=== PATIENT | female | born 1960 | race Caucasian/White ===

== ENCOUNTER 2023-08-25 10:11 | Day surgery (SDC) | payer OTHER ==
[2023-08-24 08:47] VITALS: BMI 21.2
[~2023-08-25 10:11] MED LIST: LACTATED RINGERS 1,000 ML IV SCH
[2023-08-25] MEDS ORDERED: LACTATED RINGERS 1,000 ML IV ONE (10:55)
[2023-08-25] MEDS ORDERED: fentaNYL (PF) 50 MCG/ML 2 ML AMP ONE (11:08)
[2023-08-25] MEDS ORDERED: MIDAZOLAM 2 MG/2 ML VIAL ONE (11:08)
[2023-08-25] MEDS ORDERED: LIDOCAINE 1% INJ 10MG/ML (20 ML MDV) ONE (11:08)
[2023-08-25] MEDS ORDERED: PROPOFOL 10 MG/ML 20 ML VIAL IV ONE (11:08)
[2023-08-25] MEDS ORDERED: SUCCINYLCHOLINE CHLORIDE 200 MG/10 ML VIAL IV ONE (11:08)
--- NOTE | 2023-08-25 12:13 | FL ---
Intraoperative/procedural fluoroscopic services were provided for bronchoscopy with biopsy. Total flu oroscopy time is 4.6 seconds with a total of 1 submitted image to PACS. Total DAP 0.1532 Gycm2. Plea se see the operative note for further details.
[2023-08-25 12:35] VITALS: TEMP 98
[2023-08-25] MEDS ORDERED: ALBUTEROL NEBULIZED 2.5 MG/3 ML INHALATION ONE (12:35)
[2023-08-25] MEDS ORDERED: ACETAMINOPHEN TAB 325 MG TAB PO ONE (12:57)
[2023-08-25] MEDS ORDERED: ACETAMINOPHEN TAB 325 MG TAB ONE (13:03)
[2023-08-25 13:17] VITALS: PULSE 100; RESP 16
[2023-08-25 13:39] VITALS: BP 158/67
--- NOTE | 2023-08-25 14:15 | P.PCN ---
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 The patient was intubated and placed on a mechanical ventilator. After achieving adequate sedation, adequate oxygenation and ventilation was established and an adapter was attached to the orotracheal tube and the procedure was initiated. The flexible bronchoscope was introduced into the lower trachea and the tip of the orotracheal tube was around 3 cm above the kevin. Examination of the distal trachea was within normal limits. Exam of the right side included the right mainstem bronchus, right upper lobe bronchus, bronchus intermedius, right lower lobe and the right middle lobe bronchus and all of these airways were patent. The various 10 segments of the right side were also within normal limits. The bronchoscope was then removed to the left. The left mainstem bronchus was within normal limits. The kevin the left upper and left lower lobe bronchus was involved with endobronchial tumor and the surface was quite friable. There was obvious effacement anatomic distortion of the secondary kevin causing significant narrowing of the left lower lobe bronchus and utilizing a small bronchoscope, I visualized few segments of the left lower lobe bronchus. The lateral segment was obviously significantly narrowed. Left upper lobe bronchus was also narrowed. Patent. The caliber of the left upper lobe bronchus was reduced by 20-30%. The lingular segment of the left upper lobe apical posterior and anterior segments were patent Utilizing the flexible bronchoscope, and the bronchial biopsies of the left hilar mass at the level of the thickened the kevin was obtained. Multiple biopsies were taken. The tumor had some mucosal bleeding and called saline was applied and hemostasis was achieved. Following that, endobronchial brushings and bronchial lavage of the left hilar mass was done. Subsequently, the endobronchial ultrasound was introduced. Under direct ultrasonic visualization, transbronchial needle aspirate of the left hilar mass was done using a 22-gauge needle. Multiple biopsies were obtained. Following that, a 1.57 subcarinal station 7 lymph node was identified. Transbronchial needle aspirate of the subcarinal lymph node was also done and a total of 5 passes were obtained. The flexible bronchoscope was reintroduced and there will was cleared from any respiratory secretions. The procedure was terminated. The bronchoscope was removed and the patient was transferred to recovery in stable condition. No complications.
== END 2023-08-25 13:31 | disposition home or self-care (01) ==
LOC: ORWHC2ENDO 10:11
PROVIDERS: ATTEND Internal Medicine Critical Care Medicine
DX: C34.92 Malignant neoplasm of unspecified part of left bronchus or lung (principal); K21.9 Gastro-esophageal reflux disease without esophagitis; J44.9 Chronic obstructive pulmonary disease, unspecified; E78.5 Hyperlipidemia, unspecified; I10 Essential (primary) hypertension; Z87.891 Personal history of nicotine dependence; Z79.51 Long term (current) use of inhaled steroids; Z79.899 Other long term (current) drug therapy
CPT/HCPCS: 88104; 88108; 88305; 88342; 88341; 31628; 31623; 31624; 31652; J2250; J0330; J2001; J3010; J2704

== ENCOUNTER → 2023-09-11 | Outpatient (CLI) | payer OTHER ==
--- NOTE | 2023-09-11 21:10 | MR ---
EXAMINATION TYPE: MR brain wo/w con DATE OF EXAM: 09/11/2023 8:58 PM CLINICAL INDICATION:Female, 62 years old with history of C34.90; PHH, Lung cancer COMPARISON: Pet/CT 08/11/2023 TECHNIQUE: Multi planar, multi sequence imaging was performed through the brain including: T1, T2, In version recovery, susceptibility weighted imaging and gradient echo imaging and Diffusion weighted im aging. The patient was then given intravenous contrast and multi planar, T1 fat-saturation images wer e obtained. IV Contrast: 5.5 cc Gadavist FINDINGS: The montez-white junctions, ventricular system, basal cisterns appear unremarkable. Diffusion-weighted imaging shows no evidence of restricted diffusion to suggest acute/subacute infarct. Intracranial ar terial flow voids are maintained. Midline structures show no abnormality. Minimal scattered foci of h igh T2 signal intensity are seen within the periventricular white matter. The susceptibility weighted images do not reveal any evidence for micro-hemorrhage. After administration of gadolinium, no abnor mal enhancement is seen. The bone marrow signal is within normal limits. Paranasal sinuses and mastoid air cells: No significant paranasal sinus disease. Visualized orbits: Orbital contents are intact. IMPRESSION: 1. No evidence of intracranial mass, acute/subacute infarct, or abnormal enhancement. 2. Minimal nonspecific white matter changes, likely related to small vessel ischemic disease.
== END | disposition home or self-care (01) ==
LOC: RADMRIMAIN 19:28
PROVIDERS: ATTEND Internal Medicine Hematology & Oncology
DX: C34.90 Malignant neoplasm of unspecified part of unspecified bronchus or lung (principal); G93.89 Other specified disorders of brain
CPT/HCPCS: 70553; A9585

== ENCOUNTER 2024-04-25 14:23 | Inpatient (IN) | payer OTHER ==
[2024-04-25 15:20] LABS: Basophils % (A) 1 %; Eosinophils # (A) 0.2 k/uL (0-0.7); Eosinophils % (A) 2 %; HGB 14.6 gm/dL (11.4-16.0); Lymphocytes % (A) 13 %; MCH 31.1 pg (25.0-35.0); MCHC 31.8 g/dL (31.0-37.0); MCV 97.7 fL (80.0-100.0); Mean Platelet Volume 6.5; Monocytes # (A) 0.3 k/uL (0-1.0); Monocytes % (A) 4 %; Neutrophils # (A) 6.1 k/uL (1.3-7.7); Neutrophils % (A) 80 %; Platelet Count 320 k/uL (150-450); RBC 4.71 m/uL (3.80-5.40); RDW 15.9 % (11.5-15.5); WBC 7.6 k/uL (3.8-10.6)
[2024-04-25 15:32] LABS: ALT 43 U/L (4-34); AST 27 U/L (14-36); African American GFR (CKD) >90 (>60 ml/min/1.73 sqM); Albumin 4.2 g/dL (3.5-5.0); Alkaline Phosphatase 50 U/L (38-126); Amylase 50 U/L (30-110); Anion Gap 7 mmol/L; Blood Urea Nitrogen 5 mg/dL (7-17); Calcium 8.5 mg/dL (8.4-10.2); Carbon Dioxide 25 mmol/L (22-30); Chloride 102 mmol/L (98-107); Glucose 87 mg/dL (74-99); Lipase 39 U/L (23-300); Non-African American GFR(CKD) >90 (>60 ml/min/1.73 sqM); Sodium 134 mmol/L (137-145); Total Bilirubin 0.6 mg/dL (0.2-1.3); Total Protein 6.6 g/dL (6.3-8.2)
[2024-04-25 15:34] LABS: Potassium 4.1 mmol/L (3.5-5.1)
--- NOTE | 2024-04-25 15:49 | ED ---
Abdominal Pain HPI - General Chief Complaint: Abdominal Pain Stated Complaint: SOB, abd pain Time Seen by Provider: 04/25/24 15:23 Source: patient, RN notes reviewed Mode of arrival: ambulatory Limitations: no limitations - History of Present Illness Initial Comments: This is a 63-year-old female who presents to the emergency department for abdominal pain. States that for over a month now she has had severe pain in the upper abdominal region with radiation into the back. Reports associated nausea as well. States that she feels two "hard balls" or "knots" in her upper abdomen, especially when she stands up. She was at [facility] 1.5 weeks ago and had an ultrasound and CAT scan that she states was normal. She followed up with Dr. Liao, GI, yesterday and was told that she was likely constipated. States that she tried multiple medications at this point and does not believe that she is constipated. She is concerned about something else going on that has not yet been diagnosed. MD Complaint: abdominal pain - Related Data Home Medications Medication Instructions Recorded Confirmed ALPRAZolam [Xanax] 0.25 mg PO DAILY PRN 04/25/24 04/25/24 ALPRAZolam [Xanax] 0.25 mg PO HS 04/25/24 04/25/24 Atorvastatin [Lipitor] 20 mg PO HS 04/25/24 04/25/24 Buprenorphine [Butrans 15 MCG/HR] 1 patch TRANSDERM TH 04/25/24 04/25/24 Dicyclomine [Bentyl] 20 mg PO TID PRN 04/25/24 04/25/24 Diltiazem Cd [Cardizem CD] 240 mg PO HS 04/25/24 04/25/24 Fluticasone/Umeclidin/Vilanter 1 puff INHALATION RT-DAILY 04/25/24 04/25/24 [Trelegy Ellipta 100-62.5-25] Gabapentin 300 mg PO QID 04/25/24 04/25/24 Levothyroxine Sodium [Synthroid] 75 mcg PO DAILY 04/25/24 04/25/24 Nitrofurantoin Monohyd/M-Cryst 100 mg PO Q12HR 04/25/24 04/25/24 [Macrobid] Pantoprazole [Protonix] 40 mg PO BID 04/25/24 04/25/24 Potassium Chloride [Klor-Con M10] 10 meq PO DAILY 04/25/24 04/25/24 QUEtiapine FUMARATE [SEROquel] 200 mg PO HS 04/25/24 04/25/24 Simethicone [Gas-X] 125 mg PO TID PRN 04/25/24 04/25/24 Triamterene/Hydrochlorothiazid 1 tab PO DAILY 04/25/24 04/25/24 [Triamterene-Hctz 75-50 mg Tab] oxyCODONE-APAP 5-325MG [Percocet 1 tab PO QID PRN 04/25/24 04/25/24 5-325 mg] Allergies Allergy/AdvReac Type Severity Reaction Status Date / Time No Known Allergies Allergy Verified 04/25/24 17:53 Review of Systems ROS Statement: Those systems with pertinent positive or pertinent negative responses have been documented in the HPI. ROS Other: All systems not noted in ROS Statement are negative. Past Medical History Past Medical History: Cancer, Hyperlipidemia, Hypertension Additional Past Medical History / Comment(s): Wheezing, edema both lower legs lung cancer History of Any Multi-Drug Resistant Organisms: None Reported Past Surgical History: No Surgical Hx Reported Additional Past Surgical History / Comment(s): Colonoscopy Additional Past Anesthesia/Blood Transfusion Reaction / Comment(s): Sedation only for Colonoscopy. Past Psychological History: No Psychological Hx Reported Smoking Status: Current every day smoker - Past Family History Mother Family Medical History: Cancer General Exam Limitations: no limitations General appearance: alert, in no apparent distress Head exam: Present: atraumatic, normocephalic, normal inspection Respiratory exam: Present: normal lung sounds bilaterally. Absent: respiratory distress, wheezes, rales, rhonchi, stridor Cardiovascular Exam: Present: regular rate, normal rhythm, normal heart sounds. Absent: systolic murmur, diastolic murmur, rubs, gallop, clicks GI/Abdominal exam: Present: soft, tenderness (Epigastric), normal bowel sounds. Absent: distended Neurological exam: Present: alert, oriented X3, CN II-XII intact Psychiatric exam: Present: normal affect, normal mood Skin exam: Present: warm, dry, intact, normal color. Absent: rash Course Vital Signs 04/25/24 04/25/24 04/25/24 14:44 16:00 18:20 Temperature 98.4 F Pulse Rate 83 62 58 L Respiratory 20 18 18 Rate Blood Pressure 159/92 181/93 172/87 O2 Sat by Pulse 96 96 95 Oximetry Medical Decision Making - Medical Decision Making This is a 63 year old female who presents to the emergency department for abdominal pain. Was pt. sent in by a medical professional or institution? @ -No Did you speak to anyone other than the patient for history? @ -No Did you review nursing and triage notes? @ -Yes, and I agree, it is accurate with regards to the patient's symptoms. Were old charts reviewed? @ -No Differential Diagnosis? @ -Differential Abdominal Pain Women: Appendicitis, Cholecystitis, diverticulosis, ischemic bowel, pancreatitis, hepatitis, UTI, gastroenteritis, AAA, incarcerated hernia, bowel obstruction, constipation, inflammatory bowel, hepatitis, peptic ulcer disease, splenic infarction, perforated viscus, vulvitis, ovarian torsion, PID, kidney stone, placenta abruption, this is not meant to be an all-inclusive list EKG interpreted by me (3pts min.)? @ -EKG interpreted by me demonstrating the following: X-rays interpreted by me (1pt min.)? @ -Not obtained CT interpreted by me (1pt min.)? @ -CT scan of the abdomen and pelvis obtained. My interpretation identifies fluid-filled small bowel loops. U/S interpreted by me (1pt. min.)? @ -Not obtained What testing was considered but not performed? (CT, X-rays, U/S, labs)? Why? @ -None What meds were considered but not given? Why? @ -None Did you discuss the management of the patient with other professionals? @ -Yes, Dr. Whittington, who accepts the patient for admission. Did you reconcile home meds? @ -Yes Was smoking cessation discussed for >3mins.? @ -No Was critical care preformed (if so, how long)? @ -No Were there social determinants of health that impacted care today? How? (Homelessness, low income, unemployed, alcoholism, drug addiction, transportation, low edu. Level, literacy, decrease access to med. care, skilled nursing, rehab)? @ -No Was there de-escalation of care discussed even if they declined? (Discuss DNR or withdrawal of care, Hospice)? @ -No What co-morbidities impacted this encounter? (DM, HTN, Smoking, COPD, CAD, Cancer, CVA, Hep., AIDS, mental health diagnosis, sleep apnea, morbid obesity)? @ -HLD, HTN Was patient admitted / discharged? @ -Admitted. Lab work unremarkable. CT scan of the abdomen and pelvis demonstrates numerous fluid-filled small bowel loops throughout the abdomen and pelvis. Some dilated up to 3.2 cm. There is also liquid stool throughout the colon. They advised consideration of a generalized ileus versus enteritis. She also has other multiple incidental findings such as the COPD with moderate to advanced emphysema and potential posttreatment changes. She also has a small pericardial effusion and prominent dependent atelectasis. Suspect that the generalized ileus is what is contributing to the patient's symptoms. She continued to have severe pain despite multiple pain medications in the emergency department. She was subsequently admitted to medicine for further management of intractable abdominal pain related to ileus. Consult placed for general surgery. Undiagnosed new problem with uncertain prognosis? @ -None Drug Therapy requiring intensive monitoring for toxicity (Heparin, Nitro, Insulin, Cardizem)? @ -None Were any procedures done? @ -None Diagnosis/symptom? @ -Intractable abdominal pain, ileus Acute, or Chronic, or Acute on Chronic? @ -Acute Uncomplicated (without systemic symptoms) or Complicated (systemic symptoms)? @ -Uncomplicated Side effects of treatment? @ -None Exacerbation, Progression, or Severe Exacerbation] @ -Not applicable Poses a threat to life or bodily function? @ -Yes, the pain is limiting her ability to function. This case was discussed in detail with the attending ED physician, Dr. Ontiveros. Presentation, findings, and treatment plan discussed in detail as well. - Lab Data Result diagrams: 04/25/24 14:49 04/25/24 14:49 Lab Results 04/25/24 04/25/24 04/25/24 Range/Units 14:49 14:49 14:50 WBC 7.6 (3.8-10.6) k/uL RBC 4.71 (3.80-5.40) m/uL Hgb 14.6 (11.4-16.0) gm/dL Hct 46.0 (34.0-46.0) % MCV 97.7 (80.0-100.0) fL MCH 31.1 (25.0-35.0) pg MCHC 31.8 (31.0-37.0) g/dL RDW 15.9 H (11.5-15.5) % Plt Count 320 (150-450) k/uL MPV 6.5 Neutrophils % 80 % Lymphocytes % 13 % Monocytes % 4 % Eosinophils % 2 % Basophils % 1 % Neutrophils # 6.1 (1.3-7.7) k/uL Lymphocytes # 1.0 (1.0-4.8) k/uL Monocytes # 0.3 (0-1.0) k/uL Eosinophils # 0.2 (0-0.7) k/uL Basophils # 0.0 (0-0.2) k/uL Sodium 134 L (137-145) mmol/L Potassium 4.1 (3.5-5.1) mmol/L Chloride 102 (98-107) mmol/L Carbon Dioxide 25 (22-30) mmol/L Anion Gap 7 mmol/L BUN 5 L (7-17) mg/dL Creatinine 0.63 (0.52-1.04) mg/dL Est GFR (CKD-EPI)AfAm >90 (>60 ml/min/1.73 sqM) Est GFR (CKD-EPI)NonAf >90 (>60 ml/min/1.73 sqM) Glucose 87 (74-99) mg/dL Calcium 8.5 (8.4-10.2) mg/dL Total Bilirubin 0.6 (0.2-1.3) mg/dL AST 27 (14-36) U/L ALT 43 H (4-34) U/L Alkaline Phosphatase 50 (38-126) U/L Troponin I <0.012 (0.000-0.034) ng/mL Total Protein 6.6 (6.3-8.2) g/dL Albumin 4.2 (3.5-5.0) g/dL Amylase 50 (30-110) U/L Lipase 39 (23-300) U/L - Radiology Data Radiology results: report reviewed, image reviewed Disposition Clinical Impression: Intractable abdominal pain, Ileus Disposition: ADMITTED IP TO THIS HOSP
--- NOTE | 2024-04-25 17:05 | CT ---
EXAMINATION TYPE: CT ChestAbdPelvis w con DATE OF EXAM: 04/25/2024 COMPARISON: PET/CT 08/11/2023 HISTORY: 63-year-old female abdominal pain, rib pain. History of lung ca. TECHNIQUE: Contiguous axial scanning of the chest, abdomen, and pelvis performed with IV Contrast, pa tient injected with 100 ml mL of Isovue 300. Delayed images through the kidneys were obtained. Prakash l/sagittal reconstructions performed. CT DLP: 650.7 mGycm Automated exposure control for dose reduction was used. FINDINGS: Chest: Heart is borderline enlarged. 1.1 cm thick pericardial effusion along the left side of the heart. Aorta normal caliber and convex arch vessel branching anatomy and mild atelectatic calcifications. 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 Scattered small mediastinal lymph nodes are redemonstrated. Some mild soft tissue thickening at the left hilum and focal opacity extending from the posterior inf rahilar region to the pleural surface posteriorly. Left lower lobe. A more mass like appearance on . There is internal areas of fluid along with trace left pleural effusion. Moderately advanced emphysema. Prominent dependent atelectasis at the right base. ABDOMEN: No focal liver lesion or biliary ductal dilatation. Portal venous. Gallbladder, adrenal glands, spleen, and pancreas are within normal limits. A couple benign renal cortical cysts measuring up to 2.2 cm on the left and 5 mm on the right. Moderate atherosclerotic calcifications and plaque infrarenal abdominal aorta with borderline fusifor m ectasia up to 2.5 cm. Additional moderate atherosclerotic changes throughout the iliac arteries. Se gmental severe stenoses of the external iliac artery. Numerous fluid-filled small bowel loops throughout the abdomen mild dilatation measuring up to 3.2 cm . No discrete transition point. Liquid stool throughout colon. No pericolonic inflammatory change. No rmal appendix. Pelvis: Bladder urine distended. Numerous pelvic phlebolith. Uterus is anteverted. Ovaries not well delineate d. No abnormal fluid collection in the pelvis or pelvic lymphadenopathy. Bones: Mild superior endplate deformity of T11 is unchanged and chronic. No osseous destructive process. IMPRESSION: 1. COPD with moderate to advanced emphysema. Previous masslike opacity left lower lobe extending to t he hilum is smaller and less defined and now contains some fluid density. Suspect posttreatment bolanos e. Some new patchy opacity is present at the posterior left base. Correlate to exclude radiation or i nfectious pneumonitis. Appropriate oncologic follow-up to exclude any residual disease. 2. A small, 1.1 cm thick pericardial effusion along the left side of the heart. Trace left pleural ef fusion. 3. Prominent dependent atelectasis on both sides. 4. Numerous fluid-filled small bowel loops throughout the abdomen and pelvis. Some loops are dilated up to 3.2 cm. There is also liquid stool throughout the colon. Consider a generalized ileus or enteri tis. 5. Prominent atherosclerotic changes resulting in segmental severe stenoses left external iliac arter y.
[2024-04-25] MEDS ORDERED: ACETAMINOPHEN TAB 325 MG TAB PO PRN (17:50)
[2024-04-25] MEDS ORDERED: NALOXONE 0.4 MG/ML 1 ML VIAL IV PRN (17:50)
[2024-04-25] MEDS ORDERED: ALPRAZolam 0.25 MG TAB PO PRN (18:14)
[2024-04-25] MEDS: HYDROmorphone 1 MG/ML 1 ML SYRINGE IVP STA (18:16)
[2024-04-25] MEDS: SODIUM CHLORIDE 0.9% 1,000 ML IV STA (18:17)
[2024-04-25] MEDS: KETOROLAC 15 MG/ML 1 ML VIAL IVP STA (18:17)
[2024-04-25] MEDS: ONDANSETRON 4 MG/2 ML VIAL IVP STA (18:17)
[2024-04-25] MEDS: METOCLOPRAMIDE 5 MG/ML 2 ML VIAL IVP STA (18:22)
[2024-04-25] MEDS: HYDROmorphone 1 MG/ML 1 ML SYRINGE IVP PRN (18:25)
[2024-04-25] MEDS: HYOSCYAMINE SULFATE 0.125 MG TAB PO STA (18:28)
[2024-04-25 18:57] LABS: Magnesium 2.8 mg/dL (1.6-2.3); Phosphorus 3.5 mg/dL (2.5-4.5)
[2024-04-25 20:03] LABS: Appearance,Urine Clear (Clear); Bacteria,Urine Rare /hpf; Bilirubin,Urine Negative (Negative); Blood,Urine Negative (Negative); Color,Urine Colorless; Glucose,Urine (UA) Negative (Negative); Ketones,Urine Negative (Negative); Leukocyte Esterase,Urine Moderate (Negative); Nitrite,Urine Positive (Negative); PH, Urine 8.5 (5.0-8.0); Protein,Urine Negative (Negative); RBC,Urine 6 /hpf (0-5); Squamous Epithelial Cell,Urine 3 /hpf (0-4); Urobilinogen,Urine <2.0 mg/dL (<2.0); WBC,Urine 17 /hpf (0-5)
[2024-04-25 20:08] LABS: Specific Gravity,Urine >1.050 (1.001-1.035)
[2024-04-25] MEDS: IPRATROPIUM 0.5 MG/2.5 ML NEBU INHALATION SCH (20:33)
[2024-04-25] MEDS: BUPRENORPHINE TRANSDERM SCH (21:21)
[2024-04-25] MEDS: ALPRAZolam 0.25 MG TAB PO SCH (21:47)
[2024-04-25] MEDS: DILTIAZEM CD 240 MG CAP.ER.24H PO SCH (21:47)
[2024-04-25] MEDS: NITROFURANTOIN MONOHYD/M-CRYST 100 MG CAP PO SCH (21:47)
[2024-04-25] MEDS: PANTOPRAZOLE 40 MG TABLET PO SCH (21:47)
[2024-04-25] MEDS: ONDANSETRON 4 MG/2 ML VIAL IVP PRN (21:48)
[2024-04-25] MEDS: QUEtiapine 200 MG TAB PO SCH (21:48)
[2024-04-25] MEDS: GABAPENTIN 300 MG CAP PO SCH (21:48)
[2024-04-25] MEDS: DICYCLOMINE 20 MG TAB PO PRN (21:48)
[2024-04-25] MEDS: ATORVASTATIN 20 MG TAB PO SCH (21:49)
[2024-04-26] MEDS: KETOROLAC 15 MG/ML 1 ML VIAL IVP PRN (01:55)
[2024-04-26] MEDS: PANTOPRAZOLE 40 MG/10 ML VIAL IV SCH (08:04)
[2024-04-26] MEDS: TRIAMTERENE-HCTZ 75-50MG 1 EACH TAB PO SCH (08:04)
[2024-04-26] MEDS: LEVOTHYROXINE 75 MCG TAB PO SCH (08:04)
[2024-04-26] MEDS: POTASSIUM CHLORIDE ER 10 MEQ TAB.ER.PRT PO SCH (08:04)
[2024-04-26] MEDS: SYMBICORT 80-4.5 MCG INHALER INHALATION SCH (09:22)
--- NOTE | 2024-04-26 13:33 | P.GSCN ---
History of Present Illness Consult date: 04/26/24 Reason for Consult: Abdominal pain History of present illness: 63-year-old female presents to the ER with abdominal pain. States symptoms have been going on for the last 1 month. She has been to [facility] in [place] and also [facility]. [place] was 1.5 weeks ago and [facility] was about a month ago. She thinks they performed CAT scans there. She says they did not find her problem and that is why she left. She had a colonoscopy she states 1 year ago at [facility]. Describes her pain as being in the upper abdomen. Describes increased swelling there. Worse when standing. Some nausea at times. Pain is nonradiating. Has seen GI in the outpatient setting. Patient has tried a variety of different medications for constipation without relief. Patient has history of lung cancer. Review of Systems The patient denies any acute changes in vision or hearing, no dysphagia or odynophagia, no chest pain or shortness of breath, no dysuria or hematuria, no headache, no runny nose, no rectal bleeding or melena, no unexplained weight loss Past Medical History Past Medical History: Cancer, Hyperlipidemia, Hypertension Additional Past Medical History / Comment(s): Wheezing, edema both lower legs l ingrid cancer History of Any Multi-Drug Resistant Organisms: None Reported Past Surgical History: No Surgical Hx Reported Additional Past Surgical History / Comment(s): Colonoscopy Additional Past Anesthesia/Blood Transfusion Reaction / Comm: Sedation only for Colonoscopy. Past Psychological History: No Psychological Hx Reported Smoking Status: Former smoker Past Alcohol Use History: Rare Additional Past Alcohol Use History / Comment(s): use to smokes 6 cigarettes per day. Past Drug Use History: None Reported - Past Family History Mother Family Medical History: Cancer Medications and Allergies Home Medications Medication Instructions Recorded Confirmed Type ALPRAZolam [Xanax] 0.25 mg PO DAILY PRN 04/25/24 04/25/24 History ALPRAZolam [Xanax] 0.25 mg PO HS 04/25/24 04/25/24 History Atorvastatin [Lipitor] 20 mg PO HS 04/25/24 04/25/24 History Buprenorphine [Butrans 15 MCG/HR] 1 patch TRANSDERM TH 04/25/24 04/25/24 History Dicyclomine [Bentyl] 20 mg PO TID PRN 04/25/24 04/25/24 History Diltiazem Cd [Cardizem CD] 240 mg PO HS 04/25/24 04/25/24 History Fluticasone/Umeclidin/Vilanter 1 puff INHALATION RT-DAILY 04/25/24 04/25/24 History [Trelegy Ellipta 100-62.5-25] Gabapentin 300 mg PO QID 04/25/24 04/25/24 History Levothyroxine Sodium [Synthroid] 75 mcg PO DAILY 04/25/24 04/25/24 History Nitrofurantoin Monohyd/M-Cryst 100 mg PO Q12HR 04/25/24 04/25/24 History [Macrobid] Pantoprazole [Protonix] 40 mg PO BID 04/25/24 04/25/24 History Potassium Chloride [Klor-Con M10] 10 meq PO DAILY 04/25/24 04/25/24 History QUEtiapine FUMARATE [SEROquel] 200 mg PO HS 04/25/24 04/25/24 History Simethicone [Gas-X] 125 mg PO TID PRN 04/25/24 04/25/24 History Triamterene/Hydrochlorothiazid 1 tab PO DAILY 04/25/24 04/25/24 History [Triamterene-Hctz 75-50 mg Tab] oxyCODONE-APAP 5-325MG [Percocet 1 tab PO QID PRN 04/25/24 04/25/24 History 5-325 mg] Allergies Allergy/AdvReac Type Severity Reaction Status Date / Time No Known Allergies Allergy Verified 04/25/24 17:53 Surgical - Exam Vital Signs Temp Pulse Resp BP Pulse Ox 98.4 F 83 20 159/92 96 04/25/24 14:44 04/25/24 14:44 04/25/24 14:44 04/25/24 14:44 04/25/24 14:44 Physical exam: General: Well-developed, well-nourished HEENT: Normocephalic, sclerae nonicteric Abdomen: Mild tenderness, mild distention Extremities: No edema Neuro: Alert and oriented Results - Labs 04/25/24 14:49 04/25/24 14:49 Abnormal Lab Results - Last 24 Hours (Table) 04/25/24 04/25/2404/25/24 Range/Units 14:49 14:49 14:49 RDW 15.9 H (11.5-15.5) % Sodium 134 L (137-145) mmol/L BUN 5 L (7-17) mg/dL Magnesium 2.8 H (1.6-2.3) mg/dL ALT 43 H (4-34) U/L Urine pH (5.0-8.0) Ur Specific [place] (1.001-1.035) Urine Nitrite (Negative) Ur Leukocyte Esterase (Negative) Urine RBC (0-5) /hpf Urine WBC (0-5) /hpf Urine Bacteria (None) /hpf 04/25/24 Range/Units 19:38 RDW (11.5-15.5) % Sodium (137-145) mmol/L BUN (7-17) mg/dL Magnesium (1.6-2.3) mg/dL ALT (4-34) U/L Urine pH 8.5 H (5.0-8.0) Ur Specific [place] >1.050 H (1.001-1.035) Urine Nitrite Positive H (Negative) Ur Leukocyte Esterase Moderate H (Negative) Urine RBC 6 H (0-5) /hpf Urine WBC 17 H (0-5) /hpf Urine Bacteria Rare H (None) /hpf Diabetes panel 04/25/24 Range/Units 14:49 Sodium 134 L (137-145) mmol/L Potassium 4.1 (3.5-5.1) mmol/L Chloride 102 (98-107) mmol/L Carbon Dioxide 25 (22-30) mmol/L BUN 5 L (7-17) mg/dL Creatinine 0.63 (0.52-1.04) mg/dL Glucose 87 (74-99) mg/dL Calcium 8.5 (8.4-10.2) mg/dL AST 27 (14-36) U/L ALT 43 H (4-34) U/L Alkaline Phosphatase 50 (38-126) U/L Total Protein 6.6 (6.3-8.2) g/dL Albumin 4.2 (3.5-5.0) g/dL Calcium panel 04/25/24 04/25/24 Range/Units 14:49 14:49 Calcium 8.5 (8.4-10.2) mg/dL Phosphorus 3.5 (2.5-4.5) mg/dL Albumin 4.2 (3.5-5.0) g/dL Pituitary panel 04/25/24 Range/Units 14:49 Sodium 134 L (137-145) mmol/L Potassium 4.1 (3.5-5.1) mmol/L Chloride 102 (98-107) mmol/L Carbon Dioxide 25 (22-30) mmol/L BUN 5 L (7-17) mg/dL Creatinine 0.63 (0.52-1.04) mg/dL Glucose 87 (74-99) mg/dL Calcium 8.5 (8.4-10.2) mg/dL Adrenal panel 04/25/24 Range/Units 14:49 Sodium 134 L (137-145) mmol/L Potassium 4.1 (3.5-5.1) mmol/L Chloride 102 (98-107) mmol/L Carbon Dioxide 25 (22-30) mmol/L BUN 5 L (7-17) mg/dL Creatinine 0.63 (0.52-1.04) mg/dL Glucose 87 (74-99) mg/dL Calcium 8.5 (8.4-10.2) mg/dL Total Bilirubin 0.6 (0.2-1.3) mg/dL AST 27 (14-36) U/L ALT 43 H (4-34) U/L Alkaline Phosphatase 50 (38-126) U/L Total Protein 6.6 (6.3-8.2) g/dL Albumin 4.2 (3.5-5.0) g/dL Assessment and Plan (1) Intractable abdominal pain Narrative/Plan: 63-year-old female with epigastric abdominal pain. Etiology unclear. Unclear whether she underwent any recent endoscopic evaluation at 2 recent hospitalizations. The medical documentation from 2 recent hospital stays also not available to us at this time. CAT scan chest abdomen pelvis reviewed. Mild small bowel dilation. No definite obstruction seen. White blood cell count is normal. No obvious infectious issues currently. Resume liquid diet. Will order MRI enterography to evaluate for any small bowel pathology at this time. Current Visit: Yes Status: Acute Code(s): R10.9 - UNSPECIFIED ABDOMINAL PAIN SNOMED Code(s): 37581523
[2024-04-26 14:14] VITALS: BMI 20.5
--- NOTE | 2024-04-26 14:42 | XR ---
EXAMINATION TYPE: XR abdomen acute w cxr DATE OF EXAM: 04/26/2024 2:38 PM CLINICAL INDICATION:Female, 63 years old with history of ileus; COMPARISON: None. TECHNIQUE: Two radiographic views of the abdomen (upright and supine) and a frontal chest radiograph were obtained. FINDINGS CHEST: Lungs/Pleura: The lungs are clear. There is no evidence of pleural effusion, focal consolidation or p neumothorax. Mediastinum: Unremarkable. Vasculature: Normal. Heart: The heart is mildly enlarged for size. Musculoskeletal: The osseous structures are intact. Other findings: No significant. FINDINGS ABDOMEN: Bowel gas pattern: Gaseous dilation of bowel throughout the abdomen. Abnormal calcifications: None. Musculoskeletal: Normal. Other: None. IMPRESSION: 1. Gaseous dilation of bowel throughout the abdomen which appears increased from prior CT 04/25/2024 when given differences in technique. 2. No acute cardiopulmonary process
[2024-04-26] MEDS: SIMETHICONE 80 MG CHEWABLE PO PRN (14:51)
--- NOTE | 2024-04-26 23:25 | HP ---
HISTORY AND PHYSICAL CHIEF COMPLAINT: Abdominal pain and some shortness of breath. HISTORY OF PRESENT ILLNESS: This is a 63-year-old woman with a past medical history of multiple medical problems including hypertension, hyperlipidemia, being followed by Dr. Frausto in the outpatient setting complaining of abdominal pain on and off for some time. The pain was mostly in the upper abdomen, radiation to the back. The patient is evaluated by Noé Lindquist and the patient was also seen by Dr. Liao, constipation versus ileus is also considered as a possibility. A CAT scan of the abdomen, pelvis, and chest showed COPD with emphysema as well as multiple fluid-filled loops in the small bowel noted, and the patient is being evaluated by surgery also. UA as there is possibility of possible UTI also. There is no history of any fever, rigors, or chills at this time. PAST MEDICAL HISTORY: History of hypertension, hyperlipidemia, rest of the history and rest of the chart is also reviewed. HOME MEDICATIONS: Reviewed include levothyroxine, dose and rest of medications noted. PHYSICAL EXAMINATION: VITAL SIGNS: Pulse is 61, blood pressure 130/70, respirations 18. HEENT: Conjunctivae normal. NECK: No jugular venous distention. RESPIRATIONS: Diminished at the bases and few scattered rhonchi. ABDOMEN: Soft, mild diffuse distention, especially in the upper part. Nontender, no masses palpable. Bowel sounds diminished. LEGS: No edema, no swelling. NERVOUS SYSTEM: Nonfocal. LABORATORY DATA: Reviewed. ASSESSMENT: 1. Abdominal pain, distention, possibly small-bowel ileus. 2. Possible acute UTI. 3. Chronic obstructive pulmonary disease. 4. Hypertension. 5. Hyperlipidemia. 6. Multiple complex medical issues. RECOMMENDATIONS AND DISCUSSION: This 63-year-old woman presented with multiple complex medical issues, we will monitor the patient closely, treat the patient symptomatically. Empiric antibiotics for possible UTI. Obtain the cultures. I would also recommend resume the home medications. DVT prophylaxis. Prognosis guarded. Further recommendations to follow. See orders for details. MMODL / IJN: [id number] /
[2024-04-27 08:13] LABS: Basophils % (A) 0 %; Eosinophils # (A) 0.2 k/uL (0-0.7); Eosinophils % (A) 3 %; HCT 41.1 % (34.0-46.0); HGB 12.8 gm/dL (11.4-16.0); Hypochromasia Moderate; Lymphocytes # (A) 0.9 k/uL (1.0-4.8); Lymphocytes % (A) 14 %; MCH 31.9 pg (25.0-35.0); MCHC 31.1 g/dL (31.0-37.0); MCV 102.6 fL (80.0-100.0); Macrocytosis Slight; Mean Platelet Volume 7.3; Monocytes # (A) 0.4 k/uL (0-1.0); Monocytes % (A) 6 %; Neutrophils % (A) 76 %; Platelet Count 226 k/uL (150-450); RBC 4.01 m/uL (3.80-5.40); RDW 15.4 % (11.5-15.5); WBC 6.5 k/uL (3.8-10.6)
[2024-04-27 09:39] LABS: ALT 23 U/L (8-44); AST 12 U/L (13-35); Albumin 3.5 g/dL (3.8-4.9); Albumin/Globulin Ratio 1.94 Ratio (1.60-3.17); Alkaline Phosphatase 49 U/L (41-126); Blood Urea Nitrogen 4.4 mg/dL (9.0-27.0); Calcium 8.3 mg/dL (8.7-10.3); Carbon Dioxide 20.8 mmol/L (21.6-31.8); Chloride 102 mmol/L (96-109); Globulin 1.8 g/dL (1.6-3.3); Glucose 94 mg/dL (70-110); Potassium 3.8 mmol/L (3.5-5.5); Sodium 132 mmol/L (135-145); Total Bilirubin 0.5 mg/dL (0.3-1.2); Total Protein 5.3 g/dL (6.2-8.2)
--- NOTE | 2024-04-27 17:18 | XR ---
EXAMINATION TYPE: XR chest 1V portable DATE OF EXAM: 04/27/2024 Comparison: CT chest 04/25/2024 Clinical History: 63-year-old female copd Findings: Heart upper limits of normal in size. Patchy bilateral lower lung opacities. No pleural effusion. Impression: Patchy infiltrates in the bilateral lower lungs.
--- NOTE | 2024-04-27 21:45 | P.PN ---
Subjective Patient seen and evaluated at bedside. Patient admits to persistent epigastric abdominal pain, admits to nausea, denies fevers, chills, shortness of breath or chest pain. Objective - Vital Signs Vital signs: Vital Signs Temp 97.2 F L 04/27/24 19:17 Pulse 65 04/27/24 19:17 Resp 19 04/27/24 19:17 BP 166/74 04/27/24 19:17 Pulse Ox 96 04/27/24 19:17 FiO2 Intake & Output 04/27/24 04/27/24 04/28/24 06:59 18:59 06:59 Other: Voiding Method Toilet # Voids 2 3 - Exam gen: nad cv: rrr pul; non labored breathing abd: soft, min distended, non tender to palpation, no guarding or rebound tenderness - Labs CBC & Chem 7: 04/27/24 06:19 04/27/24 06:19 Labs: Abnormal Lab Results - Last 24 Hours (Table) 04/27/24 04/27/24 Range/Units 06:19 06:19 MCV 102.6 H (80.0-100.0) fL Lymphocytes # 0.9 L (1.0-4.8) k/uL Sodium 132 L (135-145) mmol/L Carbon Dioxide 20.8 L (21.6-31.8) mmol/L BUN 4.4 L (9.0-27.0) mg/dL BUN/Creatinine Ratio 5.50 L (12.00-20.00) Ratio Calcium 8.3 L (8.7-10.3) mg/dL AST 12 L (13-35) U/L Total Protein 5.3 L (6.2-8.2) g/dL Albumin 3.5 L (3.8-4.9) g/dL Microbiology - Last 24 Hours (Table) 04/26/24 07:18 Blood Culture - Preliminary Blood 04/26/24 07:18 Blood Culture - Preliminary Blood Assessment and Plan Assessment: 63 yo female w/ non specific abdominal pain c/o intermittent diarrhea/constipation MR enterography ordered could be 2/2 medication induced Time with Patient: Greater than 30
--- NOTE | 2024-04-28 01:51 | PN ---
PROGRESS NOTE DATE OF SERVICE: 04/27/2024 SUBJECTIVE: This 63-year-old woman was admitted with abdominal pain and distention, has significant dilated bowel loops and acute abdominal series. Surgery is following the patient closely. distention is observed throughout the bowels. Sodium is 132. The patient also has some UTI. PAST MEDICAL HISTORY: Reviewed. REVIEW OF SYSTEMS: A 14-point review is negative except as mentioned earlier. CURRENT MEDICATIONS: Reviewed include Rocephin. PHYSICAL EXAMINATION: VITAL SIGNS: Pulse is 51, blood pressure 101/50, respirations 18. CHEST: Clear to auscultation. CARDIOVASCULAR: S1, S2. ABDOMEN: Soft, distended, and upper abdomen is mostly distended. LABORATORY DATA: Reviewed. ASSESSMENT: 1. Abdominal pain and distention, possibly diffuse bowel ileus. 2. Possible acute UTI. 3. COPD. 4. Hypertension. 5. Hyperlipidemia. 6. Multiple complex medical issues. RECOMMENDATIONS: Recommended to continue current management, continue symptomatic treatment. Continue with empiric antibiotics, bronchodilators, pain management. I would also recommend surgical evaluation, possibly NG tube insertion. I will change Protonix to IV repeat labs. Prognosis guarded because of multiple complex medical issues and further recommendations to follow. I would also recommend a chest x-ray as well. MMODL / IJN: [id number] /
[2024-04-28 09:24] LABS: Basophils # (A) 0.02 X 10*3/uL (0.00-0.10); Basophils % (A) 0.4 %; Eosinophils # (A) 0.15 X 10*3/uL (0.04-0.35); Eosinophils % (A) 2.9 %; HCT 38.2 % (37.2-46.3); HGB 12.4 g/dL (12.0-15.0); Lymphocytes # (A) 0.98 X 10*3/uL (0.90-5.00); Lymphocytes % (A) 18.6 %; MCH 31.4 pg (27.0-32.0); MCHC 32.5 g/dL (32.0-37.0); MCV 96.7 FL (80.0-97.0); Mean Platelet Volume 9.1 FL (9.5-12.2); Monocytes # (A) 0.49 X 10*3/uL (0.20-1.00); Monocytes % (A) 9.3 %; NRBC Per 100 WBC 0 X 10*3/uL (0.00-0.01); Neutrophils # (A) 3.59 X 10*3/uL (1.80-7.70); Neutrophils % (A) 68.2 %; Platelet Count 213 X 10*3/uL (140-440); RBC 3.95 X 10*6/uL (4.10-5.20); RDW 15.6 % (11.5-14.5); WBC 5.26 X 10*3/uL (4.50-10.00)
[2024-04-28 10:31] LABS: ALT 19 U/L (8-44); AST 12 U/L (13-35); Albumin 3.6 g/dL (3.8-4.9); Alkaline Phosphatase 57 U/L (41-126); BUN/Creat Ratio <5.00 Ratio (12.00-20.00); Blood Urea Nitrogen <3.5 mg/dL (9.0-27.0); Calcium 8.8 mg/dL (8.7-10.3); Carbon Dioxide 22.1 mmol/L (21.6-31.8); Chloride 96 mmol/L (96-109); Globulin 1.5 g/dL (1.6-3.3); Glucose 93 mg/dL (70-110); Potassium 4.1 mmol/L (3.5-5.5); Sodium 129 mmol/L (135-145); Total Bilirubin 0.4 mg/dL (0.3-1.2); Total Protein 5.1 g/dL (6.2-8.2)
[2024-04-28] MEDS: HEPARIN SODIUM,PORCINE 5,000 UNIT/ML 1 ML VIAL SQ SCH (13:29)
--- NOTE | 2024-04-28 14:07 | P.PN ---
Subjective Progress Note Date: 04/28/24 Principal diagnosis: Abdominal pain Patient says she feels better than when she first came into the hospital. Mild epigastric pain. Still hurts with movement at times. Old labs and vital signs look fairly normal. MRI for MR enterography apparently scheduled for tomorrow. Tolerating liquids. Objective - Vital Signs Vital signs: Vital Signs Temp 98 F 04/28/24 13:15 Pulse 63 04/28/24 13:15 Resp 16 04/28/24 13:15 BP 146/72 04/28/24 13:15 Pulse Ox 96 04/28/24 13:15 FiO2 Intake & Output 04/27/24 04/28/24 04/28/24 18:59 06:59 18:59 Other: Voiding Method Toilet Toilet # Voids 3 3 - Exam Abdomen: Soft, nondistended, mild epigastric tenderness - Labs CBC & Chem 7: 04/28/24 03:40 04/28/24 03:40 Labs: Abnormal Lab Results - Last 24 Hours (Table) 04/28/24 04/28/24 Range/Units 03:40 03:40 RBC 3.95 L (4.10-5.20) X 10*6/uL RDW 15.6 H (11.5-14.5) % MPV 9.1 L (9.5-12.2) FL Sodium 129 L (135-145) mmol/L BUN <3.5 L (9.0-27.0) mg/dL BUN/Creatinine Ratio <5.00 L (12.00-20.00) Ratio AST 12 L (13-35) U/L Total Protein 5.1 L (6.2-8.2) g/dL Albumin 3.6 L (3.8-4.9) g/dL Globulin 1.5 L (1.6-3.3) g/dL Microbiology - Last 24 Hours (Table) 04/26/24 07:18 Blood Culture - Preliminary Blood 04/26/24 07:18 Blood Culture - Preliminary Blood 04/26/24 09:50 Urine Culture - Preliminary Urine,Clean Catch Gram Neg Bacilli Assessment and Plan (1) Intractable abdominal pain Narrative/Plan: Patient doing better today. Await MRI enterography. Etiology of her pain remains unclear. Current Visit: Yes Status: Acute Code(s): R10.9 - UNSPECIFIED ABDOMINAL PAIN SNOMED Code(s): 97372123
[2024-04-28 14:56] LABS: Partial Thromboplastin Time 28.6 sec (22.0-30.0); Prothrombin Time 11.1 sec (10.0-12.5)
[2024-04-28] MEDS: oxyCODONE-APAP 5-325MG 1 EACH TAB PO PRN (21:06)
[2024-04-28] MEDS: polyethylene glycoL 3350 17 GM POWD.PACK PO STA (21:51)
[2024-04-28] MEDS: HYDROmorphone 0.5 MG/0.5 ML SYRINGE IVP PRN (23:52)
--- NOTE | 2024-04-29 03:19 | PN ---
PROGRESS NOTE DATE OF SERVICE: 04/28/2024 SUBJECTIVE: This 63-year-old woman was admitted with abdominal pain and significant ileus. The patient is still complaining of abdominal pain. No chest pain. No palpitation. PHYSICAL EXAMINATION: VITAL SIGNS: Pulse is 68, blood pressure n respirations 16. CARDIOVASCULAR: S1, S2. ABDOMEN: Soft. CHEST: Few scattered rhonchi. ABDOMEN: Soft, diffuse distention present. LEGS: No swelling. NERVOUS SYSTEM: Nonfocal. LABORATORY DATA: Sodium n. Rest of the labs are noted. ASSESSMENT: 1. Abdominal pain and distention, possibly diffuse bowel ileus. 2. Possible bibasilar pneumonia. 3. Possible acute UTI. 4. Chronic obstructive pulmonary disease. 5. Hypertension. 6. Hyperlipidemia. 7. Multiple complex medical issues. RECOMMENDATIONS: I recommend to continue current management, continue symptomatic treatment, otherwise, at this time I would recommend repeat labs. Continue the empiric antibiotics. I would also recommend infectious disease evaluation to rule out the possibility of pneumonia. Guarded prognosis because of multiple complex medical issues. Further recommendations to follow. MMODL / IJN: [id number] / MTDD
--- NOTE | 2024-04-29 07:59 | XR ---
EXAMINATION TYPE: XR abdomen 1V DATE OF EXAM: 04/29/2024 Comparison: CT 04/25/2024 Clinical History: 63-year-old female ileus, flat plate in AM Findings: Gassy colon and small bowel loops throughout. Air extends distally to the rectum. Small bowel loops b orderline distended up to 2.8 cm versus 3.[address] Supine imaging limited for assessment of free a ir. Vascular calcifications in the pelvis. Impression: Gassy bowel loops with some borderline distended small bowel loops up to 2.8 cm similar to slightly i mproved from CT of 04/25/2024. Ongoing generalized ileus suggested.
[2024-04-29 08:40] LABS: Basophils # (A) 0.03 X 10*3/uL (0.00-0.10); Basophils % (A) 0.6 %; Eosinophils # (A) 0.14 X 10*3/uL (0.04-0.35); Eosinophils % (A) 2.7 %; HCT 38.2 % (37.2-46.3); Lymphocytes # (A) 0.91 X 10*3/uL (0.90-5.00); Lymphocytes % (A) 17.5 %; MCH 31.5 pg (27.0-32.0); MCV 92.5 FL (80.0-97.0); Mean Platelet Volume 8.9 FL (9.5-12.2); Monocytes # (A) 0.45 X 10*3/uL (0.20-1.00); Monocytes % (A) 8.7 %; NRBC Per 100 WBC 0 X 10*3/uL (0.00-0.01); Neutrophils # (A) 3.64 X 10*3/uL (1.80-7.70); Neutrophils % (A) 69.9 %; Platelet Count 211 X 10*3/uL (140-440); RBC 4.13 X 10*6/uL (4.10-5.20)
[2024-04-29 09:03] LABS: BUN/Creat Ratio <5.00 Ratio (12.00-20.00); Blood Urea Nitrogen <3.5 mg/dL (9.0-27.0); Calcium 8.7 mg/dL (8.7-10.3); Carbon Dioxide 22.4 mmol/L (21.6-31.8); Chloride 94 mmol/L (96-109); Glucose 98 mg/dL (70-110); Potassium 3.4 mmol/L (3.5-5.5); Sodium 127 mmol/L (135-145)
[2024-04-29] MEDS: GLUCAGON 1 MG/ML VIAL IM STA (12:15)
--- NOTE | 2024-04-29 12:25 | P.PN ---
Subjective Progress Note Date: 04/29/24 CHIEF COMPLAINT: Abdominal pain HISTORY OF PRESENT ILLNESS: Patient reports she is feeling about the same. She continues to have epigastric abdominal pain. She denies any bowel movement for 3 days. She is not having any flatus. Denies any nausea or vomiting. Abdominal x-ray reports gassy bowel loops with some borderline distended small bowel loops up to 2.8 cm similar to slightly improved from CT scan. Ongoing generalized ileus suggested. PHYSICAL EXAM: VITAL SIGNS: Reviewed. GENERAL: Well-developed in no acute distress. ABDOMEN: Distended. Tympanic. Tenderness epigastric area with palpation NEUROLOGIC: Alert and oriented. Cranial nerves II through XII grossly intact. ASSESSMENT: 1. Epigastric abdominal pain 2. Abdominal ileus PLAN: -Patient scheduled for MRI enterography today -Continue clear liquid diet -Encourage patient to ambulate -Further recommendations forthcoming per surgeon Physician Information Technology Administrator note has been reviewed by physician. Signing provider agrees with the documented findings, assessment, and plan of care. I have personally seen and examined the patient, reviewed the BOW MACHINE OPERATOR /PAs history, exam and MDM and agree with the assessment and plan as written. Based on total visit time, I have performed more than 50% of the visit. As above: MRI results noted. No definite abnormality present. Advance diet as tolerated. Will sign off. Recommend follow-up with GI as outpatient. Objective - Vital Signs Vital signs: Vital Signs Temp 97.9 F 04/29/24 07:46 Pulse 92 04/29/24 07:46 Resp 18 04/29/24 07:46 BP 124/86 04/29/24 07:46 Pulse Ox 96 04/29/24 07:46 FiO2 Intake & Output 04/28/24 04/29/24 04/29/24 18:59 06:59 18:59 Other: Voiding Method Toilet Toilet # Voids 3 3 - Labs CBC & Chem 7: 04/29/24 04:55 04/29/24 04:55 Labs: Abnormal Lab Results - Last 24 Hours (Table) 04/29/24 04/29/24 Range/Units 04:55 04:55 RDW 15.0 H (11.5-14.5) % MPV 8.9 L (9.5-12.2) FL Sodium 127 L (135-145) mmol/L Potassium 3.4 L (3.5-5.5) mmol/L Chloride 94 L (96-109) mmol/L BUN <3.5 L (9.0-27.0) mg/dL BUN/Creatinine Ratio <5.00 L (12.00-20.00) Ratio Microbiology - Last 24 Hours (Table) 04/26/24 09:50 Urine Culture - Final Urine,Clean Catch Proteus penneri 04/26/24 07:18 Blood Culture - Preliminary Blood 04/26/24 07:18 Blood Culture - Preliminary Blood
--- NOTE | 2024-04-29 14:24 | MR ---
EXAMINATION TYPE: MR Enterography DATE OF EXAM: 04/29/2024 12:51 PM COMPARISON: 04/25/2024 CLINICAL INDICATION: Female 63 years old with a history of Abdominal pain, distended small bowel. Ab domen pain TECHNIQUE: Standard multiplanar, multisequence imaging of the abdomen is performed without and with I V contrast, patient is injected with 1350 mL intravenous Gadavist gadolinium contrast. Oral NeuLumEX was given as per enterography protocol. FINDINGS: LOWER CHEST: No significant findings. ABDOMEN Bowel: The small bowel distention is inadequate proximally. No definite evidence to suggest abnormal bowel wall thickening involving a small bowel or large bowel. No evidence of bowel obstruction. No evidence for mucosal hyperenhancement, stricture or fistulous tract formation. Peritoneum: No evidence of pneumoperitoneum, free fluid, or adenopathy. Liver: Unremarkable. Gallbladder and Bile ducts: No choledocholithiasis, ductal dilation or stricture identified. Pancreas: Unremarkable. Spleen: Unremarkable. Adrenal glands: Unremarkable. Kidneys: r left renal 22 mm simple appearing high T2 signal cyst. Bladder: Unremarkable. Reproductive: Unremarkable. Lymph Nodes: Vasculature: Unremarkable. No aortic aneurysm. Musculoskeletal: The osseous structures appear intact. Abdominal wall: Unremarkable. IMPRESSION: 1. Extremely limited limited exam, no definitive evidence for active bowel disease. No acute abdomin al process. 2. Simple appearing left renal cyst.
--- NOTE | 2024-04-29 18:40 | P.CONS ---
History of Present Illness - Reason for Consult Consult date: 04/28/24 Pneumonia questionable Requesting physician: Alvaro Mcneal - Chief Complaint Abdominal pain and distention x weeks - History of Present Illness Patient is a 63-year-old female with a past medical history significant for hypertension hyperlipidemia former smoker, has been dealing with abdominal pain for almost a month and has been evaluated multiple hospitals inc [facility] and apparently no specific diagnosis has been provided to her patient presented to [facility] 3 days ago for evaluation of abdominal pain which has been mostly in the upper abdominal area describing to be sharp moderate intensity without any radiation and did have associated nausea but no vomiting, no diarrhea patient on presentation the hospital was afebrile and no fever have recorded subsequently patient was nontachycardic hypotensive or hypoxic and no need for supplemental oxygen patient did have a normal white count creatinine has been normal liver enzymes normal urine was moderately positive cultures currently pending patient did have a chest abdominal pelvis CT on admission COPD with moderate to advanced emphysema masslike opacity left lower lobe extending into the hilum a smaller and less defined numerous fluid-filled small bowel loops throughout the abdominal pelvis generalized ileus or enteritis vomited at least with changes resulting in 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 Denies significant cough or sputum production Review of Systems Positive point and negatives has been mentioned in the HPI, complete review of systems was performed and all other systems are negative Past Medical History Past Medical History: Cancer, Hyperlipidemia, Hypertension Additional Past Medical History / Comment(s): Wheezing, edema both lower legs lung cancer History of Any Multi-Drug Resistant Organisms: None Reported Past Surgical History: No Surgical Hx Reported Additional Past Surgical History / Comment(s): Colonoscopy Additional Past Anesthesia/Blood Transfusion Reaction / Comm: Sedation only for Colonoscopy. Past Psychological History: No Psychological Hx Reported Smoking Status: Former smoker Past Alcohol Use History: Rare Additional Past Alcohol Use History / Comment(s): use to smokes 6 cigarettes per day. Past Drug Use History: None Reported - Past Family History Mother Family Medical History: Cancer Medications and Allergies Home Medications Medication Instructions Recorded Confirmed Type ALPRAZolam [Xanax] 0.25 mg PO DAILY PRN 04/25/24 04/25/24 History ALPRAZolam [Xanax] 0.25 mg PO HS 04/25/24 04/25/24 History Atorvastatin [Lipitor] 20 mg PO HS 04/25/24 04/25/24 History Buprenorphine [Butrans 15 MCG/HR] 1 patch TRANSDERM TH 04/25/24 04/25/24 History Dicyclomine [Bentyl] 20 mg PO TID PRN 04/25/24 04/25/24 History Diltiazem Cd [Cardizem CD] 240 mg PO HS 04/25/24 04/25/24 History Fluticasone/Umeclidin/Vilanter 1 puff INHALATION RT-DAILY 04/25/24 04/25/24 History [Trelegy Ellipta 100-62.5-25] Gabapentin 300 mg PO QID 04/25/24 04/25/24 History Levothyroxine Sodium [Synthroid] 75 mcg PO DAILY 04/25/24 04/25/24 History Nitrofurantoin Monohyd/M-Cryst 100 mg PO Q12HR 04/25/24 04/25/24 History [Macrobid] Pantoprazole [Protonix] 40 mg PO BID 04/25/24 04/25/24 History Potassium Chloride [Klor-Con M10] 10 meq PO DAILY 04/25/24 04/25/24 History QUEtiapine FUMARATE [SEROquel] 200 mg PO HS 04/25/24 04/25/24 History Simethicone [Gas-X] 125 mg PO TID PRN 04/25/24 04/25/24 History Triamterene/Hydrochlorothiazid 1 tab PO DAILY 04/25/24 04/25/24 History [Triamterene-Hctz 75-50 mg Tab] oxyCODONE-APAP 5-325MG [Percocet 1 tab PO QID PRN 04/25/24 04/25/24 History 5-325 mg] Allergies Allergy/AdvReac Type Severity Reaction Status Date / Time No Known Allergies Allergy Verified 04/25/24 17:53 Physical Exam Vitals: Vital Signs Temp Pulse Resp BP Pulse Ox 04/28/24 07:08 97.2 F L 98 16 114/68 95 04/28/24 02:40 97.5 F L 65 17 137/75 97 04/27/24 19:17 97.2 F L 65 19 166/74 96 04/27/24 14:00 97.7 F 69 17 165/71 94 L Intake and Output 04/27/24 04/28/24 04/28/24 22:59 06:59 14:59 Other: Voiding Method Toilet # Voids 3 3 GENERAL DESCRIPTION: Middle-aged female lying in bed, no distress. No tachypnea or accessory muscle of respiration use. HEENT: Shows Pallor , no scleral icterus. Oral mucous membrane is dry. No pharyngeal erythema or thrush NECK: Trachea central, no thyromegaly. LUNGS: Unlabored breathing. Decreased breath sound the base HEART: S1, S2, regular rate and rhythm. No loud murmur ABDOMEN: Soft, mild distention EXTREMITIES: No edema of feet. SKIN: No rash, no masses palpable. NEUROLOGICAL: The patient is awake, alert, oriented x3, mood and affect normal. Results CBC & Chem 7: 04/29/24 04:55 04/29/24 04:55 Labs: Abnormal Lab Results - Last 24 Hours (Table) 04/28/24 04/28/24 Range/Units 03:40 03:40 RBC 3.95 L (4.10-5.20) X 10*6/uL RDW 15.6 H (11.5-14.5) % MPV 9.1 L (9.5-12.2) FL Sodium 129 L (135-145) mmol/L BUN <3.5 L (9.0-27.0) mg/dL BUN/Creatinine Ratio <5.00 L (12.00-20.00) Ratio AST 12 L (13-35) U/L Total Protein 5.1 L (6.2-8.2) g/dL Albumin 3.6 L (3.8-4.9) g/dL Globulin 1.5 L (1.6-3.3) g/dL Microbiology - Last 24 Hours (Table) 04/26/24 07:18 Blood Culture - Preliminary Blood 04/26/24 07:18 Blood Culture - Preliminary Blood 04/26/24 09:50 Urine Culture - Preliminary Urine,Clean Catch Gram Neg Bacilli Assessment and Plan (1) Abnormal chest x-ray Current Visit: Yes Status: Acute Code(s): R93.89 - ABNORMAL FINDINGS ON DX IMAGING OF OTH BODY STRUCTURES SNOMED Code(s): 679185254 (2) UTI (urinary tract infection) Current Visit: Yes Status: Acute Code(s): N39.0 - URINARY TRACT INFECTION, SITE NOT SPECIFIED SNOMED Code(s): 92230400 Plan: 1patient with abnormal x-ray with evidence of bilateral basilar infiltrate more likely representing atelectasis patient is clinically not behaving as pneumonia with no cough or sputum production, patient advised incentive spirometry 2patient with abdominal pain and distention with evidence of fluid-filled small bowel loops concerning for ileus being managed by general surgery enterography MRI has been ordered currently waiting for completion 3patient did have a positive UA urine showing gram-negative continue with Roce phin while waiting for the culture to finalize We will follow on clinical condition and cultures to further adjust medication if needed Thank you for this consultation we will follow the patient along with you Dictation was produced using [employer] dictation software. please excuse any grammatical, word or spelling errors. Time with Patient: Greater than 30
[2024-04-29] MEDS: SULFAMETHOX-TMP 800-160MG 1 EACH TAB PO SCH (21:33)
[2024-04-30 08:36] LABS: Basophils # (A) 0.03 X 10*3/uL (0.00-0.10); Basophils % (A) 0.9 %; Eosinophils # (A) 0.14 X 10*3/uL (0.04-0.35); HCT 39.9 % (37.2-46.3); HGB 13.3 g/dL (12.0-15.0); Lymphocytes # (A) 0.87 X 10*3/uL (0.90-5.00); Lymphocytes % (A) 24.8 %; MCH 31.2 pg (27.0-32.0); MCHC 33.3 g/dL (32.0-37.0); MCV 93.7 FL (80.0-97.0); Mean Platelet Volume 9.2 FL (9.5-12.2); Monocytes # (A) 0.32 X 10*3/uL (0.20-1.00); Monocytes % (A) 9.1 %; NRBC Per 100 WBC 0 X 10*3/uL (0.00-0.01); Neutrophils # (A) 2.13 X 10*3/uL (1.80-7.70); Neutrophils % (A) 60.6 %; Platelet Count 210 X 10*3/uL (140-440); RBC 4.26 X 10*6/uL (4.10-5.20); RDW 14.8 % (11.5-14.5); WBC 3.51 X 10*3/uL (4.50-10.00)
[2024-04-30] MEDS: POTASSIUM CHLORIDE ER 10 MEQ TAB.ER.PRT PO SCH (08:43)
[2024-04-30] MEDS: PANTOPRAZOLE 40 MG/10 ML VIAL IV SCH (08:44)
[2024-04-30 08:52] LABS: BUN/Creat Ratio <5.00 Ratio (12.00-20.00); Blood Urea Nitrogen <3.5 mg/dL (9.0-27.0); Calcium 8.8 mg/dL (8.7-10.3); Carbon Dioxide 20.4 mmol/L (21.6-31.8); Chloride 93 mmol/L (96-109); Glucose 97 mg/dL (70-110); Magnesium 1.6 mg/dL (1.5-2.4); Potassium 3.3 mmol/L (3.5-5.5); Sodium 126 mmol/L (135-145)
--- NOTE | 2024-04-30 09:44 | P.PN ---
Subjective Progress Note Date: 04/29/24 This is a pleasant 63-year-old female who was recently admitted with abdominal pain and significant ileus with general surgery following. Patient is scheduled to undergo an MRI enterogram today which is currently pending. Patient is n.p.o. Abdominal pain is improved although continues to have diffuse cramping. Patient is maintained on antibiotics with concerns of possible urinary tract infection. Patient is currently afebrile with no reported chest pain or shortness of breath. Patient reports occasional nausea with no vomiting and asking for food. Review of systems: Constitutional: No reports of fatigue, fever, or chills Cardiovascular: No reports of chest pain or palpitations Respiratory: No reports of shortness of breath or cough GI: reports of nausea, no reports of vomiting, no diarrhea : No reports of dysuria or retention Neurovascular: reports of generalized weakness All medications have been reviewed PHYSICAL EXAMINATION: GENERAL: The patient is alert and oriented x4, Well developed, well nourished. Thin built, elderly appearing HEENT: Pupils are round and equally reacting to light. EOMI. no scleral icterus. No conjunctival pallor. Normocephalic, atraumatic. No pharyngeal erythema. No thyromegaly. CARDIOVASCULAR: S1 and S2 muffled PULMONARY: diminished breath sounds bilaterally with no wheezing or rhonchi noted. ABDOMEN: soft. tender on exam. Thin. non-distended, normoactive bowel sounds. No palpable organomegaly. MUSCULOSKELETAL: No joint swelling or deformity. EXTREMITIES: No cyanosis, clubbing, or pedal edema. NEUROLOGICAL: Gross neurological examination did not reveal any focal deficits. SKIN: No rashes. Assessment: Abdominal pain and distention, possibly diffuse bowel ileus Possible bibasilar pneumonia, present on admission, unlikely, most likely secondary to atelectasis as patient is not behaving as pneumonia Possible acute urinary tract infection, present on admission Chronic obstructive pulmonary disease, not in exacerbation Hypertension Hyperlipidemia GI prophylaxis DVT prophylaxis Full code Plan: Recommend to continue with current medications and management with general surgery and infectious disease following Patient is maintained on empiric antibiotics as there is concern of acute urinary tract infection. Pneumonia less likely and most likely atelectasis, continue incentive spirometer use at least 10 times every hour while awake Currently n.p.o. as surgery has scheduled an MRI with anterior gram which is pending for today and will follow-up on report Advance diet per surgery Increase activity as tolerated and encouraged frequent walking Follow-up on repeat labs in the a.m. and replace electrolytes per protocol Will discuss further with other consultations regarding discharge planning, possibly in the next 24 to 48 hours if abdominal symptoms have improved and cleared by surgery The impression and plan of care has been dictated by Maria Moody, nurse practitioner as directed. Dr. Fredis MD I have performed a history and examination and MDM of this patient, discussed the same with the dictator, and agree with the dictator's assessment and plan as written ,documented as a scribe. Based on total visit time, I have performed more than 50% of the visit. Any additional findings or plans will be noted. Objective - Vital Signs Vital signs: Vital Signs Temp 97.9 F 04/29/24 07:46 Pulse 92 04/29/24 07:46 Resp 18 04/29/24 07:46 BP 124/86 04/29/24 07:46 Pulse Ox 96 04/29/24 07:46 FiO2 Intake & Output 04/28/24 04/29/24 04/29/24 18:59 06:59 18:59 Other: Voiding Method Toilet Toilet # Voids 3 3 - Labs CBC & Chem 7: 04/30/24 05:59 04/30/24 05:59 Labs: Abnormal Lab Results - Last 24 Hours (Table) 04/29/24 04/29/24 Range/Units 04:55 04:55 RDW 15.0 H (11.5-14.5) % MPV 8.9 L (9.5-12.2) FL Sodium 127 L (135-145) mmol/L Potassium 3.4 L (3.5-5.5) mmol/L Chloride 94 L (96-109) mmol/L BUN <3.5 L (9.0-27.0) mg/dL BUN/Creatinine Ratio <5.00 L (12.00-20.00) Ratio Microbiology - Last 24 Hours (Table) 04/26/24 09:50 Urine Culture - Final Urine,Clean Catch Proteus penneri 04/26/24 07:18 Blood Culture - Preliminary Blood 04/26/24 07:18 Blood Culture - Preliminary Blood
--- NOTE | 2024-04-30 12:29 | XR ---
EXAMINATION TYPE: XR abdomen 1V DATE OF EXAM: 04/30/2024 Comparison: 04/29/[address] 04/25/2024 Clinical History: 63-year-old female abd pain, ileus Findings: The cecum is not prominently distended up to 10.9 cm. Gaseous small bowel and colon throughout the re mainder of the abdomen. Supine imaging limited for assessment of free air. Small pelvic phleboliths. Otherwise, bowel content largely obscures the renal shadows. Retrocardiac air bronchogram. Impression: 1. Diffuse gaseous bowel throughout the abdomen. Cecum shows increasing distention now up to 10.9 cm. Close surveillance follow-up recommended. 2. Air bronchograms in the retrocardiac left base. Correlate for atelectasis or pneumonia here.
--- NOTE | 2024-04-30 16:20 | P.PN ---
Subjective Progress Note Date: 04/30/24 Principal diagnosis: Reason for follow-up is abnormal x-ray question of pneumonia and UTI Patient is a 63-year-old female with a past medical history significant for hypertension hyperlipidemia former smoker, has been dealing with abdominal pain for almost a month and has been evaluated multiple hospitals presenting with abdominal distention and pain CT did shows more numerous fluid- filled small bowel also have a positive UA and did have some urinary symptoms on admission. On today's evaluation that is 04/30/2024, Patient is afebrile this morning and denies any chills, patient mention breathing comfortably and is currently on room air, patient denies any chest pain occasional cough patient mention improvement in the abdominal distention and discomfort after she started using the incentive spirometry and overall feeling better. Patient white count 3.51 creatinine 0.7 Objective - Vital Signs Vital signs: Vital Signs Temp 98.5 F 04/30/24 12:55 Pulse 84 04/30/24 12:55 Resp 17 04/30/24 12:55 BP 109/68 04/30/24 12:55 Pulse Ox 92 L 04/30/24 12:55 FiO2 Intake & Output 04/29/24 04/30/24 04/30/24 18:59 06:59 18:59 Intake Total 50 Balance 50 Weight 54.431 kg Intake: Intake, IV Titration 50 Amount cefTRIAXone 1 gm In 50 Sodium Chloride 0.9% 50 ml @ 100 mls/hr IVPB Q24HR [facility] Rx#:[id number] Other: Voiding Method Toilet # Voids 1 - Exam GENERAL DESCRIPTION: Middle-aged female lying in bed in no distress RESPIRATORY SYSTEM: Unlabored breathing , decreased breath sounds at bases HEART: S1 S2 regular rate and rhythm , ABDOMEN: Soft , no tenderness EXTREMITIES: No edema feet - Labs CBC & Chem 7: 04/30/24 05:59 04/30/24 05:59 Labs: Abnormal Lab Results - Last 24 Hours (Table) 04/30/24 04/30/24 Range/Units 05:59 05:59 WBC 3.51 L (4.50-10.00) X 10*3/uL RDW 14.8 H (11.5-14.5) % MPV 9.2 L (9.5-12.2) FL Lymphocytes # 0.87 L (0.90-5.00) X 10*3/uL Sodium 126 L (135-145) mmol/L Potassium 3.3 L (3.5-5.5) mmol/L Chloride 93 L (96-109) mmol/L Carbon Dioxide 20.4 L (21.6-31.8) mmol/L Anion Gap 12.60 H (4.00-12.00) mmol/L BUN <3.5 L (9.0-27.0) mg/dL BUN/Creatinine Ratio <5.00 L (12.00-20.00) Ratio Microbiology - Last 24 Hours (Table) 04/26/24 07:18 Blood Culture - Preliminary Blood 04/26/24 07:18 Blood Culture - Preliminary Blood Assessment and Plan (1) Abnormal chest x-ray Current Visit: Yes Status: Acute Code(s): R93.89 - ABNORMAL FINDINGS ON DX IMAGING OF OTH BODY STRUCTURES SNOMED Code(s): 073771461 (2) UTI (urinary tract infection) Current Visit: Yes Status: Acute Code(s): N39.0 - URINARY TRACT INFECTION, SITE NOT SPECIFIED SNOMED Code(s): 70130546 Plan: 1patient with abnormal x-ray with evidence of bilateral basilar infiltrate more likely representing atelectasis patient is clinically not behaving as pneumonia with no cough or sputum production, patient advised to continue using incentive spirometry 2patient with abdominal pain and distention with evidence of fluid-filled small bowel loops concerning for ileus being managed by general surgery enterography MRI has been done but inconclusive 3patient did have a positive UA urine is growing Proteus that is resistant to Rocephin patient did have improvement in her symptoms continue with the Bactrim DS Dictation was produced using [employer] dictation software. please excuse any grammatical, word or spelling errors. Time with Patient: Less than 30
--- NOTE | 2024-04-30 16:20 | P.PN ---
Subjective Progress Note Date: 04/29/24 Principal diagnosis: Reason for follow-up is abnormal x-ray question of pneumonia and UTI Patient is a 63-year-old female with a past medical history significant for hypertension hyperlipidemia former smoker, has been dealing with abdominal pain for almost a month and has been evaluated multiple hospitals presenting with abdominal distention and pain CT did shows more numerous fluid- filled small bowel also have a positive UA and did have some urinary symptoms on admission. On today's evaluation that is 04/29/2024, patient has been afebrile, patient is breathing comfortably and is currently on room air, patient denies having any significant cough no chest pain shortness of breath, patient still complaining of epigastric discomfort and distention nausea but no vomiting. Patient white count is 5.20, creatinine 0.7 urine has been finalized with Proteus that is resistant to ceftriaxone Objective - Vital Signs Vital signs: Vital Signs Temp 98.1 F 04/29/24 14:00 Pulse 80 04/29/24 14:00 Resp 17 04/29/24 14:00 BP 132/81 04/29/24 14:00 Pulse Ox 96 04/29/24 14:00 FiO2 Intake & Output 04/28/24 04/29/24 04/29/24 18:59 06:59 18:59 Intake Total 50 Balance 50 Intake: Intake, IV Titration 50 Amount cefTRIAXone 1 gm In 50 Sodium Chloride 0.9% 50 ml @ 100 mls/hr IVPB Q24HR [facility] Rx#:[id number] Other: Voiding Method Toilet Toilet # Voids 3 3 - Exam GENERAL DESCRIPTION: Middle-aged female lying in bed in no distress RESPIRATORY SYSTEM: Unlabored breathing , decreased breath sounds at bases HEART: S1 S2 regular rate and rhythm , ABDOMEN: Soft , no tenderness EXTREMITIES: No edema feet - Labs CBC & Chem 7: 04/30/24 05:59 04/30/24 05:59 Labs: Abnormal Lab Results - Last 24 Hours (Table) 04/29/24 04/29/24 Range/Units 04:55 04:55 RDW 15.0 H (11.5-14.5) % MPV 8.9 L (9.5-12.2) FL Sodium 127 L (135-145) mmol/L Potassium 3.4 L (3.5-5.5) mmol/L Chloride 94 L (96-109) mmol/L BUN <3.5 L (9.0-27.0) mg/dL BUN/Creatinine Ratio <5.00 L (12.00-20.00) Ratio Microbiology - Last 24 Hours (Table) 04/26/24 07:18 Blood Culture - Preliminary Blood 04/26/24 07:18 Blood Culture - Preliminary Blood 04/26/24 09:50 Urine Culture - Final Urine,Clean Catch Proteus penneri Assessment and Plan (1) Abnormal chest x-ray Current Visit: Yes Status: Acute Code(s): R93.89 - ABNORMAL FINDINGS ON DX IMAGING OF OTH BODY STRUCTURES SNOMED Code(s): 302536168 (2) UTI (urinary tract infection) Current Visit: Yes Status: Acute Code(s): N39.0 - URINARY TRACT INFECTION, SITE NOT SPECIFIED SNOMED Code(s): 58916688 Plan: 1patient with abnormal x-ray with evidence of bilateral basilar infiltrate more likely representing atelectasis patient is clinically not behaving as pneumonia with no cough or sputum production, patient advised incentive spirometry 2patient with abdominal pain and distention with evidence of fluid-filled small bowel loops concerning for ileus being managed by general surgery enterography MRI has been done but inconclusive 3patient did have a positive UA urine is growing Proteus that is resistant to Rocephin we will discontinue Rocephin and start the patient on Bactrim DS patient has been instructed in incentive spirometry Dictation was produced using [employer] dictation software. please excuse any grammatical, word or spelling errors. Time with Patient: Less than 30
[2024-04-30] MEDS ORDERED: Magnesium Replacement Protocol 1 EACH MISC MISCELLANE PRN (17:17)
[2024-04-30] MEDS ORDERED: Potassium Replacement Protocol 1 EACH MISC MISCELLANE PRN (17:17)
--- NOTE | 2024-04-30 17:23 | P.PN ---
Subjective Progress Note Date: 04/30/24 This is a pleasant 63-year-old female who was recently admitted with abdominal pain and significant ileus with general surgery following. Patient is scheduled to undergo an MRI enterogram today which is currently pending. Patient is n.p.o. Abdominal pain is improved although continues to have diffuse cramping. Patient is maintained on antibiotics with concerns of possible urinary tract infection. Patient is currently afebrile with no reported chest pain or shortness of breath. Patient reports occasional nausea with no vomiting and asking for food. 04/30/2024 Patient is seen in follow-up today being followed by general surgery along with infectious disease. Patient tolerating clears and being advanced to full liquids reporting she is hungry. Patient reports her abdominal pain is somewhat improved although continues to be tender especially in the left upper and right quadrants. Patient reports to passing some gas with no bowel movement as of yet. Will obtain another repeat abdominal x-ray and monitor and discuss further with general surgery regarding treatment plan moving forward. MRI Enterogram was inconclusive and suboptimal. Patient asking for regular food and will discuss further with general surgery regarding this. Patient has been encouraged to increase activity as tolerated and walk more frequently. Labs reveal a low potassium and magnesium and will replace per protocol and follow-up on repeat labs. Sodium slightly low at 127 will order gentle hydration and fol low-up on labs in the a.m. Review of systems: Constitutional: No reports of fatigue, fever, or chills Cardiovascular: No reports of chest pain or palpitations Respiratory: No reports of shortness of breath or cough GI: No reports of nausea, no reports of vomiting, no diarrhea, no bowel movement patient is reporting some abdominal discomfort : No reports of dysuria or retention Neurovascular: reports of generalized weakness All medications have been reviewed PHYSICAL EXAMINATION: GENERAL: The patient is alert and oriented x4, Well developed, well nourished. Thin built, elderly appearing HEENT: Pupils are round and equally reacting to light. EOMI. no scleral icterus. No conjunctival pallor. Normocephalic, atraumatic. No pharyngeal erythema. No thyromegaly. CARDIOVASCULAR: S1 and S2 muffled PULMONARY: diminished breath sounds bilaterally with no wheezing or rhonchi noted. ABDOMEN: soft. tender on exam. Thin. non-distended, normoactive bowel sounds. No palpable organomegaly. MUSCULOSKELETAL: No joint swelling or deformity. EXTREMITIES: No cyanosis, clubbing, or pedal edema. NEUROLOGICAL: Gross neurological examination did not reveal any focal deficits. SKIN: No rashes. Assessment: Abdominal pain and distention, possibly diffuse bowel ileus Possible bibasilar pneumonia, present on admission, unlikely, most likely secondary to atelectasis as patient is not behaving as pneumonia Possible acute urinary tract infection, present on admission Chronic obstructive pulmonary disease, not in exacerbation Hypokalemia, hypomagnesemia secondary to poor oral intake Hypertension Hyperlipidemia GI prophylaxis DVT prophylaxis Full code Plan: Recommend to continue with current medications and management with general surgery and infectious disease following Patient is maintained on empiric antibiotics as there is concern of acute urinary tract infection. Pneumonia less likely and most likely atelectasis, continue incentive spirometer use at least 10 times every hour while awake Currently tolerating clear liquids and is being advanced to full liquids per surgery. Patient is asking for regular food. MRI enterogram is suboptimal and inconclusive Advance diet per surgery Increase activity as tolerated and encouraged frequent walking Follow-up on repeat labs in the a.m. and replace electrolytes per protocol. Potassium was 3.3 and magnesium was 1.6 and will replace Will discuss further with other consultations regarding discharge planning, possibly in the next 24 to 48 hours if abdominal symptoms have improved and cleared by surgery The impression and plan of care has been dictated by Maria Moody, nurse practitioner as directed. Dr. Fredis MD I have performed a history and examination and MDM of this patient, discussed the same with the dictator, and agree with the dictator's assessment and plan as written ,documented as a scribe. Based on total visit time, I have performed more than 50% of the visit. Any additional findings or plans will be noted. Objective - Vital Signs Vital signs: Vital Signs Temp 98.5 F 04/30/24 07:48 Pulse 77 04/30/24 07:48 Resp 15 04/30/24 07:48 BP 137/77 04/30/24 07:48 Pulse Ox 93 L 04/30/24 07:48 FiO2 Intake & Output 04/29/24 04/30/24 04/30/24 18:59 06:59 18:59 Intake Total 50 Balance 50 Intake: Intake, IV Titration 50 Amount cefTRIAXone 1 gm In 50 Sodium Chloride 0.9% 50 ml @ 100 mls/hr IVPB Q24HR [facility] Rx#:[id number] Other: Voiding Method Toilet # Voids 1 - Labs CBC & Chem 7: 04/30/24 05:59 04/30/24 05:59 Labs: Abnormal Lab Results - Last 24 Hours (Table) 04/30/24 04/30/24 Range/Units 05:59 05:59 WBC 3.51 L (4.50-10.00) X 10*3/uL RDW 14.8 H (11.5-14.5) % MPV 9.2 L (9.5-12.2) FL Lymphocytes # 0.87 L (0.90-5.00) X 10*3/uL Sodium 126 L (135-145) mmol/L Potassium 3.3 L (3.5-5.5) mmol/L Chloride 93 L (96-109) mmol/L Carbon Dioxide 20.4 L (21.6-31.8) mmol/L Anion Gap 12.60 H (4.00-12.00) mmol/L BUN <3.5 L (9.0-27.0) mg/dL BUN/Creatinine Ratio <5.00 L (12.00-20.00) Ratio Microbiology - Last 24 Hours (Table) 04/26/24 07:18 Blood Culture - Preliminary Blood 04/26/24 07:18 Blood Culture - Preliminary Blood
[2024-04-30] MEDS: MAGNESIUM SULFATE-D5W PMX 1 GM in DEXTROSE/WATER 1 100ML.BAG IVPB SCH (18:09)
[2024-04-30] MEDS: POTASSIUM CHLORIDE ER 20 MEQ TAB.ER PO SCH (18:10)
[2024-04-30] MEDS: SODIUM CHLORIDE 0.9% 1,000 ML IV SCH (18:10)
[2024-05-01 09:05] LABS: BUN/Creat Ratio <4.38 Ratio (12.00-20.00); Blood Urea Nitrogen <3.5 mg/dL (9.0-27.0); Carbon Dioxide 21.8 mmol/L (21.6-31.8); Chloride 92 mmol/L (96-109); Glucose 102 mg/dL (70-110); Sodium 127 mmol/L (135-145)
[2024-05-01 09:07] LABS: Basophils # (A) 0.02 X 10*3/uL (0.00-0.10); Basophils % (A) 0.4 %; Eosinophils # (A) 0.14 X 10*3/uL (0.04-0.35); Eosinophils % (A) 2.8 %; HCT 39.3 % (37.2-46.3); HGB 13.5 g/dL (12.0-15.0); Lymphocytes # (A) 1.19 X 10*3/uL (0.90-5.00); Lymphocytes % (A) 23.8 %; MCHC 34.4 g/dL (32.0-37.0); MCV 93.1 FL (80.0-97.0); Mean Platelet Volume 9.6 FL (9.5-12.2); Monocytes # (A) 0.52 X 10*3/uL (0.20-1.00); Monocytes % (A) 10.4 %; NRBC Per 100 WBC 0 X 10*3/uL (0.00-0.01); Neutrophils # (A) 3.09 X 10*3/uL (1.80-7.70); Neutrophils % (A) 61.8 %; Platelet Count 218 X 10*3/uL (140-440); RBC 4.22 X 10*6/uL (4.10-5.20); RDW 15.2 % (11.5-14.5)
[2024-05-01] MEDS: LACTULOSE 20 GM/30 ML CUP ONE (12:48)
[2024-05-01] MEDS: LACTULOSE 20 GM/30 ML CUP PO SCH (12:50)
--- NOTE | 2024-05-01 16:38 | P.PN ---
Subjective Progress Note Date: 05/01/24 Principal diagnosis: Reason for follow-up is abnormal x-ray question of pneumonia and UTI Patient is a 63-year-old female with a past medical history significant for hypertension hyperlipidemia former smoker, has been dealing with abdominal pain for almost a month and has been evaluated multiple hospitals presenting with abdominal distention and pain CT did shows more numerous fluid- filled small bowel also have a positive UA and did have some urinary symptoms on admission. On today's evaluation that is 05/01/2024,the patient denies any fever or any chills, patient is breathing comfortably on room air, the patient denies chest pain shortness of breath and no significant cough, patient mention some abdominal distention and discomfort after she ate her lunch but no vomiting no diarrhea. Patient white count is 5.0, creatinine 0.8 blood culture negative Objective - Vital Signs Vital signs: Vital Signs Temp 97.5 F L 05/01/24 08:00 Pulse 73 05/01/24 08:00 Resp 18 05/01/24 08:00 BP 126/76 05/01/24 08:00 Pulse Ox 95 05/01/24 08:00 FiO2 Intake & Output 04/30/24 05/01/24 05/01/24 18:59 06:59 18:59 Weight 54.431 kg Other: Voiding Method Toilet # Voids 3 2 # Bowel Movements 1 - Exam GENERAL DESCRIPTION: Middle-aged female lying in bed in no distress RESPIRATORY SYSTEM: Unlabored breathing , decreased breath sounds at bases HEART: S1 S2 regular rate and rhythm , ABDOMEN: Soft , no tenderness EXTREMITIES: No edema feet - Labs CBC & Chem 7: 05/01/24 04:45 05/01/24 04:45 Labs: Abnormal Lab Results - Last 24 Hours (Table) 05/01/24 05/01/24 Range/Units 04:45 04:45 RDW 15.2 H (11.5-14.5) % Sodium 127 L (135-145) mmol/L Chloride 92 L (96-109) mmol/L Anion Gap 13.20 H (4.00-12.00) mmol/L BUN <3.5 L (9.0-27.0) mg/dL BUN/Creatinine Ratio <4.38 L (12.00-20.00) Ratio Assessment and Plan (1) Abnormal chest x-ray Current Visit: Yes Status: Acute Code(s): R93.89 - ABNORMAL FINDINGS ON DX IMAGING OF OTH BODY STRUCTURES SNOMED Code(s): 629313779 (2) UTI (urinary tract infection) Current Visit: Yes Status: Acute Code(s): N39.0 - URINARY TRACT INFECTION, SITE NOT SPECIFIED SNOMED Code(s): 15616100 Plan: 1patient with abnormal x-ray with evidence of bilateral basilar infiltrate more likely representing atelectasis patient is clinically not behaving as pneumonia with no cough or sputum production, patient advised to continue using incentive spirometry 2patient with abdominal pain and distention with evidence of fluid-filled small bowel loops concerning for ileus being managed by general surgery enterography MRI has been done but inconclusive 3patient did have a positive UA urine is growing Proteus that is resistant to Rocephin 4-patient to continue with the Bactrim DS and will monitor clinical course closely Dictation was produced using [employer] dictation software. please excuse any grammatical, word or spelling errors. Time with Patient: Less than 30
[2024-05-01 19:42] VITALS: RESP 16
[2024-05-02 01:59] VITALS: TEMP 98
--- NOTE | 2024-05-02 05:13 | P.PN ---
Subjective Progress Note Date: 05/01/24 This is a pleasant 63-year-old female who was recently admitted with abdominal pain and significant ileus with general surgery following. Patient is scheduled to undergo an MRI enterogram today which is currently pending. Patient is n.p.o. Abdominal pain is improved although continues to have diffuse cramping. Patient is maintained on antibiotics with concerns of possible urinary tract infection. Patient is currently afebrile with no reported chest pain or shortness of breath. Patient reports occasional nausea with no vomiting and asking for food. 04/30/2024 Patient is seen in follow-up today being followed by general surgery along with infectious disease. Patient tolerating clears and being advanced to full liquids reporting she is hungry. Patient reports her abdominal pain is somewhat improved although continues to be tender especially in the left upper and right quadrants. Patient reports to passing some gas with no bowel movement as of yet. Will obtain another repeat abdominal x-ray and monitor and discuss further with general surgery regarding treatment plan moving forward. MRI Enterogram was inconclusive and suboptimal. Patient asking for regular food and will discuss further with general surgery regarding this. Patient has been encouraged to increase activity as tolerated and walk more frequently. Labs reveal a low potassium and magnesium and will replace per protocol and follow-up on repeat labs. Sodium slightly low at 127 will order gentle hydration and fol low-up on labs in the a.m. 05/01/2024 Patient is seen in follow-up today reports to some abdominal cramping although reports is passing gas. Patient evaluated by general surgery has been advanced to full liquids and tolerating thus far. Encouraged the patient to limit IV narcotic use and increase walking. No plans for surgical intervention at this time. Patient also being treated for urinary tract infection with infectious disease following is being transition to Bactrim and will complete a short course on discharge. Electrolytes replaced showing improvements and we will follow-up on repeat labs as sodium remains slightly low. Patient is afebrile with no reports of chest pain or shortness of breath. No reported nausea or vomiting, just reports having some cramping and abdominal pain in the upper quadrants. Review of systems: Constitutional: No reports of fatigue, fever, or chills Cardiovascular: No reports of chest pain or palpitations Respiratory: No reports of shortness of breath or cough GI: No reports of nausea, no reports of vomiting, no diarrhea, no bowel movement but is passing gas, patient is reporting some abdominal discomfort : No reports of dysuria or retention Neurovascular: reports of generalized weakness All medications have been reviewed PHYSICAL EXAMINATION: GENERAL: The patient is alert and oriented x4, Well developed, well nourished. Thin built, elderly appearing HEENT: Pupils are round and equally reacting to light. EOMI. no scleral icterus. No conjunctival pallor. Normocephalic, atraumatic. No pharyngeal erythema. No thyromegaly. CARDIOVASCULAR: S1 and S2 muffled PULMONARY: diminished breath sounds bilaterally with no wheezing or rhonchi noted. ABDOMEN: soft. less tender on exam. Thin. non-distended, normoactive bowel sounds. No palpable organomegaly. MUSCULOSKELETAL: No joint swelling or deformity. EXTREMITIES: No cyanosis, clubbing, or pedal edema. NEUROLOGICAL: Gross neurological examination did not reveal any focal deficits. SKIN: No rashes. Assessment: Abdominal pain and distention, possibly diffuse bowel ileus Possible bibasilar pneumonia, present on admission, unlikely, most likely secondary to atelectasis as patient is not behaving as pneumonia Acute urinary tract infection, present on admission Chronic obstructive pulmonary disease, not in exacerbation Hypokalemia, hypomagnesemia secondary to poor oral intake Hypertension Hyperlipidemia GI prophylaxis DVT prophylaxis Full code Plan: Recommend to continue with current medications and management with general surgery and infectious disease following Patient is maintained on antibiotics as there is concern of acute urinary tract infection. Pneumonia less likely and most likely atelectasis, continue incentive spirometer use at least 10 times every hour while awake. Urine culture showing Proteus penneri Currently tolerating full liquids and will continue with this per surgery. Patient is asking for regular food. MRI enterogram is suboptimal and inconclusive Advance diet per surgery Increase activity as tolerated and encouraged frequent walking. Patient reports the passing gas Follow-up on repeat labs in the a.m. and replace electrolytes per protocol. Will discuss further with other consultations regarding discharge planning, possibly in the next 24 hours if abdominal symptoms have improved The impression and plan of care has been dictated by Maria Moody, nurse practitioner as directed. Dr. Fredis MD I have performed a history and examination and MDM of this patient, discussed the same with the dictator, and agree with the dictator's assessment and plan as written ,documented as a scribe. Based on total visit time, I have performed more than 50% of the visit. Any additional findings or plans will be noted. Objective - Vital Signs Vital signs: Vital Signs Temp 98.0 F 05/02/24 01:12 Pulse 64 05/02/24 01:12 Resp 16 05/02/24 01:12 BP 134/73 05/02/24 01:12 Pulse Ox 94 L 05/02/24 01:12 FiO2 Intake & Output 05/01/24 05/01/24 05/02/24 06:59 18:59 06:59 Other: Voiding Method Toilet Toilet # Voids 2 # Bowel Movements 1 - Labs CBC & Chem 7: 05/01/24 04:45 05/01/24 04:45 Labs: Abnormal Lab Results - Last 24 Hours (Table) 05/01/24 05/01/24 Range/Units 04:45 04:45 RDW 15.2 H (11.5-14.5) % Sodium 127 L (135-145) mmol/L Chloride 92 L (96-109) mmol/L Anion Gap 13.20 H (4.00-12.00) mmol/L BUN <3.5 L (9.0-27.0) mg/dL BUN/Creatinine Ratio <4.38 L (12.00-20.00) Ratio Microbiology - Last 24 Hours (Table) 04/26/24 07:18 Blood Culture - Final Blood 04/26/24 07:18 Blood Culture - Final Blood
[2024-05-02 09:58] VITALS: BP 128/74; PULSE 67
[2024-05-02 10:20] LABS: BUN/Creat Ratio <4.38 Ratio (12.00-20.00); Blood Urea Nitrogen <3.5 mg/dL (9.0-27.0); Calcium 8.5 mg/dL (8.7-10.3); Carbon Dioxide 21.6 mmol/L (21.6-31.8); Chloride 98 mmol/L (96-109); Glucose 83 mg/dL (70-110); Potassium 3.7 mmol/L (3.5-5.5); Sodium 130 mmol/L (135-145)
--- NOTE | 2024-05-02 15:13 | P.PN ---
Subjective Progress Note Date: 05/02/24 Principal diagnosis: Reason for follow-up is abnormal x-ray question of pneumonia and UTI Patient is a 63-year-old female with a past medical history significant for hypertension hyperlipidemia former smoker, has been dealing with abdominal pain for almost a month and has been evaluated multiple hospitals presenting with abdominal distention and pain CT did shows more numerous fluid- filled small bowel also have a positive UA and did have some urinary symptoms on admission. On today's evaluation that is 05/02/2024,the patient remains to be afebrile, patient is on room air not requiring supplemental oxygen and denies any shortness of breath no chest pain or cough.Patient complaining of some abdominal distention but no nausea or vomiting urinary symptoms improved. Patient did not have any white count today creatinine 0.8 potassium 3.7 Objective - Vital Signs Vital signs: Vital Signs Temp 98.0 F 05/02/24 07:21 Pulse 67 05/02/24 07:21 Resp 16 05/02/24 07:21 BP 128/74 05/02/24 07:21 Pulse Ox 96 05/02/24 07:21 FiO2 Intake & Output 05/01/24 05/02/24 05/02/24 18:59 06:59 18:59 Other: Voiding Method Toilet # Voids 1 - Exam GENERAL DESCRIPTION: Middle-aged female lying in bed in no distress RESPIRATORY SYSTEM: Unlabored breathing , decreased breath sounds at bases HEART: S1 S2 regular rate and rhythm , ABDOMEN: Soft , no tenderness EXTREMITIES: No edema feet - Labs CBC & Chem 7: 05/01/24 04:45 05/02/24 05:10 Labs: Abnormal Lab Results - Last 24 Hours (Table) 05/02/24 Range/Units 05:10 Sodium 130 L (135-145) mmol/L BUN <3.5 L (9.0-27.0) mg/dL BUN/Creatinine Ratio <4.38 L (12.00-20.00) Ratio Calcium 8.5 L (8.7-10.3) mg/dL Microbiology - Last 24 Hours (Table) 04/26/24 07:18 Blood Culture - Final Blood 04/26/24 07:18 Blood Culture - Final Blood Assessment and Plan (1) Abnormal chest x-ray Status: Acute Code(s): R93.89 - ABNORMAL FINDINGS ON DX IMAGING OF OTH BODY STRUCTURES SNOMED Code(s): 920669904 (2) UTI (urinary tract infection) Status: Acute Code(s): N39.0 - URINARY TRACT INFECTION, SITE NOT SPECIFIED SNOMED Code(s): 20232751 Plan: 1patient with abnormal x-ray with evidence of bilateral basilar infiltrate more likely representing atelectasis patient is clinically not behaving as pneumonia with no cough or sputum production, patient advised to continue using incentive spirometry 2patient with abdominal pain and distention with evidence of fluid-filled small bowel loops concerning for ileus being managed by general surgery enterography MRI has been done but inconclusive 3patient did have a positive UA urine is growing Proteus that is resistant to Rocephin, patient has shown overall improvement as far as urinary symptoms with the Bactrim DS to continue for short course on discharge Dictation was produced using [employer] dictation software. please excuse any grammatical, word or spelling errors. Time with Patient: Less than 30
--- NOTE | 2024-05-05 10:39 | P.DS ---
Providers Date of admission: 04/25/24 17:45 Expected date of discharge: 05/02/24 Attending physician: Valerie Whittington Consults: 04/28/24 12:42 Consult Physician Routine Consulting Provider: Brian Potter Consult Reason/Comments: pneumonia?? Do you want consulting provider notified?: Yes Primary care physician: Tray Garnett Hospital Course: Final diagnosis Abdominal pain and distention, secondary to diffuse bowel ileus Possible bibasilar pneumonia, present on admission, unlikely, most likely secondary to atelectasis as patient is not behaving as pneumonia Acute urinary tract infection, present on admission Chronic obstructive pulmonary disease, not in exacerbation Hypokalemia, hypomagnesemia secondary to poor oral intake Hypertension Hyperlipidemia GI prophylaxis DVT prophylaxis Full code Discharge disposition Patient is being discharged in a stable condition with guarded prognosis to home. Patient will follow-up with Dr. Garnett in the outpatient setting upon discharge. Patient is to continue with current medications and outpatient follow-up with GI as well as general surgery as scheduled. Total time taken is greater than 35 minutes. Hospital course This is a 63-year-old female who was recently admitted with abdominal pain and distention with difficulty having bowel movements with concerns of ileus. Patient maintained on conservative management with general surgery following with likely ileus continued on bowel regimen. Patient does follow with Dr. Trotter outpatient and has a scheduled appointment on May 05, 2024 and has been instructed to keep this appointment. Patient is having small bowel movements and will continue on scheduled lactulose along with Protonix and outpatient follow-up. Patient to continue full liquid diet until evaluated by GI. Patient does take a significant amount of pain medications and recommend outpatient follow-up with pain management and weaning off some of these medications. Most likely contributing to this constipation and high risk of ileus with bowel obstructions. Please refer to other consultation notes for further HPI. Patient has been by consultations for discharge. Patient requesting pain medi cations on discharge and also reporting oxycodones do not help and is noted in her file that she takes Suboxone. Patient to follow-up with pain management as well as primary care provider regarding this. Patient was noted to have a urinary tract infection and will continue a short course of antibiotics on discharge. Patient was evaluated by infectious disease. Currently no reports of chest pain, shortness of breath, or palpitations. Patient is afebrile. No reports of nausea or vomiting and patient is tolerating diet. Patient will be discharged home today. High risk for readmissions given noncompliance and comorbidities. Physical exam: Gen: This is a 63-year-old female who is awake, alert and oriented x 3, well- developed, elderly appearing, thin built HEENT: Head is atraumatic, normocephalic. Pupils equal, round. Sclerae is anicteric. NECK: Supple. No JVD. No lymphadenopathy. No thyromegaly. LUNGS: Clear to auscultation. No wheezes or rhonchi. No intercostal retractions. HEART: Regular rate and rhythm. No murmur. ABDOMEN: Soft. Bowel sounds are present. No masses. No tenderness. EXTREMITIES: No pedal edema. No calf tenderness. NEUROLOGICAL: Patient is awake, alert and oriented x3. Cranial nerves 2 through 12 are grossly intact. Please refer to medication reconciliation sheet for a list of medications. The impression and plan of care has been dictated by Maria Moody, Nurse Practitioner as directed. Dr. Fredis MD I have performed a history and examination and MDM of this patient, discussed the same with the dictator, and agree with the dictator's assessment and plan as written ,documented as a scribe. Based on total visit time, I have performed more than 50% of the visit. Patient Condition at Discharge: Stable Plan - Discharge Summary Discharge Rx Participant: Yes New Discharge Prescriptions: New Lactulose [Cephulac] 20 gm PO BID #360 ml Sulfamethox-Tmp 800-160Mg [Bactrim DS 800-160 mg] 1 each PO BID 5 Days #10 tab Continue Levothyroxine Sodium [Synthroid] 75 mcg PO DAILY Gabapentin 300 mg PO QID QUEtiapine FUMARATE [SEROquel] 200 mg PO HS Triamterene/Hydrochlorothiazid [Triamterene-Hctz 75-50 mg Tab] 1 tab PO DAILY Dicyclomine [Bentyl] 20 mg PO TID PRN PRN Reason: cramps Buprenorphine [Butrans 15 MCG/HR] 1 patch TRANSDERM TH ALPRAZolam [Xanax] 0.25 mg PO HS Simethicone [Gas-X] 125 mg PO TID PRN PRN Reason: gas Atorvastatin [Lipitor] 20 mg PO HS oxyCODONE-APAP 5-325MG [Percocet 5-325 mg] 1 tab PO QID PRN PRN Reason: Pain Fluticasone/Umeclidin/Vilanter [Trelegy Ellipta 100-62.5-25] 1 puff INHALATION RT-DAILY Diltiazem Cd [Cardizem CD] 240 mg PO HS ALPRAZolam [Xanax] 0.25 mg PO DAILY PRN PRN Reason: Anxiety Pantoprazole [Protonix] 40 mg PO BID #60 tab Changed Potassium Chloride [Klor-Con M10] 20 meq PO DAILY #60 tab Discontinued Nitrofurantoin Monohyd/M-Cryst [Macrobid] 100 mg PO Q12HR Discharge Medication List ALPRAZolam [Xanax] 0.25 mg PO DAILY PRN 04/25/24 [History] ALPRAZolam [Xanax] 0.25 mg PO HS 04/25/24 [History] Atorvastatin [Lipitor] 20 mg PO HS 04/25/24 [History] Buprenorphine [Butrans 15 MCG/HR] 1 patch TRANSDERM TH 04/25/24 [History] Dicyclomine [Bentyl] 20 mg PO TID PRN 04/25/24 [History] Diltiazem Cd [Cardizem CD] 240 mg PO HS 04/25/24 [History] Fluticasone/Umeclidin/Vilanter [Trelegy Ellipta 100-62.5-25] 1 puff INHALATION RT-DAILY 04/25/24 [History] Gabapentin 300 mg PO QID 04/25/24 [History] Levothyroxine Sodium [Synthroid] 75 mcg PO DAILY 04/25/24 [History] QUEtiapine FUMARATE [SEROquel] 200 mg PO HS 04/25/24 [History] Simethicone [Gas-X] 125 mg PO TID PRN 04/25/24 [History] Triamterene/Hydrochlorothiazid [Triamterene-Hctz 75-50 mg Tab] 1 tab PO DAILY 04/25/24 [History] oxyCODONE-APAP 5-325MG [Percocet 5-325 mg] 1 tab PO QID PRN 04/25/24 [History] Lactulose [Cephulac] 20 gm PO BID #360 ml 05/02/24 [Rx] Pantoprazole [Protonix] 40 mg PO BID #60 tab 05/02/24 [Rx] Potassium Chloride [Klor-Con M10] 20 meq PO DAILY #60 tab 05/02/24 [Rx] Sulfamethox-Tmp 800-160Mg [Bactrim DS 800-160 mg] 1 each PO BID 5 Days #10 tab 05/02/24 [Rx] Follow up Appointment(s)/Referral(s): Musa Berg MD [Medical Doctor] - 1 Week Conchita Liao MD [STAFF PHYSICIAN] - 1 Week (Keep your scheduled appointment for next week) Susanna Hoover MD [STAFF PHYSICIAN] - 1 Week Tray Garnett MD [Primary Care Provider] - 1-2 days Ambulatory/Diagnostic Orders: Basic Metabolic Panel [LAB.AMB] Time Frame: 3 Days, Location: None Selected Patient Instructions/Handouts: Ileus (DC) Activity/Diet/Wound Care/Special Instructions: Activity limited until follow-up Follow-up with primary care provider on discharge Follow-up with GI outpatient at your scheduled appointment next week Follow-up general surgery as needed Continue with lactulose twice daily and hold if having loose stools Recommend limiting narcotic use and pain medications Continue full liquid diet and slowly advance over the next few days Discharge Disposition: HOME SELF-CARE
== END 2024-05-02 13:50 | disposition home or self-care (01) | DRG 247 ==
LOC: EC 14:23 → 4SSUR 17:44 → OBSVTOIN 17:45 → 4SSUR 19:46
PROVIDERS: ADMIT Internal Medicine; ATTEND Internal Medicine
DX: K56.7 Ileus, unspecified (principal); N39.0 Urinary tract infection, site not specified; E78.5 Hyperlipidemia, unspecified; I10 Essential (primary) hypertension; J44.9 Chronic obstructive pulmonary disease, unspecified; F17.210 Nicotine dependence, cigarettes, uncomplicated; E87.6 Hypokalemia; E83.42 Hypomagnesemia; J43.9 Emphysema, unspecified; J98.11 Atelectasis; Z85.118 Personal history of other malignant neoplasm of bronchus and lung; Z16.19 Resistance to other specified beta lactam antibiotics; Z79.890 Hormone replacement therapy; Z79.899 Other long term (current) drug therapy; B96.4 Proteus (mirabilis) (morganii) as the cause of diseases classified elsewhere; I31.39 Other pericardial effusion (noninflammatory)
CPT/HCPCS: 36415; 71045; 71260; 72197; 74018; 74022; 74177; 74183; 80048; 80053; 81001; 82150; 83690; 83735; 84100; 84145; 84484; 85025; 85610; 85652; 85730; 86140; 87040; 87077; 87086; 87186; 87636; 93005; 94640; 96374; 96375; 99285

== ENCOUNTER 2024-06-11 12:34 | Observation (INO) | payer OTHER ==
[~2024-06-11 12:34] MED LIST changes: +ASPIRIN 81 MG ONE; +FAMOTIDINE 20 MG/2 ML VIAL ONE; +HYDROmorphone 1 MG/ML 1 ML SYRINGE ONE; -LACTATED RINGERS 1,000 ML IV SCH; +NITROGLYCERIN OINT 1 INCH/GM PACKET TOPICAL ONE; +ONDANSETRON 4 MG/2 ML VIAL ONE; +SODIUM CHLORIDE 0.9% 1,000 ML BAG ONE
[2024-06-11] MEDS ORDERED: HYDROmorphone 1 MG/ML 1 ML SYRINGE ONE ×3 (15:44→22:30)
[2024-06-11] MEDS ORDERED: cefTRIAXone 1 GM VIAL ONE (18:33)
[2024-06-11] MEDS ORDERED: NITROGLYCERIN OINT 1 INCH/GM PACKET TOPICAL ONE (18:33)
[2024-06-11] MEDS ORDERED: ACETAMINOPHEN TAB 325 MG TAB ONE (18:33)
[2024-06-11] MEDS ORDERED: GABAPENTIN 300 MG CAP ONE ×2 (18:34→22:28)
[2024-06-11] MEDS ORDERED: PANTOPRAZOLE 40 MG TABLET PO ONE (19:47)
[2024-06-11] MEDS ORDERED: ONDANSETRON 4 MG/2 ML VIAL ONE (19:48)
[2024-06-11] MEDS ORDERED: SODIUM CHLORIDE 0.9% 50 ML BAG ONE (23:59)
[2024-06-11] MEDS ORDERED: QUEtiapine 200 MG TAB ONE (23:59)
[2024-06-12] MEDS ORDERED: HYDROmorphone 1 MG/ML 1 ML SYRINGE ONE ×5 (03:50→23:31)
[2024-06-12] MEDS ORDERED: ONDANSETRON 4 MG/2 ML VIAL ONE ×3 (03:59→23:39)
[2024-06-12] MEDS ORDERED: cefTRIAXone 1 GM VIAL ONE ×2 (05:35→17:24)
[2024-06-12] MEDS ORDERED: LEVOTHYROXINE 75 MCG TAB ONE (05:35)
[2024-06-12] MEDS ORDERED: NITROGLYCERIN OINT 1 INCH/GM PACKET TOPICAL ONE (05:35)
[2024-06-12] MEDS ORDERED: HYDROmorphone 0.5 MG/0.5 ML SYRINGE ONE ×4 (12:06→16:25)
[2024-06-12] MEDS ORDERED: PANTOPRAZOLE 40 MG/10 ML VIAL ONE ×2 (12:20→20:45)
[2024-06-12] MEDS ORDERED: GABAPENTIN 300 MG CAP ONE (20:45)
[2024-06-12] MEDS ORDERED: ALPRAZolam 0.25 MG TAB ONE (21:00)
[2024-06-12] MEDS ORDERED: SODIUM CHLORIDE 0.9% 50 ML BAG ONE (23:59)
[2024-06-13] MEDS ORDERED: HYDROmorphone 1 MG/ML 1 ML SYRINGE ONE ×7 (02:32→21:27)
[2024-06-13] MEDS ORDERED: ONDANSETRON 4 MG/2 ML VIAL ONE ×3 (05:26→22:10)
[2024-06-13] MEDS ORDERED: cefTRIAXone 1 GM VIAL ONE ×2 (05:34→17:15)
[2024-06-13] MEDS ORDERED: LEVOTHYROXINE 75 MCG TAB ONE (05:34)
[2024-06-13] MEDS ORDERED: PANTOPRAZOLE 40 MG/10 ML VIAL ONE ×2 (08:01→20:50)
[2024-06-13] MEDS ORDERED: IOPAMIDOL CONTRAST (ORAL USE) VIAL PO ONE ×2 (08:01→08:47)
[2024-06-13] MEDS ORDERED: ACETAMINOPHEN TAB 325 MG TAB ONE (09:43)
[2024-06-13] MEDS ORDERED: CITALOPRAM HYDROBROMIDE 20 MG TAB ONE (09:44)
[2024-06-13] MEDS ORDERED: POTASSIUM CHLORIDE ER 10 MEQ TAB.ER.PRT PO ONE (09:44)
[2024-06-13] MEDS ORDERED: GABAPENTIN 300 MG CAP ONE ×4 (09:45→20:51)
[2024-06-13] MEDS ORDERED: ALPRAZolam 0.25 MG TAB ONE ×2 (09:53→22:23)
[2024-06-13] MEDS ORDERED: POTASSIUM CHLORIDE ER 20 MEQ TAB.ER PO ONE (11:50)
[2024-06-13] MEDS ORDERED: DILTIAZEM CD 240 MG CAP.ER.24H PO ONE (23:59)
[2024-06-13] MEDS ORDERED: AZITHROMYCIN 500 MG VIAL IVPB ONE (23:59)
[2024-06-13] MEDS ORDERED: QUEtiapine 200 MG TAB ONE (23:59)
[2024-06-13] MEDS ORDERED: SODIUM CHLORIDE 0.9% 50 ML BAG ONE (23:59)
[2024-06-13] MEDS ORDERED: SODIUM CHLORIDE 0.9% 250 ML BAG ONE (23:59)
[2024-06-14] MEDS ORDERED: HYDROmorphone 1 MG/ML 1 ML SYRINGE ONE ×4 (02:32→12:55)
[2024-06-14] MEDS ORDERED: cefTRIAXone 1 GM VIAL ONE ×2 (05:47→17:05)
[2024-06-14] MEDS ORDERED: LEVOTHYROXINE 75 MCG TAB ONE (05:47)
[2024-06-14] MEDS ORDERED: PANTOPRAZOLE 40 MG/10 ML VIAL ONE ×2 (08:49→21:01)
[2024-06-14] MEDS ORDERED: ASPIRIN 325 MG TAB ONE (08:50)
[2024-06-14] MEDS ORDERED: GABAPENTIN 300 MG CAP ONE ×4 (08:51→21:02)
[2024-06-14] MEDS ORDERED: POTASSIUM CHLORIDE ER 10 MEQ TAB.ER.PRT PO ONE (08:53)
[2024-06-14] MEDS ORDERED: CITALOPRAM HYDROBROMIDE 20 MG TAB ONE (09:20)
[2024-06-14] MEDS ORDERED: CYCLOBENZAPRINE 10 MG TAB ONE (12:56)
[2024-06-14] MEDS ORDERED: SUCRALFATE 1 GM TAB ONE ×2 (17:07→21:04)
[2024-06-14] MEDS ORDERED: HYDROmorphone 0.5 MG/0.5 ML SYRINGE ONE ×2 (18:11→21:02)
[2024-06-14] MEDS ORDERED: ONDANSETRON 4 MG/2 ML VIAL ONE (21:01)
[2024-06-14] MEDS ORDERED: ALPRAZolam 0.25 MG TAB ONE (21:25)
[2024-06-14] MEDS ORDERED: DILTIAZEM CD 240 MG CAP.ER.24H PO ONE (23:59)
[2024-06-14] MEDS ORDERED: QUEtiapine 200 MG TAB ONE (23:59)
[2024-06-14] MEDS ORDERED: SODIUM CHLORIDE 0.9% 250 ML BAG ONE (23:59)
[2024-06-14] MEDS ORDERED: SODIUM CHLORIDE 0.9% 50 ML BAG ONE (23:59)
[2024-06-14] MEDS ORDERED: AZITHROMYCIN 500 MG VIAL IVPB ONE (23:59)
[2024-06-15] MEDS ORDERED: HYDROmorphone 0.5 MG/0.5 ML SYRINGE ONE ×5 (01:51→20:32)
[2024-06-15] MEDS ORDERED: LEVOTHYROXINE 75 MCG TAB ONE (05:47)
[2024-06-15] MEDS ORDERED: ONDANSETRON 4 MG/2 ML VIAL ONE (05:47)
[2024-06-15] MEDS ORDERED: cefTRIAXone 1 GM VIAL ONE ×2 (05:51→17:28)
[2024-06-15] MEDS ORDERED: PANTOPRAZOLE 40 MG/10 ML VIAL ONE ×2 (08:30→20:31)
[2024-06-15] MEDS ORDERED: ASPIRIN 325 MG TAB ONE (08:36)
[2024-06-15] MEDS ORDERED: CITALOPRAM HYDROBROMIDE 20 MG TAB ONE (08:36)
[2024-06-15] MEDS ORDERED: POTASSIUM CHLORIDE ER 10 MEQ TAB.ER.PRT PO ONE (08:36)
[2024-06-15] MEDS ORDERED: GABAPENTIN 300 MG CAP ONE ×4 (08:36→22:46)
[2024-06-15] MEDS ORDERED: SUCRALFATE 1 GM TAB ONE ×4 (08:37→22:43)
[2024-06-15] MEDS ORDERED: ISOSORBIDE MONONITRATE ER 30 MG TAB.ER.24H PO ONE (11:59)
[2024-06-15] MEDS ORDERED: ALPRAZolam 0.25 MG TAB ONE (22:46)
[2024-06-15] MEDS ORDERED: SODIUM CHLORIDE 0.9% 50 ML BAG ONE (23:59)
[2024-06-15] MEDS ORDERED: SODIUM CHLORIDE 0.9% 250 ML BAG ONE (23:59)
[2024-06-15] MEDS ORDERED: AZITHROMYCIN 500 MG VIAL IVPB ONE (23:59)
[2024-06-15] MEDS ORDERED: QUEtiapine 200 MG TAB ONE (23:59)
[2024-06-15] MEDS ORDERED: DILTIAZEM CD 240 MG CAP.ER.24H PO ONE (23:59)
[2024-06-16] MEDS ORDERED: HYDROmorphone 0.5 MG/0.5 ML SYRINGE ONE ×4 (01:50→23:19)
[2024-06-16] MEDS ORDERED: LEVOTHYROXINE 75 MCG TAB ONE (06:30)
[2024-06-16] MEDS ORDERED: cefTRIAXone 1 GM VIAL ONE ×2 (06:30→20:58)
[2024-06-16] MEDS ORDERED: SUCRALFATE 1 GM TAB ONE ×2 (06:31→08:01)
[2024-06-16] MEDS ORDERED: PANTOPRAZOLE 40 MG/10 ML VIAL ONE ×2 (07:57→20:17)
[2024-06-16] MEDS ORDERED: ASPIRIN 81 MG ONE (07:58)
[2024-06-16] MEDS ORDERED: GABAPENTIN 300 MG CAP ONE ×3 (07:59→20:57)
[2024-06-16] MEDS ORDERED: POTASSIUM CHLORIDE ER 20 MEQ TAB.ER PO ONE (07:59)
[2024-06-16] MEDS ORDERED: CITALOPRAM HYDROBROMIDE 20 MG TAB ONE (08:00)
[2024-06-16] MEDS ORDERED: GABAPENTIN 400 MG CAP ONE (20:21)
[2024-06-16] MEDS ORDERED: ONDANSETRON 4 MG/2 ML VIAL ONE (23:24)
[2024-06-16] MEDS ORDERED: SODIUM CHLORIDE 0.9% 50 ML BAG IV ONE (23:59)
[2024-06-16] MEDS ORDERED: SODIUM CHLORIDE 0.9% 250 ML BAG ONE (23:59)
[2024-06-16] MEDS ORDERED: AZITHROMYCIN 500 MG VIAL IVPB ONE (23:59)
[2024-06-16] MEDS ORDERED: QUEtiapine 200 MG TAB ONE (23:59)
[2024-06-16] MEDS ORDERED: DILTIAZEM CD 240 MG CAP.ER.24H PO ONE (23:59)
[2024-06-17] MEDS ORDERED: SODIUM CHLORIDE 0.9% 50 ML BAG ONE (00:01)
[2024-06-17] MEDS ORDERED: SODIUM CHLORIDE 0.9% 1,000 ML BAG ONE (00:01)
[2024-06-17] MEDS ORDERED: LEVOTHYROXINE 75 MCG TAB ONE (05:33)
[2024-06-17] MEDS ORDERED: cefTRIAXone 1 GM VIAL ONE ×2 (05:33→13:01)
[2024-06-17] MEDS ORDERED: ASPIRIN 325 MG TAB ONE (08:22)
[2024-06-17] MEDS ORDERED: PANTOPRAZOLE 40 MG/10 ML VIAL ONE (08:22)
[2024-06-17] MEDS ORDERED: GABAPENTIN 300 MG CAP ONE ×2 (08:22→13:09)
[2024-06-17] MEDS ORDERED: CITALOPRAM HYDROBROMIDE 20 MG TAB ONE (08:23)
[2024-06-17] MEDS ORDERED: SUCRALFATE 1 GM TAB ONE (08:26)
[2024-06-17] MEDS ORDERED: POTASSIUM CHLORIDE ER 10 MEQ TAB.ER.PRT PO ONE (08:28)
[2024-06-17] MEDS ORDERED: ONDANSETRON 4 MG/2 ML VIAL ONE (08:44)
[2024-06-17] MEDS ORDERED: HYDROmorphone 0.5 MG/0.5 ML SYRINGE ONE (13:01)
--- NOTE | 2024-06-25 09:56 | US ---
EXAMINATION TYPE: US abdomen limited DATE OF EXAM: 06/12/2024, dictated on 06/25/2024 due to downtime COMPARISON: NONE CLINICAL INDICATION: Female, 63 years old with history of pain RUQ, RLQ, and LUQ; Constipation TECHNIQUE: Multiple sonographic images of the right upper quadrant are obtained. FINDINGS: EXAM MEASUREMENTS: Liver Length: 16.1 cm Gallbladder Wall: 0.2 cm CBD: 0.6 cm Right Kidney: 10.3 x 4.0 x 4.9 cm Pancreas: Only portions of the pancreatic head and body are seen. The tail is obscured by bowel gas shadowing. Liver: wnl Gallbladder: wnl. A junctional fold is present. No gallstones, wall thickening, or surrounding fluid . Evidence for sonographic Benitez's sign: No CBD: Upper limits of normal in caliber. Right Kidney: wnl IMPRESSION: No gallstones or biliary ductal dilatation. No specific sonographic abnormality of the right upper qu adrant.
--- NOTE | 2024-07-08 08:19 | CT ---
Site ID synapse default Patient Cece Linton ID [id number] Age/Gender: 63Y, F Order # N/A Procedure CT abdomen pelvis wo con Date 06/13/2024 9:28:00 AM EXAMINATION TYPE: CT abdomen pelvis wo con CT DLP: 440 mGycm, Automated exposure control for dose reduction was used. DATE OF EXAM: 06/19/2024 4:22 PM COMPARISON: MR enterography 04/29/2024, CT chest abdomen and pelvis 04/25/2024, PET CT 08/11/2023 CLINICAL INDICATION: Female, 63 year old with history of pain, nausea and vomiting. TECHNIQUE: Standard CT of the abdomen and pelvis following the administration of oral contrast. Man ited evaluation due to lack of intravenous contrast. Coronal and sagittal reformats were performed. FINDINGS: LOWER CHEST: Trace left effusion with bilateral lower lobe consolidative opacities. Similar to prior exam. Trace pericardial effusion. ABDOMEN LIVER: Unremarkable noncontrast appearance. GALLBLADDER AND BILE DUCTS: Layering increased densities within the lumen consistent with gallstones are present. No biliary duct dilatation. PANCREAS: Unremarkable noncontrast appearance. SPLEEN: Unremarkable noncontrast appearance. ADRENAL GLANDS: Unremarkable noncontrast appearance.. KIDNEYS AND URETERS: No evidence of hydronephrosis. Nonobstructive 4 mm right renal calculus. No left renal calculi identified. Left mid kidney partially exophytic 2.1 cm cyst. PELVIS BLADDER: Unremarkable REPRODUCTIVE: Unremarkable. ABDOMEN & PELVIS STOMACH AND BOWEL: Stomach and duodenum are unremarkable. No focal bowel wall thickening or surroundi ng inflammatory changes. Enteric contrast reaches the ascending colon. The appendix is within normal limits. No evidence of bowel obstruction. PERITONEUM: No evidence of pneumoperitoneum. Trace free fluid in the pelvis. Pelvic floor laxity. VASCULATURE: Moderate atherosclerotic calcifications are present throughout the abdominal aorta and i ts branches. No evidence of aortic aneurysm. Fusiform ectasia of the infrarenal abdominal aorta measu ring up to 2.3 cm. Suggested high-grade stenosis involving the bilateral common carotid arteries and left external iliac artery secondary to calcified plaque. Pelvic phleboliths. MUSCULOSKELETAL: No acute osseous abnormalities LYMPH NODES: No gross evidence for lymphadenopathy. SOFT TISSUE/ABDOMINAL WALL: Unremarkable IMPRESSION: 1. No CT evidence for an acute process within limitations of a noncontrast exam. 2. Trace nonspecific free fluid in the pelvis. 3. Nonobstructive right renal calculus. 4. Cholelithiasis. 5. Trace left pleural effusion with bibasilar dependent consolidation may represent atelectasis versu s developing pneumonia in the appropriate clinical setting.
--- NOTE | 2024-07-08 16:07 | CT ---
Patient Cece Linton ID [id number] Order # EXAMINATION TYPE: CT chest w con DATE OF EXAM: 06/15/2024 COMPARISON: No comparison available on downtime PACS. Evaluation for response to treatment cannot be performed. There are no prior reports available at this time HISTORY: Lung cancer CT DLP: 202.80 mGycm, Automated exposure control for dose reduction was used. CONTRAST: Performed injected with 100 mL of Isovue 300. TECHNIQUE: Axial images were obtained at 5 mm thick sections. Reconstructed images are reviewed on [employer] computer in the coronal plane. FINDINGS: Portion of the thyroid visualized is normal. There is a small left pleural effusion. Minimal right pleural effusion is present. There appears to b e some atelectasis along the major fissure in the left upper lung field. Compressive atelectasis is l ikely present within the bilateral lung porter above the pleural effusions. Consolidation is in the l eft lower lobe. Underlying mass is not excluded. Graft small pericardial effusion is present. No suspicious enlarged mediastinal or hilar adenopathy is evident. The ascending aorta diameter at the level of the main pulmonary artery is 2.0 cm. The main pulmonary artery diameter at the bifurcat ion is 2.7 cm. Coronary artery calcifications may be present. Limited CT sections are obtained through the upper abdomen. Abdomen is essentially unremarkable. IMPRESSION: 1. Small left and minimal right pleural effusions. Some minimal pericardial effusion is present. 2. Compressive atelectasis adjacent to pleural effusions. 3. Consolidation left lower lobe. Underlying mass is suspected. 4. No comparison reports or prior imaging is available during downtime for comparison. Evaluation for change cannot be performed at this time.
--- NOTE | 2024-07-08 16:42 | CT ---
Patient Cece Linton ID [id number] Order # EXAMINATION TYPE: CT abdomen pelvis w con DATE OF EXAM: 06/11/2024 COMPARISON: No comparison images on downtime PACS INDICATION: Abdomen pain DLP: 593.2 mGycm, Automated exposure control for dose reduction was used. CONTRAST: 100 mL of Isovue 300. Study performed without Oral Contrast TECHNIQUE: Axial images were obtained from above the diaphragm to the pubic rami in the axial plane a t 5 mm thick sections. Reconstructed images are reviewed on the computer in the coronal plane. FINDINGS: Limited CT sections are obtained the lung bases. Consolidation in left lower lobe. Correlate for ate lectasis and pneumonia. Underlying mass should be considered. Follow-up to clearing is recommended. S mall pericardial effusion is noted. Some compressive atelectasis may be at the right lung base.. CT ABDOMEN: Liver: Normal Spleen: Normal Pancreas: Some minimal prominence of the pancreatic duct at the proximal body is present measuring 0. 3 cm. Normal 0.1 cm. Consider follow-up with ERCP. Adrenal glands: The adrenal glands are normal. Gallbladder: Normal Kidneys: No masses are evident. No hydronephrosis is present. There is a 2.1 cm cyst posterior late ral left mid kidney. Delayed images were obtained through the kidneys, which remain unremarkable. Aorta: Vascular calcification is within the aorta. Mild fusiform prominence of the distal abdominal aorta is present with AP diameter 2.3 cm. This terminates at the bifurcation. Vascular calcifications within the iliac vessels. Inferior vena cava: Normal. CT PELVIS: Free fluid is within the pelvis. Loops of bowel within the abdomen and pelvis are normal. There are loops of bowel which are incom pletely distended or lack oral contrast limiting their evaluation. Appendix: Not identified. No dilated tubular structure or inflammatory changes evident. Urinary bladder: Normal. Genitourinary structures: Uterus is unremarkable. Adnexa appear normal. Osseous structures: No suspicious lytic or sclerotic lesions. IMPRESSION: 1. Free fluid within the pelvis. 2. Mild prominence of the distal abdominal aorta without aneurysmal dilatation. 3. Mild prominence of the pancreatic duct near the distal body and tail. Consider follow-up with ERCP . 4. Small pericardial effusion. 5. Left lower lobe consolidation. Underlying mass is not excluded. This should be followed to clearin g.
--- NOTE | 2024-07-12 11:09 | CA ---
Transthoracic Echo Report Name: Cece Linton Age: 63 Gender: O : 1960 Exam Date: 06/13/2024 08:19 Exam Location: [facility] Ht (in): 64 Wt (lb): 120 Ordering Physician: Attending/Referring Phys: [employer] Operator Marivel Shore RDCS Procedure CPT: Indications: Cardiac Hx: Technical Quality: Good Contrast 1: Total Dose (mL): Contrast 2: Total Dose (mL): MEASUREMENTS (Male / Female) Normal Values 2D ECHO LV Diastolic Diameter PLAX 4.9 cm 4.2 - 5.9 / 3.9 - 5.3 cm LV Systolic Diameter PLAX 3.2 cm IVS Diastolic Thickness 1.1 cm 0.6 - 1.0 / 0.6 - 0.9 cm LVPW Diastolic Thickness 1.2 cm 0.6 - 1.0 / 0.6 - 0.9 cm LV Relative Wall Thickness 0.5 RV Internal Dim ED PLAX 3.1 cm LA Systolic Diameter LX 3.9 cm 3.0 - 4.0 / 2.7 - 3.8 cm LV Diastolic Volume MOD BP 50.5 cm??? 67 - 155 / 56 - 104 cm??? LV Systolic Volume MOD BP 11.9 cm??? 22 - 58 / 19 - 49 cm??? LV Ejection Fraction MOD BP 76.4 % >= 55 % LV Cardiac Index MOD BP 1626.5 cm???/min???m??? LV Diastolic Volume MOD 4C 44.0 cm??? LV Systolic Volume MOD 4C 9.9 cm??? LV Ejection Fraction MOD 4C 77.6 % LV Cardiac Index MOD 4C 1437.9 cm???/min???m??? LV Diastolic Length 4C 7.4 cm LV Systolic Length 4C 6.6 cm LV Diastolic Volume MOD 2C 57.5 cm??? LV Systolic Volume MOD 2C 14.2 cm??? LV Ejection Fraction MOD 2C 75.2 % LV Cardiac Index MOD 2C 1820.8 cm???/min???m??? LV Diastolic Length 2C 7.6 cm LV Systolic Length 2C 6.3 cm LA Volume 47.9 cm??? 18 - 58 / 22 - 52 cm??? LA Volume Index 30.6 cm???/m??? 16 - 28 cm???/m??? M-MODE Aortic Root Diameter MM 3.1 cm AV Cusp Separation MM 1.9 cm DOPPLER AV Peak Velocity 94.1 cm/s AV Peak Gradient 3.5 mmHg AI Peak Velocity 258.9 cm/s AI Peak Gradient 26.8 mmHg AI Pressure Half Time 973.2 ms MV Area PHT 3.5 cm??? Mitral E Point Velocity 83.6 cm/s Mitral A Point Velocity 85.4 cm/s Mitral E to A Ratio 1.0 MV Deceleration Time 217.9 ms TR Peak Velocity 239.9 cm/s TR Peak Gradient 23.0 mmHg Right Ventricular Systolic Press 28.0 mmHg FINDINGS Left Ventricle Left ventricular ejection fraction is estimated at 60-65 %. Left ventricular cavity size normal. Mild left ventricular hypertrophy. Normal left ventricular wall motion. Right Ventricle Normal right ventricular size and function. Right ventricular systolic pressure within normal limits. Right Atrium Normal right atrial size. No right atrial thrombus or mass seen. Left Atrium Mildly increased left atrial volume. No left atrial thrombus or mass present. Mitral Valve Structurally normal mitral valve. Trace mitral regurgitation. Aortic Valve Trileaflet aortic valve. No aortic stenosis. Mild aortic regurgitation. Tricuspid Valve Structurally normal tricuspid valve. Trace tricuspid regurgitation. Pulmonic Valve Structurally normal pulmonic valve. No pulmonic regurgitation. Pericardium No pericardial or pleural effusion. Aorta Normal size aortic root and proximal ascending aorta. CONCLUSIONS Left ventricular ejection fraction is estimated at 60-65 %. Mild left ventricular hypertrophy. No obvious regional wall motion abnormality No significant valvular dysfunction Mild left atrial dilatation dilatation Normal LV size and function with RVSP estimated at 28 mmHg Previewed by: Dr Miller Tobar (Electronically Signed) Final Date: 14 June 2024 10:59
--- NOTE | 2024-07-15 09:55 | XR ---
EXAMINATION TYPE: XR chest 1V portable DATE OF EXAM: 07/15/2024 COMPARISON: 07/01/2024 INDICATION: Pain TECHNIQUE: Single frontal view of the chest is obtained. FINDINGS: The heart size is enlarged. The pulmonary vasculature is normal. Mild peripheral infiltrate is at the left lung base. Some right lower lobe infiltrate is present. IMPRESSION: 1. Bibasilar atelectasis. Follow-up can be performed as clinically indicated. 2. Mild cardiomegaly. [facility], , 07/15/2024 9:53 AM
--- NOTE | 2024-07-17 14:01 | NM ---
Patient Cece Linton ID [id number] Order # EXAMINATION TYPE: NM hepatobiliary w CCK DATE OF EXAM: 06/16/2024 COMPARISON: NONE INDICATION: Upper abdominal pain and nausea x2 months TECHNIQUE: After the intravenous administration of 5.2 mCi Tc 99m Mebrofenin hepatobiliary scintigrap hy is performed. Images were obtained immediately post injection. FINDINGS: There is prompt uptake and excretion of radiotracer by the liver. Extrahepatic ducts are identified at 15 minutes. The gallbladder is visualized within 30 minutes. Small bowel activity is noted within 240 minutes. At one hour CCK was administered, patient was injected with 1.1 mcg of Kinevac, and gallbladder eject ion fraction is calculated at 84 %, which is elevated. (Normal >35% and <80%.). IMPRESSION: 1. Elevated ejection fraction of 84%. Correlate for biliary hyperkinesia 2. Delayed excretion through the common bile duct and small bowel
== END 2024-06-17 16:43 | disposition home or self-care (01) ==
LOC: 6NMEDSUR 12:34 → UNDOADMIN 12:34 → 6NMEDSUR 14:40 → INTOOBSV 16:57 → UNDOADMOB 16:57 → 6NMEDSUR 16:57 → UNDODISIN 06-17 17:05
PROVIDERS: ADMIT Internal Medicine; ATTEND Internal Medicine
DX: R07.9 Chest pain, unspecified (principal); J90 Pleural effusion, not elsewhere classified; K82.8 Other specified diseases of gallbladder; I16.0 Hypertensive urgency; I10 Essential (primary) hypertension; R94.31 Abnormal electrocardiogram [ECG] [EKG]; R68.3 Clubbing of fingers; Z85.118 Personal history of other malignant neoplasm of bronchus and lung; Z87.891 Personal history of nicotine dependence; Z82.49 Family history of ischemic heart disease and other diseases of the circulatory system
CPT/HCPCS: 71045; 71260; 74176; 74177; 76705; 78227; 85652; 87040; 93005; 93306; 96361; 96374; 96375; 99285

== ENCOUNTER 2024-06-28 09:27 | Day surgery (SDC) | payer OTHER ==
[2024-06-26 13:07] VITALS: BMI 19.7
[~2024-06-28 09:27] MED LIST changes: -ASPIRIN 81 MG ONE; -FAMOTIDINE 20 MG/2 ML VIAL ONE; -HYDROmorphone 1 MG/ML 1 ML SYRINGE ONE; +LACTATED RINGERS 1,000 ML IV SCH; +LIDOCAINE 1% (10MG/ML) FOR IV START INTRADERMA PRN; -NITROGLYCERIN OINT 1 INCH/GM PACKET TOPICAL ONE; -ONDANSETRON 4 MG/2 ML VIAL ONE; -SODIUM CHLORIDE 0.9% 1,000 ML BAG ONE
[2024-06-28] MEDS: IV FLUID CONTINUATION 1,000 ML IV ONE (09:44)
[2024-06-28 09:57] VITALS: TEMP 98
[2024-06-28] MEDS ORDERED: PROPOFOL 10 MG/ML 20 ML VIAL IV ONE (11:04)
[2024-06-28] MEDS ORDERED: fentaNYL (PF) 50 MCG/ML 2 ML AMP ONE (11:04)
[2024-06-28] MEDS ORDERED: LIDOCAINE 1% INJ 10MG/ML (20 ML MDV) ONE (11:04)
--- NOTE | 2024-06-28 11:33 | P.PCN ---
Date of Procedure: 06/28/24 Procedure(s) Performed: Brief history: Patient is a pleasant 83-year-old pleasant white female scheduled for an elective upper endoscopy as well as colonoscopy as a part of evaluation of abdominal pain, abdominal bloating and change in bowel habits for the last 6 months Procedure performed: Esophagogastroduodenoscopy with biopsy Colonoscopy Preoperative diagnosis: Abdominal pain, abdominal distention and abdominal bloating with change in bowel habits for the last 6 months duration Anesthesia: MAC Procedure: After informed consent was obtained from the patient was brought into the endoscopy unit and IV sedation was administered by anesthesia under continuous monitoring. Initially upper endoscopy was done. The Olympus GF 160 video endoscope was inserted inserted into the mouth and esophagus intubated without any difficulty and was gradually advanced into the stomach and duodenum and carefully examined. The bulb and second part of the duodenum appeared normal. Biopsies were done from the duodenum to evaluate for celiac disease. The scope was then withdrawn into the stomach adequately insufflated with air and upon careful examination the antrum and body gastritis and biopsies were done for this area. Mucosa of the, cardia and fundus appeared normal. The scope was then withdrawn into the esophagus. The GE junction was located at 40 cm to the incisors. It appeared regular with no erythema erosions or ulcerations. Rest of the esophagus appeared normal. Patient tolerated the procedure well. At this time the patient continued to remain sedation. Initial digital rectal examination was normal. Olympus CF 160 video colonoscope was then inserted into the rectum and gradually advanced to the cecum without any difficulty. Careful examination was performed as the scope was gradually being withdrawn. The prep was seen.. The cecum, ascending colon, transverse colon, descending colon, sigmoid colon and rectum appeared normal. Retroflexion was performed in the rectum and no lesions were noted. Patient tolerated the procedure well. Impression: 1. Upper endoscopy revealed mild antral gastritis and duodenitis. 2. Colonoscopy was within normal limits with evidence of colorectal. Recommendations: Findings of this examination were discussed with the patient as well as her family. She was advised to follow-up with the biopsy results. Follow-up in the office in 3 to 4 weeks repeat screening colonoscopy in 10 years.
[2024-06-28 11:55] VITALS: BP 153/81; PULSE 89; RESP 20
== END 2024-06-28 12:44 | disposition home or self-care (01) ==
LOC: ORWHC2ENDO 09:27
PROVIDERS: ATTEND Internal Medicine Gastroenterology
DX: K29.50 Unspecified chronic gastritis without bleeding (principal); K20.90 Esophagitis, unspecified without bleeding; K29.80 Duodenitis without bleeding; I10 Essential (primary) hypertension; E78.5 Hyperlipidemia, unspecified; K21.9 Gastro-esophageal reflux disease without esophagitis; E07.9 Disorder of thyroid, unspecified; Z79.899 Other long term (current) drug therapy; Z79.890 Hormone replacement therapy
CPT/HCPCS: 43239; 45378; 88305

== ENCOUNTER 2024-07-01 04:27 | Inpatient (IN) | payer OTHER ==
[2024-07-01 04:45] LABS: Glucose,Whole Blood 126 mg/dL (70-110)
--- NOTE | 2024-07-01 04:55 | ED ---
General Adult HPI - General Chief complaint: Abdominal Pain Stated complaint: Abd & Chest Pain + Nausea Time Seen by Provider: 07/01/24 04:38 Source: patient, RN notes reviewed, old records reviewed Mode of arrival: wheelchair Limitations: no limitations - History of Present Illness Initial comments: Patient is a 63-year-old female presents emergency department abdominal pain. Has been ongoing for 3 months. Is more or less always there. Worse over the last 24 hours. Sounds like she has experienced full workup recently including EGD and colonoscopy with no obvious results for patient's symptoms. Endorses chest pain but points to her epigastrium. Denies any coughing. States the pain does make her somewhat short of breath but no fevers or difficulty breathing with ambulation. Endorses nausea but no emesis. Denies constipation or diarrhea. Presents for further evaluation at this time. - Related Data Home Medications Medication Instructions Recorded Confirmed ALPRAZolam [Xanax] 0.25 mg PO DAILY PRN 04/25/24 06/28/24 ALPRAZolam [Xanax] 0.25 mg PO HS 04/25/24 06/28/24 Atorvastatin [Lipitor] 20 mg PO HS 04/25/24 06/28/24 Buprenorphine [Butrans 15 MCG/HR] 1 patch TRANSDERM TH 04/25/24 06/28/24 Dicyclomine [Bentyl] 20 mg PO TID PRN 04/25/24 06/28/24 Diltiazem Cd [Cardizem CD] 240 mg PO HS 04/25/24 06/28/24 Fluticasone/Umeclidin/Vilanter 1 puff INHALATION RT-DAILY 04/25/24 06/28/24 [Trelegy Ellipta 100-62.5-25] Gabapentin 300 mg PO QID 04/25/24 06/28/24 Levothyroxine Sodium [Synthroid] 75 mcg PO DAILY 04/25/24 06/28/24 QUEtiapine FUMARATE [SEROquel] 200 mg PO HS 04/25/24 06/28/24 Simethicone [Gas-X] 125 mg PO TID PRN 04/25/24 06/28/24 Triamterene/Hydrochlorothiazid 1 tab PO DAILY 04/25/24 06/28/24 [Triamterene-Hctz 75-50 mg Tab] oxyCODONE-APAP 5-325MG [Percocet 1 tab PO QID PRN 04/25/24 06/28/24 5-325 mg] Previous Rx's Medication Instructions Recorded Lactulose [Cephulac] 20 gm PO BID #360 ml 05/02/24 Pantoprazole [Protonix] 40 mg PO BID #60 tab 05/02/24 Potassium Chloride [Klor-Con M10] 20 meq PO DAILY #60 tab 05/02/24 Allergies Allergy/AdvReac Type Severity Reaction Status Date / Time No Known Allergies Allergy Verified 06/28/24 10:08 Review of Systems ROS Statement: Those systems with pertinent positive or pertinent negative responses have been documented in the HPI. Review of Systems: CONST: Denies fever EYES: Denies blurry vision ENT: Denies nasal congestion C/V: Denies Chest pain RESP: Denies shortness of breath GI: Endorses abdominal pain : Denies dysuria SKIN: Denies rash. MSK: Denies joint pain. NEURO: Denies headache ROS Other: All systems not noted in ROS Statement are negative. Past Medical History Past Medical History: Cancer, Hyperlipidemia, Hypertension Additional Past Medical History / Comment(s): Wheezing, edema both lower legs lung cancer History of Any Multi-Drug Resistant Organisms: None Reported Past Surgical History: No Surgical Hx Reported Additional Past Surgical History / Comment(s): Colonoscopy Additional Past Anesthesia/Blood Transfusion Reaction / Comment(s): Sedation only for Colonoscopy. Past Psychological History: No Psychological Hx Reported Smoking Status: Former smoker - Past Family History Mother Family Medical History: Cancer Sister(s) Family Medical History: Cancer Brother(s) Family Medical History: Cancer General Exam - General Exam Comments Initial Comments: General: Appears in no acute distress. HEAD: Normal with no signs of head trauma. EYES: PERRLA, EOMI, conjunctiva normal, no discharge. ENT: Hearing grossly intact, normal oropharynx. RESPIRATORY: Clear breath sounds bilaterally. No wheezes, rales, or rhonchi. C/V: Regular rate and rhythm. S1 and S2 auscultated, no edema, peripheral pulses 2+ and intact throughout ABD: Abdomen soft, nondistended. Tender palpation in the epigastrium as well as bilateral upper quadrants. No rebound tenderness. No guarding. No peritoneal signs. EXT: Normal range of motion, no obvious deformity SKIN: No rashes or lesions observed on exposed skin. NEURO: Alert and oriented x 4. Limitations: no limitations Course Vital Signs 07/01/24 07/01/24 04:28 05:29 Temperature 97.8 F Pulse Rate 79 61 Respiratory 16 16 Rate Blood Pressure 196/94 188/96 O2 Sat by Pulse 97 95 Oximetry Medical Decision Making - Medical Decision Making Was pt. sent in by a medical professional or institution (, PA, [facility], urgent care, hospital, or fpc...) When possible be specific @ -No Did you speak to anyone other than the patient for history (EMS, parent, family, police, friend...)? What history was obtained from this source @ -No Did you review nursing and triage notes (agree or disagree)? Why? @ -I reviewed and agree with nursing and triage notes Were old charts reviewed (outside hosp., previous admission, EMS record, old EKG, old radiological studies, urgent care reports/EKG's, fpc records)? Report findings @ -Reviewed recent EGD and colonoscopy which revealed gastritis as well as duodenitis on EGD. No obvious findings on colonoscopy. This was done by Dr. Liao on June 28, 2024. Differential Diagnosis (chest pain, altered mental status, abdominal pain women, abdominal pain men, vaginal bleeding, weakness, fever, dyspnea, syncope, head ache, dizziness, GI bleed, back pain, seizure, CVA, palpatations, mental health, musculoskeletal)? @ -Differential Abdominal Pain Women: Appendicitis, Cholecystitis, diverticulosis, ischemic bowel, pancreatitis, hepatitis, UTI, gastroenteritis, AAA, incarcerated hernia, bowel obstruction, constipation, inflammatory bowel, hepatitis, peptic ulcer disease, splenic infarction, perforated viscus, vulvitis, ovarian torsion, PID, kidney stone, placenta abruption, this is not meant to be an all-inclusive list EKG interpreted by me (3pts min.). @ -As above X-rays interpreted by me (1pt min.). @ -Chest x-ray reveals no obvious free air under the diaphragm. CT interpreted by me (1pt min.). @ -CT imaging reveals no obvious acute intra-abdominal process U/S interpreted by me (1pt. min.). @ -None done What testing was considered but not performed or refused? (CT, X-rays, U/S, labs)? Why? @ -None What meds were considered but not given or refused? Why? @ -None Did you discuss the management of the patient with other professionals (professionals i.e. , PA, [facility], lab, RT, psych nurse, clinical social work aide, milliner helper, teacher, protection officer, residential case manager)? Give summary @ -I spoke with the admitting physician, Dr. Pimentel who admits for Dr. Burks who accepted the admission. Patient requested I consult Dr. Berg who has seen her previously. Was smoking cessation discussed for >3mins.? @ -No Was critical care preformed (if so, how long)? @ -No Were there social determinants of health that impacted care today? How? (Homelessness, low income, unemployed, alcoholism, drug addiction, transportat ion, low edu. Level, literacy, decrease access to med. care, retirement, rehab)? @ -No Was there de-escalation of care discussed even if they declined (Discuss DNR or withdrawal of care, Hospice)? DNR status @ -No What co-morbidities impacted this encounter? (DM, HTN, Smoking, COPD, CAD, Cancer, CVA, ARF, Chemo, Hep., AIDS, mental health diagnosis, sleep apnea, morbid obesity)? @ -Chronic abdominal pain Was patient admitted / discharged? Hospital course, mention meds given and route, prescriptions, significant lab abnormalities, going to OR and other pertinent info. @ -Based on patient's presentation and physical exam, presents with multiple months of abdominal pain worse over the last 24 hours. Will obtain abdominal workup. Vitals within acceptable limits. Patient recently had EGD and co lonoscopy which showed gastritis as well as duodenitis. Patient be symptomatically treated with IV fluids, Zofran, Protonix, GI cocktail, morphine. Patient was in agreement this plan. Screening EKG shows no signs of acute ischemia.Imaging unremarkable. Laboratory studies are unremarkable as well. This includes a undetectable troponin and EKG within normal limits. I did discuss workup with the patient. She is still having abdominal pain and is on her third round of pain medications. I do believe for her gastritis and duodenitis diagnosed on EGD a few days ago could be the source of the pain however I would like to obtain a gallbladder ultrasound and admit the patient for intractable abdominal pain. Patient was in agreement this plan. I spoke with the admitting physician, Dr. Pimentel who admits for Dr. Burks who accepted the admission. Patient requested I consult Dr. Berg who has seen her previously. Undiagnosed new problem with uncertain prognosis? @ -No Drug Therapy requiring intensive monitoring for toxicity (Heparin, Nitro, Insulin, Cardizem)? @ -No Were any procedures done? @ -No Diagnosis/symptom? @ -Abdominal pain of unknown etiology, suspect gastritis or duodenitis seen on recent EGD Acute, or Chronic, or Acute on Chronic? @ -Acute on chronic Uncomplicated (without systemic symptoms) or Complicated (systemic symptoms)? @ -Complicated Side effects of treatment? @ -None Exacerbation, Progression, or Severe Exacerbation] @ -No Poses a threat to life or bodily function? @ -Potentially, yes as no definitive diagnosis. - Lab Data Result diagrams: 07/01/24 05:07 Lab Results 07/01/24 07/01/24 07/01/24 Range/Units 04:43 05:07 05:07 WBC 4.8 (3.8-10.6) k/uL RBC 5.02 (3.80-5.40) m/uL Hgb 16.0 D (11.4-16.0) gm/dL Hct 47.6 H (34.0-46.0) % MCV 94.9 D (80.0-100.0) fL MCH 31.8 (25.0-35.0) pg MCHC 33.6 (31.0-37.0) g/dL RDW 14.5 (11.5-15.5) % Plt Count 315 (150-450) k/uL MPV 7.2 Neutrophils % 70 % Lymphocytes % 18 % Monocytes % 7 % Eosinophils % 2 % Basophils % 1 % Neutrophils # 3.4 (1.3-7.7) k/uL Lymphocytes # 0.9 L (1.0-4.8) k/uL Monocytes # 0.4 (0-1.0) k/uL Eosinophils # 0.1 (0-0.7) k/uL Basophils # 0.0 (0-0.2) k/uL PT 11.4 (10.0-12.5) sec INR 1.0 (<1.2) APTT 27.8 (22.0-30.0) sec POC Glucose (mg/dL) 126 H (70-110) mg/dL POC Glu Pump Room Operator ID [place] Plasma Lactic Acid Wagner (0.7-2.0) mmol/L Troponin I (0.000-0.034) ng/mL 07/01/24 07/01/24 Range/Units 05:07 05:07 WBC (3.8-10.6) k/uL RBC (3.80-5.40) m/uL Hgb (11.4-16.0) gm/dL Hct (34.0-46.0) % MCV (80.0-100.0) fL MCH (25.0-35.0) pg MCHC (31.0-37.0) g/dL RDW (11.5-15.5) % Plt Count (150-450) k/uL MPV Neutrophils % % Lymphocytes % % Monocytes % % Eosinophils % % Basophils % % Neutrophils # (1.3-7.7) k/uL Lymphocytes # (1.0-4.8) k/uL Monocytes # (0-1.0) k/uL Eosinophils # (0-0.7) k/uL Basophils # (0-0.2) k/uL PT (10.0-12.5) sec INR (<1.2) APTT (22.0-30.0) sec POC Glucose (mg/dL) (70-110) mg/dL POC Glu Pump Room Operator ID Plasma Lactic Acid Wagner 1.6 (0.7-2.0) mmol/L Troponin I <0.012 (0.000-0.034) ng/mL - EKG Data -: EKG Interpreted by Me EKG Comments: 12-lead Electrocardiogram Interpretation Note EKG was reviewed and interpreted by myself. 12-lead ECG performed at 0439 is interpreted by me as revealing sinus bradycardia at a rate of 55 beats per minute. Hoyt is normal. CA interval is 186 ms, QRS duration is 85 ms, QTc is 419 ms.. There were no ST or T wave abnormalities to suggest myocardial ischemia or injury. R wave progression across the precordium was satisfactory. By my interpretation this EKG is non-diagnostic for acute ischemia. Compared with EKG from March 2024 with no obvious significant changes. Disposition Clinical Impression: Abdominal pain of unknown etiology, Nausea & vomiting Disposition: ADMITTED IP TO THIS HOSP Condition: Stable Referrals: Britt Burks MD [Primary Care Provider] - 1-2 days Time of Disposition: 06:20
[2024-07-01] MEDS: SODIUM CHLORIDE 0.9% 1,000 ML IV STA (05:15)
[2024-07-01] MEDS: MORPHINE SULFATE 4 MG/ML SYRINGE IVP STA (05:15)
[2024-07-01] MEDS: ONDANSETRON 4 MG/2 ML VIAL IVP STA (05:19)
[2024-07-01] MEDS: PANTOPRAZOLE 40 MG/10 ML VIAL IVP STA (05:22)
[2024-07-01] MEDS: MAG HYDROX/AL HYDROX/SIMETH 30 ML, HYOSCYAMINE ELIXIR 10 ML, LIDOCAINE VISCOUS 2% 10 ML PO STA (05:24)
--- NOTE | 2024-07-01 05:29 | XR ---
EXAMINATION TYPE: XR chest 1V portable DATE OF EXAM: 07/01/2024 COMPARISON: Chest x-ray April 27, 2024 HISTORY: Abdominal pain. TECHNIQUE: Single frontal view of the chest is obtained. FINDINGS: There is no focal air space opacity, pleural effusion, or pneumothorax seen. The cardiac silhouette size remains mildly enlarged. The osseous structures are intact. IMPRESSION: Mild Cardiomegaly without acute pulmonary process.
[2024-07-01 05:37] LABS: Basophils % (A) 1 %; Eosinophils # (A) 0.1 k/uL (0-0.7); Eosinophils % (A) 2 %; HCT 47.6 % (34.0-46.0); Lymphocytes # (A) 0.9 k/uL (1.0-4.8); Lymphocytes % (A) 18 %; MCH 31.8 pg (25.0-35.0); MCHC 33.6 g/dL (31.0-37.0); Mean Platelet Volume 7.2; Monocytes # (A) 0.4 k/uL (0-1.0); Monocytes % (A) 7 %; Neutrophils # (A) 3.4 k/uL (1.3-7.7); Neutrophils % (A) 70 %; Platelet Count 315 k/uL (150-450); RBC 5.02 m/uL (3.80-5.40); RDW 14.5 % (11.5-15.5); WBC 4.8 k/uL (3.8-10.6)
[2024-07-01 05:39] LABS: MCV 94.9 fL (80.0-100.0)
[2024-07-01 05:46] LABS: Partial Thromboplastin Time 27.8 sec (22.0-30.0); Prothrombin Time 11.4 sec (10.0-12.5)
[2024-07-01 05:59] LABS: ALT 16 U/L (4-34); African American GFR (CKD) >90 (>60 ml/min/1.73 sqM); Albumin 4.6 g/dL (3.5-5.0); Amylase 37 U/L (30-110); Anion Gap 6 mmol/L; Blood Urea Nitrogen 3 mg/dL (7-17); Calcium 9.5 mg/dL (8.4-10.2); Carbon Dioxide 22 mmol/L (22-30); Chloride 101 mmol/L (98-107); Glucose 114 mg/dL (74-99); Lipase 39 U/L (23-300); Non-African American GFR(CKD) >90 (>60 ml/min/1.73 sqM); Sodium 129 mmol/L (137-145); Total Bilirubin 0.7 mg/dL (0.2-1.3); Total Protein 7.4 g/dL (6.3-8.2)
--- NOTE | 2024-07-01 06:03 | CT ---
EXAMINATION TYPE: CT abdomen pelvis w con DATE OF EXAM: 07/01/2024 HISTORY: Pt. c/o abdominal pain with intermittent N/V x1 day. Pt. states she also has mild CP and SOB . h/o lung CA CT DLP: 587.1mGycm Automated Exposure Control for Dose Reduction was Utilized. CONTRAST: CT scan of the abdomen and pelvis is performed with IV Contrast, patient injected with 100 mL of Isov ue 300. COMPARISON: Prior CT June 13, 2024 FINDINGS: LUNG BASES: Tiny left-sided pleural fluid collection redemonstrated. Posterior left basilar consolida tion and atelectasis again seen LIVER/GB: Dependent small stones in gallbladder redemonstrated. Gallbladder shows no surrounding infl ammatory change. Common bile duct measures up to 14 mm near the remberto hepatis. No significant change from most recent prior. No significant intrahepatic biliary dilatation. Need to further investigate w ith ERCP and/or MRCP should be based on clinical and lab correlation. PANCREAS: No significant abnormality is seen. SPLEEN: No significant abnormality is seen. ADRENALS: No significant abnormality is seen. KIDNEYS: Symmetric cortical medullary uptake and excretion without hydronephrosis seen bilaterally. T here is a 0.0 cm partially exophytic thin-walled cysts bilaterally left kidney measures 24. There is 4 mm nonobstructing calculus midpole of the right kidney coronal image 52. BOWEL: No significant abnormality is seen. UTERUS/ADNEXA: Uterus is surgically absent. LYMPH NODES: No greater than 1cm abdominal or pelvic lymph nodes are appreciated. OSSEOUS STRUCTURES: Moderate narrowing of both hip joints. OTHER: Moderate atherosclerotic change in ectatic abdominal aorta. No greater than 3.0 cm aneurysm. IMPRESSION: No bowel obstruction. No significant acute finding is seen to account for patient's clini phil symptoms.
[2024-07-01] MEDS: HYDROmorphone 0.5 MG/0.5 ML SYRINGE IVP STA (06:06)
[2024-07-01] MEDS ORDERED: NALOXONE 0.4 MG/ML 1 ML VIAL IV PRN (06:13)
[2024-07-01 06:26] LABS: AST 26 U/L (14-36); Alkaline Phosphatase 58 U/L (38-126); Potassium 4.1 mmol/L (3.5-5.1)
[2024-07-01 06:33] LABS: Appearance,Urine Clear (Clear); Bilirubin,Urine Negative (Negative); Blood,Urine Negative (Negative); Color,Urine Colorless; Glucose,Urine (UA) Negative (Negative); Ketones,Urine Negative (Negative); Leukocyte Esterase,Urine Negative (Negative); Nitrite,Urine Negative (Negative); Protein,Urine Negative (Negative); Specific Gravity,Urine 1.012 (1.001-1.035); Urobilinogen,Urine <2.0 mg/dL (<2.0)
[2024-07-01] MEDS: SODIUM CHLORIDE 0.9% 1,000 ML IV SCH (06:55)
--- NOTE | 2024-07-01 07:35 | US ---
EXAMINATION TYPE: US gallbladder DATE OF EXAM: 07/01/2024 COMPARISON: CT: Today, US: 06/12/24 CLINICAL INDICATION: Female, 63 years old with history of abd pain; RUQ pain x 1 month TECHNIQUE: Multiple sonographic images of the right upper quadrant are obtained. FINDINGS: EXAM MEASUREMENTS: Liver Length: 16.0 cm Gallbladder Wall: 0.2 cm CBD: 0.8 cm Right Kidney: 9.6 x 4.9 x 4.1 cm Pancreas: Obscured by bowel gas Liver: wnl Gallbladder: Echogenic material seen posterior wall Evidence for sonographic Benitez's sign: No CBD: wnl Right Kidney: wnl IMPRESSION: 1. Possible echogenic material adherent to the posterior wall of the gallbladder. No gallbladder wall distention, pericholecystic fluid or wall thickening. The sonographic Benitez sign is negative. 2. Unremarkable liver. 3. Pancreas obscured by bowel gas. 4 unremarkable right kidney.
[2024-07-01] MEDS: ONDANSETRON 4 MG/2 ML VIAL IVP PRN (08:04)
[2024-07-01] MEDS: HYDROmorphone 0.5 MG/0.5 ML SYRINGE IVP PRN (08:05)
--- NOTE | 2024-07-01 08:56 | P.GSCN ---
History of Present Illness Consult date: 07/01/24 Reason for Consult: Abdominal pain History of present illness: This a 63-year-old female who has had several months of abdominal pain. Patient has undergone GI workup at [facility]. She has seen multiple doctors. Patient underwent colonoscopy with Dr. Trotter on Monday. Patient that she had worsening pain after her colonoscopy. Past Medical History Past Medical History: Cancer, Hyperlipidemia, Hypertension Additional Past Medical History / Comment(s): Wheezing, edema both lower legs lung cancer History of Any Multi-Drug Resistant Organisms: None Reported Past Surgical History: No Surgical Hx Reported Additional Past Surgical History / Comment(s): Colonoscopy Additional Past Anesthesia/Blood Transfusion Reaction / Comm: Sedation only for Colonoscopy. Past Psychological History: No Psychological Hx Reported Smoking Status: Former smoker - Past Family History Mother Family Medical History: Cancer Sister(s) Family Medical History: Cancer Brother(s) Family Medical History: Cancer Medications and Allergies Home Medications Medication Instructions Recorded Confirmed Type ALPRAZolam [Xanax] 0.25 mg PO DAILY PRN 04/25/24 07/01/24 History ALPRAZolam [Xanax] 0.25 mg PO HS 04/25/24 07/01/24 History Atorvastatin [Lipitor] 20 mg PO HS 04/25/24 07/01/24 History Buprenorphine [Butrans 15 MCG/HR] 1 patch TRANSDERM TH 04/25/24 07/01/24 History Dicyclomine [Bentyl] 20 mg PO TID PRN 04/25/24 07/01/24 History Diltiazem Cd [Cardizem CD] 240 mg PO HS 04/25/24 07/01/24 History Fluticasone/Umeclidin/Vilanter 1 puff INHALATION RT-DAILY 04/25/24 07/01/24 History [Trelegy Ellipta 100-62.5-25] Gabapentin 300 mg PO QID 04/25/24 07/01/24 History Levothyroxine Sodium [Synthroid] 75 mcg PO DAILY 04/25/24 07/01/24 History QUEtiapine FUMARATE [SEROquel] 200 mg PO HS 04/25/24 07/01/24 History Triamterene/Hydrochlorothiazid 1 tab PO DAILY 04/25/24 07/01/24 History [Triamterene-Hctz 75-50 mg Tab] oxyCODONE-APAP 5-325MG [Percocet 1 tab PO QID PRN 04/25/24 07/01/24 History 5-325 mg] Lactulose [Cephulac] 20 gm PO BID #360 ml 05/02/24 07/01/24 Rx Potassium Chloride [Klor-Con M10] 20 meq PO DAILY #60 tab 05/02/24 07/01/24 Rx Citalopram Hydrobromide [CeleXA] 20 mg PO DAILY 07/01/24 07/01/24 History Ondansetron Odt [Zofran Odt] 8 mg PO Q8HR PRN 07/01/24 07/01/24 History Pantoprazole Sodium [Protonix] 20 mg PO BID 07/01/24 07/01/24 History Sucralfate [Carafate] 1 gm PO ACHS 07/01/24 07/01/24 History Allergies Allergy/AdvReac Type Severity Reaction Status Date / Time No Known Allergies Allergy Verified 07/01/24 08:48 Surgical - Exam Vital Signs Temp Pulse Resp BP Pulse Ox 97.8 F 79 16 196/94 97 07/01/24 04:28 07/01/24 04:28 07/01/24 04:28 07/01/24 04:28 07/01/24 04:28 - General well developed, well nourished, no distress - Eyes PERRL - ENT normal pinna - Neck no masses - Respiratory normal expansion - Cardiovascular Rhythm: regular - Abdomen Mild tenderness Abdomen: soft Results - Labs 07/01/24 05:07 07/01/24 05:07 Abnormal Lab Results - Last 24 Hours (Table) 07/01/24 07/01/24 07/01/24 Range/Units 04:43 05:07 05:07 Hct 47.6 H (34.0-46.0) % Lymphocytes # 0.9 L (1.0-4.8) k/uL Sodium 129 L (137-145) mmol/L BUN 3 L (7-17) mg/dL Glucose 114 H (74-99) mg/dL POC Glucose (mg/dL) 126 H (70-110) mg/dL Diabetes panel 07/01/24 Range/Units 05:07 Sodium 129 L (137-145) mmol/L Potassium 4.1 (3.5-5.1) mmol/L Chloride 101 (98-107) mmol/L Carbon Dioxide 22 (22-30) mmol/L BUN 3 L (7-17) mg/dL Creatinine 0.57 (0.52-1.04) mg/dL Glucose 114 H (74-99) mg/dL Calcium 9.5 (8.4-10.2) mg/dL AST 26 (14-36) U/L ALT 16 (4-34) U/L Alkaline Phosphatase 58 (38-126) U/L Total Protein 7.4 (6.3-8.2) g/dL Albumin 4.6 (3.5-5.0) g/dL Calcium panel 07/01/24 Range/Units 05:07 Calcium 9.5 (8.4-10.2) mg/dL Albumin 4.6 (3.5-5.0) g/dL Pituitary panel 07/01/24 Range/Units 05:07 Sodium 129 L (137-145) mmol/L Potassium 4.1 (3.5-5.1) mmol/L Chloride 101 (98-107) mmol/L Carbon Dioxide 22 (22-30) mmol/L BUN 3 L (7-17) mg/dL Creatinine 0.57 (0.52-1.04) mg/dL Glucose 114 H (74-99) mg/dL Calcium 9.5 (8.4-10.2) mg/dL Adrenal panel 07/01/24 Range/Units 05:07 Sodium 129 L (137-145) mmol/L Potassium 4.1 (3.5-5.1) mmol/L Chloride 101 (98-107) mmol/L Carbon Dioxide 22 (22-30) mmol/L BUN 3 L (7-17) mg/dL Creatinine 0.57 (0.52-1.04) mg/dL Glucose 114 H (74-99) mg/dL Calcium 9.5 (8.4-10.2) mg/dL Total Bilirubin 0.7 (0.2-1.3) mg/dL AST 26 (14-36) U/L ALT 16 (4-34) U/L Alkaline Phosphatase 58 (38-126) U/L Total Protein 7.4 (6.3-8.2) g/dL Albumin 4.6 (3.5-5.0) g/dL - Imaging Additional studies: Ultrasound of the gallbladder shows possible echogenic material on the posterior gallbladder wall. There is no sign of cholecystitis. Gallbladder wall is not thickened. There is no pericholecystic fluid. Negative Benitez sign. Her CT scan shows no obvious abnormality. No sign of bowel obstruction. Assessment and Plan Plan: Chronic abdominal pain. Patient will be observed. There is no surgical invention planned.
[2024-07-01] MEDS: ALPRAZolam 0.25 MG TAB PO PRN (16:06)
[2024-07-01] MEDS: IPRATROPIUM 0.5 MG/2.5 ML NEBU INHALATION SCH (16:07)
[2024-07-01] MEDS: DICYCLOMINE 20 MG TAB PO PRN (17:02)
[2024-07-01] MEDS: TRIAMTERENE-HCTZ 75-50MG 1 EACH TAB PO SCH (17:03)
[2024-07-01] MEDS: SUCRALFATE 1 GM TAB PO SCH (17:03)
[2024-07-01] MEDS: GABAPENTIN 300 MG CAP PO SCH (17:03)
[2024-07-01] MEDS: hydrALAZINE HCL 20 MG/ML 1 ML VIAL IVP PRN (18:35)
[2024-07-01] MEDS: DILTIAZEM CD 240 MG CAP.ER.24H PO SCH (21:50)
[2024-07-01] MEDS: PANTOPRAZOLE 40 MG/10 ML VIAL IVP SCH (21:51)
[2024-07-01] MEDS: ATORVASTATIN 20 MG TAB PO SCH (21:51)
[2024-07-01] MEDS: ALPRAZolam 0.25 MG TAB PO SCH (21:51)
[2024-07-01] MEDS: LACTULOSE 20 GM/30 ML CUP PO SCH (21:51)
[2024-07-01] MEDS: HYDROmorphone 1 MG/ML 1 ML SYRINGE IVP PRN (21:54)
[2024-07-01] MEDS: QUEtiapine 200 MG TAB PO SCH (23:20)
[2024-07-01] MEDS: oxyCODONE-APAP 5-325MG 1 EACH TAB PO PRN (23:44)
[2024-07-02] MEDS: LEVOTHYROXINE 75 MCG TAB PO SCH (08:08)
[2024-07-02] MEDS: CITALOPRAM HYDROBROMIDE 20 MG TAB PO SCH (08:08)
[2024-07-02] MEDS: SYMBICORT 80-4.5 MCG INHALER INHALATION SCH (08:54)
[2024-07-02] MEDS ORDERED: PANTOPRAZOLE 40 MG/10 ML VIAL IV SCH (09:00)
[2024-07-02] MEDS ORDERED: PANTOPRAZOLE 40 MG TABLET PO SCH (09:00)
[2024-07-02 09:05] LABS: Basophils # (A) 0.04 X 10*3/uL (0.00-0.10); Basophils % (A) 0.8 %; Eosinophils # (A) 0.09 X 10*3/uL (0.04-0.35); Eosinophils % (A) 1.9 %; HCT 45.8 % (37.2-46.3); HGB 15.1 g/dL (12.0-15.0); Lymphocytes # (A) 1.08 X 10*3/uL (0.90-5.00); Lymphocytes % (A) 22.2 %; MCH 31.5 pg (27.0-32.0); MCV 95.4 FL (80.0-97.0); Mean Platelet Volume 9.7 FL (9.5-12.2); Monocytes # (A) 0.53 X 10*3/uL (0.20-1.00); Monocytes % (A) 10.9 %; NRBC Per 100 WBC 0 X 10*3/uL (0.00-0.01); Neutrophils # (A) 3.07 X 10*3/uL (1.80-7.70); Neutrophils % (A) 63.2 %; Platelet Count 307 X 10*3/uL (140-440); RDW 14.3 % (11.5-14.5); WBC 4.86 X 10*3/uL (4.50-10.00)
[2024-07-02 10:20] LABS: ALT 15 U/L (8-44); AST 17 U/L (13-35); Albumin 4.1 g/dL (3.8-4.9); Albumin/Globulin Ratio 2.05 Ratio (1.60-3.17); Alkaline Phosphatase 64 U/L (41-126); BUN/Creat Ratio <5.00 Ratio (12.00-20.00); Blood Urea Nitrogen <3.5 mg/dL (9.0-27.0); Calcium 8.9 mg/dL (8.7-10.3); Carbon Dioxide 22.3 mmol/L (21.6-31.8); Chloride 101 mmol/L (96-109); Glucose 88 mg/dL (70-110); Potassium 3.6 mmol/L (3.5-5.5); Sodium 136 mmol/L (135-145); Total Bilirubin 0.3 mg/dL (0.3-1.2); Total Protein 6.1 g/dL (6.2-8.2)
--- NOTE | 2024-07-02 10:38 | P.HPIM ---
History of Present Illness H&P Date: 07/01/24 Chief Complaint: Abdominal pain Patient is a 63-year-old female with a known history of lung cancer status post chemo and radiation, currently on Keytruda, hypertension, hyperlipidemia, prior history of smoking presents to ER with complaints of abdominal pain. Patient states that she has been having abdominal pain on and off for the past 3 months. Patient has been getting worse with past 24 hours which made her to come to ER. Pain is mainly in the epigastric region. No complaints of chest pain presents with some shortness of breath. No fever no chills. Does have nausea but no episodes of vomiting. No constipation or diarrhea. Patient had EGD and colonoscopy on 06/28/2024 showed mild antral gastritis and duodenitis. Colonoscopy was within normal limits. CT of the abdomen pelvis on admission showed no bowel obstruction. No significant acute findings is seen in to account for patient's clinical symptoms. EKG showed sinus bradycardia with low QRS voltage in the precordial leads. Chest x-ray showed mild cardiomegaly without acute pulmonary process. Gallbl adder ultrasound showed possible echogenic material adjacent to the posterior wall of the gallbladder. No gallbladder wall distention, pericholecystic fluid or wall thickening. Sonographic Benitez sign is negative. Unremarkable liver. Pancreas obscured by bowel gas. Unremarkable right kidney. Laboratory data showed WBC 4.8 hemoglobin 16.0 and platelets 315 sodium 129 potassium 4.1 chloride 101 bicarb is 22 BUN 3 and creatinine 0.57 blood sugar is 114 lactic acid 1.6 liver enzymes not elevated. Amylase lipase within normal limits. Urinalysis is negative for infection. Review of Systems Constitutional: Patient denies any fever or chills . No generalized weakness or weight loss. Abdomen: Patient is complaining of abdominal pain associate with nausea and no episodes of vomiting. No diarrhea or constipation.. Cardiovascular: Patient denies any chest pain or short of breath no palpitations. Respiratory: patient denied any cough or sputum production. No shortness of breath Neurologic: Patient denied any numbness or tingling. no headache. Musculoskeletal: Patient denies any complaints of joint swelling or deformity. Skin: Negative Psychiatric: Negative Endocrine: No heat or cold intolerance. No recent weight gain. Genitourinary: No dysuria or hematuria. All other 14 point ROS negative except the above Past Medical History Past Medical History: Cancer, Hyperlipidemia, Hypertension Additional Past Medical History / Comment(s): Wheezing, lung cancer w/ radiation and chemo - currently on Keytruda once a month at [facility] History of Any Multi-Drug Resistant Organisms: None Reported Past Surgical History: No Surgical Hx Reported Additional Past Surgical History / Comment(s): Colonoscopy w/ Dr. Liao 06/28/24 Past Anesthesia/Blood Transfusion Reactions: No Reported Reaction Additional Past Anesthesia/Blood Transfusion Reaction / Comment(s): Sedation only for Colonoscopy. Smoking Status: Former smoker - Past Family History Mother Family Medical History: Cancer Additional Family Medical History / Comment(s): Pancreatic cancer Sister(s) Family Medical History: Cancer Additional Family Medical History / Comment(s): Pancreatic cancer Brother(s) Family Medical History: Cancer Additional Family Medical History / Comment(s): Leukemia Medications and Allergies Home Medications Medication Instructions Recorded Confirmed Type ALPRAZolam [Xanax] 0.25 mg PO DAILY PRN 04/25/24 07/01/24 History ALPRAZolam [Xanax] 0.25 mg PO HS 04/25/24 07/01/24 History Atorvastatin [Lipitor] 20 mg PO HS 04/25/24 07/01/24 History Buprenorphine [Butrans 15 MCG/HR] 1 patch TRANSDERM TH 04/25/24 07/01/24 History Dicyclomine [Bentyl] 20 mg PO TID PRN 04/25/24 07/01/24 History Diltiazem Cd [Cardizem CD] 240 mg PO HS 04/25/24 07/01/24 History Fluticasone/Umeclidin/Vilanter 1 puff INHALATION RT-DAILY 04/25/24 07/01/24 History [Trelegy Ellipta 100-62.5-25] Gabapentin 300 mg PO QID 04/25/24 07/01/24 History Levothyroxine Sodium [Synthroid] 75 mcg PO DAILY 04/25/24 07/01/24 History QUEtiapine FUMARATE [SEROquel] 200 mg PO HS 04/25/24 07/01/24 History Triamterene/Hydrochlorothiazid 1 tab PO DAILY 04/25/24 07/01/24 History [Triamterene-Hctz 75-50 mg Tab] oxyCODONE-APAP 5-325MG [Percocet 1 tab PO QID PRN 04/25/24 07/01/24 History 5-325 mg] Lactulose [Cephulac] 20 gm PO BID #360 ml 05/02/24 07/01/24 Rx Potassium Chloride [Klor-Con M10] 20 meq PO DAILY #60 tab 05/02/24 07/01/24 Rx Citalopram Hydrobromide [CeleXA] 20 mg PO DAILY 07/01/24 07/01/24 History Ondansetron Odt [Zofran Odt] 8 mg PO Q8HR PRN 07/01/24 07/01/24 History Pantoprazole Sodium [Protonix] 20 mg PO BID 07/01/24 07/01/24 History Sucralfate [Carafate] 1 gm PO ACHS 07/01/24 07/01/24 History Allergies Allergy/AdvReac Type Severity Reaction Status Date / Time No Known Allergies Allergy Verified 07/01/24 08:48 Physical Exam Vitals: Vital Signs Temp Pulse Pulse Pulse Resp BP BP 07/02/24 09:07 64 07/02/24 08:54 60 07/02/24 07:10 98 F 71 16 167/89 07/02/24 01:54 98.3 F 86 16 07/01/24 21:49 59 L 07/01/24 19:26 98.2 F 57 L 15 07/01/24 16:15 66 07/01/24 16:07 64 07/01/24 15:00 97.5 F L 50 L 16 07/01/24 13:44 55 L 16 162/85 07/01/24 11:20 68 16 147/84 BP Pulse Ox 07/02/24 09:07 07/02/24 08:54 07/02/24 07:10 95 07/02/24 01:54 154/84 95 07/01/24 21:49 158/71 07/01/24 19:26 152/74 97 07/01/24 16:15 07/01/24 16:07 07/01/24 15:00 170/85 96 07/01/24 13:44 95 07/01/24 11:20 95 Intake and Output 07/01/24 07/02/24 07/02/24 22:59 06:59 14:59 Other: Voiding Method Toilet # Voids 1 2 Weight 58.5 kg PHYSICAL EXAMINATION: Patient is lying in the bed. Mild acute distress due to pain, awake alert and oriented.. HEENT: Normocephalic. Neck is supple. Pupils reactive. Nostrils clear. Oral cavity is moist. Neck reveals no JVD, carotid bruits, or thyromegaly. CHEST EXAMINATION: Trachea is central. Symmetrical expansion. Lung porter clear to auscultation and percussion. CARDIAC: Normal S1, S2 with no gallops. No murmurs ABDOMEN: Soft. Bowel sounds present. Epigastric tenderness.. No guarding or rigidity. No organomegaly. No abdominal bruits. Extremities: reveal no edema. No clubbing or cyanosis Neurologically awake, alert, oriented x3 with well-coordinated movements. No focal deficits noted Skin: No rash or skin lesions. Psychiatric: Coperative. Nonsuicidal. Anxious. Musculoskeletal: No joint swelling or deformity. Normal range of motion. Results CBC & Chem 7: 07/02/24 05:36 07/02/24 05:36 Labs: Abnormal Lab Results - Last 24 Hours (Table) 07/02/24 07/02/24 Range/Units 05:36 05:36 Hgb 15.1 H (12.0-15.0) g/dL Immature Gran # 0.05 H (0.00-0.04) X 10*3/uL Anion Gap 12.70 H (4.00-12.00) mmol/L BUN <3.5 L (9.0-27.0) mg/dL BUN/Creatinine Ratio <5.00 L (12.00-20.00) Ratio Total Protein 6.1 L (6.2-8.2) g/dL Thrombosis Risk Factor Assmnt - DVT/VTE Prophylaxis DVT/VTE Prophylaxis: Pharmacologic Prophylaxis ordered - Choose All That Apply Each Risk Factor Represents 2 Points: Age 61-74 years Thrombosis Risk Factor Assessment Total Risk Factor Score: 2 Thrombosis Risk Factor Assessment Level: Low Risk Assessment and Plan Assessment: Intractable abdominal pain. Mainly in the epigastric region. Recent EGD showed mild antral gastritis and duodenitis. Gallbladder ultrasound showed no evidence of gallbladder thickening no signs of cholecystitis. History of lung cancer status postradiation and chemo. Currently on Keytruda once a month at [facility]. Diagnosed in July 2023 Prior history of smoking Uncontrolled hypertension Hypovolemic hyponatremia Hyperlipidemia Anxiety/depression Hypothyroidism DVT prophylaxis with heparin subcu and GI prophylaxis PPI Plan: Patient will be continued on IV hydration with normal saline. Continue pain management with IV Dilaudid and Toradol IV. Patient had a CT of the abdomen pelvis and ultrasound gallbladder was done. Continue with PPI IV twice daily. Continue with home blood pressure medications and titrate dose as needed. Patient is on triamterene/hydrochlorothiazide and Cardizem. General surgery is on board. Continue to follow closely. Prognosis is guarded. Time with Patient: Greater than 30
[2024-07-02 11:47] VITALS: BMI 22.1
--- NOTE | 2024-07-02 14:00 | P.PN ---
Subjective Progress Note Date: 07/02/24 Principal diagnosis: Abdominal pain 63-year-old female known to our service. Patient was hospitalized in March with similar complaints. Describes a 3-month history of upper abdominal pain and bloating. Patient states she thinks she is full of gas. Wants a medication or a procedure to remove the excess gas in her abdomen. Patient was previously seen at [facility] and [facility]. During her last hospital stay here she was seen by GI and underwent EGD and colonoscopy. This admission she has a CAT scan showing possible sludge in the gallbladder. Ultrasound also shows possible layering material posterior wall of the gallbladder. Unfortunately patient describes pain as being in the right upper and left upper quadrants for the most part. Some nausea. She is afebrile. White blood cell and liver enzymes normal. Objective - Vital Signs Vital signs: Vital Signs Temp 98 F 07/02/24 07:10 Pulse 64 07/02/24 09:07 Resp 16 07/02/24 07:10 BP 167/89 07/02/24 07:10 Pulse Ox 95 07/02/24 07:10 FiO2 Intake & Output 07/01/24 07/02/24 07/02/24 18:59 06:59 18:59 Intake Total 0 Balance 0 Weight 58.5 kg 58.5 kg Intake: Oral 0 Other: Voiding Method Toilet # Voids 2 3 # Bowel Movements 0 - Exam Abdomen: Soft, mild upper abdominal tenderness, mild distention - Labs CBC & Chem 7: 07/02/24 05:36 07/02/24 05:36 Labs: Abnormal Lab Results - Last 24 Hours (Table) 07/02/24 07/02/24 Range/Units 05:36 05:36 Hgb 15.1 H (12.0-15.0) g/dL Immature Gran # 0.05 H (0.00-0.04) X 10*3/uL Anion Gap 12.70 H (4.00-12.00) mmol/L BUN <3.5 L (9.0-27.0) mg/dL BUN/Creatinine Ratio <5.00 L (12.00-20.00) Ratio Total Protein 6.1 L (6.2-8.2) g/dL Assessment and Plan (1) Abdominal pain of unknown etiology Narrative/Plan: 63-year-old female with 3-month history of upper abdominal pain. Etiology unclear. Studies this time however do suggest possible gallbladder sludge. Will order HIDA scan with EF. Current Visit: Yes Status: Acute Code(s): R10.9 - UNSPECIFIED ABDOMINAL PAIN SNOMED Code(s): 938650251
[2024-07-02] MEDS: KETOROLAC 15 MG/ML 1 ML VIAL IVP PRN (18:33)
--- NOTE | 2024-07-03 00:03 | P.PN ---
Subjective Progress Note Date: 07/02/24 Patient is a 63-year-old female with a known history of lung cancer status post chemo and radiation, currently on Keytruda, hypertension, hyperlipidemia, prior history of smoking presents to ER with complaints of abdominal pain. Patient states that she has been having abdominal pain on and off for the past 3 months. Patient has been getting worse with past 24 hours which made her to come to ER. Pain is mainly in the epigastric region. No complaints of chest pain presents with some shortness of breath. No fever no chills. Does have nausea but no episodes of vomiting. No constipation or diarrhea. Patient had EGD and colonoscopy on 06/28/2024 showed mild antral gastritis and duodenitis. Colonoscopy was within normal limits. CT of the abdomen pelvis on admission showed no bowel obstruction. No significant acute findings is seen in to account for patient's clinical symptoms. EKG showed sinus bradycardia with low QRS voltage in the precordial leads. Chest x-ray showed mild cardiomegaly without acute pulmonary process. Gallbladder ultrasound showed possible echogenic material adjacent to the posterior wall of the gallbladder. No gallbladder wall distention, pericholecystic fluid or wall thickening. Sonographic Benitez sign is negative. Unremarkable liver. Pancreas obscured by bowel gas. Unremarkable right kidney. Laboratory data showed WBC 4.8 hemoglobin 16.0 and platelets 315 sodium 129 potassium 4.1 chloride 101 bicarb is 22 BUN 3 and creatinine 0.57 blood sugar is 114 lactic acid 1.6 liver enzymes not elevated. Amylase lipase within normal limits. Urinalysis is negative for infection. Patient was admitted to hospital due to ileus, urinary tract infection possible pneumonia about a month ago. 07/02/2024 Patient states that she continues to have abdominal pain mainly in the epigastric region. Denies any radiation of the pain. Slightly improved compared to yesterday. Requesting IV pain medications [id number]. Patient has been afebrile. Does have nausea. No episodes of vomiting. No cough or sputum production. Patient denies any constipation. Complains of bloating. Laboratory data showed sodium improved to 136 chloride 101 bicarb is 22.3 BUN 3.5 and creatinine 0.7 and blood sugar 88. Liver exams are not elevated. General surgery is on board. Current medications reviewed. Objective - Vital Signs Vital signs: Vital Signs Temp 97.6 F 07/02/24 18:45 Pulse 74 07/02/24 18:45 Resp 16 07/02/24 18:45 BP 157/84 07/02/24 18:45 Pulse Ox 95 07/02/24 18:45 FiO2 Intake & Output 07/02/24 07/02/24 07/03/24 06:59 18:59 06:59 Intake Total 440 Balance 440 Weight 58.5 kg Intake: Oral 440 Other: Voiding Method Toilet # Voids 2 3 # Bowel Movements 0 - Exam PHYSICAL EXAMINATION: Patient is lying in the bed. Mild acute distress due to pain, awake alert and oriented.. HEENT: Normocephalic. Neck is supple. Pupils reactive. Nostrils clear. Oral cavity is moist. Neck reveals no JVD, carotid bruits, or thyromegaly. CHEST EXAMINATION: Trachea is central. Symmetrical expansion. Lung porter clear to auscultation and percussion. CARDIAC: Normal S1, S2 with no gallops. No murmurs ABDOMEN: Soft. Bowel sounds present. Epigastric tenderness.. No guarding or rigidity. No organomegaly. No abdominal bruits. Extremities: reveal no edema. No clubbing or cyanosis Neurologically awake, alert, oriented x3 with well-coordinated movements. No focal deficits noted Skin: No rash or skin lesions. Psychiatric: Coperative. Nonsuicidal. Anxious. Musculoskeletal: No joint swelling or deformity. Normal range of motion. - Labs CBC & Chem 7: 07/02/24 05:36 07/02/24 05:36 Labs: Abnormal Lab Results - Last 24 Hours (Table) 07/02/24 07/02/24 Range/Units 05:36 05:36 Hgb 15.1 H (12.0-15.0) g/dL Immature Gran # 0.05 H (0.00-0.04) X 10*3/uL Anion Gap 12.70 H (4.00-12.00) mmol/L BUN <3.5 L (9.0-27.0) mg/dL BUN/Creatinine Ratio <5.00 L (12.00-20.00) Ratio Total Protein 6.1 L (6.2-8.2) g/dL Assessment and Plan Assessment: Intractable abdominal pain. Mainly in the epigastric region. Recent EGD showed mild antral gastritis and duodenitis. Gallbladder ultrasound showed no evidence of gallbladder thickening no signs of cholecystitis. History of lung cancer status postradiation and chemo. Currently on Keytruda once a month at [facility]. Diagnosed in 2022.Patient had bronchoscopy in July 2023 due to left hilar mass but was nondiagnostic for malignancy. Prior history of smoking Uncontrolled hypertension Hypovolemic hyponatremia improved. Hyperlipidemia Anxiety/depression Hypothyroidism DVT prophylaxis with heparin subcu and GI prophylaxis PPI Plan: Patient will be continued on IV hydration with normal saline. Continue pain management with IV Dilaudid and Toradol IV. Patient had a CT of the abdomen pelvis and ultrasound gallbladder was done. Continue with PPI IV twice daily. Continue with home blood pressure medications and titrate dose as needed. Patient is on triamterene/hydrochlorothiazide and Cardizem. Added losartan. General surgery is on board. HIDA scan was ordered. Continue to follow closely. Prognosis is guarded. Time with Patient: Greater than 30
[2024-07-03] MEDS: HEPARIN SODIUM,PORCINE 5,000 UNIT/ML 1 ML VIAL SQ SCH (00:43)
[2024-07-03] MEDS: LOSARTAN 50 MG TAB PO SCH (08:48)
[2024-07-03 09:06] LABS: BUN/Creat Ratio 5.29 Ratio (12.00-20.00); Blood Urea Nitrogen 3.7 mg/dL (9.0-27.0); Carbon Dioxide 20.4 mmol/L (21.6-31.8); Chloride 98 mmol/L (96-109); Glucose 91 mg/dL (70-110); Potassium 3.2 mmol/L (3.5-5.5); Sodium 131 mmol/L (135-145)
--- NOTE | 2024-07-03 11:27 | P.PN ---
Subjective Progress Note Date: 07/03/24 Principal diagnosis: Abdominal pain Patient feels somewhat better today. Yesterday when I saw the patient we ordered a HIDA scan. Apparently a HIDA scan was performed during the computer downtime. Nursing staff provided the results. Objective - Vital Signs Vital signs: Vital Signs Temp 97.8 F 07/03/24 06:50 Pulse 76 07/03/24 06:50 Resp 17 07/03/24 06:50 BP 163/84 07/03/24 06:50 Pulse Ox 96 07/03/24 06:50 FiO2 Intake & Output 07/02/24 07/03/24 07/03/24 18:59 06:59 18:59 Intake Total 440 Balance 440 Weight 58.5 kg Intake: Oral 440 Other: Voiding Method Toilet Toilet # Voids 3 1 # Bowel Movements 0 - Exam Abdomen: Soft, nondistended, mild epigastric tenderness - Labs CBC & Chem 7: 07/02/24 05:36 07/03/24 02:27 Labs: Abnormal Lab Results - Last 24 Hours (Table) 07/03/24 Range/Units 02:27 Sodium 131 L (135-145) mmol/L Potassium 3.2 L (3.5-5.5) mmol/L Carbon Dioxide 20.4 L (21.6-31.8) mmol/L Anion Gap 12.60 H (4.00-12.00) mmol/L BUN 3.7 L (9.0-27.0) mg/dL BUN/Creatinine Ratio 5.29 L (12.00-20.00) Ratio Assessment and Plan (1) Abdominal pain of unknown etiology Narrative/Plan: Patient doing somewhat better today. HIDA scan results noted. No obvious chronic cholecystitis seen on that study. Patient does however on CAT scan and ultrasound have possible small stones or sludge. We discussed again the option of cholecystectomy. I discussed with the patient that I am not entirely convinced cholecystectomy will resolve the patient's upper abdominal pain and bloating issues. Cholecystectomy however was offered as an option to see if this would help the patient. She says she will consider that this afternoon and notify me if she would like to proceed. Advance diet. Current Visit: Yes Status: Acute Code(s): R10.9 - UNSPECIFIED ABDOMINAL PAIN SNOMED Code(s): 161100851
--- NOTE | 2024-07-03 14:19 | P.OP ---
Date of Procedure: 07/03/24 Preoperative Diagnosis: Small bowel obstruction Postoperative Diagnosis: Small bowel obstruction Extensive adhesions Adhesions causing internal hernia Anastomotic stricture Procedure(s) Performed: Exploratory laparotomy Colectomy with resection of ileal colonic anastomosis partial omentectomy y Anesthesia: AROLDO Surgeon: Nic Apodaca Estimated Blood Loss (ml): 50 Pathology: other (Colon, small bowel s anastomosis) Condition: stable Disposition: PACU Description of Procedure: The patient was placed on the operative table in the supine position. She received general trach tube anesthesia. Her abdomen was prepped and draped in the sterile fashion. The abdomen centered through the midline scar. Upon in the abdomen there was extensive adhesions. The bowel was quite dilated. The small bowel appeared to be approximately 5 to 6 cm diameter. There were extensive adhesions throughout the small bowel. Approximately 35 minutes of our time use Elase adhesions. There was evidence of a possible internal hernia due to adhesions. The small bowel lysis of adhesions was run from the jejunum to the level of the ileocolonic anastomosis. Due to the CT findings of possible anastomotic stricture. It was decided to perform an excision of the anastomosis and a new ileocolonic anastomosis. The small bowel was transected with a JHONY stapler approximately 20 cm proximal to the anastomosis. And then the colon was transected with the JHONY stapler just distal to the anastomosis. Using the LigaSure device the best of the bowel was divided. The specimen of the pathology. There was also portion of omentum splint that appeared to be nonviable. A [id number] functional end-to-end stapled mass was then created using a JHONY and TA still present through GI silk suture. The wound on the mesentery was closed with 3-0 GI silk suture. The abdomen. There is no bleedi ng seen. The left colon and sigmoid colon very redundant. There was no sign of any other mechanical obstruction. The fascia was then closed with looped #1 PDS suture. Skin was closed rajni. Patient was sent to the recovery room in stable condition.
[2024-07-03] MEDS: POTASSIUM CHLORIDE 10 MEQ in WATER FOR INJECTION 1 100ML.BAG IVPB SCH (14:33)
[2024-07-03] MEDS: POTASSIUM CHLORIDE ER 20 MEQ TAB.ER PO SCH (14:34)
--- NOTE | 2024-07-04 00:35 | P.PN ---
Subjective Progress Note Date: 07/03/24 Patient is a 63-year-old female with a known history of lung cancer status post chemo and radiation, currently on Keytruda, hypertension, hyperlipidemia, prior history of smoking presents to ER with complaints of abdominal pain. Patient states that she has been having abdominal pain on and off for the past 3 months. Patient has been getting worse with past 24 hours which made her to come to ER. Pain is mainly in the epigastric region. No complaints of chest pain presents with some shortness of breath. No fever no chills. Does have nausea but no episodes of vomiting. No constipation or diarrhea. Patient had EGD and colonoscopy on 06/28/2024 showed mild antral gastritis and duodenitis. Colonoscopy was within normal limits. CT of the abdomen pelvis on admission showed no bowel obstruction. No significant acute findings is seen in to account for patient's clinical symptoms. EKG showed sinus bradycardia with low QRS voltage in the precordial leads. Chest x-ray showed mild cardiomegaly without acute pulmonary process. Gallbladder ultrasound showed possible echogenic material adjacent to the posterior wall of the gallbladder. No gallbladder wall distention, pericholecystic fluid or wall thickening. Sonographic Benitez sign is negative. Unremarkable liver. Pancreas obscured by bowel gas. Unremarkable right kidney. Laboratory data showed WBC 4.8 hemoglobin 16.0 and platelets 315 sodium 129 potassium 4.1 chloride 101 bicarb is 22 BUN 3 and creatinine 0.57 blood sugar is 114 lactic acid 1.6 liver enzymes not elevated. Amylase lipase within normal limits. Urinalysis is negative for infection. Patient was admitted to hospital due to ileus, urinary tract infection possible pneumonia about a month ago. 07/02/2024 Patient states that she continues to have abdominal pain mainly in the epigastric region. Denies any radiation of the pain. Slightly improved compared to yesterday. Requesting IV pain medications [id number]. Patient has been afebrile. Does have nausea. No episodes of vomiting. No cough or sputum production. Patient denies any constipation. Complains of bloating. Laboratory data showed sodium improved to 136 chloride 101 bicarb is 22.3 BUN 3.5 and creatinine 0.7 and blood sugar 88. Liver exams are not elevated. General surgery is on board. 2023 Patient is lying in the bed. Awake alert and oriented x 3. Abdominal pain is better compared to yesterday. Patient did not require IV Dilaudid until afternoon. Heparin drip patient had HIDA scan done during downtime. General surgery is on board and considering cholecystectomy if patient is agreeable. Laboratory test showed sodium 131 potassium 3.2 chloride 98 bicarb is 20.4 BUN 3.7 creatinine 0.7 blood sugar 91. Current medications reviewed. Objective - Vital Signs Vital signs: Vital Signs Temp 98.7 F 07/03/24 18:45 Pulse 72 07/03/24 20:58 Resp 17 07/03/24 18:45 BP 119/71 07/03/24 20:58 Pulse Ox 93 L 07/03/24 18:45 FiO2 Intake & Output 07/03/24 07/03/24 07/04/24 06:59 18:59 06:59 Intake Total 640 Balance 640 Intake: Oral 640 Other: Voiding Method Toilet # Voids 1 3 2 # Bowel Movements 2 - Exam PHYSICAL EXAMINATION: Patient is lying in the bed. Mild acute distress due to pain, awake alert and o riented.. HEENT: Normocephalic. Neck is supple. Pupils reactive. Nostrils clear. Oral cavity is moist. Neck reveals no JVD, carotid bruits, or thyromegaly. CHEST EXAMINATION: Trachea is central. Symmetrical expansion. Lung porter clear to auscultation and percussion. CARDIAC: Normal S1, S2 with no gallops. No murmurs ABDOMEN: Soft. Bowel sounds present. Epigastric tenderness.. No guarding or rigidity. No organomegaly. No abdominal bruits. Extremities: reveal no edema. No clubbing or cyanosis Neurologically awake, alert, oriented x3 with well-coordinated movements. No focal deficits noted Skin: No rash or skin lesions. Psychiatric: Coperative. Nonsuicidal. Anxious. Musculoskeletal: No joint swelling or deformity. Normal range of motion. - Labs CBC & Chem 7: 07/02/24 05:36 07/03/24 02:27 Labs: Abnormal Lab Results - Last 24 Hours (Table) 07/03/24 Range/Units 02:27 Sodium 131 L (135-145) mmol/L Potassium 3.2 L (3.5-5.5) mmol/L Carbon Dioxide 20.4 L (21.6-31.8) mmol/L Anion Gap 12.60 H (4.00-12.00) mmol/L BUN 3.7 L (9.0-27.0) mg/dL BUN/Creatinine Ratio 5.29 L (12.00-20.00) Ratio Assessment and Plan Assessment: Intractable abdominal pain. Mainly in the epigastric region and right sided. Recent EGD showed mild antral gastritis and duodenitis. Gallbladder ultrasound showed no evidence of gallbladder thickening no signs of cholecystitis. HIDA scan was done during downtime report not available at this time. History of lung cancer status postradiation and chemo. Currently on Keytruda once a month at [facility]. Diagnosed in 2022.Patient had bronchoscopy in July 2023 due to left hilar mass but was nondiagnostic for malignancy. Prior history of smoking Uncontrolled hypertension Hypovolemic hyponatremia improved. Hyperlipidemia Anxiety/depression Hypothyroidism DVT prophylaxis with heparin subcu and GI prophylaxis PPI Plan: Patient will be continued on IV hydration with normal saline. Continue pain management with IV Dilaudid and Toradol IV. Patient had a CT of the abdomen pelvis and ultrasound gallbladder was done. Continue with PPI IV twice daily. Continue with home blood pressure medications and titrate dose as needed. Patient is on triamterene/hydrochlorothiazide and Cardizem. Added losartan. General surgery is on board. Considering cholecystectomy. Continue to follow closely. Prognosis is guarded. Time with Patient: Greater than 30
[2024-07-04 07:53] VITALS: RESP 17
[2024-07-04 09:04] LABS: Basophils # (A) 0.04 X 10*3/uL (0.00-0.10); Basophils % (A) 0.7 %; Eosinophils # (A) 0.12 X 10*3/uL (0.04-0.35); Eosinophils % (A) 2.2 %; HCT 39.5 % (37.2-46.3); HGB 13.5 g/dL (12.0-15.0); Lymphocytes # (A) 1.28 X 10*3/uL (0.90-5.00); Lymphocytes % (A) 23.9 %; MCH 31.8 pg (27.0-32.0); MCHC 34.2 g/dL (32.0-37.0); MCV 92.9 FL (80.0-97.0); Mean Platelet Volume 9.7 FL (9.5-12.2); Monocytes # (A) 0.42 X 10*3/uL (0.20-1.00); Monocytes % (A) 7.9 %; NRBC Per 100 WBC 0 X 10*3/uL (0.00-0.01); Neutrophils # (A) 3.45 X 10*3/uL (1.80-7.70); Neutrophils % (A) 64.6 %; Platelet Count 298 X 10*3/uL (140-440); RBC 4.25 X 10*6/uL (4.10-5.20); RDW 14.4 % (11.5-14.5); WBC 5.35 X 10*3/uL (4.50-10.00)
[2024-07-04 09:05] LABS: BUN/Creat Ratio 5.78 Ratio (12.00-20.00); Blood Urea Nitrogen 5.2 mg/dL (9.0-27.0); Calcium 8.7 mg/dL (8.7-10.3); Carbon Dioxide 19.6 mmol/L (21.6-31.8); Chloride 101 mmol/L (96-109); Glucose 103 mg/dL (70-110); Potassium 3.6 mmol/L (3.5-5.5); Sodium 131 mmol/L (135-145)
--- NOTE | 2024-07-04 12:34 | P.PN ---
Subjective Progress Note Date: 07/04/24 CHIEF COMPLAINT: Abdominal pain HISTORY OF PRESENT ILLNESS: Patient reports that she has had abdominal pain across the upper abdomen and around the back with nausea after eating yesterday. Pain is a little less today. Patient wants to hold off on surgery today. She would like to trial diet again to see if symptoms recur before making a decision on surgery. Afebrile. WBC 5.35 Hgb 13.5 platelets 298 sodium 131 potassium 3.6 creatinine 0.9 PHYSICAL EXAM: VITAL SIGNS: Reviewed. GENERAL: Well-developed in no acute distress. ABDOMEN: Soft. Nondistended. Tenderness palpation across upper abdomen NEUROLOGIC: Alert and oriented. Cranial nerves II through XII grossly intact. ASSESSMENT: 1. Abdominal pain of unknown etiology 2. CT scan and ultrasound have reported possible small gallstones or sludge PLAN: -Start low-fat, low fiber diet -Awaiting patient's decision regarding possible cholecystectomy. Patient would like to trial diet again to see if symptoms recur before making decision on surgery. Physician Foam Charger note has been reviewed by physician. Signing provider agrees with the documented findings, assessment, and plan of care. I have personally seen and examined the patient, reviewed the HEALTH AIDE /PAs history, exam and MDM and agree with the assessment and plan as written. Based on total visit time, I have performed more than 50% of the visit. As above: Patient having some abdominal discomfort and now has decided she would like to proceed with cholecystectomy. We have scheduled for outpatient elective laparoscopic cholecystectomy Monday. May be discharged at this time. She will be contacted by the hospital for an arrival time. Objective - Vital Signs Vital signs: Vital Signs Temp 98.2 F 07/04/24 06:55 Pulse 72 07/04/24 06:55 Resp 17 07/04/24 08:14 BP 113/65 07/04/24 06:55 Pulse Ox 95 07/04/24 06:55 FiO2 Intake & Output 07/03/24 07/04/24 07/04/24 18:59 06:59 18:59 Intake Total 640 Balance 640 Intake: Oral 640 Other: Voiding Method Toilet Toilet # Voids 3 3 # Bowel Movements 2 - Labs CBC & Chem 7: 07/04/24 02:32 07/04/24 02:32 Labs: Abnormal Lab Results - Last 24 Hours (Table) 09/05/24 Range/Units 02:32 Sodium 131 L (135-145) mmol/L Carbon Dioxide 19.6 L (21.6-31.8) mmol/L BUN 5.2 L (9.0-27.0) mg/dL BUN/Creatinine Ratio 5.78 L (12.00-20.00) Ratio
[2024-07-04] MEDS ORDERED: POTASSIUM CHLORIDE ER 20 MEQ TAB.ER PO STA (15:13)
[2024-07-04 15:29] VITALS: BP 101/61; PULSE 90; TEMP 99.2
[2024-07-04] MEDS ORDERED: NON FORMULARY DRUG (Buprenorphine [Butrans 15 Mcg/Hr] 15 MCG/HOUR Patch) TRANSDERM SCH (15:45)
[2024-07-04] MEDS ORDERED: PANTOPRAZOLE 40 MG TABLET PO SCH (21:00)
== END 2024-07-04 16:38 | disposition home or self-care (01) ==
LOC: EC 04:27 → OBSVTOIN 06:14 → 6NMEDSUR 06:14
PROVIDERS: ADMIT Internal Medicine; ATTEND Internal Medicine
DX: K80.20 Calculus of gallbladder without cholecystitis without obstruction (principal); E86.1 Hypovolemia; E78.5 Hyperlipidemia, unspecified; E03.9 Hypothyroidism, unspecified; E87.1 Hypo-osmolality and hyponatremia; F32.A Depression, unspecified; F41.9 Anxiety disorder, unspecified; I10 Essential (primary) hypertension; K29.80 Duodenitis without bleeding; K29.70 Gastritis, unspecified, without bleeding; Z79.890 Hormone replacement therapy; Z79.899 Other long term (current) drug therapy; Z85.118 Personal history of other malignant neoplasm of bronchus and lung; Z87.891 Personal history of nicotine dependence; Z92.21 Personal history of antineoplastic chemotherapy; Z92.3 Personal history of irradiation; Z71.3 Dietary counseling and surveillance; Z87.440 Personal history of urinary (tract) infections; Z87.01 Personal history of pneumonia (recurrent); R00.1 Bradycardia, unspecified
CPT/HCPCS: 36415; 71045; 74177; 76705; 80048; 80053; 81003; 82150; 83605; 83690; 84484; 85025; 85610; 85730; 93005; 94640; 96361; 96374; 96375; 96376; 99285

== ENCOUNTER 2024-07-08 12:53 | Day surgery (SDC) | payer OTHER ==
[~2024-07-08 12:53] MED LIST changes: +ACETAMINOPHEN TAB 500 MG TAB PO PRN; +HEPARIN SODIUM,PORCINE 5,000 UNIT/ML 1 ML VIAL SQ PRN; -LACTATED RINGERS 1,000 ML IV SCH; -LIDOCAINE 1% (10MG/ML) FOR IV START INTRADERMA PRN; +MIDAZOLAM 2 MG/2 ML VIAL IV PRN; +SCOPOLAMINE 1 MG/72 HR PATCH TRANSDERM ONE
[2024-07-08] MEDS: ONDANSETRON 4 MG/2 ML VIAL IVP ONE (14:20)
[2024-07-08] MEDS: DEXAMETHASONE SOD PHOSPHATE 4 MG/ML 1 ML VIAL IV ONE (14:20)
[2024-07-08] MEDS: fentaNYL (PF) 50 MCG/ML 2 ML AMP IVP PRN (14:22)
[2024-07-08] MEDS: LACTATED RINGERS 1,000 ML IV SCH (14:23)
[2024-07-08] MEDS: IV FLUID CONTINUATION 1,000 ML IV ONE (14:23)
--- NOTE | 2024-07-08 14:33 | P.GSHP ---
History of Present Illness H&P Date: 07/08/24 Chief Complaint: Chronic cholecystitis 63-year-old female known from recent hospital stay last week. Patient has had chronic abdominal discomforts. Most of her abdominal pain is in the upper abdomen. This is associate with nausea and bloating. Patient had ultrasound showing sludge or small stones. She was discharged Monday with plans for elective cholecystectomy today. Patient with history of recent endoscopies. Patient also with history of lung cancer on Keytruda currently. Past Medical History Past Medical History: Cancer, Hyperlipidemia, Hypertension, Thyroid Disorder Additional Past Medical History / Comment(s): Wheezing, lung cancer w/ radiation and chemo - currently on Keytruda once a month; abd pain & nausea x 6 months, inpatient @ [facility] 07/01/24-07/04/24 for abd pain. History of Any Multi-Drug Resistant Organisms: None Reported Past Surgical History: No Surgical Hx Reported Additional Past Surgical History / Comment(s): Colonoscopy w/ Dr. Liao 06/28/24 Past Anesthesia/Blood Transfusion Reactions: No Reported Reaction Additional Past Anesthesia/Blood Transfusion Reaction / Comment(s): Sedation only for Colonoscopy. Smoking Status: Former smoker - Past Family History Mother Family Medical History: Cancer Additional Family Medical History / Comment(s): Pancreatic cancer Sister(s) Family Medical History: Cancer Additional Family Medical History / Comment(s): Pancreatic cancer Brother(s) Family Medical History: Cancer Additional Family Medical History / Comment(s): Leukemia Medications and Allergies Home Medications Medication Instructions Recorded Confirmed Type ALPRAZolam [Xanax] 0.25 mg PO DAILY PRN 04/25/24 07/05/24 History ALPRAZolam [Xanax] 0.25 mg PO HS 04/25/24 07/05/24 History Atorvastatin [Lipitor] 20 mg PO HS 04/25/24 07/05/24 History Buprenorphine [Butrans 15 MCG/HR] 1 patch TRANSDERM TH 04/25/24 07/05/24 History Dicyclomine [Bentyl] 20 mg PO TID PRN 04/25/24 07/05/24 History Diltiazem Cd [Cardizem CD] 240 mg PO HS 04/25/24 07/05/24 History Fluticasone/Umeclidin/Vilanter 1 puff INHALATION RT-DAILY 04/25/24 07/05/24 History [Trelegy Ellipta 100-62.5-25] Gabapentin 300 mg PO QID 04/25/24 07/05/24 History Levothyroxine Sodium [Synthroid] 75 mcg PO DAILY 04/25/24 07/05/24 History QUEtiapine FUMARATE [SEROquel] 200 mg PO HS 04/25/24 07/05/24 History Triamterene/Hydrochlorothiazid 1 tab PO DAILY 04/25/24 07/05/24 History [Triamterene-Hctz 75-50 mg Tab] oxyCODONE-APAP 5-325MG [Percocet 1 tab PO QID PRN 04/25/24 07/05/24 History 5-325 mg] Lactulose [Cephulac] 20 gm PO BID #360 ml 05/02/24 07/05/24 Rx Potassium Chloride [Klor-Con M10] 20 meq PO DAILY #60 tab 05/02/24 07/05/24 Rx Citalopram Hydrobromide [CeleXA] 20 mg PO DAILY 07/01/24 07/05/24 History Ondansetron Odt [Zofran ODT] 8 mg PO Q8HR PRN 07/01/24 07/05/24 History Pantoprazole Sodium [Protonix] 20 mg PO BID 07/01/24 07/05/24 History Sucralfate [Carafate] 1 gm PO ACHS 07/01/24 07/05/24 History Allergies Allergy/AdvReac Type Severity Reaction Status Date / Time No Known Allergies Allergy Verified 07/08/24 13:41 Surgical - Exam Vital Signs Temp Pulse Resp BP Pulse Ox 97.6 F 67 16 196/93 98 07/08/24 13:53 07/08/24 13:53 07/08/24 13:53 07/08/24 13:53 07/08/24 13:53 Physical exam: General: Well-developed, well-nourished HEENT: Normocephalic, sclerae nonicteric Abdomen: Nontender, nondistended Extremities: No edema Neuro: Alert and oriented Assessment and Plan (1) Chronic cholecystitis Narrative/Plan: Will proceed with laparoscopic, possible open cholecystectomy at this time. Current Visit: Yes Status: Acute Code(s): K81.1 - CHRONIC CHOLECYSTITIS SNOMED Code(s): 25776231
[2024-07-08] MEDS: IPRATROPIUM-ALBUTEROL 3 ML NEB INHALATION STA (14:36)
[2024-07-08] MEDS ORDERED: NEOSTIGMINE 1 MG/ML 10 ML VIAL ONE (14:48)
[2024-07-08] MEDS ORDERED: LABETALOL 5 MG/ML VIAL MDV ONE (14:48)
[2024-07-08] MEDS ORDERED: GLYCOPYRROLATE 0.2 MG/ML 2 ML VIAL ONE (14:48)
[2024-07-08] MEDS ORDERED: LIDOCAINE 1% INJ 10MG/ML (20 ML MDV) ONE (14:48)
[2024-07-08] MEDS ORDERED: SUCCINYLCHOLINE CHLORIDE 200 MG/10 ML VIAL IV ONE (14:48)
[2024-07-08] MEDS ORDERED: KETAMINE HCL IN 0.9 % NACL 50 MG/5 ML SYRINGE ONE (14:48)
[2024-07-08] MEDS ORDERED: ROCURONIUM 10 MG/ML (5 ML VIAL) IV ONE (14:48)
[2024-07-08] MEDS ORDERED: ACETAMINOPHEN IV (For NPO) 1,000 MG/100 ML VIAL ONE (14:48)
[2024-07-08] MEDS ORDERED: MIDAZOLAM 2 MG/2 ML VIAL ONE (14:48)
[2024-07-08] MEDS ORDERED: HYDROmorphone (PF) 1 MG/ML ONE (14:48)
[2024-07-08] MEDS ORDERED: PROPOFOL 10 MG/ML 20 ML VIAL IV ONE (14:48)
[2024-07-08] MEDS ORDERED: fentaNYL (PF) 50 MCG/ML 2 ML AMP ONE (14:48)
[2024-07-08] MEDS: BUPIVACAIN-EPI 0.25%-1:200,000 30 ML VIAL IJ ONE (15:17)
--- NOTE | 2024-07-08 16:13 | P.OP ---
Date of Procedure: 07/08/24 Procedure(s) Performed: PREOPERATIVE DIAGNOSIS: Chronic cholecystitis POSTOPERATIVE DIAGNOSIS: Same PROCEDURE: Laparoscopic cholecystectomy SURGEON: Morena EBL: Minimal see anesthesia record ANESTHESIA: Gen. COMPLICATIONS: None OPERATIVE PROCEDURE: The patient was brought and placed on the operating room table in the supine position. The patient was placed under general anesthesia at that time. The abdomen was prepped and draped in the usual sterile fashion. A small vertical infraumbilical incision was made. The fascia was grasped with the Melanie forceps. The fascia was retracted anteriorly. The Veress needle was advanced into the peritoneal cavity. The saline drop test was normal. Insufflation took place up to 15 mmHg. A 5 mm optical trocar was advanced and the peritoneal cavity. 2 additional 5 mm trochars were placed in the right upper quadrant under direct visualization. A 12 mm trocar was advanced into the epigastric incision site. The gallbladder had chronic inflammatory changes present. There were somewhat dense adhesions to the pericolonic fat. These were lysed using electrocautery. There were a few small vessels that were clipped on the pericolonic fat in the process of dissecting that area. The gallbladder was retracted superiorly and laterally. The peritoneum overlying the infundibulum was bluntly dissected. The patient's cystic duct was visualized. The junction between the cystic duct common and hepatic duct was identified. The critical view of safety was achieved after blunt dissection. The cystic duct was then divided after placement of 3 12 mm clips on the patient's side and one on the specimen side. The cystic artery was identified and clipped as well. A small vessel was seen along the gallbladder fossa and clipped as well. The gallbladder was then removed from the liver bed using electrocautery. The gallbladder was then removed from the epigastric trocar site with an Endo Catch bag. The gallbladder fossa was irrigated with saline. There was no evidence of any bleeding or biliary drainage seen. The fascia at the 12 millimeter site was closed using a [id number] 0 Vicryl stitch. The trochars were then removed. The skin at all 4 sites was closed using a 4-0 Monocryl stitch. Skin glue was utilized on the incision sites. At the end of this procedure the sponge and needle counts were correct. DISPOSITION: Stable to the recovery room
[2024-07-08 16:21] VITALS: TEMP 97.2
[2024-07-08] MEDS: HYDROmorphone 0.5 MG/0.5 ML SYRINGE IVP PRN (16:37)
[2024-07-08] MEDS: droPERidol 5 MG/2 ML VIAL IVP ONE (17:09)
[2024-07-08] MEDS: TRIAMTERENE-HCTZ 75-50MG 1 EACH TAB PO SCH (17:15)
[2024-07-08] MEDS: hydrALAZINE HCL 20 MG/ML 1 ML VIAL IVP STA (17:31)
[2024-07-08] MEDS: LACTATED RINGERS 1,000 ML IV ONE (17:43)
[2024-07-08] MEDS ORDERED: ACETAMINOPHEN TAB 325 MG TAB PO SCH (18:00)
[2024-07-08 18:04] VITALS: BP 173/80; PULSE 82; RESP 18
[2024-07-08] MEDS ORDERED: IBUPROFEN 600 MG TAB PO SCH (19:00)
== END 2024-07-08 18:13 | disposition home or self-care (01) ==
LOC: OR 12:53
PROVIDERS: ATTEND Surgery
DX: K80.10 Calculus of gallbladder with chronic cholecystitis without obstruction (principal); E78.5 Hyperlipidemia, unspecified; I10 Essential (primary) hypertension; E07.9 Disorder of thyroid, unspecified; F41.9 Anxiety disorder, unspecified; K21.9 Gastro-esophageal reflux disease without esophagitis; F41.0 Panic disorder [episodic paroxysmal anxiety]; Z85.118 Personal history of other malignant neoplasm of bronchus and lung; Z87.891 Personal history of nicotine dependence; Z79.899 Other long term (current) drug therapy; Z79.890 Hormone replacement therapy
CPT/HCPCS: 88304

== ENCOUNTER 2024-09-02 15:23 | Inpatient (IN) | payer OTHER ==
--- NOTE | 2024-09-02 16:26 | ED ---
Abdominal Pain HPI - General Chief Complaint: Abdominal Pain Stated Complaint: ABD PAIN Time Seen by Provider: 09/02/24 16:11 Source: patient Mode of arrival: ambulatory Limitations: no limitations - History of Present Illness Initial Comments: This patient is a 63-year-old woman who presents to have evaluation for abdominal pain that she indicates is present diffusely. She feels fullness and bloating. She states that it this has been going on for months now, even before she had cholecystectomy which was performed 2 months ago here. The patient s tates she was seen at [facility] 2 days ago for same pain and told that she had gastritis and constipation. She states that she had a bowel prep and did have bowel movement but that her pains were not really relieved. MD Complaint: abdominal pain Onset/Timin -: month(s) Location: diffuse Radiation: none Migration to: no migration Severity: severe Quality: cramping, fullness Consistency: constant Improves With: nothing Worsens With: nothing Associated Symptoms: nausea, constipation - Related Data Home Medications Medication Instructions Recorded Confirmed ALPRAZolam [Xanax] 0.25 mg PO DAILY PRN 04/25/24 09/08/24 ALPRAZolam [Xanax] 0.25 mg PO HS 04/25/24 09/08/24 Atorvastatin [Lipitor] 20 mg PO HS 04/25/24 09/08/24 Diltiazem Cd [Cardizem CD] 240 mg PO HS 04/25/24 09/08/24 Fluticasone/Umeclidin/Vilanter 1 puff INHALATION RT-DAILY 04/25/24 09/08/24 [Trelegy Ellipta 100-62.5-25] Gabapentin 300 mg PO QID 04/25/24 09/08/24 Levothyroxine Sodium [Synthroid] 75 mcg PO DAILY 04/25/24 09/08/24 QUEtiapine FUMARATE [SEROquel] 200 mg PO HS 04/25/24 09/08/24 Triamterene/Hydrochlorothiazid 1 tab PO DAILY 04/25/24 09/08/24 [Triamterene-Hctz 75-50 mg Tab] Citalopram Hydrobromide [CeleXA] 20 mg PO DAILY 07/01/24 09/08/24 Sucralfate [Carafate] 1 gm PO ACHS 07/01/24 09/08/24 Buprenorphine [Butrans 20 MCG/HOUR] 1 patch TRANSDERM TH 09/03/24 09/08/24 Cimetidine [Tagamet] 400 mg PO HS 09/03/24 09/08/24 Famotidine [Pepcid] 40 mg PO DAILY PRN 09/03/24 09/08/24 Linaclotide [Linzess] 290 mcg PO DAILY 09/03/24 09/08/24 Metoclopramide [Reglan] 10 mg PO TID-W/MEALS 09/03/24 09/08/24 Ondansetron Odt [Zofran ODT] 4 mg PO Q8HR PRN 09/03/24 09/08/24 Pantoprazole [Protonix] 40 mg PO DAILY 09/03/24 09/08/24 Previous Rx's Medication Instructions Recorded Dicyclomine [Bentyl] 10 mg PO QID PRN #120 cap 09/07/24 Lactulose [Cephulac] 30 gm PO TID #360 ml 09/07/24 Sennosides [Senokot] 8.6 mg PO DAILY PRN #30 tab 09/07/24 Simethicone 40 mg/0.6 ml Drops 40 mg PO QID #10 ml 09/07/24 [Mylicon Drops] bisacodyL [Dulcolax] 10 mg RECTAL DAILY PRN #30 09/07/24 suppositor Allergies Allergy/AdvReac Type Severity Reaction Status Date / Time morphine Allergy Unknown Verified 09/08/24 11:47 Review of Systems ROS Statement: Those systems with pertinent positive or pertinent negative responses have been documented in the HPI. ROS Other: All systems not noted in ROS Statement are negative. Constitutional: Denies: fever, chills Respiratory: Denies: cough, dyspnea Cardiovascular: Denies: chest pain, palpitations, orthopnea, edema, syncope Gastrointestinal: Reports: abdominal pain, nausea, constipation. Denies: vomiting, diarrhea, hematemesis, melena, hematochezia Genitourinary: Denies: dysuria, frequency, hematuria Musculoskeletal: Denies: back pain Skin: Denies: rash Neurological: Denies: headache, weakness, numbness Past Medical History Past Medical History: Cancer, Hyperlipidemia, Hypertension, Thyroid Disorder Additional Past Medical History / Comment(s): Wheezing, lung cancer w/ radiation and chemo - currently on Keytruda once a month; abd pain & nausea x 6 months, inpatient @ [facility] 07/01/24-07/04/24 for abd pain. History of Any Multi-Drug Resistant Organisms: None Reported Past Surgical History: No Surgical Hx Reported Additional Past Surgical History / Comment(s): Colonoscopy w/ Dr. Liao 06/28/24 Past Anesthesia/Blood Transfusion Reactions: No Reported Reaction Additional Past Anesthesia/Blood Transfusion Reaction / Comment(s): Sedation only for Colonoscopy. Past Psychological History: Anxiety, Panic Disorder Smoking Status: Former smoker Past Alcohol Use History: None Reported Past Drug Use History: None Reported - Past Family History Mother Family Medical History: Cancer Additional Family Medical History / Comment(s): Pancreatic cancer Sister(s) Family Medical History: Cancer Additional Family Medical History / Comment(s): Pancreatic cancer Brother(s) Family Medical History: Cancer Additional Family Medical History / Comment(s): Leukemia General Exam Limitations: no limitations General appearance: alert, in no apparent distress Head exam: Present: atraumatic, normocephalic Eye exam: Present: normal appearance. Absent: scleral icterus, conjunctival injection ENT exam: Present: mucous membranes dry Neck exam: Present: normal inspection, full ROM Respiratory exam: Present: normal lung sounds bilaterally. Absent: respiratory distress, wheezes, rales, rhonchi, stridor, accessory muscle use Cardiovascular Exam: Present: regular rate, normal rhythm, normal heart sounds. Absent: systolic murmur, diastolic murmur, rubs, gallop GI/Abdominal exam: Present: distended, tenderness, guarding, hypoactive bowel sounds. Absent: rebound, rigid, mass, pulsatile mass, hernia Extremities exam: Present: normal inspection, normal capillary refill. Absent: pedal edema, calf tenderness Back exam: Present: normal inspection. Absent: CVA tenderness (R), CVA tende rness (L) Neurological exam: Present: alert Skin exam: Present: warm, dry, intact, normal color. Absent: rash Course Vital Signs 09/02/24 09/02/24 09/02/24 15:26 21:43 23:00 Temperature 97.4 F L Pulse Rate 90 77 69 Respiratory 18 16 16 Rate Blood Pressure 170/107 178/100 175/90 O2 Sat by Pulse 95 97 96 Oximetry Medical Decision Making - Medical Decision Making Patient is a 63-year-old woman presenting with intractable abdominal pain. The patient had CT scan of the abdomen that I interpreted as not reveal free air or obstruction. No acute surgical condition. The colon does appear to be Mildly dilated with fluid. CT does reveal left lower infiltrate. Discussed with admitting physician and treatment recommendations are incorporated Was pt. sent in by a medical professional or institution (, PA, HVAC R INSTRUCTOR, urgent care, hospital, or retirement...) When possible be specific @ -[No] Did you speak to anyone other than the patient for history (EMS, parent, family, police, friend...)? What history was obtained from this source @ -[No] Did you review nursing and triage notes (agree or disagree)? Why? @ -[I reviewed and agree with nursing and triage notes] Were old charts reviewed (outside hosp., previous admission, EMS record, old EKG, old radiological studies, urgent care reports/EKG's, retirement records)? Report findings @ -[No old charts were reviewed] Differential Diagnosis (chest pain, altered mental status, abdominal pain women, abdominal pain men, vaginal bleeding, weakness, fever, dyspnea, syncope, headache, dizziness, GI bleed, back pain, seizure, CVA, palpatations, mental health, musculoskeletal)? @ -[Differential Abdominal Pain Women: Appendicitis, Cholecystitis, diverticulosis, ischemic bowel, pancreatitis, hepatitis, UTI, gastroenteritis, AAA, incarcerated hernia, bowel obstruction, constipation, inflammatory bowel, hepatitis, peptic ulcer disease, splenic infarction, perforated viscus, vulvitis, ovarian torsion, PID, kidney stone, placenta abruption, this is not meant to be an all-inclusive list EKG interpreted by me (3pts min.). @ -[As above] X-rays interpreted by me (1pt min.). @ -[None done] CT interpreted by me (1pt min.). @ -[I interpreted as above U/S interpreted by me (1pt. min.). @ -[None done] What testing was considered but not performed or refused? (CT, X-rays, U/S, labs)? Why? @ -[None] What meds were considered but not given or refused? Why? @ -[None] Did you discuss the management of the patient with other professionals (professionals i.e. , PA, HVAC R INSTRUCTOR, lab, RT, psych nurse, social media specialist, credit administration officer, teacher, fire information officer, case manager specialist)? Give summary @ -[Case discussed with admitting physician and treatment recommendations incorporated Was smoking cessation discussed for >3mins.? @ -[No] Was critical care preformed (if so, how long)? @ -[No] Were there social determinants of health that impacted care today? How? (Homelessness, low income, unemployed, alcoholism, drug addiction, transportation, low edu. Level, literacy, decrease access to med. care, care home, rehab)? @ -[No] Was there de-escalation of care discussed even if they declined (Discuss DNR or withdrawal of care, Hospice)? DNR status @ -[No] What co-morbidities impacted this encounter? (DM, HTN, Smoking, COPD, CAD, Cancer, CVA, ARF, Chemo, Hep., AIDS, mental health diagnosis, sleep apnea, morbid obesity)? @ -[None] Was patient admitted / discharged? Hospital course, mention meds given and route, prescriptions, significant lab abnormalities, going to OR and other pertinent info. @ -[Patient is a 63-year-old woman here to have evaluation of abdominal pain. The workup does show a possible pneumonia developing, patient will be admitted to have further evaluation related to abdominal pain and the lung infiltrate Undiagnosed new problem with uncertain prognosis? @ -[No] Drug Therapy requiring intensive monitoring for toxicity (Heparin, Nitro, Insulin, Cardizem)? @ -[No] Were any procedures done? @ -[No] Diagnosis/symptom? @ -[Acute abdominal pain Lower lobe pneumonia Acute, or Chronic, or Acute on Chronic? @ -Acute Uncomplicated (without systemic symptoms) or Complicated (systemic symptoms)? @ -[Uncomplicated Side effects of treatment? @ -[No] Exacerbation, Progression, or Severe Exacerbation? @ -[No] Poses a threat to life or bodily function? How? (Chest pain, [place], [place], pneumonia, PE, COPD, DKA, ARF, appy, cholecystitis, CVA, Diverticulitis, Homicidal, Suicidal, threat to staff... and all critical care pts) @ -[No] - Lab Data Result diagrams: 09/04/24 04:58 09/05/24 04:56 Lab Results 09/02/24 09/02/24 09/02/24 Range/Units 16:43 16:43 16:43 WBC 6.5 (3.8-10.6) k/uL RBC 4.66 (3.80-5.40) m/uL Hgb 14.3 (11.4-16.0) gm/dL Hct 44.5 (34.0-46.0) % MCV 95.4 (80.0-100.0) fL MCH 30.8 (25.0-35.0) pg MCHC 32.2 (31.0-37.0) g/dL RDW 14.5 (11.5-15.5) % Plt Count 366 (150-450) k/uL MPV 6.6 Neutrophils % 76 % Lymphocytes % 15 % Monocytes % 6 % Eosinophils % 2 % Basophils % 0 % Neutrophils # 5.0 (1.3-7.7) k/uL Lymphocytes # 1.0 (1.0-4.8) k/uL Monocytes # 0.4 (0-1.0) k/uL Eosinophils # 0.1 (0-0.7) k/uL Basophils # 0.0 (0-0.2) k/uL Sodium 136 L (137-145) mmol/L Potassium 3.7 (3.5-5.1) mmol/L Chloride 103 (98-107) mmol/L Carbon Dioxide 24 (22-30) mmol/L Anion Gap 9 mmol/L BUN 4 L (7-17) mg/dL Creatinine 0.63 (0.52-1.04) mg/dL Est GFR (CKD-EPI)AfAm >90 (>60 ml/min/1.73 sqM) Est GFR (CKD-EPI)NonAf >90 (>60 ml/min/1.73 sqM) Glucose 97 (74-99) mg/dL Plasma Lactic Acid Wagner 0.9 (0.7-2.0) mmol/L Calcium 9.4 (8.4-10.2) mg/dL Total Bilirubin 0.6 (0.2-1.3) mg/dL AST 27 (14-36) U/L ALT 22 (4-34) U/L Alkaline Phosphatase 55 (38-126) U/L Total Protein 7.0 (6.3-8.2) g/dL Albumin 4.5 (3.5-5.0) g/dL Amylase 41 (30-110) U/L Lipase 21 L (23-300) U/L Urine Color Urine Appearance (Clear) Urine pH (5.0-8.0) Ur Specific Maxwell (1.001-1.035) Urine Protein (Negative) Urine Glucose (UA) (Negative) Urine Ketones (Negative) Urine Blood (Negative) Urine Nitrite (Negative) Urine Bilirubin (Negative) Urine Urobilinogen (<2.0) mg/dL Ur Leukocyte Esterase (Negative) 09/02/24 Range/Units 20:50 WBC (3.8-10.6) k/uL RBC (3.80-5.40) m/uL Hgb (11.4-16.0) gm/dL Hct (34.0-46.0) % MCV (80.0-100.0) fL MCH (25.0-35.0) pg MCHC (31.0-37.0) g/dL RDW (11.5-15.5) % Plt Count (150-450) k/uL MPV Neutrophils % % Lymphocytes % % Monocytes % % Eosinophils % % Basophils % % Neutrophils # (1.3-7.7) k/uL Lymphocytes # (1.0-4.8) k/uL Monocytes # (0-1.0) k/uL Eosinophils # (0-0.7) k/uL Basophils # (0-0.2) k/uL Sodium (137-145) mmol/L Potassium (3.5-5.1) mmol/L Chloride (98-107) mmol/L Carbon Dioxide (22-30) mmol/L Anion Gap mmol/L BUN (7-17) mg/dL Creatinine (0.52-1.04) mg/dL Est GFR (CKD-EPI)AfAm (>60 ml/min/1.73 sqM) Est GFR (CKD-EPI)NonAf (>60 ml/min/1.73 sqM) Glucose (74-99) mg/dL Plasma Lactic Acid Wagner (0.7-2.0) mmol/L Calcium (8.4-10.2) mg/dL Total Bilirubin (0.2-1.3) mg/dL AST (14-36) U/L ALT (4-34) U/L Alkaline Phosphatase (38-126) U/L Total Protein (6.3-8.2) g/dL Albumin (3.5-5.0) g/dL Amylase (30-110) U/L Lipase (23-300) U/L Urine Color Colorless Urine Appearance Clear (Clear) Urine pH 7.5 (5.0-8.0) Ur Specific Maxwell >1.050 H (1.001-1.035) Urine Protein Negative (Negative) Urine Glucose (UA) Negative (Negative) Urine Ketones Negative (Negative) Urine Blood Negative (Negative) Urine Nitrite Negative (Negative) Urine Bilirubin Negative (Negative) Urine Urobilinogen <2.0 (<2.0) mg/dL Ur Leukocyte Esterase Negative (Negative) Disposition Clinical Impression: Intractable abdominal pain, Mass of left lung Disposition: ADMITTED IP TO THIS [facility] Condition: Fair Is patient prescribed a controlled substance at d/c from ED?: No
[2024-09-02] MEDS: DICYCLOMINE 10 MG/ML 2 ML AMP IM STA (16:37)
[2024-09-02] MEDS: SODIUM CHLORIDE 0.9% 500 ML 500 ML IV STA (16:41)
[2024-09-02 16:52] LABS: Basophils % (A) 0 %; Eosinophils # (A) 0.1 k/uL (0-0.7); Eosinophils % (A) 2 %; HCT 44.5 % (34.0-46.0); HGB 14.3 gm/dL (11.4-16.0); Lymphocytes % (A) 15 %; MCH 30.8 pg (25.0-35.0); MCHC 32.2 g/dL (31.0-37.0); MCV 95.4 fL (80.0-100.0); Mean Platelet Volume 6.6; Monocytes # (A) 0.4 k/uL (0-1.0); Monocytes % (A) 6 %; Neutrophils % (A) 76 %; Platelet Count 366 k/uL (150-450); RBC 4.66 m/uL (3.80-5.40); RDW 14.5 % (11.5-15.5); WBC 6.5 k/uL (3.8-10.6)
[2024-09-02 17:10] LABS: ALT 22 U/L (4-34); AST 27 U/L (14-36); African American GFR (CKD) >90 (>60 ml/min/1.73 sqM); Albumin 4.5 g/dL (3.5-5.0); Alkaline Phosphatase 55 U/L (38-126); Amylase 41 U/L (30-110); Anion Gap 9 mmol/L; Blood Urea Nitrogen 4 mg/dL (7-17); Calcium 9.4 mg/dL (8.4-10.2); Carbon Dioxide 24 mmol/L (22-30); Chloride 103 mmol/L (98-107); Glucose 97 mg/dL (74-99); Lipase 21 U/L (23-300); Non-African American GFR(CKD) >90 (>60 ml/min/1.73 sqM); Potassium 3.7 mmol/L (3.5-5.1); Sodium 136 mmol/L (137-145); Total Bilirubin 0.6 mg/dL (0.2-1.3)
[2024-09-02] MEDS: HYDROmorphone 0.5 MG/0.5 ML SYRINGE IVP STA ×2 (17:48→23:03)
[2024-09-02] MEDS: ONDANSETRON 4 MG/2 ML VIAL IVP STA (18:04)
--- NOTE | 2024-09-02 18:48 | CT ---
EXAMINATION TYPE: CT abdomen pelvis w con DATE OF EXAM: 09/02/2024 6:26 PM COMPARISON: 07/01/2024 CLINICAL INDICATION: Female, 63 years old with history of abdominal pain; abdominal pain TECHNIQUE: Axial CT abdomen pelvis w con;Sagittal and coronal reformats were created on a separate w orkstation. Contrast used:100 mL of Isovue 300 with IV Contrast, (none if empty) Oral contrast used: with Oral Contrast (none if empty) CT DLP: 605.8 mGycm, Automated exposure control for dose reduction was used. FINDINGS: LOWER CHEST: Similar consolidation changes in the left lung base compared to 07/01/2024. Mucous secreti ons are seen in the left large airways. Finding reflects 06/15/2024. ABDOMEN LIVER: Unremarkable GALLBLADDER AND BILE DUCTS: Gallbladder is surgically absent with mild intrahepatic and extra hepatic biliary dilatation likely physiologic and a postcholecystectomy change. No evidence of choledocholit hiasis. PANCREAS: Unremarkable. SPLEEN: Unremarkable. ADRENAL GLANDS: Unremarkable. KIDNEYS AND URETERS: No evidence of hydronephrosis or renal calculus. The ureters are unremarkable. PELVIS BLADDER: No evidence for wall thickening or mass given limitations of exam. REPRODUCTIVE: Unremarkable. ABDOMEN & PELVIS STOMACH AND BOWEL: No evidence of bowel obstruction. Dilated E stool throughout the colon. PERITONEUM/RETROPERITONEUM: No evidence of pneumoperitoneum or free fluid. VASCULATURE: No evidence of aortic aneurysm. MUSCULOSKELETAL: No acute osseous abnormalities LYMPH NODES: No gross evidence for lymphadenopathy. SOFT TISSUE/ABDOMINAL WALL: Unremarkable IMPRESSION: 1. Secretions in the left lower lung large airways with consolidation likely post obstructive atelec tasis. Correlate for aspiration superimposed infection not excluded. Bronchoscopy recommended to rule out underlying mass. 2. Moderate stool throughout the colon correlate for diarrhea. [facility], , 09/02/2024 6:45 PM
[2024-09-02] MEDS: HYDROmorphone 0.5 MG/0.5 ML SYRINGE IM STA (19:38)
[2024-09-02] MEDS: HYDROmorphone 1 MG/ML 1 ML SYRINGE IVP STA (20:47)
[2024-09-02 21:03] LABS: Appearance,Urine Clear (Clear); Bilirubin,Urine Negative (Negative); Blood,Urine Negative (Negative); Color,Urine Colorless; Glucose,Urine (UA) Negative (Negative); Ketones,Urine Negative (Negative); Leukocyte Esterase,Urine Negative (Negative); Nitrite,Urine Negative (Negative); PH, Urine 7.5 (5.0-8.0); Protein,Urine Negative (Negative); Urobilinogen,Urine <2.0 mg/dL (<2.0)
[2024-09-02 21:39] LABS: Specific Gravity,Urine >1.050 (1.001-1.035)
[2024-09-02] MEDS ORDERED: NALOXONE 0.4 MG/ML 1 ML VIAL IV PRN (22:35)
[2024-09-02] MEDS ORDERED: ACETAMINOPHEN TAB 325 MG TAB PO PRN (22:35)
[2024-09-02] MEDS: SODIUM CHLORIDE 0.9% 1,000 ML IV SCH (23:49)
[2024-09-02] MEDS: DILTIAZEM CD 240 MG CAP.ER.24H PO STA (23:49)
[2024-09-02] MEDS: HYDROmorphone 1 MG/ML 1 ML SYRINGE IVP PRN (23:56)
[2024-09-03] MEDS: AZITHROMYCIN 500 MG in SODIUM CHLORIDE 0.9% 250 ML IVPB SCH (00:52)
[2024-09-03] MEDS: oxyCODONE-APAP 5-325MG 1 EACH TAB PO PRN (02:08)
[2024-09-03] MEDS: DICYCLOMINE 20 MG TAB PO STA (03:33)
[2024-09-03] MEDS: QUEtiapine 200 MG TAB PO STA (03:33)
[2024-09-03] MEDS: ALPRAZolam 0.25 MG TAB PO STA (03:33)
[2024-09-03] MEDS: HYDROmorphone 0.5 MG/0.5 ML SYRINGE IVP PRN (03:35)
[2024-09-03] MEDS: ONDANSETRON 4 MG/2 ML VIAL IVP PRN (03:38)
[2024-09-03] MEDS: LEVOTHYROXINE 75 MCG TAB PO SCH (06:56)
[2024-09-03] MEDS: SUCRALFATE 1 GM TAB PO SCH (09:05)
[2024-09-03] MEDS: CITALOPRAM HYDROBROMIDE 20 MG TAB PO SCH (09:05)
[2024-09-03] MEDS: TRIAMTERENE-HCTZ 75-50MG 1 EACH TAB PO SCH (09:05)
[2024-09-03] MEDS: GABAPENTIN 300 MG CAP PO SCH (09:05)
[2024-09-03] MEDS: PANTOPRAZOLE 40 MG/10 ML VIAL IV SCH (09:05)
[2024-09-03] MEDS: SYMBICORT 80-4.5 MCG INHALER INHALATION SCH (09:08)
[2024-09-03] MEDS: IPRATROPIUM 0.5 MG/2.5 ML NEBU INHALATION SCH (09:08)
[2024-09-03] MEDS ORDERED: SENNOSIDES 8.6 MG TAB PO PRN (09:55)
--- NOTE | 2024-09-03 13:35 | P.GSCN ---
History of Present Illness Consult date: 09/03/24 History of present illness: CHIEF COMPLAINT: Abdominal pain HISTORY OF PRESENT ILLNESS: This is a 63-year-old female who presented to the hospital with complaints of epigastric abdominal pain. Patient reports that she has been dealing with firmness and pain across the upper abdomen over the last 6 months. She was at [facility] 2 days ago and was treated for gastritis and constipation. They gave her GoLytely bowel prep. She did have bowel movements but still reported abdominal pain. Patient's last EGD and colonoscopy was in May 2024 which revealed gastritis, duodenitis and a normal colonoscopy.. Patient does have history of lung cancer and is currently on chemotherapy. CT scan abdomen pelvis had reported moderate stool throughout the colon correlate for diarrhea. Patient reports that she has been having loose stools she reported nausea no vomiting. PAST MEDICAL HISTORY: Lung Cancer, Hyperlipidemia, Hypertension, Thyroid Disorder, lung cancer w/ radiation and chemo - currently on Keytruda once a month; PAST SURGICAL HISTORY: Cholecystectomy Family history: Mother and sister with pancreatic cancer MEDICATIONS: See below ALLERGIES: See below SOCIAL HISTORY: No illicit drug use. REVIEW OF SYSTEMS: CONSTITUTIONAL: Denies fever or chills. HEENT: Denies blurred vision, vision changes, or eye pain. Denies hemoptysis CARDIOVASCULAR: Denies chest pain or pressure. RESPIRATORY: No shortness of breath. GASTROINTESTINAL: See HPI for pertinent findings HEMATOLOGIC: Denies bleeding disorders. GENITOURINARY: Denies any blood in urine or increased urinary frequency. SKIN: Denies pruitis. Denies rash. PHYSICAL EXAM: VITAL SIGNS: Reviewed GENERAL: Well-developed in no acute distress. HEENT: No sclera icterus. Extraocular movements grossly intact. Moist buccal mucosa. Head is atraumatic, normocephalic. No nasal drainage. ABDOMEN: Upper abdomen is mildly distended and tender with palpation. NEUROLOGIC: Alert and oriented. Cranial nerves II through XII grossly intact. LABORATORY DATA: WBC 6.5 Hgb 14.3 platelets 366 Sodium 136 potassium 3.7 creatinine 0.63 Lactic acid 0.9 LFTs normal Lipase 21 Urinalysis negative for infection Influenza ,RSV and COVID-19 not detected IMAGING: CT scan abdomen pelvis reports moderate stool throughout the colon correlate for diarrhea. Secretions in the left lower lung large airways with consolidation likely postoperative atelectasis. ASSESSMENT: 1. Epigastric abdominal pain 2. Lung cancer 3. History of cholecystectomy in June 2024 PLAN: -Plan for EGD on Monday with Dr. Apodaca -Advance diet to regular -Continue to monitor Physician Environmental Engineering Manager note has been reviewed by physician. Signing provider agrees with the documented findings, assessment, and plan of care. Past Medical History Past Medical History: Cancer, Hyperlipidemia, Hypertension, Thyroid Disorder Additional Past Medical History / Comment(s): Wheezing, lung cancer w/ radiation and chemo - currently on Keytruda once a month; abd pain & nausea x 6 months, inpatient @ [facility] 07/01/24-07/04/24 for abd pain. History of Any Multi-Drug Resistant Organisms: None Reported Past Surgical History: Cholecystectomy Additional Past Surgical History / Comment(s): Colonoscopy w/ Dr. Liao 06/28/24 Past Anesthesia/Blood Transfusion Reactions: No Reported Reaction Additional Past Anesthesia/Blood Transfusion Reaction / Comm: Sedation only for Colonoscopy. Past Psychological History: Anxiety, Panic Disorder Smoking Status: Former smoker Past Alcohol Use History: None Reported Additional Past Alcohol Use History / Comment(s): smoked 1/2 ppd- quit 2022. Past Drug Use History: None Reported - Past Family History Mother Family Medical History: Cancer Additional Family Medical History / Comment(s): Pancreatic cancer Sister(s) Family Medical History: Cancer Additional Family Medical History / Comment(s): Pancreatic cancer Brother(s) Family Medical History: Cancer Additional Family Medical History / Comment(s): Leukemia Medications and Allergies Home Medications Medication Instructions Recorded Confirmed Type ALPRAZolam [Xanax] 0.25 mg PO DAILY PRN 04/25/24 09/03/24 History ALPRAZolam [Xanax] 0.25 mg PO HS 04/25/24 09/03/24 History Atorvastatin [Lipitor] 20 mg PO HS 04/25/24 09/03/24 History Dicyclomine [Bentyl] 20 mg PO TID PRN 04/25/24 09/03/24 History Diltiazem Cd [Cardizem CD] 240 mg PO HS 04/25/24 09/03/24 History Fluticasone/Umeclidin/Vilanter 1 puff INHALATION RT-DAILY 04/25/24 09/03/24 History [Trelegy Ellipta 100-62.5-25] Gabapentin 300 mg PO QID 04/25/24 09/03/24 History Levothyroxine Sodium [Synthroid] 75 mcg PO DAILY 04/25/24 09/03/24 History QUEtiapine FUMARATE [SEROquel] 200 mg PO HS 04/25/24 09/03/24 History Triamterene/Hydrochlorothiazid 1 tab PO DAILY 04/25/24 09/03/24 History [Triamterene-Hctz 75-50 mg Tab] Lactulose [Cephulac] 20 gm PO BID #360 ml 05/02/24 09/03/24 Rx Potassium Chloride [Klor-Con M10] 20 meq PO DAILY #60 tab 05/02/24 09/03/24 Rx Citalopram Hydrobromide [CeleXA] 20 mg PO DAILY 07/01/24 09/03/24 History Sucralfate [Carafate] 1 gm PO ACHS 07/01/24 09/03/24 History Acetaminophen-Codeine 300-30mg 1 tab PO Q8H PRN 09/03/24 09/03/24 History [Tylenol w/codeine #3] Buprenorphine [Butrans 20 MCG/HOUR] 1 patch TRANSDERM TH 09/03/24 09/03/24 History Cimetidine [Tagamet] 400 mg PO HS 09/03/24 09/03/24 History Famotidine [Pepcid] 40 mg PO DAILY PRN 09/03/24 09/03/24 History Levofloxacin [Levaquin] 500 mg PO DAILY 09/03/24 09/03/24 History Linaclotide [Linzess] 290 mcg PO DAILY 09/03/24 09/03/24 History Metoclopramide [Reglan] 10 mg PO TID-W/MEALS 09/03/24 09/03/24 History Ondansetron Odt [Zofran Odt] 4 mg PO Q8HR PRN 09/03/24 09/03/24 History Pantoprazole [Protonix] 40 mg PO DAILY 09/03/24 09/03/24 History oxyCODONE HCL [OxyIR] 5 mg PO Q8H PRN 09/03/24 09/03/24 History Allergies Allergy/AdvReac Type Severity Reaction Status Date / Time morphine Allergy Unknown Verified 09/03/24 09:28 Surgical - Exam Vital Signs Temp Pulse Resp BP Pulse Ox 97.4 F L 90 18 170/107 95 09/02/24 15:26 09/02/24 15:26 09/02/24 15:26 09/02/24 15:26 09/02/24 15:26 Results - Labs 09/02/24 16:43 09/02/24 16:43 Abnormal Lab Results - Last 24 Hours (Table) 09/02/24 09/02/24 Range/Units 16:43 20:50 Sodium 136 L (137-145) mmol/L BUN 4 L (7-17) mg/dL Lipase 21 L (23-300) U/L Ur Specific [place] >1.050 H (1.001-1.035) Diabetes panel 09/02/24 Range/Units 16:43 Sodium 136 L (137-145) mmol/L Potassium 3.7 (3.5-5.1) mmol/L Chloride 103 (98-107) mmol/L Carbon Dioxide 24 (22-30) mmol/L BUN 4 L (7-17) mg/dL Creatinine 0.63 (0.52-1.04) mg/dL Glucose 97 (74-99) mg/dL Calcium 9.4 (8.4-10.2) mg/dL AST 27 (14-36) U/L ALT 22 (4-34) U/L Alkaline Phosphatase 55 (38-126) U/L Total Protein 7.0 (6.3-8.2) g/dL Albumin 4.5 (3.5-5.0) g/dL Calcium panel 09/02/24 Range/Units 16:43 Calcium 9.4 (8.4-10.2) mg/dL Albumin 4.5 (3.5-5.0) g/dL Pituitary panel 09/02/24 Range/Units 16:43 Sodium 136 L (137-145) mmol/L Potassium 3.7 (3.5-5.1) mmol/L Chloride 103 (98-107) mmol/L Carbon Dioxide 24 (22-30) mmol/L BUN 4 L (7-17) mg/dL Creatinine 0.63 (0.52-1.04) mg/dL Glucose 97 (74-99) mg/dL Calcium 9.4 (8.4-10.2) mg/dL Adrenal panel 09/02/24 Range/Units 16:43 Sodium 136 L (137-145) mmol/L Potassium 3.7 (3.5-5.1) mmol/L Chloride 103 (98-107) mmol/L Carbon Dioxide 24 (22-30) mmol/L BUN 4 L (7-17) mg/dL Creatinine 0.63 (0.52-1.04) mg/dL Glucose 97 (74-99) mg/dL Calcium 9.4 (8.4-10.2) mg/dL Total Bilirubin 0.6 (0.2-1.3) mg/dL AST 27 (14-36) U/L ALT 22 (4-34) U/L Alkaline Phosphatase 55 (38-126) U/L Total Protein 7.0 (6.3-8.2) g/dL Albumin 4.5 (3.5-5.0) g/dL
[2024-09-03 14:35] VITALS: BMI 18.8
--- NOTE | 2024-09-03 14:41 | P.CNPUL ---
History of Present Illness Consult date: 09/03/24 Chief complaint: Lung cancer History of present illness: This is a 63-year-old female patient with known history of lung cancer. The patient is a chronic smoker has been smoking since the age of 18 and I initially met her back in 2012 as the patient was having episodes of hemoptysis. She presented to an outside hospital and a CAT scan of the chest was done and it showed a left perihilar mass with obstructive atelectatic changes in the left lung. The mass was measuring 3.8 x 3.9 cm in size and was narrowing the left upper lobe bronchus and the left mainstem bronchus and the left lower lobe bronchus. There was no evidence of any pleural effusion by exam. No mediastinal lymphadenopathy. There was evidence of T9/T11 compression fracture deformity. A PET/CT was done on 08/11/2023 and it showed a left perihilar mass that was metabolically active along with postobstructive and atelectatic changes in the left perihilar and left lower lobe area. The patient was encountering weight loss. Bronchoscopy was done and the biopsy was consistent with non-small cell lung cancer. The patient is also known to have COPD with an FEV1 of 62% of predicted and a diffusion capacity of 34% of predicted, treated with Trelegy Ellipta on an outpatient basis. Her other medical history includes hyperlipidemia, hypertension, chronic back pain, panic disorder and acid reflux. Based on the pathologic findings, the patient was referred to medical oncology for treatment of pulmonary adenocarcinoma. The patient was given chemotherapy and radiation therapy and following that she was maintained on Keytruda. Follow-up CAT scan of the chest abdomen and pelvis that was done on 04/25/2024 showed COPD. The previous masslike opacity in the left lower lobe extending to the hilum was smaller and less defined. There was some posterior treatment ch anges in the left lower lobe with some atelectatic changes and some residual consolidation. The patient was admitted to the hospital on 04/26/2024 for abdominal pain. At that time, the patient was seen by general surgery. The patient was taken to the operating room for small bowel obstruction and the patient underwent lysis of adhesions and the patient had colectomy with resection of a ileocolic anastomosis on 07/03/2024. Subsequently, the patient was discharged to be readmitted to the hospital because of ongoing abdominal pain and nausea and bloating. Ultrasound the gallbladder showed sludge and the patient underwent a elective cholecystectomy on 07/08/2024 and subsequently she was discharged home. She presented to the Emergency Department yesterday for ongoing abdominal pain that was rather diffuse. The patient felt fullness and bloating. Her pain has been going on for months even before she had a cholecystectomy. She stated that she was having bowel movement activity. In the emergency department, the white cell count was at 6.5 with a hemoglobin 14.3, electrolytes are all within normal limits. Normal LFTs. UA was negative. The viral screen was negative. CAT scan of the abdomen was done on 09/02/2024 and it showed some atelectatic changes in the left lung base along with some residual consolidation. There is moderate stool throughout the colon. No evidence of any pneumoperitoneum. No evidence of any aortic dissection. No evidence of any intra-abdominal lymphadenopathy. Currently, the patient is on room air oxygen with a pulse ox of 95%. She is on a combination of Rocephin and Zithromax. Review of Systems Constitutional: Denies chills, Denies fever Eyes: denies as per HPI, denies blurred vision, denies bulging eye, denies decreased vision, denies diplopia, denies discharge, denies dry eye, denies irritation, denies itching, denies pain, denies photophobia, denies loss of peripheral vision, denies loss of vision, denies tunnel vision/blind spots Ears: deny: decreased hearing, ear discharge, earache, tinnitus Ears, nose, mouth and throat: Reports as per HPI Cardiovascular: Reports as per HPI Respiratory: Reports as per HPI Gastrointestinal: Reports abdominal pain Genitourinary: Reports as per HPI Menstruation: Reports as per HPI Musculoskeletal: Reports as per HPI Musculoskeletal: absent: ankle pain, ankle stiffness, ankle swelling, as per HPI, elbow pain, elbow stiffness, elbow swelling, foot pain, foot stiffness, foot swelling, hand pain, hand stiffness, hand swelling, hip pain, hip stiffness, hip swelling, knee pain, knee stiffness, knee swelling, shoulder pain, shoulder stiffness, shoulder swelling, wrist pain, wrist stiffness, wrist swelling Integumentary: Reports as per HPI Neurological: Reports as per HPI Psychiatric: Reports as per HPI Endocrine: Reports as per HPI Hematologic/Lymphatic: Reports as per HPI Allergic/Immunologic: Reports as per HPI Past Medical History Past Medical History: Cancer (Pulmonary due to carcinoma, treated with chemorad iation therapy and the patient had a large left perihilar mass), Hyperlipidemia, Hypertension, Thyroid Disorder Additional Past Medical History / Comment(s): Wheezing, lung cancer w/ radiation and chemo - currently on Keytruda once a month; abd pain & nausea x 6 months, inpatient @ [facility] 07/01/24-07/04/24 for abd pain. History of Any Multi-Drug Resistant Organisms: None Reported Past Surgical History: Cholecystectomy Additional Past Surgical History / Comment(s): Colonoscopy w/ Dr. Liao 06/28/24 Past Anesthesia/Blood Transfusion Reactions: No Reported Reaction Additional Past Anesthesia/Blood Transfusion Reaction / Comment(s): Sedation only for Colonoscopy. Past Psychological History: Anxiety, Panic Disorder Smoking Status: Former smoker Past Alcohol Use History: None Reported Additional Past Alcohol Use History / Comment(s): smoked /2 ppd- quit 2022. Past Drug Use History: None Reported - Past Family History Mother Family Medical History: Cancer Additional Family Medical History / Comment(s): Pancreatic cancer Sister(s) Family Medical History: Cancer Additional Family Medical History / Comment(s): Pancreatic cancer Brother(s) Family Medical History: Cancer Additional Family Medical History / Comment(s): Leukemia Medications and Allergies Home Medications Medication Instructions Recorded Confirmed Type ALPRAZolam [Xanax] 0.25 mg PO DAILY PRN 04/25/24 09/03/24 History ALPRAZolam [Xanax] 0.25 mg PO HS 04/25/24 09/03/24 History Atorvastatin [Lipitor] 20 mg PO HS 04/25/24 09/03/24 History Dicyclomine [Bentyl] 20 mg PO TID PRN 04/25/24 09/03/24 History Diltiazem Cd [Cardizem CD] 240 mg PO HS 04/25/24 09/03/24 History Fluticasone/Umeclidin/Vilanter 1 puff INHALATION RT-DAILY 04/25/24 09/03/24 History [Trelegy Ellipta 100-62.5-25] Gabapentin 300 mg PO QID 04/25/24 09/03/24 History Levothyroxine Sodium [Synthroid] 75 mcg PO DAILY 04/25/24 09/03/24 History QUEtiapine FUMARATE [SEROquel] 200 mg PO HS 04/25/24 09/03/24 History Triamterene/Hydrochlorothiazid 1 tab PO DAILY 04/25/24 09/03/24 History [Triamterene-Hctz 75-50 mg Tab] Lactulose [Cephulac] 20 gm PO BID #360 ml 05/02/24 09/03/24 Rx Potassium Chloride [Klor-Con M10] 20 meq PO DAILY #60 tab 05/02/24 09/03/24 Rx Citalopram Hydrobromide [CeleXA] 20 mg PO DAILY 07/01/24 09/03/24 History Sucralfate [Carafate] 1 gm PO ACHS 07/01/24 09/03/24 History Acetaminophen-Codeine 300-30mg 1 tab PO Q8H PRN 09/03/24 09/03/24 History [Tylenol w/codeine #3] Buprenorphine [Butrans 20 MCG/HOUR] 1 patch TRANSDERM TH 09/03/24 09/03/24 History Cimetidine [Tagamet] 400 mg PO HS 09/03/24 09/03/24 History Famotidine [Pepcid] 40 mg PO DAILY PRN 09/03/24 09/03/24 History Levofloxacin [Levaquin] 500 mg PO DAILY 09/03/24 09/03/24 History Linaclotide [Linzess] 290 mcg PO DAILY 09/03/24 09/03/24 History Metoclopramide [Reglan] 10 mg PO TID-W/MEALS 09/03/24 09/03/24 History Ondansetron Odt [Zofran Odt] 4 mg PO Q8HR PRN 09/03/24 09/03/24 History Pantoprazole [Protonix] 40 mg PO DAILY 09/03/24 09/03/24 History oxyCODONE HCL [OxyIR] 5 mg PO Q8H PRN 09/03/24 09/03/24 History Allergies Allergy/AdvReac Type Severity Reaction Status Date / Time morphine Allergy Unknown Verified 09/03/24 09:28 Physical Exam Vitals: Vital Signs Temp Pulse Pulse Resp BP BP Pulse Ox 09/03/24 07:23 97.7 F 91 18 121/77 95 11/05/24 01:45 98.6 F 64 16 170/91 97 09/03/24 01:37 97.8 F 57 L 18 145/94 97 09/02/24 23:00 69 16 175/90 96 09/02/24 21:43 77 16 178/100 97 09/02/24 15:26 97.4 F L 90 18 170/107 95 Intake and Output 09/02/24 09/03/24 09/03/24 22:59 06:59 14:59 Other: Voiding Method Toilet # Voids 2 Weight 49.895 kg 49.895 kg The patient appeared well nourished and normally developed. Vital signs as documented. Head exam is unremarkable. No scleral icterus or corneal arcus noted. Neck is without jugular venous distension, thyromegaly, or carotid bruits. Carotid upstrokes are brisk bilaterally. Lungs are clear to auscultation and percussion. There is diminished breath sounds in lung base especially left lung base. Overall air entry is diminished and the patient has few scattered expiratory wheeze. Cardiac exam reveals the PMI to be normally sized and situated. Rhythm is regular. First and second heart sounds normal. No murmurs, rubs or gallops. Abdominal exam reveals normal bowel sounds, no masses, no organomegaly and no aortic enlargement. Extremities are nonedematous and both femoral and pedal pulses are normal. Examination of the skin revealed no evidence of significant rashes, suspicious appearing nevi or other concerning lesions. Neurologically, the patient is awake and alert and the patient does not have any focal neurological deficit. Cranial nerves are essentially intact. Results - Laboratory Findings CBC and BMP: 09/02/24 16:43 09/02/24 16:43 ABG WBC 6.5 k/uL (3.8-10.6) 09/02/24 16:43 RBC 4.66 m/uL (3.80-5.40) 09/02/24 16:43 Hgb 14.3 gm/dL (11.4-16.0) 09/02/24 16:43 Hct 44.5 % (34.0-46.0) 09/02/24 16:43 MCV 95.4 fL (80.0-100.0) 09/02/24 16:43 MCH 30.8 pg (25.0-35.0) 09/02/24 16:43 MCHC 32.2 g/dL (31.0-37.0) 09/02/24 16:43 RDW 14.5 % (11.5-15.5) 09/02/24 16:43 Plt Count 366 k/uL (150-450) 09/02/24 16:43 MPV 6.6 09/02/24 16:43 Neutrophils % 76 % 09/02/24 16:43 Lymphocytes % 15 % 09/02/24 16:43 Monocytes % 6 % 09/02/24 16:43 Eosinophils % 2 % 09/02/24 16:43 Basophils % 0 % 09/02/24 16:43 Neutrophils # 5.0 k/uL (1.3-7.7) 09/02/24 16:43 Lymphocytes # 1.0 k/uL (1.0-4.8) 09/02/24 16:43 Monocytes # 0.4 k/uL (0-1.0) 09/02/24 16:43 Eosinophils # 0.1 k/uL (0-0.7) 09/02/24 16:43 Basophils # 0.0 k/uL (0-0.2) 09/02/24 16:43 Sodium 136 mmol/L (137-145) L 09/02/24 16:43 Potassium 3.7 mmol/L (3.5-5.1) 09/02/24 16:43 Chloride 103 mmol/L (98-107) 09/02/24 16:43 Carbon Dioxide 24 mmol/L (22-30) 09/02/24 16:43 Anion Gap 9 mmol/L 09/02/24 16:43 BUN 4 mg/dL (7-17) L 09/02/24 16:43 Creatinine 0.63 mg/dL (0.52-1.04) 09/02/24 16:43 Est GFR (CKD-EPI)AfAm >90 (>60 ml/min/1.73 sqM) 09/02/24 16:43 Est GFR (CKD-EPI)NonAf >90 (>60 ml/min/1.73 sqM) 09/02/24 16:43 Glucose 97 mg/dL (74-99) 09/02/24 16:43 Plasma Lactic Acid [place] 0.9 mmol/L (0.7-2.0) 09/02/24 16:43 Calcium 9.4 mg/dL (8.4-10.2) 09/02/24 16:43 Total Bilirubin 0.6 mg/dL (0.2-1.3) 09/02/24 16:43 AST 27 U/L (14-36) 09/02/24 16:43 ALT 22 U/L (4-34) 09/02/24 16:43 Alkaline Phosphatase 55 U/L (38-126) 09/02/24 16:43 Total Protein 7.0 g/dL (6.3-8.2) 09/02/24 16:43 Albumin 4.5 g/dL (3.5-5.0) 09/02/24 16:43 Amylase 41 U/L (30-110) 09/02/24 16:43 Lipase 21 U/L (23-300) L 09/02/24 16:43 Urine Color Colorless 09/02/24 20:50 Urine Appearance Clear (Clear) 09/02/24 20:50 Urine pH 7.5 (5.0-8.0) 09/02/24 20:50 Ur Specific [place] >1.050 (1.001-1.035) H 09/02/24 20:50 Urine Protein Negative (Negative) 09/02/24 20:50 Urine Glucose (UA) Negative (Negative) 09/02/24 20:50 Urine Ketones Negative (Negative) 09/02/24 20:50 Urine Blood Negative (Negative) 09/02/24 20:50 Urine Nitrite Negative (Negative) 09/02/24 20:50 Urine Bilirubin Negative (Negative) 09/02/24 20:50 Urine Urobilinogen <2.0 mg/dL (<2.0) 09/02/24 20:50 Ur Leukocyte Esterase Negative (Negative) 09/02/24 20:50 Influenza Type A (PCR) Not Detected (Not Detectd) 09/02/24 22:57 Influenza Type B (PCR) Not Detected (Not Detectd) 09/02/24 22:57 RSV (PCR) Not Detected (Not Detectd) 09/02/24 22:57 SARS-CoV-2 (PCR) Not Detected (Not Detectd) 09/02/24 22:57 Abnormal lab findings: Abnormal Labs 09/02/24 09/02/24 16:43 20:50 Sodium 136 L BUN 4 L Lipase 21 L Ur Specific [place] >1.050 H Assessment and Plan Plan: Pulm adenocarcinoma, status post bronchoscopy on 08/25/2023 and the patient had endobronchial tumor involving the secondary kevin causing obstruction of the left upper lobe bronchus and the left lower lobe bronchus and biopsies were consistent with non-small cell lung cancer. The patient was treated for locally advanced disease with a combination of chemoradiation therapy and the patient has been maintained on Keytruda with cleared clinical response. Most recent CAT scan of the chest done on 06/15/2024 shows small left and minimal right-sided pleural effusion along with some compressive atelectatic changes in lung bases and some residual consolidation, essentially related to post treatment changes. As such, the patient has had positive response to therapy. COPD, moderate severe with an FEV1 of 60% predicted maintained on Trelegy Ellip ta on outpatient basis Abdominal pain, currently under investigation. The patient has had previous EGD and colonoscopy revealing mild antral gastritis and duodenitis and a colonoscopy was within normal limits on 06/28/2024. Subsequently, the patient had a small bowel obstruction and the patient underwent lysis of adhesion and resection of the ileocolonic anastomosis on 07/03/2024. This was followed up by a laparoscopic elective cholecystectomy that was done on 07/08/2024. Hyperlipidemia Hypertension Hypothyroidism Chronic anxiety/panic disorder Plan Findings in the left lower lobe are essentially consistent with post treatment changes related to treatment of pulm adenocarcinoma/non-small cell lung cancer the patient was given a combination of chemo and radiation therapy followed by immunotherapy as the patient is currently on Keytruda with adequate clinical response. There is some residual opacity in the left perihilar area and atelectatic changes in the left lung base with small left-sided pleural effusion. Oxygenation is stable. The patient COPD is currently inactive and st able. General surgery consultation The patient is off Ketruda for the past 4 months and she is still having the abdominal pain and this pain is unlikely to be related to immunotherapy Resume home medications Will follow.
[2024-09-03] MEDS: ALPRAZolam 0.25 MG TAB PO SCH (20:45)
[2024-09-03] MEDS: QUEtiapine 200 MG TAB PO SCH (20:45)
[2024-09-03] MEDS: ATORVASTATIN 20 MG TAB PO SCH (20:45)
[2024-09-03] MEDS: DILTIAZEM CD 240 MG CAP.ER.24H PO SCH (20:45)
[2024-09-03] MEDS: DICYCLOMINE 10 MG CAP PO PRN (20:45)
--- NOTE | 2024-09-03 22:25 | P.HPIM ---
History of Present Illness H&P Date: 09/03/24 Chief Complaint: Abdominal pain Patient is a 63-year-old female with a known history of non-small cell lung cancer status post chemo and radiation and was maintained on Keytruda, recent admission in March 2024 due to abdominal pain and bowel obstruction status post colectomy with resection and ileocolic anastomosis on 07/03/2024 and subsequently had cholecystectomy on 07/08/2024, hypothyroidism, hypertension, hyperlipidemia, anxiety/panic disorder and prior history of smoking. Patient presents to ER with complaints of abdominal pain along with fullness and bloating sensation. Patient has been having epigastric fullness which has been present for the past couple of months. Patient was recently admitted to hospital at [facility] with abdominal fullness and constipation. Patient did have a bowel movement after bowel prep. But pain has not been relieved. CT of the abdomen pelvis showed secretions in the left lower lung large airways with consolidation likely postobstructive atelectasis. Correlate for aspiration superimposed infection not excluded. Bronchoscopy recommended to rule out underlying mass. Moderate stool throughout the colon correlate for diarrhea. Laboratory data showed WBC 6.5 hemoglobin 14.3 and platelets 366, sodium 136 pot assium 3.7 chloride 103 bicarb is 24 BUN 14 creatinine 0.60 and blood sugar 97. Liver enzymes not elevated Urinalysis is negative for infection Influenza A B and RSV PCR not detected. Review of Systems Constitutional: Patient denies any fever or chills . No generalized weakness or weight loss. Abdomen: Patient complains of nausea, vomiting and abdominal pain. No diarrhea. Cardiovascular: Patient denies any chest pain or short of breath no palpitations. Respiratory: patient denied any cough or sputum production. No shortness of breath Neurologic: Patient denied any numbness or tingling. no headache. Musculoskeletal: Patient denies any complaints of joint swelling or deformity. Skin: Negative Psychiatric: Negative Endocrine: No heat or cold intolerance. No recent weight gain. Genitourinary: No dysuria or hematuria. All other 14 point ROS negative except the above Past Medical History Past Medical History: Cancer, Hyperlipidemia, Hypertension, Thyroid Disorder Additional Past Medical History / Comment(s): Wheezing, lung cancer w/ radiation and chemo - currently on Keytruda once a month; abd pain & nausea x 6 months, inpatient @ [facility] 07/01/24-07/04/24 for abd pain. History of Any Multi-Drug Resistant Organisms: None Reported Past Surgical History: Cholecystectomy Additional Past Surgical History / Comment(s): Colonoscopy w/ Dr. Liao 06/28/24 Past Anesthesia/Blood Transfusion Reactions: No Reported Reaction Additional Past Anesthesia/Blood Transfusion Reaction / Comment(s): Sedation only for Colonoscopy. Past Psychological History: Anxiety, Panic Disorder Smoking Status: Former smoker Past Alcohol Use History: None Reported Additional Past Alcohol Use History / Comment(s): smoked 1/2 ppd- quit 2022. Past Drug Use History: None Reported - Past Family History Mother Family Medical History: Cancer Additional Family Medical History / Comment(s): Pancreatic cancer Sister(s) Family Medical History: Cancer Additional Family Medical History / Comment(s): Pancreatic cancer Brother(s) Family Medical History: Cancer Additional Family Medical History / Comment(s): Leukemia Medications and Allergies Home Medications Medication Instructions Recorded Confirmed Type ALPRAZolam [Xanax] 0.25 mg PO DAILY PRN 04/25/24 09/03/24 History ALPRAZolam [Xanax] 0.25 mg PO HS 04/25/24 09/03/24 History Atorvastatin [Lipitor] 20 mg PO HS 04/25/24 09/03/24 History Dicyclomine [Bentyl] 20 mg PO TID PRN 04/25/24 09/03/24 History Diltiazem Cd [Cardizem CD] 240 mg PO HS 04/25/24 09/03/24 History Fluticasone/Umeclidin/Vilanter 1 puff INHALATION RT-DAILY 04/25/24 09/03/24 History [Trelegy Ellipta 100-62.5-25] Gabapentin 300 mg PO QID 04/25/24 09/03/24 History Levothyroxine Sodium [Synthroid] 75 mcg PO DAILY 04/25/24 09/03/24 History QUEtiapine FUMARATE [SEROquel] 200 mg PO HS 04/25/24 09/03/24 History Triamterene/Hydrochlorothiazid 1 tab PO DAILY 04/25/24 09/03/24 History [Triamterene-Hctz 75-50 mg Tab] Lactulose [Cephulac] 20 gm PO BID #360 ml 05/02/24 09/03/24 Rx Potassium Chloride [Klor-Con M10] 20 meq PO DAILY #60 tab 05/02/24 09/03/24 Rx Citalopram Hydrobromide [CeleXA] 20 mg PO DAILY 07/01/24 09/03/24 History Sucralfate [Carafate] 1 gm PO ACHS 07/01/24 09/03/24 History Acetaminophen-Codeine 300-30mg 1 tab PO Q8H PRN 09/03/24 09/03/24 History [Tylenol w/codeine #3] Buprenorphine [Butrans 20 MCG/HOUR] 1 patch TRANSDERM TH 09/03/24 09/03/24 Hi story Cimetidine [Tagamet] 400 mg PO HS 09/03/24 09/03/24 History Famotidine [Pepcid] 40 mg PO DAILY PRN 09/03/24 09/03/24 History Levofloxacin [Levaquin] 500 mg PO DAILY 09/03/24 09/03/24 History Linaclotide [Linzess] 290 mcg PO DAILY 09/03/24 09/03/24 History Metoclopramide [Reglan] 10 mg PO TID-W/MEALS 09/03/24 09/03/24 History Ondansetron Odt [Zofran Odt] 4 mg PO Q8HR PRN 09/03/24 09/03/24 History Pantoprazole [Protonix] 40 mg PO DAILY 09/03/24 09/03/24 History oxyCODONE HCL [OxyIR] 5 mg PO Q8H PRN 09/03/24 09/03/24 History Allergies Allergy/AdvReac Type Severity Reaction Status Date / Time morphine Allergy Unknown Verified 09/03/24 09:28 Physical Exam Vitals: Vital Signs Temp Pulse Pulse Resp BP BP Pulse Ox 09/03/24 07:23 97.7 F 91 18 121/77 95 09/03/24 01:45 98.6 F 64 16 170/91 97 09/03/24 01:37 97.8 F 57 L 18 145/94 97 09/02/24 23:00 69 16 175/90 96 09/02/24 21:43 77 16 178/100 97 09/02/24 15:26 97.4 F L 90 18 170/107 95 Intake and Output 09/02/24 09/03/24 09/03/24 22:59 06:59 14:59 Other: Voiding Method Toilet # Voids 2 Weight 49.895 kg 49.895 kg PHYSICAL EXAMINATION: Patient is lying in the bed mild distress due to pain , awake alert and oriented.. HEENT: Normocephalic. Neck is supple. Pupils reactive. Nostrils clear. Oral cavity is moist. Neck reveals no JVD, carotid bruits, or thyromegaly. CHEST EXAMINATION: Trachea is central. Symmetrical expansion. Left basilar diminished sounds. Lung porter clear to auscultation and percussion. CARDIAC: Normal S1, S2 with no gallops. No murmurs ABDOMEN: Soft. Bowel sounds present. Epigastric fullness and indurated... No abdominal bruits. Extremities: reveal no edema. No clubbing or cyanosis Neurologically awake, alert, oriented x3 with well-coordinated movements. No focal deficits noted Skin: No rash or skin lesions. Psychiatric: Coperative. Nonsuicidal, anxious. Musculoskeletal: No joint swelling or deformity. Normal range of motion. Results CBC & Chem 7: 09/02/24 16:43 09/02/24 16:43 Labs: Abnormal Lab Results - Last 24 Hours (Table) 09/02/24 09/02/24 Range/Units 16:43 20:50 Sodium 136 L (137-145) mmol/L BUN 4 L (7-17) mg/dL Lipase 21 L (23-300) U/L Ur Specific [place] >1.050 H (1.001-1.035) Thrombosis Risk Factor Assmnt - DVT/VTE Prophylaxis DVT/VTE Prophylaxis: Pharmacologic Prophylaxis ordered - Choose All That Apply Any of the Below Risk Factors Present?: Yes Other Risk Factors: Yes Each Risk Factor Represents 2 Points: Age 61-74 years Other congenital or acquired thrombophilia - If yes, enter type in comment: No Thrombosis Risk Factor Assessment Total Risk Factor Score: 2 Thrombosis Risk Factor Assessment Level: Low Risk Assessment and Plan Assessment: Abdominal pain with fullness in the epigastric region. Recent EGD showed mild antral gastritis and duodenitis. Patient also had SBO status post lysis of adhesions and resection of ileocolonic anastomosis. Also had cholecystectomy done on 07/08/2024 Non-small cell lung cancer status post chemoradiation. Patient has been mainta ined on Keytruda but off for the past [address] abdomen pelvis showed left lower lung airways with consolidation likely postobstructive atelectasis. Possible aspiration cannot be excluded. COPD Hypertension Hypothyroidism Anxiety/panic disorder GI DVT prophylaxis and sucralfate and heparin subcu Plan: Patient will be continued on IV hydration with normal saline. Continue with pain management and antibiotics and follow-up ceftriaxone azithromycin. Procalcitonin level was ordered. Patient was started on home blood pressure medications. Continue with DuoNebs and monitor respiratory status. Patient is also on PPI and sucralfate. Continue with stool softeners. General surgery and pulmonary is on board. Continue to follow closely. Prognosis is guarded. Time with Patient: Greater than 30
[2024-09-04] MEDS: SODIUM CHLORIDE 0.9% 1,000 ML IV SCH (00:26)
[2024-09-04 08:43] LABS: Blood Urea Nitrogen 8.8 mg/dL (9.0-27.0); Calcium 8.5 mg/dL (8.7-10.3); Carbon Dioxide 22.6 mmol/L (21.6-31.8); Chloride 106 mmol/L (96-109); Glucose 89 mg/dL (70-110); Potassium 3.5 mmol/L (3.5-5.5); Sodium 137 mmol/L (135-145)
[2024-09-04 08:49] LABS: Basophils # (A) 0.05 X 10*3/uL (0.00-0.10); Basophils % (A) 1.1 %; Eosinophils # (A) 0.25 X 10*3/uL (0.04-0.35); Eosinophils % (A) 5.3 %; HCT 32.9 % (37.2-46.3); HGB 10.8 g/dL (12.0-15.0); Lymphocytes # (A) 1.17 X 10*3/uL (0.90-5.00); Lymphocytes % (A) 24.8 %; MCH 31.1 pg (27.0-32.0); MCHC 32.8 g/dL (32.0-37.0); MCV 94.8 FL (80.0-97.0); Mean Platelet Volume 8.9 FL (9.5-12.2); Monocytes # (A) 0.42 X 10*3/uL (0.20-1.00); Monocytes % (A) 8.9 %; NRBC Per 100 WBC 0 X 10*3/uL (0.00-0.01); Neutrophils # (A) 2.79 X 10*3/uL (1.80-7.70); Neutrophils % (A) 59.1 %; Platelet Count 277 X 10*3/uL (140-440); RBC 3.47 X 10*6/uL (4.10-5.20); RDW 15.3 % (11.5-14.5); WBC 4.72 X 10*3/uL (4.50-10.00)
[2024-09-04] MEDS: HYDROmorphone 0.5 MG/0.5 ML SYRINGE IVP PRN (10:01)
[2024-09-04] MEDS: SIMETHICONE 40 MG/0.6 ML DROPS 2,000 MG/30 ML BOTTLE PO SCH (12:33)
[2024-09-04] MEDS: LACTULOSE 20 GM/30 ML CUP PO SCH (13:54)
--- NOTE | 2024-09-04 14:42 | P.PN ---
Subjective Progress Note Date: 09/04/24 This is a 63-year-old female patient with known history of lung cancer. The patient is a chronic smoker has been smoking since the age of 18 and I initially met her back in 2012 as the patient was having episodes of hemoptysis. She presented to an outside hospital and a CAT scan of the chest was done and it showed a left perihilar mass with obstructive atelectatic changes in the left lung. The mass was measuring 3.8 x 3.9 cm in size and was narrowing the left upper lobe bronchus and the left mainstem bronchus and the left lower lobe bronchus. There was no evidence of any pleural effusion by exam. No mediastinal lymphadenopathy. There was evidence of T9/T11 compression fracture deformity. A PET/CT was done on 08/11/2023 and it showed a left perihilar mass that was metabolically active along with postobstructive and atelectatic changes in the left perihilar and left lower lobe area. The patient was encountering weight loss. Bronchoscopy was done and the biopsy was consistent with non-small cell lung cancer. The patient is also known to have COPD with an FEV1 of 62% of predicted and a diffusion capacity of 34% of predicted, treated with Trelegy Ellipta on an outpatient basis. Her other medical history includes hyperlipidemia, hypertension, chronic back pain, panic disorder and acid reflux. Based on the pathologic findings, the patient was referred to medical oncology for treatment of pulmonary adenocarcinoma. The patient was given chemotherapy and radiation therapy and following that she was maintained on Keytruda. Follow-up CAT scan of the chest abdomen and pelvis that was done on 04/25/2024 showed COPD. The previous masslike opacity in the left lower lobe extending to the hilum was smaller and less defined. There was some posterior treatment changes in the left lower lobe with some atelectatic changes and some residual consolidation. The patient was admitted to the hospital on 04/26/2024 for abdominal pain. At that time, the patient was seen by general surgery. The patient was taken to the operating room for small bowel obstruction and the patient underwent lysis of adhesions and the patient had colectomy with resection of a ileocolic anastomosis on 07/03/2024. Subsequently, the patient was discharged to be readmitted to the hospital because of ongoing abdominal pain and nausea and bloating. Ultrasound the gallbladder showed sludge and the patient underwent a elective cholecystectomy on 07/08/2024 and subsequently she was discharged home. She presented to the Emergency Department yesterday for ongoing abdominal pain that was rather diffuse. The patient felt fullness and bloating. Her pain has been going on for months even before she had a c holecystectomy. She stated that she was having bowel movement activity. In the emergency department, the white cell count was at 6.5 with a hemoglobin 14.3, electrolytes are all within normal limits. Normal LFTs. UA was negative. The viral screen was negative. CAT scan of the abdomen was done on 09/02/2024 and it showed some atelectatic changes in the left lung base along with some residual c onsolidation. There is moderate stool throughout the colon. No evidence of any pneumoperitoneum. No evidence of any aortic dissection. No evidence of any intra-abdominal lymphadenopathy. Currently, the patient is on room air oxygen with a pulse ox of 95%. She is on a combination of Rocephin and Zithromax. Done hide 09/04/2024, the patient continues to have some abdominal distention and discomfort and pain. No respiratory difficulties. Pulse ox is 93% liters of oxygen by nasal cannula. She was started on lactulose. She is also on Bentyl and Carafate. General surgery is on the case. Labs from today shows a white cell count of 4.7, hemoglobin 10.8, platelet count of 177 with a BUN of 8 and a creatinine of 0.8. Procalcitonin level was essentially normal. Objective - Vital Signs Vital signs: Vital Signs Temp 98.0 F 09/04/24 13:43 Pulse 77 09/04/24 13:43 Resp 14 09/04/24 13:43 BP 108/68 09/04/24 13:43 Pulse Ox 93 L 09/04/24 13:43 FiO2 Intake & Output 09/03/24 09/04/24 09/04/24 18:59 06:59 18:59 Intake Total 1080 Balance 1080 Weight 49.895 kg Intake: Oral 1080 Other: Voiding Method Toilet Toilet # Voids 3 3 - Exam The patient appeared well nourished and normally developed. Vital signs as documented. Head exam is unremarkable. No scleral icterus or corneal arcus noted. Neck is without jugular venous distension, thyromegaly, or carotid bruits. Carotid upstrokes are brisk bilaterally. Lungs are clear to auscultation and percussion. There is diminished breath sounds in lung base especially left lung base. Overall air entry is diminished and the patient has few scattered expiratory wheeze. Cardiac exam reveals the PMI to be normally sized and situated. Rhythm is regular. First and second heart sounds normal. No murmurs, rubs or gallops. Abdominal exam reveals normal bowel sounds, no masses, no organomegaly and no aortic enlargement. Extremities are nonedematous and both femoral and pedal pulses are normal. Examination of the skin revealed no evidence of significant rashes, suspicious appearing nevi or other concerning lesions. Neurologically, the patient is awake and alert and the patient does not have any focal neurological deficit. Cranial nerves are essentially intact. - Labs CBC & Chem 7: 09/04/24 04:58 09/04/24 04:58 Labs: Abnormal Lab Results - Last 24 Hours (Table) 09/04/24 09/04/24 Range/Units 04:58 04:58 RBC 3.47 L (4.10-5.20) X 10*6/uL Hgb 10.8 L (12.0-15.0) g/dL Hct 32.9 L (37.2-46.3) % RDW 15.3 H (11.5-14.5) % MPV 8.9 L (9.5-12.2) FL BUN 8.8 L (9.0-27.0) mg/dL BUN/Creatinine Ratio 11.00 L (12.00-20.00) Ratio Calcium 8.5 L (8.7-10.3) mg/dL Microbiology - Last 24 Hours (Table) 09/02/24 23:52 Blood Culture - Preliminary Blood Assessment and Plan Plan: Pulm adenocarcinoma, status post bronchoscopy on 08/25/2023 and the patient had endobronchial tumor involving the secondary kevin causing obstruction of the left upper lobe bronchus and the left lower lobe bronchus and biopsies were consistent with non-small cell lung cancer. The patient was treated for locally advanced disease with a combination of chemoradiation therapy and the patient has been maintained on Keytruda with cleared clinical response. Most recent CAT scan of the chest done on 06/15/2024 shows small left and minimal right-sided pleural effusion along with some compressive atelectatic changes in lung bases and some residual consolidation, essentially related to post treatment changes. As such, the patient has had positive response to therapy. COPD, moderate severe with an FEV1 of 60% predicted maintained on Trelegy Ellipta on outpatient basis Abdominal pain, currently under investigation. The patient has had previous EGD and colonoscopy revealing mild antral gastritis and duodenitis and a colonoscopy was within normal limits on 06/28/2024. Subsequently, the patient had a small bowel obstruction and the patient underwent lysis of adhesion and resection of the ileocolonic anastomosis on 07/03/2024. This was followed up by a laparoscopic elective cholecystectomy that was done on 07/08/2024. Hyperlipidemia Hypertension Hypothyroidism Chronic anxiety/panic disorder Plan Clinically unchanged the patient continues to have abdominal distention and discomfort Patient is on a combination of laxatives Continue lactulose and Bentyl and Carafate Findings in the left lower lobe are essentially consistent with post treatment changes related to treatment of pulm adenocarcinoma/non-small cell lung cancer the patient was given a combination of chemo and radiation therapy followed by immunotherapy as the patient is currently on Keytruda with adequate clinical response. There is some residual opacity in the left perihilar area and atelectatic changes in the left lung base with small left-sided pleural effusion. Oxygenation is stable. The patient COPD is currently inactive and stable. General surgery consultation The patient is off Ketruda for the past 4 months and she is still having the abdominal pain and this pain is unlikely to be related to immunotherapy Resume home medications Will follow.
--- NOTE | 2024-09-04 14:46 | P.PN ---
Subjective Progress Note Date: 09/04/24 SURGICAL PROGRESS NOTE CHIEF COMPLAINT: Abdominal pain HISTORY OF PRESENT ILLNESS: Patient continues to report pain and swelling across the upper abdomen. She is having flatus. No bowel movements. She does report that the upper abdomen is softer. She has been belching. She has been up and ambulating. Afebrile. WBC 4.[address] Berg is covering for Dr. Apodaca PHYSICAL EXAM: VITAL SIGNS: Reviewed. GENERAL: Well-developed in no acute distress. ABDOMEN: Tenderness across upper abdomen with mild distention. Softer today NEUROLOGIC: Alert and oriented. Cranial nerves II through XII grossly intact. ASSESSMENT: 1. Colonic ileus. CT reviewed with Dr. Berg with evidence of a lot of stool present 2. Lung cancer 3. History of cholecystectomy in June 2024 PLAN: -Lactulose twice daily ordered for ileus -Mylicon gas drops ordered -Encourage patient to ambulate -EGD scheduled tentatively for Monday Physician Directory Assistance Operator note has been reviewed by physician. Signing provider agrees with the documented findings, assessment, and plan of care. I have personally seen and examined the patient, reviewed the INCOME TAX CONSULTANT /PAs history, exam and MDM and agree with the assessment and plan as written. Based on total visit time, I have performed more than 50% of the visit. As above: Patient known to me from recent cholecystectomy. Patient has had complaints of abdominal bloating and upper abdominal pain for the last several months. She has been to several hospitals. We proceeded with cholecystectomy after one of her studies showed gallbladder sludge thinking some of her symptoms could be related to chronic cholecystitis. She says her pain improved after her cholecystectomy in June however the bloating has not. CAT scan shows some fluid-filled colonic loops without evidence of obstruction or inflammatory changes. Continue stool softeners. Ambulate. Minimize narcotic use. No surgical intervention planned. Objective - Vital Signs Vital signs: Vital Signs Temp 98.0 F 09/04/24 13:43 Pulse 77 09/04/24 13:43 Resp 14 09/04/24 13:43 BP 108/68 09/04/24 13:43 Pulse Ox 93 L 09/04/24 13:43 FiO2 Intake & Output 09/03/24 09/04/24 09/04/24 18:59 06:59 18:59 Intake Total 1080 Balance 1080 Weight 49.895 kg Intake: Oral 1080 Other: Voiding Method Toilet Toilet # Voids 3 3 - Labs CBC & Chem 7: 09/04/24 04:58 09/04/24 04:58 Labs: Abnormal Lab Results - Last 24 Hours (Table) 09/04/24 09/04/24 Range/Units 04:58 04:58 RBC 3.47 L (4.10-5.20) X 10*6/uL Hgb 10.8 L (12.0-15.0) g/dL Hct 32.9 L (37.2-46.3) % RDW 15.3 H (11.5-14.5) % MPV 8.9 L (9.5-12.2) FL BUN 8.8 L (9.0-27.0) mg/dL BUN/Creatinine Ratio 11.00 L (12.00-20.00) Ratio Calcium 8.5 L (8.7-10.3) mg/dL Microbiology - Last 24 Hours (Table) 09/02/24 23:52 Blood Culture - Preliminary Blood
--- NOTE | 2024-09-05 03:48 | P.PN ---
Subjective Progress Note Date: 09/04/24 Patient is a 63-year-old female with a known history of non-small cell lung cancer status post chemo and radiation and was maintained on Keytruda, recent admission in March 2024 due to abdominal pain and bowel obstruction status post colectomy with resection and ileocolic anastomosis on 07/03/2024 and subsequently had cholecystectomy on 07/08/2024, hypothyroidism, hypertension, hyperlipidemia, anxiety/panic disorder and prior history of smoking. Patient presents to ER with complaints of abdominal pain along with fullness and bloating sensation. Patient has been having epigastric fullness which has been present for the past couple of months. Patient was recently admitted to hospital at [facility] with abdominal fullness and constipation. Patient did have a bowel movement after bowel prep. But pain has not been relieved. CT of the abdomen pelvis showed secretions in the left lower lung large airways with consolidation likely postobstructive atelectasis. Correlate for aspiration superimposed infection not excluded. Bronchoscopy recommended to rule out underlying mass. Moderate stool throughout the colon correlate for diarrhea. Laboratory data showed WBC 6.5 hemoglobin 14.3 and platelets 366, sodium 136 potassium 3.7 chloride 103 bicarb is 24 BUN 14 creatinine 0.60 and blood sugar 97. Liver enzymes not elevated Urinalysis is negative for infection Influenza A B and RSV PCR not detected. 09/04/2024 Patient is seen in follow-up today with pulmonary and general surgery following. Patient continues to have abdominal bloating and swelling in the upper epigastric region although reports is mildly improved. Patient is currently eating and reports to tolerating although not as much as patient continues to report fullness. Patient is belching and reported to be passing some gas although no bowel movement as of yet. Patient has been started on lactulose along with gas drops and instructed to increase activity with frequent walks. Patient was continued on empiric antibiotics with concerns of possible pneumonia although likely postobstructive atelectasis. Patient was given incentive spirometer encouraged to continue using at least 10 times every hour while awake. Review of systems: Constitutional: No reports of fatigue, fever, or chills Cardiovascular: No reports of chest pain or palpitations Respiratory: No reports of worsening shortness of breath or cough GI: No reports of nausea, vomiting, or diarrhea, reports continued fullness and belching : No reports of dysuria or retention Neurovascular: No reports of weakness or numbness All medications have been reviewed PHYSICAL EXAMINATION: Patient is sitting up in the bed, currently eating lunch, awake alert and oriented.. Well-developed, appears older than stated age HEENT: Normocephalic. Neck is supple. Pupils reactive. Nostrils clear. Oral cavity is moist. Neck reveals no JVD, carotid bruits, or thyromegaly. CHEST EXAMINATION: Trachea is central. Symmetrical expansion. Left basilar diminished sounds. Few scattered rhonchi noted. Lung porter clear to auscultation and percussion. CARDIAC: Normal S1, S2 with no gallops. No murmurs ABDOMEN: Soft. Bowel sounds present. Epigastric fullness and bloating... No abdominal bruits. Extremities: reveal no edema. No clubbing or cyanosis Neurologically awake, alert, oriented x3 with well-coordinated movements. No focal deficits noted Skin: No rash or skin lesions. Psychiatric: Cooperative. Nonsuicidal, slightly less anxious. Musculoskeletal: No joint swelling or deformity. Normal range of motion. Assessment: Abdominal pain with fullness in the epigastric region. Recent EGD showed mild antral gastritis and duodenitis. Patient also had SBO status post lysis of adhesions and resection of ileocolonic anastomosis. Also had cholecystectomy done on 07/08/2024, concerns for ileus Non-small cell lung cancer status post chemoradiation. Patient has been maintained on Keytruda but off for the past [address] abdomen pelvis showed left lower lung airways with consolidation likely postobstructive atelectasis. Possible aspiration cannot be excluded. COPD, not in exacerbation Hypertension Hypothyroidism Anxiety/panic disorder GI DVT prophylaxis and sucralfate and heparin subcu Full code Plan: Patient will be continued on IV hydration with normal saline. Continue with pain management and recommend limiting IV narcotic use. Home medications reviewed and resumed as appropriate Patient was continued on empiric antibiotics and Procalcitonin level was not elevated Continue with DuoNebs and monitor respiratory status. Remains on supplemental oxygen recommend weaning as tolerated. Patient is also on PPI and sucralfate. Continue with stool softeners. Patient being started on lactulose as there was a large amount of stool noted on imaging. General surgery and pulmonary following discussing tentatively scheduling endoscopic intervention possibly on Monday. Diet has been resumed per surgery and also recommending increase activity as tolerated with frequent walking Due to multiple complex medical issues, overall prognosis is guarded. If patient's abdominal fullness is improved and tolerating diet and having bowel movements possible discharge in the next 24 to 48 hours and follow-up with general surgery outpatient. The impression and plan of care has been dictated by Maria Moody, Nurse Practitioner as directed. Dr. Nelsy MD I have performed a history and examination and MDM of this patient, discussed the same with the dictator, and agree with the dictator's assessment and plan as written ,documented as a scribe. Based on total visit time, I have performed more than 50% of the visit. Objective - Vital Signs Vital signs: Vital Signs Temp 97.3 F L 09/04/24 07:29 Pulse 78 09/04/24 09:43 Resp 20 09/04/24 07:29 BP 112/70 09/04/24 09:43 Pulse Ox 98 09/04/24 09:43 FiO2 Intake & Output 09/03/24 09/04/24 09/04/24 18:59 06:59 18:59 Intake Total 1080 Balance 1080 Weight 49.895 kg Intake: Oral 1080 Other: Voiding Method Toilet Toilet # Voids 3 3 - Labs CBC & Chem 7: 09/04/24 04:58 09/04/24 04:58 Labs: Abnormal Lab Results - Last 24 Hours (Table) 09/04/24 09/04/24 Range/Units 04:58 04:58 RBC 3.47 L (4.10-5.20) X 10*6/uL Hgb 10.8 L (12.0-15.0) g/dL Hct 32.9 L (37.2-46.3) % RDW 15.3 H (11.5-14.5) % MPV 8.9 L (9.5-12.2) FL BUN 8.8 L (9.0-27.0) mg/dL BUN/Creatinine Ratio 11.00 L (12.00-20.00) Ratio Calcium 8.5 L (8.7-10.3) mg/dL Microbiology - Last 24 Hours (Table) 09/02/24 23:52 Blood Culture - Preliminary Blood
[2024-09-05] MEDS: KETOROLAC 15 MG/ML 1 ML VIAL IVP PRN (04:10)
--- NOTE | 2024-09-05 07:07 | P.CONS ---
History of Present Illness - Reason for Consult Consult date: 09/04/24 hx lug cancer Requesting physician: Maria Moody - Chief Complaint abdominal pain - History of Present Illness Cece is a 63 year old female with a history of lung adenocarcinoma. She is a patient of Dr. Castro. She initially presented with hemoptysis. CT Scan revea led 3.4 cm left perihilar mass suspicious for bronchogenic carcinoma. PET Scan revealed suspicious uptake (12.4) in large left carlota-hilar mass, no distant mets. Completed 7 cycles of weekly carbo/taxol with concurrent RT. Currently on treatment immunotherapy, Imfinzi q 4 weeks, last treatment 1 month ago. She has been tolerating treatment well. Patient presented to the ER due to c/o epigastric pain and bloating that has been ongoing for months. She underwent cholecystectomy in June, however patient reports she has had persisting upper abdominnal bloating in epigastrium. C/o intermittent nausea but denies vomiting and diarrhea. CT abdomen pelvis upon admission showed moderate liquid stool throughout colon with no evidence of bowel obstruction. Labs reviewed, WBC 4.7, hemoglobin 10.8, platelets 277,000 LFTs, bilirubin and amylase lipase WNL. UA negative for UTI patient is afebrile, HDS. General surgery following with plans for EGD Monday. Review of Systems 10 point ROS is negative except as stated in the HPI Past Medical History Past Medical History: Cancer, Hyperlipidemia, Hypertension, Thyroid Disorder Additional Past Medical History / Comment(s): Wheezing, lung cancer w/ radiation and chemo - currently on Keytruda once a month; abd pain & nausea x 6 months, inpatient @ [facility] 07/01/24-07/04/24 for abd pain. History of Any Multi-Drug Resistant Organisms: None Reported Past Surgical History: Cholecystectomy Additional Past Surgical History / Comment(s): Colonoscopy w/ Dr. Liao 06/28/24 Past Anesthesia/Blood Transfusion Reactions: No Reported Reaction Additional Past Anesthesia/Blood Transfusion Reaction / Comm: Sedation only for Colonoscopy. Past Psychological History: Anxiety, Panic Disorder Smoking Status: Former smoker Past Alcohol Use History: None Reported Additional Past Alcohol Use History / Comment(s): smoked 1/2 ppd- quit 2022. Past Drug Use History: None Reported - Past Family History Mother Family Medical History: Cancer Additional Family Medical History / Comment(s): Pancreatic cancer Sister(s) Family Medical History: Cancer Additional Family Medical History / Comment(s): Pancreatic cancer Brother(s) Family Medical History: Cancer Additional Family Medical History / Comment(s): Leukemia Medications and Allergies Home Medications Medication Instructions Recorded Confirmed Type ALPRAZolam [Xanax] 0.25 mg PO DAILY PRN 04/25/24 09/03/24 History ALPRAZolam [Xanax] 0.25 mg PO HS 04/25/24 09/03/24 History Atorvastatin [Lipitor] 20 mg PO HS 04/25/24 09/03/24 History Dicyclomine [Bentyl] 20 mg PO TID PRN 04/25/24 09/03/24 History Diltiazem Cd [Cardizem CD] 240 mg PO HS 04/25/24 09/03/24 History Fluticasone/Umeclidin/Vilanter 1 puff INHALATION RT-DAILY 04/25/24 09/03/24 History [Trelegy Ellipta 100-62.5-25] Gabapentin 300 mg PO QID 04/25/24 09/03/24 History Levothyroxine Sodium [Synthroid] 75 mcg PO DAILY 04/25/24 09/03/24 History QUEtiapine FUMARATE [SEROquel] 200 mg PO HS 04/25/24 09/03/24 History Triamterene/Hydrochlorothiazid 1 tab PO DAILY 04/25/24 09/03/24 History [Triamterene-Hctz 75-50 mg Tab] Lactulose [Cephulac] 20 gm PO BID #360 ml 05/02/24 09/03/24 Rx Potassium Chloride [Klor-Con M10] 20 meq PO DAILY #60 tab 05/02/24 09/03/24 Rx Citalopram Hydrobromide [CeleXA] 20 mg PO DAILY 07/01/24 09/03/24 History Sucralfate [Carafate] 1 gm PO ACHS 07/01/24 09/03/24 History Acetaminophen-Codeine 300-30mg 1 tab PO Q8H PRN 09/03/24 09/03/24 History [Tylenol w/codeine #3] Buprenorphine [Butrans 20 MCG/HOUR] 1 patch TRANSDERM TH 09/03/24 09/03/24 History Cimetidine [Tagamet] 400 mg PO HS 09/03/24 09/03/24 History Famotidine [Pepcid] 40 mg PO DAILY PRN 09/03/24 09/03/24 History Levofloxacin [Levaquin] 500 mg PO DAILY 09/03/24 09/03/24 History Linaclotide [Linzess] 290 mcg PO DAILY 09/03/24 09/03/24 History Metoclopramide [Reglan] 10 mg PO TID-W/MEALS 09/03/24 09/03/24 History Ondansetron Odt [Zofran Odt] 4 mg PO Q8HR PRN 09/03/24 09/03/24 History Pantoprazole [Protonix] 40 mg PO DAILY 09/03/24 09/03/24 History oxyCODONE HCL [OxyIR] 5 mg PO Q8H PRN 09/03/24 09/03/24 History Allergies Allergy/AdvReac Type Severity Reaction Status Date / Time morphine Allergy Unknown Verified 09/03/24 09:28 Physical Exam Vitals: Vital Signs Temp Pulse Resp BP Pulse Ox 09/04/24 18:21 98.0 F 78 16 111/68 94 L 09/04/24 13:43 98.0 F 77 14 108/68 93 L 09/04/24 12:07 97.7 F 68 16 106/66 95 09/04/24 09:43 78 112/70 98 09/04/24 08:00 66 09/04/24 07:29 97.3 F L 66 20 102/58 95 09/04/24 07:00 97.8 F 60 16 108/61 93 L 09/04/24 01:37 98.6 F 56 L 16 95/69 93 L 09/03/24 21:01 94 L 09/03/24 20:52 55 L 124/73 Intake and Output 09/04/24 09/04/24 09/04/24 06:59 14:59 22:59 Other: # Voids 3 1 - Constitutional General appearance: no acute distress - EENT Eyes: anicteric sclerae, EOMI ENT: hearing grossly normal - Respiratory Respiratory: bilateral: CTA - Cardiovascular Rhythm: regular - Gastrointestinal mild epigastric tenderness, bloating. hyperresonance on percussion of epigast rium - Integumentary Integumentary: no cyanotic - Neurologic Neurologic: CNII-XII intact - Musculoskeletal Musculoskeletal: strength equal bilaterally Results CBC & Chem 7: 09/04/24 04:58 09/04/24 04:58 Labs: Abnormal Lab Results - Last 24 Hours (Table) 09/04/24 09/04/24 Range/Units 04:58 04:58 RBC 3.47 L (4.10-5.20) X 10*6/uL Hgb 10.8 L (12.0-15.0) g/dL Hct 32.9 L (37.2-46.3) % RDW 15.3 H (11.5-14.5) % MPV 8.9 L (9.5-12.2) FL BUN 8.8 L (9.0-27.0) mg/dL BUN/Creatinine Ratio 11.00 L (12.00-20.00) Ratio Calcium 8.5 L (8.7-10.3) mg/dL Microbiology - Last 24 Hours (Table) 09/02/24 23:52 Blood Culture - Preliminary Blood CT scan - abdomen: report reviewed CT scan - pelvis: report reviewed Assessment and Plan (1) Adenocarcinoma, lung Current Visit: No Status: Acute Priority: Medium Code(s): C34.90 - MALIGNANT NEOPLASM OF UNSP PART OF UNSP BRONCHUS OR LUNG SNOMED Code(s): 064183391 (2) Abdominal pain of unknown etiology Current Visit: Yes Status: Acute Priority: Medium Code(s): R10.9 - UNSPECIFIED ABDOMINAL PAIN SNOMED Code(s): 143937922 Plan: Abdominal pain/bloating: Presented to the ER due to c/o epigastric pain and bloating that has been ongoing for months. She underwent cholecystectomy in June, however patient reports she has had persisting upper abdominal bloating in epigastrium with intermittent nausea -CT abdomen pelvis upon admission showed moderate liquid stool throughout colon with no evidence of bowel obstruction. LFTs, bilirubin and amylase lipase WNL. UA negative for UTI -General surgery following with plans for EGD Monday Non small cell lung cancer: -History and plan as dictated in HPI -Completed 7 cycles of weekly carbo/taxol with concurrent RT. Currently on treatment with 1 year of immunotherapy, Imfinzi q 4 weeks, last treatment 1 month ago. She has been tolerating treatment well -Treatment was scheduled for tomorrow, will postpone till next week -Clinic f/u scheduled with Dr. Castro on 10/03 Doctor attests: I performed a history and physical examination of this patient, developed impression and plan of care. Discussed with dictator. I agree with dictators note, documented as a scribe.
[2024-09-05] MEDS: LACTULOSE 20 GM/30 ML CUP PO SCH (08:49)
[2024-09-05] MEDS: PANTOPRAZOLE 40 MG TABLET PO SCH (08:49)
[2024-09-05 09:26] LABS: BUN/Creat Ratio 13.14 Ratio (12.00-20.00); Blood Urea Nitrogen 9.2 mg/dL (9.0-27.0); Calcium 8.8 mg/dL (8.7-10.3); Carbon Dioxide 21.6 mmol/L (21.6-31.8); Chloride 107 mmol/L (96-109); Glucose 82 mg/dL (70-110); Magnesium 1.7 mg/dL (1.5-2.4); Potassium 3.9 mmol/L (3.5-5.5); Sodium 141 mmol/L (135-145)
--- NOTE | 2024-09-05 14:25 | P.PN ---
Subjective Progress Note Date: 09/05/24 SURGICAL PROGRESS NOTE CHIEF COMPLAINT: Abdominal pain HISTORY OF PRESENT ILLNESS: Patient continues to complain of abdominal bloating mostly in the upper abdomen. She reports a tightness. She did have bowel movement this morning with the lactulose. Patient continues to request pain medication. She has been educated about pain medication causing constipation. Patient says she has ambulated in the hallway. She is eating. Denies any nausea or vomiting. Afebrile. WBC 4.[address] Berg is covering for Dr. Apodaca PHYSICAL EXAM: VITAL SIGNS: Reviewed. GENERAL: Well-developed in no acute distress. ABDOMEN: Tenderness across upper abdomen with mild distention. NEUROLOGIC: Alert and oriented. Cranial nerves II through XII grossly intact. ASSESSMENT: 1. Colonic ileus. CT reviewed with Dr. Berg with evidence of a lot of stool present 2. Lung cancer 3. History of cholecystectomy in June 2024 PLAN: -Lactulose twice daily ordered for ileus -Add Dulcolax suppository -Mylicon gas drops ordered -Encourage patient to ambulate -EGD scheduled tentatively for Monday -Continue regular diet Physician Vacuum Tank Tender note has been reviewed by physician. Signing provider agrees with the documented findings, assessment, and plan of care. I have personally seen and examined the patient, reviewed the INSURANCE APPRAISER /PAs history, exam and MDM and agree with the assessment and plan as written. Based on total visit time, I have performed more than 50% of the visit. As above: Patient still with abdominal bloating. She says she has moved her bowels twice. Patient wants to go home. Continue stool softeners. Ambulate. Patient just had a recent upper and lower endoscopy 2 months ago by GI. Will sign off. Please recontact if needed. Objective - Vital Signs Vital signs: Vital Signs Temp 97.9 F 09/05/24 12:48 Pulse 70 09/05/24 12:48 Resp 16 09/05/24 12:48 BP 129/77 09/05/24 12:48 Pulse Ox 94 L 09/05/24 12:48 FiO2 Intake & Output 09/04/24 09/05/24 09/05/24 18:59 06:59 18:59 Other: Voiding Method Toilet Toilet # Voids 1 # Bowel Movements 1 1 - Labs CBC & Chem 7: 09/04/24 04:58 11/07/24 04:56 Labs: Abnormal Lab Results - Last 24 Hours (Table) 09/05/24 Range/Units 04:56 Anion Gap 12.40 H (4.00-12.00) mmol/L Microbiology - Last 24 Hours (Table) 09/02/24 23:52 Blood Culture - Preliminary Blood
[2024-09-05] MEDS: bisacodyL 10 MG SUPP RECTAL SCH (15:01)
--- NOTE | 2024-09-05 19:11 | P.PN ---
Subjective Progress Note Date: 09/05/24 This is a 63-year-old female patient with known history of lung cancer. The patient is a chronic smoker has been smoking since the age of 18 and I initially met her back in 2012 as the patient was having episodes of hemoptysis. She presented to an outside hospital and a CAT scan of the chest was done and it showed a left perihilar mass with obstructive atelectatic changes in the left lung. The mass was measuring 3.8 x 3.9 cm in size and was narrowing the left upper lobe bronchus and the left mainstem bronchus and the left lower lobe bronchus. There was no evidence of any pleural effusion by exam. No mediastinal lymphadenopathy. There was evidence of T9/T11 compression fracture deformity. A PET/CT was done on 08/11/2023 and it showed a left perihilar mass that was metabolically active along with postobstructive and atelectatic changes in the left perihilar and left lower lobe area. The patient was encountering weight loss. Bronchoscopy was done and the biopsy was consistent with non-small cell lung cancer. The patient is also known to have COPD with an FEV1 of 62% of predicted and a diffusion capacity of 34% of predicted, treated with Trelegy Ellipta on an outpatient basis. Her other medical history includes hyperlipidemia, hypertension, chronic back pain, panic disorder and acid reflux. Based on the pathologic findings, the patient was referred to medical oncology for treatment of pulmonary adenocarcinoma. The patient was given chemotherapy and radiation therapy and following that she was maintained on Keytruda. Follow-up CAT scan of the chest abdomen and pelvis that was done on 04/25/2024 showed COPD. The previous masslike opacity in the left lower lobe extending to the hilum was smaller and less defined. There was some posterior treatment changes in the left lower lobe with some atelectatic changes and some residual consolidation. The patient was admitted to the hospital on 04/26/2024 for abdominal pain. At that time, the patient was seen by general surgery. The patient was taken to the operating room for small bowel obstruction and the patient underwent lysis of adhesions and the patient had colectomy with resection of a ileocolic anastomosis on 07/03/2024. Subsequently, the patient was discharged to be readmitted to the hospital because of ongoing abdominal pain and nausea and bloating. Ultrasound the gallbladder showed sludge and the patient underwent a elective cholecystectomy on 07/08/2024 and subsequently she was discharged home. She presented to the Emergency Department yesterday for ongoing abdominal pain that was rather diffuse. The patient felt fullness and bloating. Her pain has been going on for months even before she had a c holecystectomy. She stated that she was having bowel movement activity. In the emergency department, the white cell count was at 6.5 with a hemoglobin 14.3, electrolytes are all within normal limits. Normal LFTs. UA was negative. The viral screen was negative. CAT scan of the abdomen was done on 09/02/2024 and it showed some atelectatic changes in the left lung base along with some residual c onsolidation. There is moderate stool throughout the colon. No evidence of any pneumoperitoneum. No evidence of any aortic dissection. No evidence of any intra-abdominal lymphadenopathy. Currently, the patient is on room air oxygen with a pulse ox of 95%. She is on a combination of Rocephin and Zithromax. Done hide 09/04/2024, the patient continues to have some abdominal distention and discomfort and pain. No respiratory difficulties. Pulse ox is 93% liters of oxygen by nasal cannula. She was started on lactulose. She is also on Bentyl and Carafate. General surgery is on the case. Labs from today shows a white cell count of 4.7, hemoglobin 10.8, platelet count of 177 with a BUN of 8 and a creatinine of 0.8. Procalcitonin level was essentially normal. \ On 09/05/2024, patient is being seen for a follow-up. No new complaints. Continues to have some abdominal distention and the patient is producing stool. Patient was given lactulose and Dulcolax no respiratory difficulties. EGD was scheduled for next week. Objective - Vital Signs Vital signs: Vital Signs Temp 97.9 F 09/05/24 12:48 Pulse 70 09/05/24 12:48 Resp 16 09/05/24 12:48 BP 129/77 09/05/24 12:48 Pulse Ox 94 L 09/05/24 12:48 FiO2 Intake & Output 09/04/24 09/05/24 09/05/24 18:59 06:59 18:59 Other: Voiding Method Toilet Toilet # Voids 1 1 # Bowel Movements 1 1 - Exam The patient appeared well nourished and normally developed. Vital signs as documented. Head exam is unremarkable. No scleral icterus or corneal arcus noted. Neck is without jugular venous distension, thyromegaly, or carotid bruits. Carotid upstrokes are brisk bilaterally. Lungs are clear to auscultation and percussion. There is diminished breath sounds in lung base especially left lung base. Overall air entry is diminished and the patient has few scattered expiratory wheeze. Cardiac exam reveals the PMI to be normally sized and situated. Rhythm is regular. First and second heart sounds normal. No murmurs, rubs or gallops. Abdominal exam reveals normal bowel sounds, no masses, no organomegaly and no aortic enlargement. Extremities are nonedematous and both femoral and pedal pulses are normal. Examination of the skin revealed no evidence of significant rashes, suspicious appearing nevi or other concerning lesions. Neurologically, the patient is awake and alert and the patient does not have any focal neurological deficit. Cranial nerves are essentially intact. - Labs CBC & Chem 7: 09/04/24 04:58 09/05/24 04:56 Labs: Abnormal Lab Results - Last 24 Hours (Table) 09/05/24 Range/Units 04:56 Anion Gap 12.40 H (4.00-12.00) mmol/L Microbiology - Last 24 Hours (Table) 09/02/24 23:52 Blood Culture - Preliminary Blood Assessment and Plan Plan: Pulm adenocarcinoma, status post bronchoscopy on 08/25/2023 and the patient had endobronchial tumor involving the secondary kevin causing obstruction of the left upper lobe bronchus and the left lower lobe bronchus and biopsies were consistent with non-small cell lung cancer. The patient was treated for locally advanced disease with a combination of chemoradiation therapy and the patient has been maintained on Keytruda with cleared clinical response. Most recent CAT scan of the chest done on 06/15/2024 shows small left and minimal right-sided pleural effusion along with some compressive atelectatic changes in lung bases and some residual consolidation, essentially related to post treatment changes. As such, the patient has had positive response to therapy. COPD, moderate severe with an FEV1 of 60% predicted maintained on Trelegy Ellipta on outpatient basis Abdominal pain, currently under investigation. The patient has had previous EGD and colonoscopy revealing mild antral gastritis and duodenitis and a colonoscopy was within normal limits on 06/28/2024. Subsequently, the patient had a small bowel obstruction and the patient underwent lysis of adhesion and resection of the ileocolonic anastomosis on 07/03/2024. This was followed up by a laparoscopic elective cholecystectomy that was done on 07/08/2024. Hyperlipidemia Hypertension Hypothyroidism Chronic anxiety/panic disorder Plan Clinically unchanged the patient continues to have abdominal distention and discomfort, general surgery on the case, the patient is stooling Patient is on a combination of laxatives Continue lactulose and Bentyl and Carafate Findings in the left lower lobe are essentially consistent with post treatment changes related to treatment of pulm adenocarcinoma/non-small cell lung cancer the patient was given a combination of chemo and radiation therapy followed by immunotherapy as the patient is currently on Keytruda with adequate clinical response. There is some residual opacity in the left perihilar area and atelectatic changes in the left lung base with small left-sided pleural effusion. Oxygenation is stable. The patient COPD is currently inactive and stable. General surgery consultation The patient is off Ketruda for the past 4 months and she is still having the abdominal pain and this pain is unlikely to be related to immunotherapy
--- NOTE | 2024-09-06 10:02 | P.PN ---
Subjective Progress Note Date: 09/05/24 Patient is a 63-year-old female with a known history of non-small cell lung cancer status post chemo and radiation and was maintained on Keytruda, recent admission in March 2024 due to abdominal pain and bowel obstruction status post colectomy with resection and ileocolic anastomosis on 07/03/2024 and subsequently had cholecystectomy on 07/08/2024, hypothyroidism, hypertension, hyperlipidemia, anxiety/panic disorder and prior history of smoking. Patient presents to ER with complaints of abdominal pain along with fullness and bloating sensation. Patient has been having epigastric fullness which has been present for the past couple of months. Patient was recently admitted to hospital at [facility] with abdominal fullness and constipation. Patient did have a bowel movement after bowel prep. But pain has not been relieved. CT of the abdomen pelvis showed secretions in the left lower lung large airways with consolidation likely postobstructive atelectasis. Correlate for aspiration superimposed infection not excluded. Bronchoscopy recommended to rule out underlying mass. Moderate stool throughout the colon correlate for diarrhea. Laboratory data showed WBC 6.5 hemoglobin 14.3 and platelets 366, sodium 136 potassium 3.7 chloride 103 bicarb is 24 BUN 14 creatinine 0.60 and blood sugar 97. Liver enzymes not elevated Urinalysis is negative for infection Influenza A B and RSV PCR not detected. 09/04/2024 Patient is seen in follow-up today with pulmonary and general surgery following. Patient continues to have abdominal bloating and swelling in the upper epigastric region although reports is mildly improved. Patient is currently eating and reports to tolerating although not as much as patient continues to report fullness. Patient is belching and reported to be passing some gas although no bowel movement as of yet. Patient has been started on lactulose along with gas drops and instructed to increase activity with frequent walks. Patient was continued on empiric antibiotics with concerns of possible pneumonia although likely postobstructive atelectasis. Patient was given incentive spirometer encouraged to continue using at least 10 times every hour while awake. 09/05/2024 Patient is seen in follow-up today and continues with abdominal fullness. Diet per surgery recommendations and planning on possible endoscopic intervention on Monday with Dr. Apodaca. Patient continues to report not passing much gas and not having bowel movements. Patient has been instructed to increase activity as tolerated with frequent walking through the halls multiple times daily. Patient to continue on current regimen per pulmonary. Review of systems: Constitutional: No reports of fatigue, fever, or chills Cardiovascular: No reports of chest pain or palpitations Respiratory: No reports of worsening shortness of breath or cough GI: No reports of nausea, vomiting, or diarrhea, reports continued fullness and belching : No reports of dysuria or retention Neurovascular: No reports of weakness or numbness All medications have been reviewed PHYSICAL EXAMINATION: Patient is sitting up in the bed, awake alert and oriented.. Well-developed, appears older than stated age HEENT: Normocephalic. Neck is supple. Pupils reactive. Nostrils clear. Oral cavity is moist. Neck reveals no JVD, carotid bruits, or thyromegaly. CHEST EXAMINATION: Trachea is central. Symmetrical expansion. Left basilar diminished sounds. Few scattered rhonchi noted. Lung porter clear to auscultation and percussion. CARDIAC: Normal S1, S2 with no gallops. No murmurs ABDOMEN: Soft. Bowel sounds present. Epigastric fullness and bloating... No abdominal bruits. Extremities: reveal no edema. No clubbing or cyanosis Neurologically awake, alert, oriented x3 with well-coordinated movements. No focal deficits noted Skin: No rash or skin lesions. Psychiatric: Cooperative. Nonsuicidal, slightly less anxious. Musculoskeletal: No joint swelling or deformity. Normal range of motion. Assessment: Abdominal pain with fullness in the epigastric region. Recent EGD showed mild antral gastritis and duodenitis. Patient also had SBO status post lysis of adhesions and resection of ileocolonic anastomosis. Also had cholecystectomy done on 07/08/2024, concerns for ileus Non-small cell lung cancer status post chemoradiation. Patient has been maintained on Keytruda but off for the past [address] abdomen pelvis showed left lower lung airways with consolidation likely postobstructive atelectasis. Possible aspiration cannot be excluded. COPD, not in exacerbation Hypertension Hypothyroidism Anxiety/panic disorder GI DVT prophylaxis and sucralfate and heparin subcu Full code Plan: Patient will be continued on IV hydration with normal saline. Continue with pain management and recommend limiting IV narcotic use. Home medications reviewed and resumed as appropriate Patient was continued on empiric antibiotics and Procalcitonin level was not elevated Continue with DuoNebs and monitor respiratory status. Remains on supplemental oxygen recommend weaning as tolerated. Patient is also on PPI and sucralfate. Continue with stool softeners. Patient to continue on lactulose as there was a large amount of stool noted on imaging. Per nursing staff patient had been refusing General surgery and pulmonary following discussing tentatively scheduling endoscopic intervention possibly on Monday with Dr. Apodaca Diet has been resumed per surgery and also recommending increase activity as tolerated with frequent walking Due to multiple complex medical issues, overall prognosis is guarded. Patient is an extremely high risk for readmissions and continued symptomatic abdominal pain and fullness with inability to tolerate full meals. Will continue to monitor and plan for endoscopic intervention on Monday. The impression and plan of care has been dictated by Maria Moody, Nurse Practitioner as directed. Dr. Nelsy MD I have performed a history and examination and MDM of this patient, discussed the same with the dictator, and agree with the dictator's assessment and plan as written ,documented as a scribe. Based on total visit time, I have performed more than 50% of the visit. Objective - Vital Signs Vital signs: Vital Signs Temp 97.6 F 09/05/24 08:00 Pulse 67 09/05/24 08:00 Resp 16 09/05/24 08:00 BP 122/78 09/05/24 08:00 Pulse Ox 97 09/05/24 08:00 FiO2 Intake & Output 09/04/24 09/05/24 09/05/24 18:59 06:59 18:59 Other: Voiding Method Toilet # Voids 1 # Bowel Movements 1 - Labs CBC & Chem 7: 09/04/24 04:58 09/05/24 04:56 Labs: Abnormal Lab Results - Last 24 Hours (Table) 09/05/24 Range/Units 04:56 Anion Gap 12.40 H (4.00-12.00) mmol/L Microbiology - Last 24 Hours (Table) 09/02/24 23:52 Blood Culture - Preliminary Blood
--- NOTE | 2024-09-06 16:03 | P.PN ---
Subjective Progress Note Date: 09/06/24 This is a 63-year-old female patient with known history of lung cancer. The patient is a chronic smoker has been smoking since the age of 18 and I initially met her back in 2012 as the patient was having episodes of hemoptysis. She presented to an outside hospital and a CAT scan of the chest was done and it showed a left perihilar mass with obstructive atelectatic changes in the left lung. The mass was measuring 3.8 x 3.9 cm in size and was narrowing the left upper lobe bronchus and the left mainstem bronchus and the left lower lobe bronchus. There was no evidence of any pleural effusion by exam. No mediastinal lymphadenopathy. There was evidence of T9/T11 compression fracture deformity. A PET/CT was done on 08/11/2023 and it showed a left perihilar mass that was metabolically active along with postobstructive and atelectatic changes in the left perihilar and left lower lobe area. The patient was encountering weight loss. Bronchoscopy was done and the biopsy was consistent with non-small cell lung cancer. The patient is also known to have COPD with an FEV1 of 62% of predicted and a diffusion capacity of 34% of predicted, treated with Trelegy Ellipta on an outpatient basis. Her other medical history includes hyperlipidemia, hypertension, chronic back pain, panic disorder and acid reflux. Based on the pathologic findings, the patient was referred to medical oncology for treatment of pulmonary adenocarcinoma. The patient was given chemotherapy and radiation therapy and following that she was maintained on Keytruda. Follow-up CAT scan of the chest abdomen and pelvis that was done on 04/25/2024 showed COPD. The previous masslike opacity in the left lower lobe extending to the hilum was smaller and less defined. There was some posterior treatment changes in the left lower lobe with some atelectatic changes and some residual consolidation. The patient was admitted to the hospital on 04/26/2024 for abdominal pain. At that time, the patient was seen by general surgery. The patient was taken to the operating room for small bowel obstruction and the patient underwent lysis of adhesions and the patient had colectomy with resection of a ileocolic anastomosis on 07/03/2024. Subsequently, the patient was discharged to be readmitted to the hospital because of ongoing abdominal pain and nausea and bloating. Ultrasound the gallbladder showed sludge and the patient underwent a elective cholecystectomy on 07/08/2024 and subsequently she was discharged home. She presented to the Emergency Department yesterday for ongoing abdominal pain that was rather diffuse. The patient felt fullness and bloating. Her pain has been going on for months even before she had a c holecystectomy. She stated that she was having bowel movement activity. In the emergency department, the white cell count was at 6.5 with a hemoglobin 14.3, electrolytes are all within normal limits. Normal LFTs. UA was negative. The viral screen was negative. CAT scan of the abdomen was done on 09/02/2024 and it showed some atelectatic changes in the left lung base along with some residual c onsolidation. There is moderate stool throughout the colon. No evidence of any pneumoperitoneum. No evidence of any aortic dissection. No evidence of any intra-abdominal lymphadenopathy. Currently, the patient is on room air oxygen with a pulse ox of 95%. She is on a combination of Rocephin and Zithromax. Done hide 09/04/2024, the patient continues to have some abdominal distention and discomfort and pain. No respiratory difficulties. Pulse ox is 93% liters of oxygen by nasal cannula. She was started on lactulose. She is also on Bentyl and Carafate. General surgery is on the case. Labs from today shows a white cell count of 4.7, hemoglobin 10.8, platelet count of 177 with a BUN of 8 and a creatinine of 0.8. Procalcitonin level was essentially normal. \ On 09/05/2024, patient is being seen for a follow-up. No new complaints. Continues to have some abdominal distention and the patient is producing stool. Patient was given lactulose and Dulcolax no respiratory difficulties. EGD was scheduled for next week. On 09/06/2024, no new respiratory complaints and the patient remains on room air oxygen with a pulse ox of 94%. No new labs available from today. General surgery is on the case. Continues to have some vague abdominal distention as stated earlier. Objective - Vital Signs Vital signs: Vital Signs Temp 98.0 F 09/06/24 15:00 Pulse 64 09/06/24 15:00 Resp 17 09/06/24 15:00 BP 137/75 09/06/24 15:00 Pulse Ox 94 L 09/06/24 13:19 FiO2 Intake & Output 09/05/24 09/06/24 09/06/24 18:59 06:59 18:59 Intake Total 240 Balance 240 Intake: Oral 240 Other: Voiding Method Toilet Toilet # Voids 1 2 # Bowel Movements 1 1 - Exam The patient appeared well nourished and normally developed. Vital signs as documented. Head exam is unremarkable. No scleral icterus or corneal arcus noted. Neck is without jugular venous distension, thyromegaly, or carotid bruits. Carotid upstrokes are brisk bilaterally. Lungs are clear to auscultation and percussion. There is diminished breath sounds in lung base especially left lung base. Overall air entry is diminished and the patient has few scattered expiratory wheeze. Cardiac exam reveals the PMI to be normally sized and situated. Rhythm is regular. First and second heart sounds normal. No murmurs, rubs or gallops. Abdominal exam reveals normal bowel sounds, no masses, no organomegaly and no aortic enlargement. Extremities are nonedematous and both femoral and pedal pulses are normal. Examination of the skin revealed no evidence of significant rashes, suspicious appearing nevi or other concerning lesions. Neurologically, the patient is awake and alert and the patient does not have any focal neurological deficit. Cranial nerves are essentially intact. - Labs CBC & Chem 7: 09/04/24 04:58 09/05/24 04:56 Labs: Microbiology - Last 24 Hours (Table) 09/02/24 23:52 Blood Culture - Preliminary Blood Assessment and Plan Plan: Pulm adenocarcinoma, status post bronchoscopy on 08/25/2023 and the patient had endobronchial tumor involving the secondary kevin causing obstruction of the left upper lobe bronchus and the left lower lobe bronchus and biopsies were consistent with non-small cell lung cancer. The patient was treated for locally advanced disease with a combination of chemoradiation therapy and the patient h as been maintained on Keytruda with cleared clinical response. Most recent CAT scan of the chest done on 06/15/2024 shows small left and minimal right-sided pleural effusion along with some compressive atelectatic changes in lung bases and some residual consolidation, essentially related to post treatment changes. As such, the patient has had positive response to therapy. COPD, moderate severe with an FEV1 of 60% predicted maintained on Trelegy Ellipta on outpatient basis Abdominal pain, currently under investigation. The patient has had previous EGD and colonoscopy revealing mild antral gastritis and duodenitis and a colonoscopy was within normal limits on 06/28/2024. Subsequently, the patient had a small bowel obstruction and the patient underwent lysis of adhesion and resection of t he ileocolonic anastomosis on 07/03/2024. This was followed up by a laparoscopic elective cholecystectomy that was done on 07/08/2024. Hyperlipidemia Hypertension Hypothyroidism Chronic anxiety/panic disorder Plan Clinically unchanged the patient continues to have abdominal distention and discomfort, general surgery on the case, the patient is stooling Patient is on a combination of laxatives Continue lactulose and Bentyl and Carafate Findings in the left lower lobe are essentially consistent with post treatment changes related to treatment of pulm adenocarcinoma/non-small cell lung cancer the patient was given a combination of chemo and radiation therapy followed by immunotherapy as the patient is currently on Keytruda with adequate clinical response. There is some residual opacity in the left perihilar area and atelectatic changes in the left lung base with small left-sided pleural effusion. Oxygenation is stable. The patient COPD is currently inactive and stable. General surgery consultation The patient is off Ketruda for the past 4 months and she is still having the abdominal pain and this pain is unlikely to be related to immunotherapy
[2024-09-07 01:32] VITALS: RESP 16
--- NOTE | 2024-09-07 07:39 | P.PN ---
Subjective Progress Note Date: 09/06/24 Patient is a 63-year-old female with a known history of non-small cell lung cancer status post chemo and radiation and was maintained on Keytruda, recent admission in March 2024 due to abdominal pain and bowel obstruction status post colectomy with resection and ileocolic anastomosis on 07/03/2024 and subsequently had cholecystectomy on 07/08/2024, hypothyroidism, hypertension, hyperlipidemia, anxiety/panic disorder and prior history of smoking. Patient presents to ER with complaints of abdominal pain along with fullness and bloating sensation. Patient has been having epigastric fullness which has been present for the past couple of months. Patient was recently admitted to hospital at [facility] with abdominal fullness and constipation. Patient did have a bowel movement after bowel prep. But pain has not been relieved. CT of the abdomen pelvis showed secretions in the left lower lung large airways with consolidation likely postobstructive atelectasis. Correlate for aspiration superimposed infection not excluded. Bronchoscopy recommended to rule out underlying mass. Moderate stool throughout the colon correlate for diarrhea. Laboratory data showed WBC 6.5 hemoglobin 14.3 and platelets 366, sodium 136 potassium 3.7 chloride 103 bicarb is 24 BUN 14 creatinine 0.60 and blood sugar 97. Liver enzymes not elevated Urinalysis is negative for infection Influenza A B and RSV PCR not detected. 09/04/2024 Patient is seen in follow-up today with pulmonary and general surgery following. Patient continues to have abdominal bloating and swelling in the upper epigastric region although reports is mildly improved. Patient is currently eating and reports to tolerating although not as much as patient continues to report fullness. Patient is belching and reported to be passing some gas although no bowel movement as of yet. Patient has been started on lactulose along with gas drops and instructed to increase activity with frequent walks. Patient was continued on empiric antibiotics with concerns of possible pneumonia although likely postobstructive atelectasis. Patient was given incentive spirometer encouraged to continue using at least 10 times every hour while awake. 09/05/2024 Patient is seen in follow-up today and continues with abdominal fullness. Diet per surgery recommendations and planning on possible endoscopic intervention on Monday with Dr. Apodaca. Patient continues to report not passing much gas and not having bowel movements. Patient has been instructed to increase activity as tolerated with frequent walking through the halls multiple times daily. Patient to continue on current regimen per pulmonary. 09/06/2024 Patient is seen in follow-up today with no acute overnight issues. Patient reports she is having bowel movements and maintained on scheduled bowel regimen along with as needed and will continue. Discussed with the patient about limiting IV narcotic use as she will not be going home with Dilaudid. General surgery has signed off the case recommending outpatient follow-up with Dr. Apodaca to discuss the need for possible endoscopic intervention. Patient reports to feeling improved and will monitor overnight as patient continues to report some abdominal discomfort and distention although is improving. Patient is afebrile denies chest pain or shortness of breath. Continued on current regimen with pulmonary following and COPD is stable. Patient will not require antibiotics on discharge. Review of systems: Constitutional: No reports of fatigue, fever, or chills Cardiovascular: No reports of chest pain or palpitations Respiratory: No reports of worsening shortness of breath or cough GI: No reports of nausea, vomiting, or diarrhea, reports continued fullness but is improving and is having bowel movements : No reports of dysuria or retention Neurovascular: No reports of weakness or numbness All medications have been reviewed PHYSICAL EXAMINATION: Patient is sitting up in the bed, awake alert and oriented.. Well-developed, appears older than stated age HEENT: Normocephalic. Neck is supple. Pupils reactive. Nostrils clear. Oral cavity is moist. Neck reveals no JVD, carotid bruits, or thyromegaly. CHEST EXAMINATION: Trachea is central. Symmetrical expansion. Left basilar diminished sounds. Few scattered rhonchi noted. Lung porter clear to auscultation and percussion. CARDIAC: Normal S1, S2 with no gallops. No murmurs ABDOMEN: Soft. Bowel sounds present. Epigastric fullness and bloating, although improving and less bloated... No abdominal bruits. Extremities: reveal no edema. No clubbing or cyanosis Neurologically awake, alert, oriented x3 with well-coordinated movements. No focal deficits noted Skin: No rash or skin lesions. Psychiatric: Cooperative. Nonsuicidal, slightly less anxious. Musculoskeletal: No joint swelling or deformity. Normal range of motion. Assessment: Abdominal pain with fullness in the epigastric region. Recent EGD showed mild antral gastritis and duodenitis. Patient also had SBO status post lysis of adhesions and resection of ileocolonic anastomosis. Also had cholecystectomy done on 07/08/2024, concerns for ileus, improving Non-small cell lung cancer status post chemoradiation. Patient has been maintained on Keytruda but off for the past [address] abdomen pelvis showed left lower lung airways with consolidation likely postobstructive atelectasis. Possible aspiration cannot be excluded. COPD, not in exacerbation Hypertension Hypothyroidism Anxiety/panic disorder GI DVT prophylaxis and sucralfate and heparin subcu Full code Plan: Patient will be continued on bowel regimen and pain management and recommend limiting IV narcotic use. Home medications reviewed and resumed as appropriate Patient was continued on empiric antibiotics and Procalcitonin level was not elevated. Patient will not require antibiotics on discharge Continue with DuoNebs and monitor respiratory status. No acute exacerbation of COPD and patient is currently on room air with no reports of further chest pain or shortness of breath Patient is also on PPI and sucralfate. Continue with stool softeners. Patient to continue on lactulose General surgery has signed off of the case recommending outpatient follow-up pulmonary following as well and will need outpatient follow-up Patient tolerating diet and is having bowel movements. Encouraged frequent walking at least 3-5 times daily up and down the koenig and encouraged getting up out of the bed and sitting in the chair more often Due to multiple complex medical issues, overall prognosis is guarded. Patient does report to feeling less full and is having bowel movements and will be monitored overnight and likely be discharged on 09/07/2024. Patient has been instructed to follow-up with general surgeon outpatient as well as oncology outpatient The impression and plan of care has been dictated by Maria Moody, Nurse Practitioner as directed. Dr. Nelsy MD I have performed a history and examination and MDM of this patient, discussed the same with the dictator, and agree with the dictator's assessment and plan as written ,documented as a scribe. Based on total visit time, I have performed more than 50% of the visit. Objective - Vital Signs Vital signs: Vital Signs Temp 97.9 F 09/06/24 07:19 Pulse 58 L 09/06/24 07:19 Resp 16 09/06/24 07:19 BP 111/67 09/06/24 07:19 Pulse Ox 95 09/06/24 07:19 FiO2 Intake & Output 11/05/2209/06/24 09/06/24 18:59 06:59 18:59 Intake Total 240 Balance 240 Intake: Oral 240 Other: Voiding Method Toilet Toilet # Voids 1 2 # Bowel Movements 1 1 - Labs CBC & Chem 7: 09/04/24 04:58 09/05/24 04:56 Labs: Microbiology - Last 24 Hours (Table) 09/02/24 23:52 Blood Culture - Preliminary Blood
[2024-09-07 12:57] VITALS: BP 102/65; PULSE 73; TEMP 97.9
--- NOTE | 2024-09-07 13:44 | P.DS ---
Providers Date of admission: 09/02/24 22:39 Expected date of discharge: 09/07/24 Attending physician: Alvaro Mcneal Consults: 09/02/24 22:35 Consult Physician Routine Consulting Provider: Bebo Kruger Consult Reason/Comments: Lower lobe infiltrate. Possible malignancy Do you want consulting provider notified?: Yes 09/04/24 10:21 Consult Physician Urgent Consulting Provider: Geronimo Castro Consult Reason/Comments: lung ca on chemo/rad/ keytruda? abd pain Do you want consulting provider notified?: Yes [facility] Course: Discharge diagnoses; Abdominal pain with fullness in the epigastric region. Recent EGD showed mild antral gastritis and duodenitis. Patient also had SBO status post lysis of adhesions and resection of ileocolonic anastomosis. Also had cholecystectomy done on 07/08/2024, concerns for ileus, improving Non-small cell lung cancer status post chemoradiation. Patient has been maintained on Keytruda but off for the past 4 months. COPD, not in exacerbation Hypertension Hypothyroidism Anxiety/panic disorder Hospital course; Patient is a 63-year-old female with a known history of non-small cell lung cancer status post chemo and radiation and was maintained on Keytruda, recent admission in March 2024 due to abdominal pain and bowel obstruction status post colectomy with resection and ileocolic anastomosis on 07/03/2024 and subsequently had cholecystectomy on 07/08/2024, hypothyroidism, hypertension, hyperlipidemia, anxiety/panic disorder and prior history of smoking. Patient presents to ER with complaints of abdominal pain along with fullness and bloating sensation. Patient has been having epigastric fullness which has been present for the past couple of months. Patient was recently admitted to hospital at [facility] with abdominal fullness and constipation. Patient did have a bowel movement after bowel prep. But pain has not been relieved. CT of the abdomen pelvis showed secretions in the left lower lung large airways with consolidation likely postobstructive atelectasis. Correlate for aspiration superimposed infection not excluded. Bronchoscopy recommended to rule out und erlying mass. Moderate stool throughout the colon correlate for diarrhea. Laboratory data showed WBC 6.5 hemoglobin 14.3 and platelets 366, sodium 136 potassium 3.7 chloride 103 bicarb is 24 BUN 14 creatinine 0.60 and blood sugar 97. Liver enzymes not elevated Urinalysis is negative for infection Influenza A B and RSV PCR not detected. 09/04/2024 Patient is seen in follow-up today with pulmonary and general surgery following. Patient continues to have abdominal bloating and swelling in the upper epigastric region although reports is mildly improved. Patient is currently eating and reports to tolerating although not as much as patient continues to report fullness. Patient is belching and reported to be passing some gas although no bowel movement as of yet. Patient has been started on lactulose along with gas drops and instructed to increase activity with frequent walks. Patient was continued on empiric antibiotics with concerns of possible pneumonia although likely postobstructive atelectasis. Patient was given incentive spirometer encouraged to continue using at least 10 times every hour while awake. 09/05/2024 Patient is seen in follow-up today and continues with abdominal fullness. Diet per surgery recommendations and planning on possible endoscopic intervention on Monday with Dr. Apodaca. Patient continues to report not passing much gas and not having bowel movements. Patient has been instructed to increase activity as tolerated with frequent walking through the halls multiple times daily. Patient to continue on current regimen per pulmonary. 09/06/2024 Patient is seen in follow-up today with no acute overnight issues. Patient reports she is having bowel movements and maintained on scheduled bowel regimen along with as needed and will continue. Discussed with the patient about limiting IV narcotic use as she will not be going home with Dilaudid. General surgery has signed off the case recommending outpatient follow-up with Dr. Apodaca to discuss the need for possible endoscopic intervention. Patient reports to feeling improved and will monitor overnight as patient continues to report some abdominal discomfort and distention although is improving. Patient is afebrile denies chest pain or shortness of breath. Continued on current regimen with pulmonary following and COPD is stable. Patient will not require antibiotics on discharge. 09/07. Patient seen and examined. Patient is tolerating diet, having bowel movements. Patient is cleared for discharge to follow-up outpatient with PCP PHYSICAL EXAMINATION: GENERAL: The patient is alert and oriented x3, HEENT: Pupils are round and equally reacting to light. EOMI. No scleral icterus. No conjunctival pallor. Normocephalic, atraumatic. No pharyngeal erythema. No thyromegaly. CARDIOVASCULAR: S1 and S2 present. No murmurs, rubs, or gallops. PULMONARY: Chest is clear to auscultation, no wheezing or crackles. ABDOMEN: Soft, nontender, nondistended, normoactive bowel sounds. No palpable organomegaly. MUSCULOSKELETAL: No joint swelling or deformity. EXTREMITIES: No cyanosis, clubbing, or pedal edema. NEUROLOGICAL: Gross neurological examination did not reveal any focal deficits. SKIN: No rashes. Dictation was produced using [employer] dictation software. please excuse any grammatical, word or spelling errors. Patient Condition at Discharge: Fair Plan - Discharge Summary New Discharge Prescriptions: New Lactulose [Cephulac] 30 gm PO TID #360 ml bisacodyL [Dulcolax] 10 mg RECTAL DAILY PRN #30 suppositor PRN Reason: Constipation oxyCODONE-APAP 5-325MG [Percocet 5-325 mg] 1 each PO QID PRN #18 tab PRN Reason: Pain Sennosides [Senokot] 8.6 mg PO DAILY PRN #30 tab PRN Reason: Constipation Dicyclomine [Bentyl] 10 mg PO QID PRN #120 cap PRN Reason: Dyspepsia Simethicone 40 mg/0.6 ml Drops [Mylicon Drops] 40 mg PO QID #10 ml Continue Levothyroxine Sodium [Synthroid] 75 mcg PO DAILY Gabapentin 300 mg PO QID QUEtiapine FUMARATE [SEROquel] 200 mg PO HS Triamterene/Hydrochlorothiazid [Triamterene-Hctz 75-50 mg Tab] 1 tab PO DAILY ALPRAZolam [Xanax] 0.25 mg PO HS Sucralfate [Carafate] 1 gm PO ACHS Famotidine [Pepcid] 40 mg PO DAILY PRN PRN Reason: Gi Upset Pantoprazole [Protonix] 40 mg PO DAILY Buprenorphine [Butrans 20 MCG/HOUR] 1 patch TRANSDERM TH Atorvastatin [Lipitor] 20 mg PO HS Fluticasone/Umeclidin/Vilanter [Trelegy Ellipta 100-62.5-25] 1 puff INHALATION RT-DAILY Diltiazem Cd [Cardizem CD] 240 mg PO HS ALPRAZolam [Xanax] 0.25 mg PO DAILY PRN PRN Reason: Anxiety Citalopram Hydrobromide [CeleXA] 20 mg PO DAILY Linaclotide [Linzess] 290 mcg PO DAILY Cimetidine [Tagamet] 400 mg PO HS Metoclopramide [Reglan] 10 mg PO TID-W/MEALS Ondansetron Odt [Zofran ODT] 4 mg PO Q8HR PRN PRN Reason: Nausea And Vomiting Discontinued Dicyclomine [Bentyl] 20 mg PO TID PRN PRN Reason: cramps Lactulose [Cephulac] 20 gm PO BID #360 ml Potassium Chloride [Klor-Con M10] 20 meq PO DAILY #60 tab Acetaminophen-Codeine 300-30mg [Tylenol w/codeine #3] 1 tab PO Q8H PRN PRN Reason: Pain oxyCODONE HCL [OxyIR] 5 mg PO Q8H PRN PRN Reason: Pain Levofloxacin [Levaquin] 500 mg PO DAILY Discharge Medication List ALPRAZolam [Xanax] 0.25 mg PO DAILY PRN 04/25/24 [History] ALPRAZolam [Xanax] 0.25 mg PO HS 04/25/24 [History] Atorvastatin [Lipitor] 20 mg PO HS 04/25/24 [History] Diltiazem Cd [Cardizem CD] 240 mg PO HS 04/25/24 [History] Fluticasone/Umeclidin/Vilanter [Trelegy Ellipta 100-62.5-25] 1 puff INHALATION RT-DAILY 04/25/24 [History] Gabapentin 300 mg PO QID 04/25/24 [History] Levothyroxine Sodium [Synthroid] 75 mcg PO DAILY 04/25/24 [History] QUEtiapine FUMARATE [SEROquel] 200 mg PO HS 04/25/24 [History] Triamterene/Hydrochlorothiazid [Triamterene-Hctz 75-50 mg Tab] 1 tab PO DAILY 04/25/24 [History] Citalopram Hydrobromide [CeleXA] 20 mg PO DAILY 07/01/24 [History] Sucralfate [Carafate] 1 gm PO ACHS 07/01/24 [History] Buprenorphine [Butrans 20 MCG/HOUR] 1 patch TRANSDERM TH 09/03/24 [History] Cimetidine [Tagamet] 400 mg PO HS 09/03/24 [History] Famotidine [Pepcid] 40 mg PO DAILY PRN 09/03/24 [History] Linaclotide [Linzess] 290 mcg PO DAILY 09/03/24 [History] Metoclopramide [Reglan] 10 mg PO TID-W/MEALS 09/03/24 [History] Ondansetron Odt [Zofran ODT] 4 mg PO Q8HR PRN 09/03/24 [History] Pantoprazole [Protonix] 40 mg PO DAILY 09/03/24 [History] Dicyclomine [Bentyl] 10 mg PO QID PRN #120 cap 09/07/24 [Rx] Lactulose [Cephulac] 30 gm PO TID #360 ml 09/07/24 [Rx] Sennosides [Senokot] 8.6 mg PO DAILY PRN #30 tab 09/07/24 [Rx] Simethicone 40 mg/0.6 ml Drops [Mylicon Drops] 40 mg PO QID #10 ml 09/07/24 [Rx] bisacodyL [Dulcolax] 10 mg RECTAL DAILY PRN #30 suppositor 09/07/24 [Rx] oxyCODONE-APAP 5-325MG [Percocet 5-325 mg] 1 each PO QID PRN #18 tab 09/07/24 [Rx] Follow up Appointment(s)/Referral(s): Tray Garnett MD [Primary Care Provider] - 1-2 days Nic Apodaca MD [STAFF PHYSICIAN] - 1 Week Activity/Diet/Wound Care/Special Instructions: Activity limited until follow-up Follow-up with primary care provider on discharge Follow-up oncology outpatient Follow-up with general surgery in 1 week Continue with bowel regimen scheduled and as needed Discharge Disposition: HOME SELF-CARE
== END 2024-09-07 16:15 | disposition home or self-care (01) | DRG 241 ==
LOC: EC 15:23 → 5NMEDONC 22:39
PROVIDERS: ADMIT Hospitalist; ATTEND Hospitalist
DX: K29.70 Gastritis, unspecified, without bleeding (principal); E78.5 Hyperlipidemia, unspecified; E03.9 Hypothyroidism, unspecified; J44.9 Chronic obstructive pulmonary disease, unspecified; F41.0 Panic disorder [episodic paroxysmal anxiety]; I10 Essential (primary) hypertension; K29.80 Duodenitis without bleeding; Z85.118 Personal history of other malignant neoplasm of bronchus and lung; Z79.899 Other long term (current) drug therapy; Z79.890 Hormone replacement therapy; Z90.49 Acquired absence of other specified parts of digestive tract; Z92.21 Personal history of antineoplastic chemotherapy; Z92.3 Personal history of irradiation; Z87.891 Personal history of nicotine dependence
CPT/HCPCS: 36415; 74177; 80048; 80053; 81003; 82150; 83605; 83690; 83735; 84145; 85025; 87040; 87636; 94640

== ENCOUNTER 2024-09-08 09:02 | Observation (INO) | payer OTHER ==
[2024-09-08 09:28] LABS: Basophils % (A) 0 %; Eosinophils # (A) 0.2 k/uL (0-0.7); Eosinophils % (A) 3 %; HCT 45.7 % (34.0-46.0); HGB 14.5 gm/dL (11.4-16.0); Lymphocytes # (A) 0.6 k/uL (1.0-4.8); Lymphocytes % (A) 8 %; MCH 30.4 pg (25.0-35.0); MCHC 31.9 g/dL (31.0-37.0); MCV 95.4 fL (80.0-100.0); Mean Platelet Volume 6.8; Monocytes # (A) 0.3 k/uL (0-1.0); Monocytes % (A) 4 %; Neutrophils # (A) 6.5 k/uL (1.3-7.7); Neutrophils % (A) 83 %; Platelet Count 327 k/uL (150-450); RBC 4.79 m/uL (3.80-5.40); RDW 14.5 % (11.5-15.5); WBC 7.8 k/uL (3.8-10.6)
[2024-09-08 09:44] LABS: ALT 86 U/L (4-34); AST 89 U/L (14-36); African American GFR (CKD) >90 (>60 ml/min/1.73 sqM); Albumin 4.7 g/dL (3.5-5.0); Alkaline Phosphatase 65 U/L (38-126); Amylase 64 U/L (30-110); Anion Gap 10 mmol/L; Blood Urea Nitrogen 11 mg/dL (7-17); Calcium 9.5 mg/dL (8.4-10.2); Carbon Dioxide 24 mmol/L (22-30); Chloride 101 mmol/L (98-107); Glucose 98 mg/dL (74-99); Lipase 44 U/L (23-300); Non-African American GFR(CKD) >90 (>60 ml/min/1.73 sqM); Potassium 4.2 mmol/L (3.5-5.1); Sodium 135 mmol/L (137-145); Total Bilirubin 0.4 mg/dL (0.2-1.3); Total Protein 7.4 g/dL (6.3-8.2)
--- NOTE | 2024-09-08 09:48 | ED ---
General Adult HPI - General Chief complaint: Abdominal Pain Stated complaint: abd pain Time Seen by Provider: 09/08/24 09:31 Source: patient, RN notes reviewed, old records reviewed Mode of arrival: EMS Limitations: no limitations - History of Present Illness Initial comments: Quick Note: Patient is a 63-year-old female presents emergency department for abdominal pain. Was just discharged yesterday for IBS. States she is having continued pain despite taking home Percocet. Denies any nausea or vomiting or diarrhea. Has no other acute complaints this time. Presents for further evaluation at this time. Describes generalized abdominal pain. Does have a history of a cholecystectomy, hypertension, hyperlipidemia. I evaluate the patient when she was placed in room after laboratory studies were obtained and I completed the quick note earlier today. Symptoms have not changed. See above for further HPI. - Related Data Home Medications Medication Instructions Recorded Confirmed ALPRAZolam [Xanax] 0.25 mg PO DAILY PRN 04/25/24 09/08/24 ALPRAZolam [Xanax] 0.25 mg PO HS 04/25/24 09/08/24 Atorvastatin [Lipitor] 20 mg PO HS 04/25/24 09/08/24 Diltiazem Cd [Cardizem CD] 240 mg PO HS 04/25/24 09/08/24 Fluticasone/Umeclidin/Vilanter 1 puff INHALATION RT-DAILY 04/25/24 09/08/24 [Trelegy Ellipta 100-62.5-25] Gabapentin 300 mg PO QID 04/25/24 09/08/24 Levothyroxine Sodium [Synthroid] 75 mcg PO DAILY 04/25/24 09/08/24 QUEtiapine FUMARATE [SEROquel] 200 mg PO HS 04/25/24 09/08/24 Triamterene/Hydrochlorothiazid 1 tab PO DAILY 04/25/24 09/08/24 [Triamterene-Hctz 75-50 mg Tab] Citalopram Hydrobromide [CeleXA] 20 mg PO DAILY 07/01/24 09/08/24 Sucralfate [Carafate] 1 gm PO ACHS 07/01/24 09/08/24 Buprenorphine [Butrans 20 MCG/HOUR] 1 patch TRANSDERM TH 09/03/24 09/08/24 Cimetidine [Tagamet] 400 mg PO HS 09/03/24 09/08/24 Famotidine [Pepcid] 40 mg PO DAILY PRN 09/03/24 09/08/24 Linaclotide [Linzess] 290 mcg PO DAILY 09/03/24 09/08/24 Metoclopramide [Reglan] 10 mg PO TID-W/MEALS 09/03/24 09/08/24 Ondansetron Odt [Zofran ODT] 4 mg PO Q8HR PRN 09/03/24 09/08/24 Pantoprazole [Protonix] 40 mg PO DAILY 09/03/24 09/08/24 oxyCODONE-APAP 5-325MG [Percocet 1 tab PO QID PRN 09/08/24 09/08/24 5-325 mg] Previous Rx's Medication Instructions Recorded Dicyclomine [Bentyl] 10 mg PO QID PRN #120 cap 09/07/24 Lactulose [Cephulac] 30 gm PO TID #360 ml 09/07/24 Sennosides [Senokot] 8.6 mg PO DAILY PRN #30 tab 09/07/24 Simethicone 40 mg/0.6 ml Drops 40 mg PO QID #10 ml 09/07/24 [Mylicon Drops] bisacodyL [Dulcolax] 10 mg RECTAL DAILY PRN #30 09/07/24 suppositor Allergies Allergy/AdvReac Type Severity Reaction Status Date / Time morphine Allergy Unknown Verified 09/08/24 11:47 Review of Systems ROS Statement: Those systems with pertinent positive or pertinent negative responses have been documented in the HPI. ROS Other: All systems not noted in ROS Statement are negative. Past Medical History Past Medical History: Cancer, Hyperlipidemia, Hypertension, Thyroid Disorder Additional Past Medical History / Comment(s): Wheezing, lung cancer w/ radiation and chemo - currently on Keytruda once a month; abd pain & nausea x 6 months, inpatient @ [facility] 07/01/24-07/04/24 for abd pain. History of Any Multi-Drug Resistant Organisms: None Reported Past Surgical History: Cholecystectomy Additional Past Surgical History / Comment(s): Colonoscopy w/ Dr. Liao 06/28/24 Past Anesthesia/Blood Transfusion Reactions: No Reported Reaction Additional Past Anesthesia/Blood Transfusion Reaction / Comment(s): Sedation only for Colonoscopy. Past Psychological History: Anxiety, Panic Disorder Smoking Status: Former smoker Past Alcohol Use History: None Reported Past Drug Use History: None Reported - Past Family History Mother Family Medical History: Cancer Additional Family Medical History / Comment(s): Pancreatic cancer Sister(s) Family Medical History: Cancer Additional Family Medical History / Comment(s): Pancreatic cancer Brother(s) Family Medical History: Cancer Additional Family Medical History / Comment(s): Leukemia General Exam - General Exam Comments Initial Comments: Quick note exam: General: Appears in mild distress secondary to abdominal pain HEAD: Normal with no signs of head trauma. EYES: EOMI. ENT: Hearing grossly intact. RESPIRATORY: No respiratory distress. C/V: Regular rate and rhythm. ABD: Abdomen is nondistended. EXT: No obvious deformity. SKIN: No rashes or lesions observed on exposed skin. NEURO: Alert and oriented. Exam: General: Appears in mild to moderate distress secondary to abdominal pain. HEAD: Normal with no signs of head trauma. EYES: EOMI ENT: Hearing grossly intact, normal oropharynx. RESPIRATORY: Clear breath sounds bilaterally. No wheezes, rales, or rhonchi. C/V: Regular rate and rhythm. S1 and S2 auscultated, no edema, peripheral pulses 2+ and intact throughout ABD: Abdomen is soft, nondistended. Tender to palpation in the upper abdomen. Seems consistent with exam from discharge. EXT: Normal range of motion, no obvious deformity SKIN: No rashes or lesions observed on exposed skin. NEURO: Alert and oriented x 4. Limitations: no limitations Course Vital Signs 09/08/24 09/08/24 09:03 12:18 Temperature 98.2 F Pulse Rate 65 77 Respiratory 20 16 Rate Blood Pressure 191/99 179/94 O2 Sat by Pulse 97 94 L Oximetry Medical Decision Making - Medical Decision Making Quick note portion of this chart completed by Dr. Maurilio Warner MD. Was pt. sent in by a medical professional or institution ([facility], [employer], urgent care, hospital, or [facility]...) When possible be specific @ -No Did you speak to anyone other than the patient for history (EMS, parent, family, police, friend...)? What history was obtained from this source @ -No Did you review nursing and triage notes (agree or disagree)? Why? @ -I reviewed and agree with nursing and triage notes Were old charts reviewed (outside hosp., previous admission, EMS record, old EKG, old radiological studies, urgent care reports/EKG's, [facility] records)? Report findings @ -Reviewed recent visit for which she was discharged yesterday. Plan was for EGD with Dr. Apodaca tomorrow. Differential Diagnosis (chest pain, altered mental status, abdominal pain women, abdominal pain men, vaginal bleeding, weakness, fever, dyspnea, syncope, headache, dizziness, GI bleed, back pain, seizure, CVA, palpatations, mental health, musculoskeletal)? @ -Differential Abdominal Pain Women: Appendicitis, Cholecystitis, diverticulosis, ischemic bowel, pancreatitis, hepatitis, UTI, gastroenteritis, AAA, incarcerated hernia, bowel obstruction, constipation, inflammatory bowel, hepatitis, peptic ulcer disease, splenic infarction, perforated viscus, vulvitis, ovarian torsion, PID, kidney stone, placenta abruption, this is not meant to be an all-inclusive list EKG interpreted by me (3pts min.). @ -None done X-rays interpreted by me (1pt min.). @ -None done CT interpreted by me (1pt min.). @ -CT imaging reveals no obvious acute cardiopulmonary process. U/S interpreted by me (1pt. min.). @ -None done What testing was considered but not performed or refused? (CT, X-rays, U/S, labs)? Why? @ -None What meds were considered but not given or refused? Why? @ -None Did you discuss the management of the patient with other professionals (professionals i.e. , PA, [employer], lab, RT, psych nurse, social group worker, search engine optimization manager, teacher, chief merchandising officer, showcase trimmer)? Give summary @ -Discussed with Dr. Berg, patient's previous surgeon who recommended consultation to Dr. Apodaca who is due to do an EGD for the patient. Discussed with the admitting provider, Dr. Templeton who is familiar with the patient was in agreement with plan for observation admission. Was smoking cessation discussed for >3mins.? @ -No Was critical care preformed (if so, how long)? @ -No Were there social determinants of health that impacted care today? How? (Homelessness, low income, unemployed, alcoholism, drug addiction, transportation, low edu. Level, literacy, decrease access to med. care, group home, rehab)? @ -No Was there de-escalation of care discussed even if they declined (Discuss DNR or withdrawal of care, Hospice)? DNR status @ -No What co-morbidities impacted this encounter? (DM, HTN, Smoking, COPD, CAD, Cancer, CVA, ARF, Chemo, Hep., AIDS, mental health diagnosis, sleep apnea, morbid obesity)? @ -Chronic abdominal pain Was patient admitted / discharged? Hospital course, mention meds given and route, prescriptions, significant lab abnormalities, going to OR and other pertinent info. @ -Patient presents with acute on chronic abdominal pain. Was discharged yesterday and believes she needed stronger pain medications for home which is why she presents for evaluation today. Symptoms unchanged from previous [facility] stay. We will obtain abdominal labs. Originally seen as a quick note by myself and then I evaluated her when she was placed in room. Laboratory studies remarkable for slight elevation in AST and ALT in the 80s but otherwise unremarkable. I discussed results with the patient. Did offer repeat CT imaging which she accepted and revealed no obvious acute intra-abdominal process. Patient was administered IV fluids as well as IV analgesia medications. Patient is requesting admission and as she is still having intractable abdominal pain I believe this is reasonable. She was discharged home yesterday with the abdominal pain but I did attempt to manage expectations for admission as I explained I am uncertain if imaging or other interventions will be explored on this admission as her symptoms are chronic. She expressed understanding. I spoke with the admitting provider, Dr. Abdullahi who is familiar with the patient and accepted the admission. Discussed with Dr. Berg, patient's previous surgeon who recommended consultation to Dr. Apodaca who is due to do an EGD for the patient. Undiagnosed new problem with uncertain prognosis? @ -No Drug Therapy requiring intensive monitoring for toxicity (Heparin, Nitro, Insulin, Cardizem)? @ -No Were any procedures done? @ -No Diagnosis/symptom? @ -Intractable abdominal pain Acute, or Chronic, or Acute on Chronic? @ -Acute on chronic Uncomplicated (without systemic symptoms) or Complicated (systemic symptoms)? @ -Complicated Side effects of treatment? @ -No Exacerbation, Progression, or Severe Exacerbation? @ -No Poses a threat to life or bodily function? How? (Chest pain, [place], [place], pneumonia, PE, COPD, DKA, ARF, appy, cholecystitis, CVA, Diverticulitis, Homicidal, Suicidal, threat to staff... and all critical care pts) @ -Potentially - Lab Data Result diagrams: 09/08/24 09:12 09/08/24 09:12 Lab Results 09/08/24 09/08/24 09/08/24 Range/Units 09:12 09:12 09:15 WBC 7.8 (3.8-10.6) k/uL RBC 4.79 (3.80-5.40) m/uL Hgb 14.5 (11.4-16.0) gm/dL Hct 45.7 (34.0-46.0) % MCV 95.4 (80.0-100.0) fL MCH 30.4 (25.0-35.0) pg MCHC 31.9 (31.0-37.0) g/dL RDW 14.5 (11.5-15.5) % Plt Count 327 (150-450) k/uL MPV 6.8 Neutrophils % 83 % Lymphocytes % 8 % Monocytes % 4 % Eosinophils % 3 % Basophils % 0 % Neutrophils # 6.5 (1.3-7.7) k/uL Lymphocytes # 0.6 L (1.0-4.8) k/uL Monocytes # 0.3 (0-1.0) k/uL Eosinophils # 0.2 (0-0.7) k/uL Basophils # 0.0 (0-0.2) k/uL Sodium 135 L (137-145) mmol/L Potassium 4.2 (3.5-5.1) mmol/L Chloride 101 (98-107) mmol/L Carbon Dioxide 24 (22-30) mmol/L Anion Gap 10 mmol/L BUN 11 (7-17) mg/dL Creatinine 0.55 (0.52-1.04) mg/dL Est GFR (CKD-EPI)AfAm >90 (>60 ml/min/1.73 sqM) Est GFR (CKD-EPI)NonAf >90 (>60 ml/min/1.73 sqM) Glucose 98 (74-99) mg/dL Plasma Lactic Acid Wagner 1.5 (0.7-2.0) mmol/L Calcium 9.5 (8.4-10.2) mg/dL Magnesium (1.6-2.3) mg/dL Total Bilirubin 0.4 (0.2-1.3) mg/dL AST 89 H (14-36) U/L ALT 86 H (4-34) U/L Alkaline Phosphatase 65 (38-126) U/L Total Protein 7.4 (6.3-8.2) g/dL Albumin 4.7 (3.5-5.0) g/dL Amylase 64 (30-110) U/L Lipase 44 (23-300) U/L 09/08/24 Range/Units 09:24 WBC (3.8-10.6) k/uL RBC (3.80-5.40) m/uL Hgb (11.4-16.0) gm/dL Hct (34.0-46.0) % MCV (80.0-100.0) fL MCH (25.0-35.0) pg MCHC (31.0-37.0) g/dL RDW (11.5-15.5) % Plt Count (150-450) k/uL MPV Neutrophils % % Lymphocytes % % Monocytes % % Eosinophils % % Basophils % % Neutrophils # (1.3-7.7) k/uL Lymphocytes # (1.0-4.8) k/uL Monocytes # (0-1.0) k/uL Eosinophils # (0-0.7) k/uL Basophils # (0-0.2) k/uL Sodium (137-145) mmol/L Potassium (3.5-5.1) mmol/L Chloride (98-107) mmol/L Carbon Dioxide (22-30) mmol/L Anion Gap mmol/L BUN (7-17) mg/dL Creatinine (0.52-1.04) mg/dL Est GFR (CKD-EPI)AfAm (>60 ml/min/1.73 sqM) Est GFR (CKD-EPI)NonAf (>60 ml/min/1.73 sqM) Glucose (74-99) mg/dL Plasma Lactic Acid Wagner (0.7-2.0) mmol/L Calcium (8.4-10.2) mg/dL Magnesium 1.6 (1.6-2.3) mg/dL Total Bilirubin (0.2-1.3) mg/dL AST (14-36) U/L ALT (4-34) U/L Alkaline Phosphatase (38-126) U/L Total Protein (6.3-8.2) g/dL Albumin (3.5-5.0) g/dL Amylase (30-110) U/L Lipase (23-300) U/L Disposition Clinical Impression: Intractable abdominal pain Disposition: ADMITTED IP TO THIS [facility] Condition: Stable Time of Disposition: 12:15
[2024-09-08] MEDS: HYDROmorphone 1 MG/ML 1 ML SYRINGE IVP STA ×2 (10:11→12:15)
[2024-09-08] MEDS: SODIUM CHLORIDE 0.9% 1,000 ML IV STA ×2 (10:11→12:14)
--- NOTE | 2024-09-08 11:49 | CT ---
EXAMINATION TYPE: CT abdomen pelvis w con DATE OF EXAM: 09/08/2024 COMPARISON: 09/02/2024 CLINICAL INDICATION: Female, 63 years old with history of intractable abd pain; PHH, abd pain for 6 m onths TECHNIQUE: Performed without Oral Contrast and with IV Contrast, patient injected with 100 ml mL of Isovue 300. CT DLP: 632.[address] CTDI: mGy Automated exposure control for dose reduction was used. FINDINGS: There are bilateral lower lobe infiltrates with a small left effusion. There is a small pericardial e ffusion. There is surgical absence of the gallbladder.. There is no biliary ductal dilatation. There is no focal mass or organomegaly involving the liver, pancreas, spleen or adrenal glands. There is no solid renal mass or hydronephrosis and there is homogeneous contrast enhancement of the r enal parenchyma. There is a stable nonobstructing 4 mm right renal calcification. The caliber the abdominal aorta is normal is no retroperitoneal adenopathy or hemorrhage. The bowel loops are normal in caliber and there is no evidence of dilatation or obstruction. No infla mmatory changes are identified in the bowel wall or mesentery. There is no free intraperitoneal air or fluid. No pelvic mass, free fluid, abscess or adenopathy. The osseous structures and soft tissues are intact. IMPRESSION: No acute changes within the abdomen or pelvis. No significant interval change compared to previous. [facility], , 09/08/2024 11:47 AM
[2024-09-08] MEDS ORDERED: NALOXONE 0.4 MG/ML 1 ML VIAL IV PRN (12:33)
[2024-09-08] MEDS: SODIUM CHLORIDE 0.9% 1,000 ML IV SCH (12:41)
[2024-09-08] MEDS ORDERED: ALPRAZolam 0.25 MG TAB PO PRN (13:03)
[2024-09-08] MEDS ORDERED: DICYCLOMINE 10 MG CAP PO PRN (13:11)
--- NOTE | 2024-09-08 13:43 | P.HPIM ---
History of Present Illness H&P Date: 09/08/24 History of present illness;Patient is a 63-year-old female with a known history of non-small cell lung cancer status post chemo and radiation and was maintained on Keytruda, recent admission in March 2024 due to abdominal pain and bowel obstruction status post colectomy with resection and ileocolic anastomosis on 07/03/2024 and subsequently had cholecystectomy on 07/08/2024, hypothyroidism, hypertension, hyperlipidemia, anxiety/panic disorder and prior history of smoking, was discharged yesterday after being admitted for abdominal pain. Patient came to the ER again today with complaint of abdominal pain. Patient discharged yesterday on pain medications, patient kept asking for oxycodone at discharge. Stated that when she went home her abdominal pain worsened. Denies any nausea vomiting. There is no complaint of fever or chills. Patient has been stooling regularly during her last admission. Initial lab work done in the ER showed WBC 7.8, hemoglobin 14.5, platelet count 327, sodium 130 recontacting 4.2, BUN 11, creatinine 0.55, lactate 1.5, AST 89, ALT 86 CT abdomen pelvis done showed no significant changes in the abdomen or pelvis, Patient admitted to internal medicine service REVIEW OF SYSTEMS: CONSTITUTIONAL: No fever, no malaise, no fatigue. HEENT: No recent visual problems or hearing problems. Denied any sore throat. CARDIOVASCULAR: No chest pain, orthopnea, PND, no palpitations, no syncope. PULMONARY: No shortness of breath, no cough, no hemoptysis. GASTROINTESTINAL: As mentioned above HEMATOLOGICAL: Denies any bleeding or petechiae. GENITOURINARY: Denies any burning micturition, frequency, or urgency. MUSCULOSKELETAL/RHEUMATOLOGICAL: Denies any joint pain, swelling, or any muscle pain. ENDOCRINE: Denies any polyuria or polydipsia. The rest of the 14-point review of systems is negative. PHYSICAL EXAMINATION: GENERAL: The patient is alert and oriented x3, not in any acute distress. Ill looking HEENT: Pupils are round and equally reacting to light. EOMI. No scleral icterus. No conjunctival pallor. Normocephalic, atraumatic. No pharyngeal erythema. No thyromegaly. CARDIOVASCULAR: S1 and S2 present. No murmurs, rubs, or gallops. PULMONARY: Chest is clear to auscultation, no wheezing or crackles. ABDOMEN: Soft, nontender, nondistended, normoactive bowel sounds. No palpable organomegaly. MUSCULOSKELETAL: No joint swelling or deformity. EXTREMITIES: No cyanosis, clubbing, or pedal edema. NEUROLOGICAL: Gross neurological examination did not reveal any focal deficits. SKIN: No rashes. Assessment and plan Recurrent abdominal pain Non-small cell lung cancer status post chemoradiation COPD, not in exacerbation Hypertension Hypothyroidism Anxiety/panic disorder Monitor vital signs Monitor CBC Monitor CMP Ordered IV fluids Ordered antiemetics Ordered Protonix Ordered Maalox Resume home meds Surgery consulted Labs and medication were reviewed.. Continue same treatment. Continue with symptomatic treatment. Resume home medication. Monitor labs and vitals. DVT and GI prophylaxis. Further recommendations as per clinical course of the patient Dictation was produced using [employer] dictation software. please excuse any grammatical, word or spelling errors. Past Medical History Past Medical History: Cancer, Hyperlipidemia, Hypertension, Thyroid Disorder Additional Past Medical History / Comment(s): Wheezing, lung cancer w/ radiation and chemo - currently on Keytruda once a month; abd pain & nausea x 6 months, inpatient @ [facility] 07/01/24-07/04/24 for abd pain. History of Any Multi-Drug Resistant Organisms: None Reported Past Surgical History: Cholecystectomy Additional Past Surgical History / Comment(s): Colonoscopy w/ Dr. Liao 06/28/24 Past Anesthesia/Blood Transfusion Reactions: No Reported Reaction Additional Past Anesthesia/Blood Transfusion Reaction / Comment(s): Sedation only for Colonoscopy. Past Psychological History: Anxiety, Panic Disorder Smoking Status: Former smoker Past Alcohol Use History: None Reported Past Drug Use History: None Reported - Past Family History Mother Family Medical History: Cancer Additional Family Medical History / Comment(s): Pancreatic cancer Sister(s) Family Medical History: Cancer Additional Family Medical History / Comment(s): Pancreatic cancer Brother(s) Family Medical History: Cancer Additional Family Medical History / Comment(s): Leukemia Medications and Allergies Home Medications Medication Instructions Recorded Confirmed Type ALPRAZolam [Xanax] 0.25 mg PO DAILY PRN 04/25/24 09/08/24 History ALPRAZolam [Xanax] 0.25 mg PO HS 04/25/24 09/08/24 History Atorvastatin [Lipitor] 20 mg PO HS 04/25/24 09/08/24 History Diltiazem Cd [Cardizem CD] 240 mg PO HS 04/25/24 09/08/24 History Fluticasone/Umeclidin/Vilanter 1 puff INHALATION RT-DAILY 04/25/24 09/08/24 History [Trelegy Ellipta 100-62.5-25] Gabapentin 300 mg PO QID 04/25/24 09/08/24 History Levothyroxine Sodium [Synthroid] 75 mcg PO DAILY 04/25/24 09/08/24 History QUEtiapine FUMARATE [SEROquel] 200 mg PO HS 04/25/24 09/08/24 History Triamterene/Hydrochlorothiazid 1 tab PO DAILY 04/25/24 09/08/24 History [Triamterene-Hctz 75-50 mg Tab] Citalopram Hydrobromide [CeleXA] 20 mg PO DAILY 07/01/24 09/08/24 History Sucralfate [Carafate] 1 gm PO ACHS 07/01/24 09/08/24 History Buprenorphine [Butrans 20 MCG/HOUR] 1 patch TRANSDERM TH 09/03/24 09/08/24 History Cimetidine [Tagamet] 400 mg PO HS 09/03/24 09/08/24 History Famotidine [Pepcid] 40 mg PO DAILY PRN 09/03/24 09/08/24 History Linaclotide [Linzess] 290 mcg PO DAILY 09/03/24 09/08/24 History Metoclopramide [Reglan] 10 mg PO TID-W/MEALS 09/03/24 09/08/24 History Ondansetron Odt [Zofran ODT] 4 mg PO Q8HR PRN 09/03/24 09/08/24 History Pantoprazole [Protonix] 40 mg PO DAILY 09/03/24 09/08/24 History Dicyclomine [Bentyl] 10 mg PO QID PRN #120 cap 09/07/24 09/08/24 Rx Lactulose [Cephulac] 30 gm PO TID #360 ml 09/07/24 09/08/24 Rx Sennosides [Senokot] 8.6 mg PO DAILY PRN #30 tab 09/07/24 09/08/24 Rx Simethicone 40 mg/0.6 ml Drops 40 mg PO QID #10 ml 09/07/24 09/08/24 Rx [Mylicon Drops] bisacodyL [Dulcolax] 10 mg RECTAL DAILY PRN #30 09/07/24 09/08/24 Rx suppositor oxyCODONE-APAP 5-325MG [Percocet 1 tab PO QID PRN 09/08/24 09/08/24 History 5-325 mg] Allergies Allergy/AdvReac Type Severity Reaction Status Date / Time morphine Allergy Unknown Verified 09/08/24 11:47 Physical Exam Vitals: Vital Signs Temp Pulse Resp BP Pulse Ox 09/08/24 12:18 77 16 179/94 94 L 09/08/24 09:03 98.2 F 65 20 191/99 97 Intake and Output 09/07/24 09/08/24 09/08/24 22:59 06:59 14:59 Other: Weight 49.895 kg Results CBC & Chem 7: 09/08/24 09:12 09/08/24 09:12 Labs: Abnormal Lab Results - Last 24 Hours (Table) 09/08/24 09/08/24 Range/Units 09:12 09:12 Lymphocytes # 0.6 L (1.0-4.8) k/uL Sodium 135 L (137-145) mmol/L AST 89 H (14-36) U/L ALT 86 H (4-34) U/L
[2024-09-08] MEDS: FAMOTIDINE 20 MG TAB PO PRN (14:46)
[2024-09-08] MEDS: HYDROmorphone 1 MG/ML 1 ML SYRINGE IVP PRN (14:47)
[2024-09-08] MEDS: IPRATROPIUM 0.5 MG/2.5 ML NEBU INHALATION SCH (15:58)
[2024-09-08] MEDS: LACTULOSE 20 GM/30 ML CUP PO SCH (16:54)
[2024-09-08] MEDS: METOCLOPRAMIDE 10 MG TAB PO SCH (16:55)
[2024-09-08] MEDS: SUCRALFATE 1 GM TAB PO SCH (16:55)
[2024-09-08] MEDS: GABAPENTIN 300 MG CAP PO SCH (17:26)
[2024-09-08] MEDS: SIMETHICONE 40 MG/0.6 ML DROPS 2,000 MG/30 ML BOTTLE PO SCH (17:39)
[2024-09-08] MEDS: ALPRAZolam 0.25 MG TAB PO SCH (21:06)
[2024-09-08] MEDS: QUEtiapine 200 MG TAB PO SCH (21:06)
[2024-09-08] MEDS: ATORVASTATIN 20 MG TAB PO SCH (21:06)
[2024-09-09] MEDS: ONDANSETRON 4 MG/2 ML VIAL IVP PRN (00:41)
[2024-09-09] MEDS: LEVOTHYROXINE 75 MCG TAB PO SCH (06:14)
[2024-09-09] MEDS: PANTOPRAZOLE 40 MG TABLET PO SCH (06:14)
[2024-09-09] MEDS: TRIAMTERENE-HCTZ 75-50MG 1 EACH TAB PO SCH (08:07)
[2024-09-09] MEDS: CITALOPRAM HYDROBROMIDE 20 MG TAB PO SCH (08:07)
[2024-09-09] MEDS: SYMBICORT 80-4.5 MCG INHALER INHALATION SCH (08:32)
[2024-09-09 08:35] LABS: Basophils # (A) 0.05 X 10*3/uL (0.00-0.10); Basophils % (A) 1.1 %; Eosinophils # (A) 0.28 X 10*3/uL (0.04-0.35); Eosinophils % (A) 6.2 %; HCT 36.3 % (37.2-46.3); HGB 12.1 g/dL (12.0-15.0); Lymphocytes # (A) 0.92 X 10*3/uL (0.90-5.00); Lymphocytes % (A) 20.4 %; MCH 31.6 pg (27.0-32.0); MCHC 33.3 g/dL (32.0-37.0); MCV 94.8 FL (80.0-97.0); Mean Platelet Volume 9.6 FL (9.5-12.2); Monocytes # (A) 0.44 X 10*3/uL (0.20-1.00); Monocytes % (A) 9.8 %; NRBC Per 100 WBC 0 X 10*3/uL (0.00-0.01); Neutrophils # (A) 2.76 X 10*3/uL (1.80-7.70); Neutrophils % (A) 61.4 %; Platelet Count 260 X 10*3/uL (140-440); RBC 3.83 X 10*6/uL (4.10-5.20); RDW 15.2 % (11.5-14.5)
[2024-09-09 08:40] LABS: ALT 52 U/L (8-44); AST 32 U/L (13-35); Albumin 3.5 g/dL (3.8-4.9); Albumin/Globulin Ratio 2.06 Ratio (1.60-3.17); Alkaline Phosphatase 61 U/L (41-126); BUN/Creat Ratio 12.83 Ratio (12.00-20.00); Blood Urea Nitrogen 7.7 mg/dL (9.0-27.0); Calcium 8.3 mg/dL (8.7-10.3); Carbon Dioxide 21.8 mmol/L (21.6-31.8); Chloride 107 mmol/L (96-109); Globulin 1.7 g/dL (1.6-3.3); Glucose 89 mg/dL (70-110); Potassium 3.6 mmol/L (3.5-5.5); Sodium 137 mmol/L (135-145); Total Bilirubin 0.2 mg/dL (0.3-1.2); Total Protein 5.2 g/dL (6.2-8.2)
--- NOTE | 2024-09-09 11:10 | P.GSCN ---
History of Present Illness Consult date: 09/09/24 History of present illness: CHIEF COMPLAINT: Abdominal pain HISTORY OF PRESENT ILLNESS: This is a 63-year-old female who reports being discharged on Monday but then returned to the hospital on Monday with continued epigastric abdominal pain. Patient was treated for colonic ileus during that admission. Patient reports the pain is across the upper abdomen with bloating. She had nausea and heartburn. She denies any vomiting. She does report having bowel movements. She is status post cholecystectomy in June 2024. Last EGD and colonoscopy was June 28, 2024 with gastritis, duodenitis and colonoscopy was normal. PAST MEDICAL HISTORY: Lung cancer with radiation and chemotherapy, Hyperlipidemia, Hypertension, Thyroid Disorder PAST SURGICAL HISTORY: Cholecystectomy MEDICATIONS: See below ALLERGIES: See below SOCIAL HISTORY: No illicit drug use. REVIEW OF SYSTEMS: CONSTITUTIONAL: Denies fever or chills. HEENT: Denies blurred vision, vision changes, or eye pain. Denies hemoptysis CARDIOVASCULAR: Denies chest pain or pressure. RESPIRATORY: No shortness of breath. GASTROINTESTINAL: See HPI for pertinent findings HEMATOLOGIC: Denies bleeding disorders. GENITOURINARY: Denies any blood in urine or increased urinary frequency. SKIN: Denies pruitis. Denies rash. PHYSICAL EXAM: VITAL SIGNS: Reviewed GENERAL: Well-developed in no acute distress. HEENT: No sclera icterus. Extraocular movements grossly intact. Moist buccal mucosa. Head is atraumatic, normocephalic. No nasal drainage. ABDOMEN: Soft. Tenderness with palpation across upper abdomen. Mildly distended upper abdomen. NEUROLOGIC: Alert and oriented. Cranial nerves II through XII grossly intact. LABORATORY DATA: WBC 4.50 Hgb 12.1 platelets 260 Sodium 137 potassium 3.6 creatinine 0.6 IMAGING: CT scan abdomen pelvis reports no acute changes within the abdomen or pelvis. No significant interval change compared to previous ASSESSMENT: 1. Epigastric abdominal pain with upper abdominal bloating, nausea and heartburn 2. History of cholecystectomy 3. History of lung cancer 4. Recent colonic ileus and constipation PLAN: -Patient scheduled for EGD today with Dr. Apodaca -Keep patient n.p.o. -Continue with daily PPI -Recommend changing Bentyl to scheduled -Encouraged patient to ambulate Physician Engineer Chief note has been reviewed by physician. Signing provider agrees with the documented findings, assessment, and plan of care. Past Medical History Past Medical History: Cancer, Hyperlipidemia, Hypertension, Thyroid Disorder Additional Past Medical History / Comment(s): Wheezing, lung cancer w/ radiation and chemo - currently on Keytruda once a month; abd pain & nausea x 6 months, inpatient @ [facility] 07/01/24-07/04/24 for abd pain. History of Any Multi-Drug Resistant Organisms: None Reported Past Surgical History: Cholecystectomy Additional Past Surgical History / Comment(s): Colonoscopy w/ Dr. Liao 06/28/24 Past Anesthesia/Blood Transfusion Reactions: No Reported Reaction Additional Past Anesthesia/Blood Transfusion Reaction / Comm: Sedation only for Colonoscopy. Past Psychological History: Anxiety, Panic Disorder Smoking Status: Former smoker Past Alcohol Use History: None Reported Additional Past Alcohol Use History / Comment(s): smoked 1/2 ppd- quit 2022. Past Drug Use History: None Reported - Past Family History Mother Family Medical History: Cancer Additional Family Medical History / Comment(s): Pancreatic cancer Sister(s) Family Medical History: Cancer Additional Family Medical History / Comment(s): Pancreatic cancer Brother(s) Family Medical History: Cancer Additional Family Medical History / Comment(s): Leukemia Medications and Allergies Home Medications Medication Instructions Recorded Confirmed Type ALPRAZolam [Xanax] 0.25 mg PO DAILY PRN 04/25/24 09/08/24 History ALPRAZolam [Xanax] 0.25 mg PO HS 04/25/24 09/08/24 History Atorvastatin [Lipitor] 20 mg PO HS 04/25/24 09/08/24 History Diltiazem Cd [Cardizem CD] 240 mg PO HS 04/25/24 09/08/24 History Fluticasone/Umeclidin/Vilanter 1 puff INHALATION RT-DAILY 04/25/24 09/08/24 History [Trelegy Ellipta 100-62.5-25] Gabapentin 300 mg PO QID 04/25/24 09/08/24 History Levothyroxine Sodium [Synthroid] 75 mcg PO DAILY 04/25/24 09/08/24 History QUEtiapine FUMARATE [SEROquel] 200 mg PO HS 04/25/24 09/08/24 History Triamterene/Hydrochlorothiazid 1 tab PO DAILY 04/25/24 09/08/24 History [Triamterene-Hctz 75-50 mg Tab] Citalopram Hydrobromide [CeleXA] 20 mg PO DAILY 07/01/24 09/08/24 History Sucralfate [Carafate] 1 gm PO ACHS 07/01/24 09/08/24 History Buprenorphine [Butrans 20 MCG/HOUR] 1 patch TRANSDERM TH 09/03/24 09/08/24 History Cimetidine [Tagamet] 400 mg PO HS 09/03/24 09/08/24 History Famotidine [Pepcid] 40 mg PO DAILY PRN 09/03/24 09/08/24 History Linaclotide [Linzess] 290 mcg PO DAILY 09/03/24 09/08/24 History Metoclopramide [Reglan] 10 mg PO TID-W/MEALS 09/03/24 09/08/24 History Ondansetron Odt [Zofran ODT] 4 mg PO Q8HR PRN 09/03/24 09/08/24 History Pantoprazole [Protonix] 40 mg PO DAILY 09/03/24 09/08/24 History Dicyclomine [Bentyl] 10 mg PO QID PRN #120 cap 09/07/24 09/08/24 Rx Lactulose [Cephulac] 30 gm PO TID #360 ml 09/07/24 09/08/24 Rx Sennosides [Senokot] 8.6 mg PO DAILY PRN #30 tab 09/07/24 09/08/24 Rx Simethicone 40 mg/0.6 ml Drops 40 mg PO QID #10 ml 09/07/24 09/08/24 Rx [Mylicon Drops] bisacodyL [Dulcolax] 10 mg RECTAL DAILY PRN #30 09/07/24 09/08/24 Rx suppositor oxyCODONE-APAP 5-325MG [Percocet 1 tab PO QID PRN 09/08/24 09/08/24 History 5-325 mg] Allergies Allergy/AdvReac Type Severity Reaction Status Date / Time morphine Allergy Unknown Verified 09/08/24 11:47 Surgical - Exam Vital Signs Temp Pulse Resp BP Pulse Ox 98.2 F 65 20 191/99 97 09/08/24 09:03 09/08/24 09:03 09/08/24 09:03 09/08/24 09:03 09/08/24 09:03 Results - Labs 09/09/24 05:47 09/09/24 05:47 Abnormal Lab Results - Last 24 Hours (Table) 09/09/24 09/09/24 Range/Units 05:47 05:47 RBC 3.83 L (4.10-5.20) X 10*6/uL Hct 36.3 L (37.2-46.3) % RDW 15.2 H (11.5-14.5) % Immature Gran # 0.05 H (0.00-0.04) X 10*3/uL BUN 7.7 L (9.0-27.0) mg/dL Calcium 8.3 L (8.7-10.3) mg/dL Total Bilirubin 0.2 L (0.3-1.2) mg/dL ALT 52 H (8-44) U/L Total Protein 5.2 L (6.2-8.2) g/dL Albumin 3.5 L (3.8-4.9) g/dL Diabetes panel 09/09/24 Range/Units 05:47 Sodium 137 (135-145) mmol/L Potassium 3.6 (3.5-5.5) mmol/L Chloride 107 (96-109) mmol/L Carbon Dioxide 21.8 (21.6-31.8) mmol/L BUN 7.7 L (9.0-27.0) mg/dL Creatinine 0.6 (0.6-1.5) mg/dL Glucose 89 (70-110) mg/dL Calcium 8.3 L (8.7-10.3) mg/dL AST 32 (13-35) U/L ALT 52 H (8-44) U/L Alkaline Phosphatase 61 (41-126) U/L Total Protein 5.2 L (6.2-8.2) g/dL Albumin 3.5 L (3.8-4.9) g/dL Calcium panel 09/09/24 Range/Units 05:47 Calcium 8.3 L (8.7-10.3) mg/dL Albumin 3.5 L (3.8-4.9) g/dL Pituitary panel 09/09/24 Range/Units 05:47 Sodium 137 (135-145) mmol/L Potassium 3.6 (3.5-5.5) mmol/L Chloride 107 (96-109) mmol/L Carbon Dioxide 21.8 (21.6-31.8) mmol/L BUN 7.7 L (9.0-27.0) mg/dL Creatinine 0.6 (0.6-1.5) mg/dL Glucose 89 (70-110) mg/dL Calcium 8.3 L (8.7-10.3) mg/dL Adrenal panel 09/09/24 Range/Units 05:47 Sodium 137 (135-145) mmol/L Potassium 3.6 (3.5-5.5) mmol/L Chloride 107 (96-109) mmol/L Carbon Dioxide 21.8 (21.6-31.8) mmol/L BUN 7.7 L (9.0-27.0) mg/dL Creatinine 0.6 (0.6-1.5) mg/dL Glucose 89 (70-110) mg/dL Calcium 8.3 L (8.7-10.3) mg/dL Total Bilirubin 0.2 L (0.3-1.2) mg/dL AST 32 (13-35) U/L ALT 52 H (8-44) U/L Alkaline Phosphatase 61 (41-126) U/L Total Protein 5.2 L (6.2-8.2) g/dL Albumin 3.5 L (3.8-4.9) g/dL
[2024-09-09] MEDS: NON FORMULARY DRUG (Linaclotide [Linzess] 290 MCG Capsule) PO SCH (11:15)
[2024-09-09] MEDS ORDERED: bisacodyL 10 MG SUPP RECTAL PRN (12:43)
[2024-09-09] MEDS ORDERED: SENNOSIDES 8.6 MG TAB PO PRN (12:43)
[2024-09-09] MEDS: PANTOPRAZOLE 40 MG/10 ML VIAL IVP SCH (13:30)
[2024-09-09] MEDS: IV FLUID CONTINUATION 1,000 ML IV ONE (14:50)
[2024-09-09] MEDS ORDERED: LIDOCAINE 1% INJ 10MG/ML (20 ML MDV) ONE (14:55)
[2024-09-09] MEDS ORDERED: PROPOFOL 10 MG/ML 20 ML VIAL IV ONE (14:55)
--- NOTE | 2024-09-09 15:05 | P.OP ---
Date of Procedure: 09/09/24 Preoperative Diagnosis: G epigastric pain Postoperative Diagnosis: Antral gastritis Procedure(s) Performed: EGD Anesthesia: MAC Surgeon: Nic Apodaca Pathology: other (Antrum) Condition: stable Disposition: PACU Description of Procedure: The patient was placed on the endoscopy table in the lateral position. She received IV sedation. The Gastroflux oropharynx passed in the esophagus and the stomach. Scope was then placed through the pylorus. The first and second portion of the duodenum appeared normal. Scope was brought back to the antrum this was minimal Flaim. A biopsy performed. The scope was then retroflexed and the Mainer of the stomach appeared normal. The GE junction was at 40 cm. The distal esophagus appeared normal. Proximal Soffix appeared normal physical drop the patient.
[2024-09-09] MEDS: DICYCLOMINE 10 MG CAP PO SCH (15:31)
--- NOTE | 2024-09-09 15:39 | P.PAINPG ---
Objective - Vital Signs Vital signs: Vital Signs Temp 98.2 F 09/09/24 06:57 Pulse 70 09/09/24 14:37 Resp 16 09/09/24 14:37 BP 127/79 09/09/24 14:37 Pulse Ox 95 09/09/24 14:37 FiO2 Intake & Output 09/08/24 09/09/24 09/09/24 18:59 06:59 18:59 Intake Total 600 Output Total 700 Balance -100 Weight 49.895 kg 49.895 kg Intake: Oral 600 Output: Urine 700 Other: Voiding Method Toilet Toilet # Voids 3 1 - Labs CBC & Chem 7: 09/09/24 05:47 09/09/24 05:47 Labs: Abnormal Lab Results - Last 24 Hours (Table) 09/09/24 09/09/24 Range/Units 05:47 05:47 RBC 3.83 L (4.10-5.20) X 10*6/uL Hct 36.3 L (37.2-46.3) % RDW 15.2 H (11.5-14.5) % Immature Gran # 0.05 H (0.00-0.04) X 10*3/uL BUN 7.7 L (9.0-27.0) mg/dL Calcium 8.3 L (8.7-10.3) mg/dL Total Bilirubin 0.2 L (0.3-1.2) mg/dL ALT 52 H (8-44) U/L Total Protein 5.2 L (6.2-8.2) g/dL Albumin 3.5 L (3.8-4.9) g/dL PQRS Measure Charge Sheet Comment: HISTORY OF PRESENT ILLNESS: A 63 yr old inpatient female as a referral from [facility] presents today w severe and chronic epigastric/ upper abdominal pain secondary to gastritis and hx of cholecystectomy for evaluation. She was diagnosed w colonic ileus approximately 2 days ago. Pt returned to the hospital 1 day ago w pain level at at 7 /10 in intensity, wax & wanes in intensity, localized in the upper abd, gnawing in character w occasional shooting pain towards the back. +Abd distention. BM are intact. Pain has no provocation. Pain is alleviated by medications (Dilaudid 1mg q3h prn), repositioning and rest . PMH: OA, Lung CA, Hyperlipidemia, HTN, Hypothyroidism, GERD, Anxiety/ Panic Disorder PSH: Cholecystectomy, Colonoscopy (2023) SH: Former tobacco use, No ETOH abuse, No illicit drug use FH: Bro- Leukemia. Sis- Pancreatic CA. Mo- Pancreatic CA All: See list Meds: See list REVIEW OF ORGAN SYSTEMS: CONSTITUTIONAL: No fevers or chills. No recent weight loss. NEUROLOGICAL: + numbness and tingling along the distal extremities. No seizure disorders or headaches. MUSCULOSKELETAL: + pain PSYCHIATRIC: Denies current depression or suicidal thoughts. Physical Examinations : Constitutional : Cooperative , not in acute distress . Neurologic : Cranial nerve II to XII intact. No focal neurological deficits. Psychiatric : alert & oriented x 3. Matching mood & appropriate affect. Judgment & insight intact. Musculoskeletal : +Diffuse LUQ/ RUQ TTP, +abd distention Cervical Spine Motor strength in the deltoid and biceps: Normal right side. Normal Left side Motor strength biceps and the wrist extensors: Normal right side . Normal left side Motor strength in the triceps muscle: Normal right side. Normal left side Deep tendon reflexes: Normal at the biceps. Normal at Brachioradialis. Normal at triceps Vertebral body tenderness to deep palpation over Cervical facet loading test: positive bilaterally Spurling test: positive bilaterally Neck distraction test: positive bilaterally Miladys sign: positive bilaterally Lumbar spine Motor strength lower extremities ,thigh and legs 5/5 Right side , 5/5 Left side Deep tendon reflexes : Normal Knee Jerk. Normal Ankle Jerk Vertebral body tenderness over Payan Test positive Lumbar facet Loading Test: positive Right / positive Left Range of motion of the lumbar spine Flexion 30 degrees, extension 10 degrees Straight Leg Raise test: Left/ Right positive at degrees Yang test: positive right / positive left. Severe tenderness over the Sacroiliac joint on the Right / Left sides Gaenslen test: positive bilaterally Seated flexion test: positive bilaterally. Sacral spine : Severe tenderness over the Sacroiliac joint: right side / left side Range of motion: Flexion of the lumbar spine <60 degrees Range of motion: Extension of the leticia mbar spine <20 degrees Gaenslen's Test positive Yang test: positive right side / left side Thigh Thrust Test Sacral Thrust Test Imaging: CT non contrast abdomen/ pelvis from 09/08/24 reviewed Assessment/ Plan : Hx of cholecystectomy, possible abdominal adhesions Pending of celiac plexus block #1 which may change based on study results. Nurse advised for NPO after midnight status. Risks, benefits of procedure discussed and patient verbalized understanding. Minimal anesthesia provided, if clinically indicated, consisting of Versed and Fentanyl. All questions answered. I have spent greater than 30 minutes on patient care today. Dr Hoover was available by phone for the evaluation of this patient. The time was used to review the medical records including relevant urine studies and Prescription history (MAPs), review of the available imaging, evaluation and examination of the patient, coordination of care with the medical staff and if applicable referring physicians, as well as creation of the medical record - Pain Location Abdomen Pharmacological Interventions: Discuss Pain Med Options Pain Comment: see MAR PQRS Narrative: Blood Pressure [Left Arm] 127/79 Blood Pressure 178/110 Pain Intensity [Abdomen] 5 Pain Intensity 8 Pain Scale Used Numeric (1 - 10) Scale Used Numeric (1 - 10) Home Medications: Ambulatory Orders ALPRAZolam [Xanax] 0.25 mg PO DAILY PRN 04/25/24 ALPRAZolam [Xanax] 0.25 mg PO HS 04/25/24 Atorvastatin [Lipitor] 20 mg PO HS 04/25/24 Diltiazem Cd [Cardizem CD] 240 mg PO HS 04/25/24 Fluticasone/Umeclidin/Vilanter [Trelegy Ellipta 100-62.5-25] 1 puff INHALATION RT-DAILY 04/25/24 Gabapentin 300 mg PO QID 04/25/24 Levothyroxine Sodium [Synthroid] 75 mcg PO DAILY 04/25/24 QUEtiapine FUMARATE [SEROquel] 200 mg PO HS 04/25/24 Triamterene/Hydrochlorothiazid [Triamterene-Hctz 75-50 mg Tab] 1 tab PO DAILY 04/25/24 Citalopram Hydrobromide [CeleXA] 20 mg PO DAILY 07/01/24 Sucralfate [Carafate] 1 gm PO ACHS 07/01/24 Buprenorphine [Butrans 20 MCG/HOUR] 1 patch TRANSDERM TH 09/03/24 Cimetidine [Tagamet] 400 mg PO HS 09/03/24 Famotidine [Pepcid] 40 mg PO DAILY PRN 09/03/24 Linaclotide [Linzess] 290 mcg PO DAILY 09/03/24 Metoclopramide [Reglan] 10 mg PO TID-W/MEALS 09/03/24 Ondansetron Odt [Zofran ODT] 4 mg PO Q8HR PRN 09/03/24 Pantoprazole [Protonix] 40 mg PO DAILY 09/03/24 Dicyclomine [Bentyl] 10 mg PO QID PRN #120 cap 09/07/24 Lactulose [Cephulac] 30 gm PO TID #360 ml 09/07/24 Sennosides [Senokot] 8.6 mg PO DAILY PRN #30 tab 09/07/24 Simethicone 40 mg/0.6 ml Drops [Mylicon Drops] 40 mg PO QID #10 ml 09/07/24 bisacodyL [Dulcolax] 10 mg RECTAL DAILY PRN #30 suppositor 09/07/24 oxyCODONE-APAP 5-325MG [Percocet 5-325 mg] 1 tab PO QID PRN 09/08/24 Controlled Substance Measures - Controlled Substance Measures Is patient prescribed a controlled substance at discharge?: No
[2024-09-09] MEDS: DILTIAZEM CD 240 MG CAP.ER.24H PO SCH (20:36)
[2024-09-09] MEDS: FAMOTIDINE 20 MG TAB PO SCH (20:36)
--- NOTE | 2024-09-10 01:54 | PN ---
PROGRESS NOTE DATE OF SERVICE: 09/09/2024 SUBJECTIVE: This is a 63-year-old woman with a past medical history of multiple medical problems, admitted with recurrent abdominal pain. The patient is receiving symptomatic treatment. EGD is planned by Dr. Apodaca. No chest pain. No palpitation. OBJECTIVE: VITAL SIGNS: Pulse is 70, blood pressure 120/70, respirations 16. CHEST: Clear to auscultation. CARDIOVASCULAR: S1, S2. ABDOMEN: Soft, mild diffuse tenderness in the upper abdomen. No mass. No guarding, or rigidity. NERVOUS SYSTEM: No focal deficits. LABORATORY DATA: Reviewed. ASSESSMENT: 1. Abdominal pain, epigastric pain, possible gastroesophageal reflux disease, rule out peptic ulcer disease. 2. History of cholecystectomy. 3. History of lung cancer. 4. History of recent chronic ileus. 5. Chronic obstructive pulmonary disease. RECOMMENDATIONS AND DISCUSSION: This is a 63-year-old woman, who presented with multiple complex medical issues, we will monitor the patient closely. Continue with proton pump inhibitors. Otherwise, I would recommend symptomatic treatment of the pain. EGD by Surgery. Further recommendations to follow. MMODL / IJN: [id number] /
[2024-09-10 08:31] LABS: Basophils # (A) 0.05 X 10*3/uL (0.00-0.10); Basophils % (A) 1.1 %; Eosinophils # (A) 0.33 X 10*3/uL (0.04-0.35); Eosinophils % (A) 7.2 %; HCT 35.8 % (37.2-46.3); HGB 11.6 g/dL (12.0-15.0); Lymphocytes # (A) 1.08 X 10*3/uL (0.90-5.00); Lymphocytes % (A) 23.5 %; MCH 31.4 pg (27.0-32.0); MCHC 32.4 g/dL (32.0-37.0); Mean Platelet Volume 9.7 FL (9.5-12.2); Monocytes # (A) 0.47 X 10*3/uL (0.20-1.00); Monocytes % (A) 10.2 %; NRBC Per 100 WBC 0 X 10*3/uL (0.00-0.01); Neutrophils # (A) 2.62 X 10*3/uL (1.80-7.70); Neutrophils % (A) 57.1 %; Platelet Count 263 X 10*3/uL (140-440); RBC 3.69 X 10*6/uL (4.10-5.20); RDW 15.2 % (11.5-14.5); WBC 4.59 X 10*3/uL (4.50-10.00)
[2024-09-10 09:07] LABS: ALT 51 U/L (8-44); AST 31 U/L (13-35); Albumin 3.8 g/dL (3.8-4.9); Albumin/Globulin Ratio 2.24 Ratio (1.60-3.17); Alkaline Phosphatase 67 U/L (41-126); BUN/Creat Ratio 10.86 Ratio (12.00-20.00); Blood Urea Nitrogen 7.6 mg/dL (9.0-27.0); Calcium 8.6 mg/dL (8.7-10.3); Carbon Dioxide 20.7 mmol/L (21.6-31.8); Chloride 107 mmol/L (96-109); Globulin 1.7 g/dL (1.6-3.3); Glucose 93 mg/dL (70-110); Potassium 4.1 mmol/L (3.5-5.5); Sodium 138 mmol/L (135-145); Total Bilirubin <0.2 mg/dL (0.3-1.2); Total Protein 5.5 g/dL (6.2-8.2)
[2024-09-10] MEDS: IV FLUID CONTINUATION 500 ML IV ONE (10:00)
[2024-09-10] MEDS ORDERED: IOPAMIDOL M200 10 ML VIAL ONE (10:20)
[2024-09-10] MEDS ORDERED: FLUMAZENIL 0.1 MG/ML 5 ML VIAL IVP ONE (10:20)
[2024-09-10] MEDS ORDERED: MIDAZOLAM 2 MG/2 ML VIAL ONE (10:20)
[2024-09-10] MEDS ORDERED: methylPREDNISolone ACETATE 80 MG/ML 1 ML VIAL ONE (10:20)
[2024-09-10] MEDS ORDERED: ROPIVACAINE 5MG/ML 20ML VIAL ONE (10:20)
[2024-09-10] MEDS ORDERED: fentaNYL (PF) 50 MCG/ML 2 ML AMP ONE (10:20)
--- NOTE | 2024-09-10 10:50 | P.PCN ---
Date of Procedure: 09/10/24 Procedure(s) Performed: PREOPERATIVE DIAGNOSIS: 1-Chronic intractable upper abdominal pain. POSTOPERATIVE DIAGNOSIS: 1-Chronic intractable upper abdominal pain. PROCEDURE: Diagnostic celiac plexus block under fluoroscopy guidance (fluoroscopy images available in the audiology Department ) ANESTHESIA: Moderate sedation with Versed 4 mg and Fentanyl 100 Mcg (sedation start 1020, ended at 1036 ) EBL: Minimal PROCEDURE INDICATION: The patient has a history of abdominal pain secondary to intra-abdominal adhesions that is non responsive to more conservative treatments. Also had a history of lung cancer, and also patient had history of bowel obstruction status with multiple intra-abdominal surgeries PROCEDURE DESCRIPTION: The patient was seen and identified in the preoperative area. Risks, benefits, complications, and alternatives were discussed with the patient. The patient agreed to proceed with procedure and signed the consent. IV was started, and vital signs were stable. Patient was taken to the OR and time out was completed.The patient was placed in the prone position on procedure table and a pillow was placed under the abdomen to reduce lumbar lordosis. The lumbosacral area was prepped and draped in the usual sterile fashion. Critical pause was taken. Vital signs were closely monitored during the procedure. Conscious sedation was used during the procedure to decrease patients anxiety. The procedure was performed in a similar fashion on the right side and on the left side. Using anterior-posterior fluoroscopy, the L1 spinous process and vertebral body were identified. Then, the fluoroscope was turned obliquely until the transverse process of L1 vertebra was totally behind the L1 vertebral body. Skin was then marked and infiltrated with Lidocaine 1% subcutaneously with a 25-guage needle at the level of the L1 vertebral body. Subsequently, a 20-guage 6-inch spinal needles was inserted and advanced toward anterior side of the L1 vertebral body under oblique fluoroscopic guidance and while keeping a ``tunnels view of the needle. Subsequently, 3 ml of the water soluble dye Isoview 200 was injected under life fluoroscopy to confirm needle position. The spread of the dye along the anterior side of the L1 vertebral body was verified with AP and latter fluoroscopy. After satisfactory positioning of the needle and negative aspiration for CSF, blood, or any other contents, a total of 10 mL of 0.25% preservative-free Ropivacaine mixed with depo-Medrol PF 40 mg was injected with 3 ml increments and intermittent aspiration. Washout of the dye was seen and the needle was then withdrawn intact. Procedure was done bilaterally using the same technique on the right and left sides. A total of 20 ml of 0.25% preservative-free Ropivacaine was used during the procedure.At the end of the procedure, the operated areas were cleaned. Band-Aids were applied. COMPLICATIONS: None DISPOSITION / PLANS: The patient was placed in a supine position and transferred to the recovery area in a stable condition for observation and was discharged from the recovery room after meeting discharge criteria.Home discharge instructions given to the patient by the staff.The patient was reexamined prior to discharge. We will schedule a neurolytic block in one week if patient has more than 50% pain relief from this block.
[2024-09-10] MEDS: IV FLUID CONTINUATION 200 ML IV ONE (10:55)
--- NOTE | 2024-09-10 10:56 | FL ---
Fluoroscopy INDICATION: Pain FINDINGS: Fluoroscopy time: 27 seconds. Total dose area product (DAP) in uGy*m?, mGy*cm? (or similar): 0.03415 Images obtained: 5. Patterson are directed in the paraspinal thoracolumbar spine region IMPRESSION: 1. Documentation of fluoroscopy. [facility] Workstation: 3, 09/10/2024 10:54 AM
[2024-09-10 11:23] VITALS: PULSE 64
--- NOTE | 2024-09-10 12:28 | P.PN ---
Subjective Progress Note Date: 09/10/24 SURGICAL PROGRESS NOTE CHIEF COMPLAINT: Abdominal pain HISTORY OF PRESENT ILLNESS: Patient status post EGD revealing antral gastritis. Patient continues to complain of upper abdominal pain and bloating. Patient complains of anal numbness. She denies any stool incontinence. She is having bowel movements. She is having flatus. She is tolerating diet. She underwent a celiac block today with pain service. Afebrile. WBC 4.59 Hgb 11.6 platelets 263 PHYSICAL EXAM: VITAL SIGNS: Reviewed. GENERAL: Well-developed in no acute distress. ABDOMEN: Soft. Nondistended. Tenderness across upper abdomen NEUROLOGIC: Alert and oriented. Cranial nerves II through XII grossly intact. ASSESSMENT: 1. Epigastric abdominal pain status post EGD revealing antral gastritis 2. History of cholecystectomy 3. History of lung cancer 4. Recent colonic ileus and constipation 5. Anal numbness, unclear etiology PLAN: -Continue PPI -Continue good bowel regimen -Continue Bentyl -Encourage patient to ambulate -Patient received celiac block today with pain service Physician Airport Operations Specialist note has been reviewed by physician. Signing provider agrees with the documented findings, assessment, and plan of care. Objective - Vital Signs Vital signs: Vital Signs Temp 97.8 F 09/10/24 10:05 Pulse 64 09/10/24 11:20 Resp 20 09/10/24 11:20 BP 149/78 09/10/24 11:20 Pulse Ox 92 L 09/10/24 11:20 FiO2 Intake & Output 09/09/24 09/10/24 09/10/24 18:59 06:59 18:59 Intake Total 580 200 Balance 580 200 Intake: IV 100 200 Oral 480 Other: Voiding Method Toilet Toilet Toilet # Voids 5 2 # Bowel Movements 1 - Labs CBC & Chem 7: 09/10/24 04:14 09/10/24 04:14 Labs: Abnormal Lab Results - Last 24 Hours (Table) 09/10/24 09/10/24 Range/Units 04:14 04:14 RBC 3.69 L (4.10-5.20) X 10*6/uL Hgb 11.6 L (12.0-15.0) g/dL Hct 35.8 L (37.2-46.3) % RDW 15.2 H (11.5-14.5) % Carbon Dioxide 20.7 L (21.6-31.8) mmol/L BUN 7.6 L (9.0-27.0) mg/dL BUN/Creatinine Ratio 10.86 L (12.00-20.00) Ratio Calcium 8.6 L (8.7-10.3) mg/dL Total Bilirubin <0.2 L (0.3-1.2) mg/dL ALT 51 H (8-44) U/L Total Protein 5.5 L (6.2-8.2) g/dL
[2024-09-10 14:03] VITALS: RESP 19
[2024-09-10 14:51] VITALS: BP 131/79; TEMP 98.1
[2024-09-12] MEDS ORDERED: BUPRENORPHINE TRANSDERM SCH (09:00)
--- NOTE | 2024-09-14 12:07 | P.DS ---
Providers Date of admission: 09/08/24 12:33 Expected date of discharge: 09/10/24 Attending physician: Manfred Abdullahi MD Consults: 09/08/24 12:33 Consult Physician Routine Consulting Provider: Nci Apodaca Consult Reason/Comments: intractable abd pain Do you want consulting provider notified?: Yes Primary care physician: [facility] Course: Final diagnosis Recurrent abdominal pain, status post EGD showing acute gastritis Non-small cell lung cancer status post chemoradiation COPD, not in exacerbation Hypertension Hypothyroidism Anxiety/panic disorder Continued ongoing nicotine dependence GI prophylaxis DVT prophylaxis Full code Discharge disposition Patient is being discharged in a stable condition with guarded prognosis to home. Patient will follow-up with Dr. Garnett in the outpatient setting upon discharge. Patient is to continue with current pain management and outpatient follow-up with them in the clinic as scheduled. Total time taken is greater t regalado 35 minutes. Hospital course This is a 63-year-old female who was recently admitted with recurrent abdominal pain being closely monitored. General surgery following patient is scheduled for EGD and is status post procedure showing acute gastritis with biopsies obtained otherwise has been okayed to resume diet and outpatient follow-up. Patient is persistently reporting severe pain and abdominal fullness. Patient was evaluated by pain management and will follow-up in the clinic. Patient also to follow-up with oncology outpatient. Patient has been cleared by consultations. Please refer to consultation notes for further HPI. Strongly recommend continued bowel regimen scheduled as well as as needed. Currently no reports of chest pain, shortness of breath, or palpitations. Patient is afebrile. No reports of nausea or vomiting and patient is tolerating diet. Patient will be discharged home. Guarded prognosis and high risk for readmissions given patient's chronic pain. Physical exam: Gen: This is a 63-year-old female who is awake, alert and oriented x 3, well- developed, elderly appearing HEENT: Head is atraumatic, normocephalic. Pupils equal, round. Sclerae is anicteric. NECK: Supple. No JVD. No lymphadenopathy. No thyromegaly. LUNGS: Clear to auscultation. No wheezes or rhonchi. No intercostal retractions. HEART: Regular rate and rhythm. No murmur. ABDOMEN: Soft. Bowel sounds are present. No masses. No tenderness. EXTREMITIES: No pedal edema. No calf tenderness. NEUROLOGICAL: Patient is awake, alert and oriented x3. Cranial nerves 2 through 12 are grossly intact. Please refer to medication reconciliation sheet for a list of medications. The impression and plan of care has been dictated by Maria Moody, Nurse Practitioner as directed. Dr. Fredis MD I have performed a history and examination and MDM of this patient, discussed the same with the dictator, and agree with the dictator's assessment and plan as written ,documented as a scribe. Based on total visit time, I have performed more than 50% of the visit. Patient Condition at Discharge: Stable Plan - Discharge Summary Discharge Rx Participant: No New Discharge Prescriptions: Continue Levothyroxine Sodium [Synthroid] 75 mcg PO DAILY Gabapentin 300 mg PO QID QUEtiapine FUMARATE [SEROquel] 200 mg PO HS Triamterene/Hydrochlorothiazid [Triamterene-Hctz 75-50 mg Tab] 1 tab PO DAILY ALPRAZolam [Xanax] 0.25 mg PO HS Sucralfate [Carafate] 1 gm PO ACHS Famotidine [Pepcid] 40 mg PO DAILY PRN PRN Reason: Gi Upset Pantoprazole [Protonix] 40 mg PO DAILY Buprenorphine [Butrans 20 MCG/HOUR] 1 patch TRANSDERM TH Lactulose [Cephulac] 30 gm PO TID #360 ml bisacodyL [Dulcolax] 10 mg RECTAL DAILY PRN #30 suppositor PRN Reason: Constipation Sennosides [Senokot] 8.6 mg PO DAILY PRN #30 tab PRN Reason: Constipation Atorvastatin [Lipitor] 20 mg PO HS Fluticasone/Umeclidin/Vilanter [Trelegy Ellipta 100-62.5-25] 1 puff INHALATION RT-DAILY Diltiazem Cd [Cardizem CD] 240 mg PO HS ALPRAZolam [Xanax] 0.25 mg PO DAILY PRN PRN Reason: Anxiety Citalopram Hydrobromide [CeleXA] 20 mg PO DAILY Linaclotide [Linzess] 290 mcg PO DAILY Cimetidine [Tagamet] 400 mg PO HS Metoclopramide [Reglan] 10 mg PO TID-W/MEALS Ondansetron Odt [Zofran ODT] 4 mg PO Q8HR PRN PRN Reason: Nausea And Vomiting Dicyclomine [Bentyl] 10 mg PO QID PRN #120 cap PRN Reason: Dyspepsia Simethicone 40 mg/0.6 ml Drops [Mylicon Drops] 40 mg PO QID #10 ml Discontinued oxyCODONE-APAP 5-325MG [Percocet 5-325 mg] 1 tab PO QID PRN PRN Reason: Pain Discharge Medication List ALPRAZolam [Xanax] 0.25 mg PO DAILY PRN 04/25/24 [History] ALPRAZolam [Xanax] 0.25 mg PO HS 04/25/24 [History] Atorvastatin [Lipitor] 20 mg PO HS 04/25/24 [History] Diltiazem Cd [Cardizem CD] 240 mg PO HS 04/25/24 [History] Fluticasone/Umeclidin/Vilanter [Trelegy Ellipta 100-62.5-25] 1 puff INHALATION RT-DAILY 04/25/24 [History] Gabapentin 300 mg PO QID 04/25/24 [History] Levothyroxine Sodium [Synthroid] 75 mcg PO DAILY 04/25/24 [History] QUEtiapine FUMARATE [SEROquel] 200 mg PO HS 04/25/24 [History] Triamterene/Hydrochlorothiazid [Triamterene-Hctz 75-50 mg Tab] 1 tab PO DAILY 04/25/24 [History] Citalopram Hydrobromide [CeleXA] 20 mg PO DAILY 07/01/24 [History] Sucralfate [Carafate] 1 gm PO ACHS 07/01/24 [History] Buprenorphine [Butrans 20 MCG/HOUR] 1 patch TRANSDERM TH 09/03/24 [History] Cimetidine [Tagamet] 400 mg PO HS 09/03/24 [History] Famotidine [Pepcid] 40 mg PO DAILY PRN 09/03/24 [History] Linaclotide [Linzess] 290 mcg PO DAILY 09/03/24 [History] Metoclopramide [Reglan] 10 mg PO TID-W/MEALS 09/03/24 [History] Ondansetron Odt [Zofran ODT] 4 mg PO Q8HR PRN 09/03/24 [History] Pantoprazole [Protonix] 40 mg PO DAILY 09/03/24 [History] Dicyclomine [Bentyl] 10 mg PO QID PRN #120 cap 09/07/24 [Rx] Lactulose [Cephulac] 30 gm PO TID #360 ml 09/07/24 [Rx] Sennosides [Senokot] 8.6 mg PO DAILY PRN #30 tab 09/07/24 [Rx] Simethicone 40 mg/0.6 ml Drops [Mylicon Drops] 40 mg PO QID #10 ml 09/07/24 [Rx] bisacodyL [Dulcolax] 10 mg RECTAL DAILY PRN #30 suppositor 09/07/24 [Rx] Follow up Appointment(s)/Referral(s): Susanna Hoover MD [STAFF PHYSICIAN] - 1 Week Tray Garnett MD [Primary Care Provider] - 1 Week (September 17, 3:30) Nic Apodaca MD [STAFF PHYSICIAN] - 1 Week (Sep 24 1:20) Patient Instructions/Handouts: Chronic Abdominal Pain (GEN) Activity/Diet/Wound Care/Special Instructions: Activity limited until follow-up Continue with current bowel regimen scheduled and as needed Continue with pain management and outpatient follow-up in 1 week as discussed Follow-up oncology outpatient Follow-up with general surgery outpatient Discharge/Stand Alone Forms: Anes Pain/Wismer Instructions Discharge Disposition: HOME SELF-CARE
== END 2024-09-10 15:50 | disposition home or self-care (01) ==
LOC: EC 09:02 → 6NMEDSUR 12:33
PROVIDERS: ADMIT Internal Medicine; ATTEND Internal Medicine
DX: K29.00 Acute gastritis without bleeding (principal); K56.7 Ileus, unspecified; K59.00 Constipation, unspecified; R20.0 Anesthesia of skin; E03.9 Hypothyroidism, unspecified; E78.5 Hyperlipidemia, unspecified; J44.9 Chronic obstructive pulmonary disease, unspecified; I10 Essential (primary) hypertension; G89.29 Other chronic pain; F41.0 Panic disorder [episodic paroxysmal anxiety]; F17.200 Nicotine dependence, unspecified, uncomplicated; Z90.49 Acquired absence of other specified parts of digestive tract; Z79.51 Long term (current) use of inhaled steroids; Z79.899 Other long term (current) drug therapy; Z79.890 Hormone replacement therapy; Z92.21 Personal history of antineoplastic chemotherapy; Z92.3 Personal history of irradiation; Z85.118 Personal history of other malignant neoplasm of bronchus and lung; Z88.5 Allergy status to narcotic agent
CPT/HCPCS: 99285; 36415; 94640 ×3; 88305; 80053 ×3; 82150; 83605; 83690; 83735; 85025 ×3; 74177; 64530; 43239; G0378 ×3; J2250; J2405 ×2; J2003; J3010; J1171 ×3; J2704; Q9967; Q9966; J2795; J1010; J2470 ×2; 99152

== ENCOUNTER 2024-09-21 15:16 | Observation (INO) | payer OTHER ==
--- NOTE | 2024-09-21 15:55 | ED ---
General Adult HPI - General Chief complaint: Chest Pain Stated complaint: pain Time Seen by Provider: 09/21/24 15:40 Source: patient, RN notes reviewed, old records reviewed Mode of arrival: wheelchair Limitations: no limitations - History of Present Illness Initial comments: This is a 63-year-old female who has a past medical history of lung cancer. P atient states she is post be on Keytruda but she has not taken it for for 5 months. Patient states she has been chronically having abdominal pain for the last 6 months and been worked up and seen by multiple physicians at multiple hospitals and they cannot figure out what is wrong. Patient states the pain continues today. Patient states she has had no nausea vomiting or diarrhea she denies any fever chills. Patient states she has had multiple CAT scans here and at [facility] just recently 2 days ago. Patient states had not been able to find any reason for her pain. Patient denies any back pain. Patient has any dysuria hematuria urinary frequency - Related Data Home Medications Medication Instructions Recorded Confirmed ALPRAZolam [Xanax] 0.25 mg PO DAILY PRN 04/25/24 09/08/24 ALPRAZolam [Xanax] 0.25 mg PO HS 04/25/24 09/08/24 Atorvastatin [Lipitor] 20 mg PO HS 04/25/24 09/08/24 Diltiazem Cd [Cardizem CD] 240 mg PO HS 04/25/24 09/08/24 Fluticasone/Umeclidin/Vilanter 1 puff INHALATION RT-DAILY 04/25/24 09/08/24 [Trelegy Ellipta 100-62.5-25] Gabapentin 300 mg PO QID 04/25/24 09/08/24 Levothyroxine Sodium [Synthroid] 75 mcg PO DAILY 04/25/24 09/08/24 QUEtiapine FUMARATE [SEROquel] 200 mg PO HS 04/25/24 09/08/24 Triamterene/Hydrochlorothiazid 1 tab PO DAILY 04/25/24 09/08/24 [Triamterene-Hctz 75-50 mg Tab] Citalopram Hydrobromide [CeleXA] 20 mg PO DAILY 07/01/24 09/08/24 Sucralfate [Carafate] 1 gm PO ACHS 07/01/24 09/08/24 Buprenorphine [Butrans 20 MCG/HOUR] 1 patch TRANSDERM TH 09/03/24 09/08/24 Cimetidine [Tagamet] 400 mg PO HS 09/03/24 09/08/24 Famotidine [Pepcid] 40 mg PO DAILY PRN 09/03/24 09/08/24 Linaclotide [Linzess] 290 mcg PO DAILY 09/03/24 09/08/24 Metoclopramide [Reglan] 10 mg PO TID-W/MEALS 09/03/24 09/08/24 Ondansetron Odt [Zofran ODT] 4 mg PO Q8HR PRN 09/03/24 09/08/24 Pantoprazole [Protonix] 40 mg PO DAILY 09/03/24 09/08/24 Previous Rx's Medication Instructions Recorded Dicyclomine [Bentyl] 10 mg PO QID PRN #120 cap 09/07/24 Lactulose [Cephulac] 30 gm PO TID #360 ml 09/07/24 Sennosides [Senokot] 8.6 mg PO DAILY PRN #30 tab 09/07/24 Simethicone 40 mg/0.6 ml Drops 40 mg PO QID #10 ml 09/07/24 [Mylicon Drops] bisacodyL [Dulcolax] 10 mg RECTAL DAILY PRN #30 09/07/24 suppositor Allergies Allergy/AdvReac Type Severity Reaction Status Date / Time morphine Allergy Unknown Verified 09/21/24 15:36 Review of Systems ROS Statement: Those systems with pertinent positive or pertinent negative responses have been documented in the HPI. ROS Other: All systems not noted in ROS Statement are negative. Past Medical History Past Medical History: Cancer, Hyperlipidemia, Hypertension, Thyroid Disorder Additional Past Medical History / Comment(s): Wheezing, lung cancer w/ radiation and chemo - currently on Keytruda once a month; abd pain & nausea x 6 months, inpatient @ [facility] 07/01/24-07/04/24 for abd pain. History of Any Multi-Drug Resistant Organisms: None Reported Past Surgical History: Cholecystectomy Additional Past Surgical History / Comment(s): Colonoscopy w/ Dr. Liao 06/28/24 Past Anesthesia/Blood Transfusion Reactions: No Reported Reaction Additional Past Anesthesia/Blood Transfusion Reaction / Comment(s): Sedation only for Colonoscopy. Past Psychological History: Anxiety, Panic Disorder Smoking Status: Former smoker Past Alcohol Use History: None Reported Past Drug Use History: None Reported - Past Family History Mother Family Medical History: Cancer Additional Family Medical History / Comment(s): Pancreatic cancer Sister(s) Family Medical History: Cancer Additional Family Medical History / Comment(s): Pancreatic cancer Brother(s) Family Medical History: Cancer Additional Family Medical History / Comment(s): Leukemia General Exam - General Exam Comments Initial Comments: GENERAL: Patient is well-developed and well-nourished. Patient is nontoxic and well- hydrated and is in mild distress. ENT: Neck is soft and supple. No significant lymphadenopathy is noted. Oropharynx is clear. Moist mucous membranes. Neck has full range of motion without eliciting any pain. EYES: The sclera were anicteric and conjunctiva were pink and moist. Extraocular movements were intact and pupils were equal round and reactive to light. Eyelids were unremarkable. PULMONARY: Unlabored respirations. Good breath sounds bilaterally. No audible rales rhonchi or wheezing was noted. CARDIOVASCULAR: There is a regular rate and rhythm without any murmurs gallops or rubs. ABDOMEN: Has diffuse inconsistent abdominal pain no point tenderness SKIN: Skin is clear with no lesions or rashes and otherwise unremarkable. NEUROLOGIC: Patient is alert and oriented x3. Cranial nerves II through XII are grossly intact. Motor and sensory are also intact. Normal speech, volume and content. Symmetrical smile. MUSCULOSKELETAL: Normal extremities with adequate strength and full range of motion. LYMPHATICS: No significant lymphadenopathy is noted PSYCHIATRIC: Normal psychiatric evaluation. Limitations: no limitations Course Vital Signs 09/21/24 09/21/24 09/21/24 15:36 16:20 17:43 Temperature 97.3 F L Pulse Rate 107 H 82 73 Respiratory 18 17 Rate Blood Pressure 176/117 179/88 O2 Sat by Pulse 97 98 99 Oximetry Medical Decision Making - Medical Decision Making Was pt. sent in by a medical professional or institution (, [facility], ANIMAL NURSERY WORKER, urgent care, hospital, or snf...) When possible be specific @ -No Did you speak to anyone other than the patient for history (EMS, parent, family, police, friend...)? What history was obtained from this source @ -No Did you review nursing and triage notes (agree or disagree)? Why? @ -I reviewed and agree with nursing and triage notes Were old charts reviewed (outside hosp., previous admission, EMS record, old EKG, old radiological studies, urgent care reports/EKG's, snf records)? Report findings @ -No old charts were reviewed Differential Diagnosis? @ -Differential abdominal pain women EKG interpreted by me (3pts min.). @ -As above X-rays interpreted by me (1pt min.). @ -Chest x-ray shows no acute BuMel CT interpreted by me (1pt min.). @ -None done U/S interpreted by me (1pt. min.). @ -None done What testing was considered but not performed or refused? (CT, X-rays, U/S, labs)? Why? @ -None What meds were considered but not given or refused? Why? @ -None Did you discuss the management of the patient with other professionals (professionals i.e. , PA, ANIMAL NURSERY WORKER, lab, RT, psych nurse, social worker clinical, paraplanner, teacher, postal sorting officer, watch case polisher)? Give summary @ -Spoke with [facility] they agreed to admit the patient Was smoking cessation discussed for >3mins.? @ -No Was critical care preformed (if so, how long)? @ -No Were there social determinants of health that impacted care today? How? (Homelessness, low income, unemployed, alcoholism, drug addiction, transportation, low edu. Level, literacy, decrease access to med. care, senior living, rehab)? @ -No Was there de-escalation of care discussed even if they declined (Discuss DNR or withdrawal of care, Hospice)? DNR status @ -No What co-morbidities impacted this encounter? (DM, HTN, Smoking, COPD, CAD, Cancer, CVA, ARF, Chemo, Hep., AIDS, mental health diagnosis, sleep apnea, morbid obesity)? @ -None Was patient admitted / discharged? Hospital course, mention meds given a related nd route, prescriptions, significant lab abnormalities, going to OR and other pertinent info. @ -Patient was given Dilaudid for pain did not CAT scan her again because she had a recent CAT scan 2 days ago at [facility] Undiagnosed new problem with uncertain prognosis? @ -No Drug Therapy requiring intensive monitoring for toxicity (Heparin, Nitro, Insulin, Cardizem)? @ -No Were any procedures done? @ -No Diagnosis/symptom? @ -Abdominal pain Acute, or Chronic, or Acute on Chronic? @ -Chronic Uncomplicated (without systemic symptoms) or Complicated (systemic symptoms)? @ -Complicate Side effects of treatment? @ -No Exacerbation, Progression, or Severe Exacerbation? @ -No Poses a threat to life or bodily function? How? (Chest pain, [place], [place], pneumonia, PE, COPD, DKA, ARF, appy, cholecystitis, CVA, Diverticulitis, Homicidal, Suicidal, threat to staff... and all critical care pts) @ -No - Lab Data Result diagrams: 09/21/24 16:11 09/21/24 16:11 Lab Results 09/21/24 09/21/24 09/21/24 Range/Units 16:11 16:11 16:11 WBC 5.7 (3.8-10.6) k/uL RBC 4.99 (3.80-5.40) m/uL Hgb 15.3 (11.4-16.0) gm/dL Hct 48.0 H (34.0-46.0) % MCV 96.3 (80.0-100.0) fL MCH 30.7 (25.0-35.0) pg MCHC 31.9 (31.0-37.0) g/dL RDW 14.4 (11.5-15.5) % Plt Count 296 (150-450) k/uL MPV 6.9 Neutrophils % 78 % Lymphocytes % 12 % Monocytes % 6 % Eosinophils % 2 % Basophils % 1 % Neutrophils # 4.4 (1.3-7.7) k/uL Lymphocytes # 0.7 L (1.0-4.8) k/uL Monocytes # 0.3 (0-1.0) k/uL Eosinophils # 0.1 (0-0.7) k/uL Basophils # 0.0 (0-0.2) k/uL Sodium 139 (137-145) mmol/L Potassium 4.0 (3.5-5.1) mmol/L Chloride 103 (98-107) mmol/L Carbon Dioxide 27 (22-30) mmol/L Anion Gap 9 mmol/L BUN 16 (7-17) mg/dL Creatinine 0.68 (0.52-1.04) mg/dL Est GFR (CKD-EPI)AfAm >90 (>60 ml/min/1.73 sqM) Est GFR (CKD-EPI)NonAf >90 (>60 ml/min/1.73 sqM) Glucose 97 (74-99) mg/dL Plasma Lactic Acid Wagner 2.0 (0.7-2.0) mmol/L Calcium 9.6 (8.4-10.2) mg/dL Total Bilirubin 0.6 (0.2-1.3) mg/dL AST 266 H (14-36) U/L ALT 545 H (4-34) U/L Alkaline Phosphatase 156 H (38-126) U/L Troponin I (0.000-0.034) ng/mL Total Protein 7.6 (6.3-8.2) g/dL Albumin 4.9 (3.5-5.0) g/dL Amylase 49 (30-110) U/L Lipase 32 (23-300) U/L Serum Alcohol mg/dL 09/21/24 09/21/24 Range/Units 16:11 17:43 WBC (3.8-10.6) k/uL RBC (3.80-5.40) m/uL Hgb (11.4-16.0) gm/dL Hct (34.0-46.0) % MCV (80.0-100.0) fL MCH (25.0-35.0) pg MCHC (31.0-37.0) g/dL RDW (11.5-15.5) % Plt Count (150-450) k/uL MPV Neutrophils % % Lymphocytes % % Monocytes % % Eosinophils % % Basophils % % Neutrophils # (1.3-7.7) k/uL Lymphocytes # (1.0-4.8) k/uL Monocytes # (0-1.0) k/uL Eosinophils # (0-0.7) k/uL Basophils # (0-0.2) k/uL Sodium (137-145) mmol/L Potassium (3.5-5.1) mmol/L Chloride (98-107) mmol/L Carbon Dioxide (22-30) mmol/L Anion Gap mmol/L BUN (7-17) mg/dL Creatinine (0.52-1.04) mg/dL Est GFR (CKD-EPI)AfAm (>60 ml/min/1.73 sqM) Est GFR (CKD-EPI)NonAf (>60 ml/min/1.73 sqM) Glucose (74-99) mg/dL Plasma Lactic Acid Wagner (0.7-2.0) mmol/L Calcium (8.4-10.2) mg/dL Total Bilirubin (0.2-1.3) mg/dL AST (14-36) U/L ALT (4-34) U/L Alkaline Phosphatase (38-126) U/L Troponin I <0.012 (0.000-0.034) ng/mL Total Protein (6.3-8.2) g/dL Albumin (3.5-5.0) g/dL Amylase (30-110) U/L Lipase (23-300) U/L Serum Alcohol <10 mg/dL Disposition Clinical Impression: Abdominal pain Disposition: ADMITTED IP TO THIS HOSP Referrals: Tray Garnett MD [Primary Care Provider] - 1-2 days Time of Disposition: 19:35
[2024-09-21] MEDS: SODIUM CHLORIDE 0.9% 500 ML 500 ML IV STA (16:17)
[2024-09-21] MEDS: KETOROLAC 15 MG/ML 1 ML VIAL IVP STA (16:17)
[2024-09-21 16:57] LABS: Basophils % (A) 1 %; Eosinophils # (A) 0.1 k/uL (0-0.7); Eosinophils % (A) 2 %; HGB 15.3 gm/dL (11.4-16.0); Lymphocytes # (A) 0.7 k/uL (1.0-4.8); Lymphocytes % (A) 12 %; MCH 30.7 pg (25.0-35.0); MCHC 31.9 g/dL (31.0-37.0); MCV 96.3 fL (80.0-100.0); Mean Platelet Volume 6.9; Monocytes # (A) 0.3 k/uL (0-1.0); Monocytes % (A) 6 %; Neutrophils # (A) 4.4 k/uL (1.3-7.7); Neutrophils % (A) 78 %; Platelet Count 296 k/uL (150-450); RBC 4.99 m/uL (3.80-5.40); RDW 14.4 % (11.5-15.5); WBC 5.7 k/uL (3.8-10.6)
[2024-09-21 17:04] LABS: ALT 545 U/L (4-34); AST 266 U/L (14-36); African American GFR (CKD) >90 (>60 ml/min/1.73 sqM); Albumin 4.9 g/dL (3.5-5.0); Alkaline Phosphatase 156 U/L (38-126); Amylase 49 U/L (30-110); Anion Gap 9 mmol/L; Blood Urea Nitrogen 16 mg/dL (7-17); Calcium 9.6 mg/dL (8.4-10.2); Carbon Dioxide 27 mmol/L (22-30); Chloride 103 mmol/L (98-107); Glucose 97 mg/dL (74-99); Lipase 32 U/L (23-300); Non-African American GFR(CKD) >90 (>60 ml/min/1.73 sqM); Sodium 139 mmol/L (137-145); Total Bilirubin 0.6 mg/dL (0.2-1.3); Total Protein 7.6 g/dL (6.3-8.2)
--- NOTE | 2024-09-21 17:34 | XR ---
EXAMINATION TYPE: XR chest 2V DATE OF EXAM: 09/21/2024 5:27 PM COMPARISON: Previous chest radiograph 07/01/2024. CLINICAL INDICATION: Female, 63 years old with history of Difficulty breathing ; [facility] TECHNIQUE: XR chest 2V Frontal and lateral views of the chest. FINDINGS: Cardiac silhouette within normal limits for size. No acute focal consolidation. No pleural effusion. No pneumothorax. No acute osseous abnormality. IMPRESSION: No acute cardiopulmonary disease/process. [facility], , 09/21/2024 5:32 PM
[2024-09-21] MEDS: HYDROmorphone 0.5 MG/0.5 ML SYRINGE IVP STA (17:50)
[2024-09-21] MEDS: SODIUM CHLORIDE 0.9% 1,000 ML IV ONE (19:52)
[2024-09-21] MEDS: droPERidol 5 MG/2 ML VIAL IVP ONE (19:53)
[2024-09-21] MEDS: HYDROmorphone 0.5 MG/0.5 ML SYRINGE IVP PRN (19:53)
[2024-09-21] MEDS: LORazepam 2 MG/ML INJ IV STA (20:51)
[2024-09-22 08:01] LABS: ALT 301 U/L (4-34); AST 94 U/L (14-36); African American GFR (CKD) >90 (>60 ml/min/1.73 sqM); Albumin 3.5 g/dL (3.5-5.0); Albumin/Globulin Ratio 1.6; Alkaline Phosphatase 107 U/L (38-126); Anion Gap 7 mmol/L; Blood Urea Nitrogen 17 mg/dL (7-17); Calcium 8.6 mg/dL (8.4-10.2); Carbon Dioxide 21 mmol/L (22-30); Chloride 110 mmol/L (98-107); Globulin 2.2 g/dL; Glucose 81 mg/dL (74-99); Non-African American GFR(CKD) >90 (>60 ml/min/1.73 sqM); Potassium 4.1 mmol/L (3.5-5.1); Sodium 138 mmol/L (137-145); Total Bilirubin 0.5 mg/dL (0.2-1.3); Total Protein 5.7 g/dL (6.3-8.2)
[2024-09-22] MEDS: ONDANSETRON 4 MG/2 ML VIAL IVP PRN (08:33)
--- NOTE | 2024-09-22 10:08 | P.GSCN ---
History of Present Illness Consult date: 09/22/24 Reason for Consult: Abdominal pain History of present illness: 63-year-old female known to our service. Patient has had numerous admissions no t only at our hospital but at outside hospitals as well with complaints of upper abdominal pain and bloating. Patient at times appears distended. Some degree of ileus on previous studies. Underwent cholecystectomy for the findings of gallbladder sludge. Patient initially stated that helped her pain but then said the pain recurred. Apparently she was just at [facility]. She is unsure what they did there. She says they were not able to figure out her pain. She came back to the hospital yesterday requesting pain medicine. She was found to have elevated liver enzymes for the first time yesterday and she was admitted because of bili elevated liver enzymes. No repeat imaging here. She had a CAT scan reportedly at the last hospital she was at within the last week. Patient with history of lung cancer. Has not had any treatment for her lung cancer in the last 5 months or so. Last admission she had a celiac block and a repeat EGD. Review of Systems The patient denies any acute changes in vision or hearing, no dysphagia or odynophagia, no chest pain or shortness of breath, no dysuria or hematuria, no headache, no runny nose, no rectal bleeding or melena, no unexplained weight loss Past Medical History Past Medical History: Cancer, GERD/Reflux, Hyperlipidemia, Hypertension, Thyroid Disorder Additional Past Medical History / Comment(s): Wheezing, lung cancer w/ 7 radiation and chemo 30days finished oct 2023- on IV Keytruda once a month but has not taken in 5months; abd pain & nausea x 6 months, inpatient @ [facility] 07/01/24- 07/04/24 for abd pain and 09/02-09/07/24. History of Any Multi-Drug Resistant Organisms: None Reported Past Surgical History: Cholecystectomy Additional Past Surgical History / Comment(s): Colonoscopy/EGD w/ 06/28/24.unable to find anything per patient. Past Anesthesia/Blood Transfusion Reactions: No Reported Reaction Additional Past Anesthesia/Blood Transfusion Reaction / Comm: Sedation only for Colonoscopy. Past Psychological History: Anxiety, Panic Disorder Smoking Status: Former smoker Past Alcohol Use History: None Reported Additional Past Alcohol Use History / Comment(s): smoked /2 ppd- quit 2022. Past Drug Use History: None Reported - Past Family History Mother Family Medical History: Cancer Additional Family Medical History / Comment(s): Pancreatic cancer Sister(s) Family Medical History: Cancer Additional Family Medical History / Comment(s): Pancreatic cancer Brother(s) Family Medical History: Cancer Additional Family Medical History / Comment(s): Leukemia Medications and Allergies Home Medications Medication Instructions Recorded Confirmed Type ALPRAZolam [Xanax] 0.25 mg PO DAILY PRN 04/25/24 09/08/24 History ALPRAZolam [Xanax] 0.25 mg PO HS 04/25/24 09/08/24 History Atorvastatin [Lipitor] 20 mg PO HS 04/25/24 09/08/24 History Diltiazem Cd [Cardizem CD] 240 mg PO HS 04/25/24 09/08/24 History Fluticasone/Umeclidin/Vilanter 1 puff INHALATION RT-DAILY 04/25/24 09/08/24 History [Trelegy Ellipta 100-62.5-25] Gabapentin 300 mg PO QID 04/25/24 09/08/24 History Levothyroxine Sodium [Synthroid] 75 mcg PO DAILY 04/25/24 09/08/24 History QUEtiapine FUMARATE [SEROquel] 200 mg PO HS 04/25/24 09/08/24 History Triamterene/Hydrochlorothiazid 1 tab PO DAILY 04/25/24 09/08/24 History [Triamterene-Hctz 75-50 mg Tab] Citalopram Hydrobromide [CeleXA] 20 mg PO DAILY 07/01/24 09/08/24 History Sucralfate [Carafate] 1 gm PO ACHS 07/01/24 09/08/24 History Buprenorphine [Butrans 20 MCG/HOUR] 1 patch TRANSDERM TH 09/03/24 09/08/24 History Cimetidine [Tagamet] 400 mg PO HS 09/03/24 09/08/24 History Famotidine [Pepcid] 40 mg PO DAILY PRN 09/03/24 09/08/24 History Linaclotide [Linzess] 290 mcg PO DAILY 09/03/24 09/08/24 History Metoclopramide [Reglan] 10 mg PO TID-W/MEALS 09/03/24 09/08/24 History Ondansetron Odt [Zofran ODT] 4 mg PO Q8HR PRN 09/03/24 09/08/24 History Pantoprazole [Protonix] 40 mg PO DAILY 09/03/24 09/08/24 History Dicyclomine [Bentyl] 10 mg PO QID PRN #120 cap 09/07/24 09/08/24 Rx Lactulose [Cephulac] 30 gm PO TID #360 ml 09/07/24 09/08/24 Rx Sennosides [Senokot] 8.6 mg PO DAILY PRN #30 tab 09/07/24 09/08/24 Rx Simethicone 40 mg/0.6 ml Drops 40 mg PO QID #10 ml 09/07/24 09/08/24 Rx [Mylicon Drops] bisacodyL [Dulcolax] 10 mg RECTAL DAILY PRN #30 09/07/24 09/08/24 Rx suppositor Allergies Allergy/AdvReac Type Severity Reaction Status Date / Time morphine Allergy Unknown Verified 09/21/24 15:36 Surgical - Exam Vital Signs Temp Pulse Resp BP Pulse Ox 97.3 F L 107 H 18 176/117 97 09/21/24 15:36 09/21/24 15:36 09/21/24 15:36 09/21/24 15:36 09/21/24 15:36 Physical exam: General: Well-developed, well-nourished HEENT: Normocephalic, sclerae nonicteric Abdomen: Minimal epigastric tenderness nondistended Extremities: No edema Neuro: Alert and oriented Results - Labs 09/21/24 16:11 09/22/24 07:02 Abnormal Lab Results - Last 24 Hours (Table) 09/21/24 09/21/24 09/22/24 Range/Units 16:11 16:11 07:02 Hct 48.0 H (34.0-46.0) % Lymphocytes # 0.7 L (1.0-4.8) k/uL Chloride 110 H (98-107) mmol/L Carbon Dioxide 21 L (22-30) mmol/L AST 266 H 94 H (14-36) U/L ALT 545 H 301 H (4-34) U/L Alkaline Phosphatase 156 H (38-126) U/L Total Protein 5.7 L (6.3-8.2) g/dL Diabetes panel 09/21/24 09/22/24 Range/Units 16:11 07:02 Sodium 139 138 (137-145) mmol/L Potassium 4.0 4.1 (3.5-5.1) mmol/L Chloride 103 110 H (98-107) mmol/L Carbon Dioxide 27 21 L (22-30) mmol/L BUN 16 17 (7-17) mg/dL Creatinine 0.68 0.66 (0.52-1.04) mg/dL Glucose 97 81 (74-99) mg/dL Calcium 9.6 8.6 (8.4-10.2) mg/dL AST 266 H 94 H (14-36) U/L ALT 545 H 301 H (4-34) U/L Alkaline Phosphatase 156 H 107 (38-126) U/L Total Protein 7.6 5.7 L (6.3-8.2) g/dL Albumin 4.9 3.5 (3.5-5.0) g/dL Calcium panel 09/21/24 09/22/24 Range/Units 16:11 07:02 Calcium 9.6 8.6 (8.4-10.2) mg/dL Albumin 4.9 3.5 (3.5-5.0) g/dL Pituitary panel 09/21/24 09/22/24 Range/Units 16:11 07:02 Sodium 139 138 (137-145) mmol/L Potassium 4.0 4.1 (3.5-5.1) mmol/L Chloride 103 110 H (98-107) mmol/L Carbon Dioxide 27 21 L (22-30) mmol/L BUN 16 17 (7-17) mg/dL Creatinine 0.68 0.66 (0.52-1.04) mg/dL Glucose 97 81 (74-99) mg/dL Calcium 9.6 8.6 (8.4-10.2) mg/dL Adrenal panel 09/21/24 09/22/24 Range/Units 16:11 07:02 Sodium 139 138 (137-145) mmol/L Potassium 4.0 4.1 (3.5-5.1) mmol/L Chloride 103 110 H (98-107) mmol/L Carbon Dioxide 27 21 L (22-30) mmol/L BUN 16 17 (7-17) mg/dL Creatinine 0.68 0.66 (0.52-1.04) mg/dL Glucose 97 81 (74-99) mg/dL Calcium 9.6 8.6 (8.4-10.2) mg/dL Total Bilirubin 0.6 0.5 (0.2-1.3) mg/dL AST 266 H 94 H (14-36) U/L ALT 545 H 301 H (4-34) U/L Alkaline Phosphatase 156 H 107 (38-126) U/L Total Protein 7.6 5.7 L (6.3-8.2) g/dL Albumin 4.9 3.5 (3.5-5.0) g/dL Assessment and Plan (1) Abdominal pain Narrative/Plan: 63-year-old female with chronic upper abdominal pain. Etiology unclear. For the first time her liver enzymes are elevated. We have no GI coverage I believe this week. Will order liver ultrasound at this time. Repeat labs today show improvement. Will repeat again tomorrow. Current Visit: Yes Status: Acute Code(s): R10.9 - UNSPECIFIED ABDOMINAL PAIN SNOMED Code(s): 72040954
[2024-09-22] MEDS: HYDROcodone/APAP 5-325MG 1 EACH TAB PO PRN (11:30)
--- NOTE | 2024-09-22 11:50 | US ---
EXAMINATION TYPE: US liver DATE OF EXAM: 09/22/2024 COMPARISON: CT 09/08/24 CLINICAL INDICATION: Female, 63 years old with history of Elevated liver enzymes; HX cholecystectomy TECHNIQUE: Grayscale and color Doppler imaging of the right upper quadrant was performed. FINDINGS: EXAM MEASUREMENTS: Liver Length: 16.6 cm Gallbladder Wall: Surgically absent CBD: 1.3 cm Right Kidney: 9.6 x 3.5 x 4.2 cm [employer]ENNIS [employer] C[employer] NOTES: Pancreas: wnl Liver: wnl Gallbladder: Surgically absent Evidence for sonographic Benitez's sign: No CBD: Post surgical changes Right Kidney: wnl IMPRESSION: Postoperative dilatation of the common bile duct. Otherwise unremarkable study. [facility], , 09/22/2024 11:48 AM
[2024-09-22] MEDS ORDERED: DICYCLOMINE 10 MG CAP PO PRN (12:00)
[2024-09-22] MEDS ORDERED: ALPRAZolam 0.25 MG TAB PO PRN (12:00)
[2024-09-22] MEDS ORDERED: Acetaminophen-Codeine 300-30mg TAB PO PRN (12:00)
--- NOTE | 2024-09-22 12:04 | P.HPIM ---
History of Present Illness H&P Date: 09/22/24 This is a 63-year-old female medical history significant for hypertension, hyperlipidemia, lung cancer with radiation chemo finished in October 2023, chronic abdominal pain, anxiety, former smoker. Patient comes in with concern for abdominal pain states that it is uncontrolled at home she is maintained on oxycodone at home scheduled and intermediate release as needed. She is also on Tylenol 3's. Having some bloating. She was admitted here for the same pain 2 weeks ago was evaluated by pain management services back on September 10 for the chronic intractable upper abdominal pain patient underwent a diagnostic celiac plexus block under fluoroscopy guidance. Had a repeat EGD with no acute fi ndings. Also recently has undergone cholecystectomy for finding of gallbladder sludge with initial improvement in pain but the pain has come back. Patient was most recently at [facility] they were unable to figure out the source of her pain at this time. She came back to the hospital yesterday requesting pain medication she had elevated LFTs and was admitted to the hospital for further evaluation. chest x-ray that was nondiagnostic.'s are moving, and she is tolerating diet. She is having some nausea associated with this pain states that it is upper quadrant pain starting just above the umbilicus radiating outwards. Her abdominal ultrasound does reveal surgically absent gallbladder with postoperative dilatation of the common bile duct. Otherwise unremarkable study. Since admission her LFTs have already improved her AST went from 2 66-94 and her ALT 454 down to 301 her alk phos was 156 now normal. Troponin level is normal her bilirubin is normal. Her renal function is normal. Pending recommendations from general surgery REVIEW OF SYSTEMS: CONSTITUTIONAL: No fever, no malaise, no fatigue. HEENT: No recent visual problems or hearing problems. Denied any sore throat. CARDIOVASCULAR: No chest pain, orthopnea, PND, no palpitations, no syncope. PULMONARY: No shortness of breath, no cough, no hemoptysis. GASTROINTESTINAL: No diarrhea, no vomiting reports nausea and abdominal pain NEUROLOGICAL: No headaches, no weakness, no numbness. HEMATOLOGICAL: Denies any bleeding or petechiae. GENITOURINARY: Denies any burning micturition, frequency, or urgency. MUSCULOSKELETAL/RHEUMATOLOGICAL: Denies any joint pain, swelling, or any muscle pain. ENDOCRINE: Denies any polyuria or polydipsia. The rest of the 14-point review of systems is negative. PHYSICAL EXAMINATION: GENERAL: The patient is alert and oriented x3, not in any acute distress. Well developed, well nourished. HEENT: Pupils are round and equally reacting to light. EOMI. No scleral icterus. No conjunctival pallor. Normocephalic, atraumatic. No pharyngeal erythema. No thyromegaly. CARDIOVASCULAR: S1 and S2 present. No murmurs, rubs, or gallops. PULMONARY: Chest is clear to auscultation, no wheezing or crackles. ABDOMEN: Soft, Diffuse abdominal tenderness, nondistended, normoactive bowel sounds. No palpable organomegaly. MUSCULOSKELETAL: No joint swelling or deformity. EXTREMITIES: No cyanosis, clubbing, or pedal edema. NEUROLOGICAL: Gross neurological examination did not reveal any focal deficits. SKIN: No rashes. Assessment and Plan Acute on Chronic abdominal pain Elevated LFTs improved since admission liver ultrasound shows CBD dilated at 1.3 cm. Recently cholecystectomy History of bowel obstruction with multiple intra-abdominal surgeries recently underwent a diagnostic celiac plexus block with anesthesia services and is scheduled to follow-up with them tomorrow. Gastroesphagel reflux disease Hypertension Hyperlipidemia Hypothyroidism Hx of lung cancer with prior chemo/radiaton Former smoker GI prophylaxis DVT prophylaxis Plan Continue same home medications General surgery following Liver ultrasound noted. May need transfer for GI pending surgical rec ommendations Check hepatitis panel Continue clear liquid diet Resume appropriate home medications The impression and plan of care has been dictated by Amara Rice Nurse Practitioner as directed. Dr. Milena MD I have performed a history and physical examination and medical decision making of this patient, discussed the same with the dictator, and agree with the dictators assessment and plan as written, documented as a scribe. Based on total visit time, I have performed more than 50% of this visit. Past Medical History Past Medical History: Cancer, GERD/Reflux, Hyperlipidemia, Hypertension, Thyroid Disorder Additional Past Medical History / Comment(s): Wheezing, lung cancer w/ 7 radiation and chemo 30days finished oct 2023- on IV Keytruda once a month but has not taken in 5months; abd pain & nausea x 6 months, inpatient @ [facility] 07/01/24- 07/04/24 for abd pain and 09/02-09/07/24. History of Any Multi-Drug Resistant Organisms: None Reported Past Surgical History: Cholecystectomy Additional Past Surgical History / Comment(s): Colonoscopy/EGD w/ 06/28/24.unable to find anything per patient. Past Anesthesia/Blood Transfusion Reactions: No Reported Reaction Additional Past Anesthesia/Blood Transfusion Reaction / Comment(s): Sedation only for Colonoscopy. Past Psychological History: Anxiety, Panic Disorder Smoking Status: Former smoker Past Alcohol Use History: None Reported Additional Past Alcohol Use History / Comment(s): smoked 1/2 ppd- quit 2022. Past Drug Use History: None Reported - Past Family History Mother Family Medical History: Cancer Additional Family Medical History / Comment(s): Pancreatic cancer Sister(s) Family Medical History: Cancer Additional Family Medical History / Comment(s): Pancreatic cancer Brother(s) Family Medical History: Cancer Additional Family Medical History / Comment(s): Leukemia Medications and Allergies Home Medications Medication Instructions Recorded Confirmed Type ALPRAZolam [Xanax] 0.25 mg PO DAILY PRN 04/25/24 09/22/24 History ALPRAZolam [Xanax] 0.25 mg PO HS 04/25/24 09/22/24 History Atorvastatin [Lipitor] 20 mg PO HS 04/25/24 09/22/24 History Diltiazem Cd [Cardizem CD] 240 mg PO HS 04/25/24 09/22/24 History Fluticasone/Umeclidin/Vilanter 1 puff INHALATION RT-DAILY 04/25/24 09/22/24 History [Trelegy Ellipta 100-62.5-25] Gabapentin 300 mg PO QID 04/25/24 09/22/24 History Levothyroxine Sodium [Synthroid] 75 mcg PO DAILY 04/25/24 09/22/24 History QUEtiapine FUMARATE [SEROquel] 200 mg PO HS 04/25/24 09/22/24 History Triamterene/Hydrochlorothiazid 1 tab PO DAILY 04/25/24 09/22/24 History [Triamterene-Hctz 75-50 mg Tab] Citalopram Hydrobromide [CeleXA] 20 mg PO DAILY 07/01/24 09/22/24 History Sucralfate [Carafate] 1 gm PO ACHS 07/01/24 09/22/24 History Buprenorphine [Butrans 20 MCG/HOUR] 1 patch TRANSDERM SA 09/03/24 09/22/24 History Cimetidine [Tagamet] 400 mg PO HS 09/03/24 09/22/24 History Famotidine [Pepcid] 40 mg PO DAILY PRN 09/03/24 09/22/24 History Linaclotide [Linzess] 290 mcg PO DAILY 09/03/24 09/22/24 History Ondansetron Odt [Zofran ODT] 4 mg PO Q8HR PRN 09/03/24 09/22/24 History Pantoprazole [Protonix] 40 mg PO DAILY 09/03/24 09/22/24 History Dicyclomine [Bentyl] 10 mg PO QID PRN #120 cap 09/07/24 09/22/24 Rx Lactulose [Cephulac] 30 gm PO TID #360 ml 09/07/24 09/22/24 Rx Sennosides [Senokot] 8.6 mg PO DAILY PRN #30 tab 09/07/24 09/22/24 Rx bisacodyL [Dulcolax] 10 mg RECTAL DAILY PRN #30 09/07/24 09/22/24 Rx suppositor Acetaminophen-Codeine 300-30mg 1 tab PO Q8H PRN 09/22/24 09/22/24 History [Tylenol w/codeine #3] Baclofen [Lioresal] 10 mg PO TID 09/22/24 09/22/24 History Docusate [Colace] 100 mg PO BID PRN 09/22/24 09/22/24 History Potassium Chloride ER [K-Dur 10] 10 meq PO DAILY 09/22/24 09/22/24 History Simethicone Chew [Mylicon Chew] 80 mg PO QID PRN 09/22/24 09/22/24 History Tiotropium 2.5 Mcg/Puff [Spiriva 2 puff INHALATION RT-DAILY 09/22/24 09/22/24 History Respimat 2.5 Mcg] oxyCODONE HCL [OxyIR] 5 mg PO Q8H PRN 09/22/24 09/22/24 History oxyCODONE-APAP 10-325MG [Percocet 1 tab PO Q6H PRN 09/22/24 09/22/24 History 10-325 mg] Allergies Allergy/AdvReac Type Severity Reaction Status Date / Time morphine Allergy Unknown Verified 09/22/24 11:05 Physical Exam Vitals: Vital Signs Temp Pulse Pulse Pulse Resp BP BP 09/22/24 06:59 97.6 F 82 18 169/96 09/22/24 00:37 97.5 F L 81 18 134/80 09/21/24 23:20 97.9 F 87 18 169/98 09/21/24 23:02 68 17 09/21/24 20:16 98.5 F 85 15 175/89 09/21/24 18:40 77 18 177/85 09/21/24 17:43 73 17 179/88 09/21/24 16:20 82 09/21/24 15:36 97.3 F L 107 H 18 176/117 Pulse Ox 09/22/24 06:59 95 09/22/24 00:37 95 09/21/24 23:20 96 09/21/24 23:02 98 09/21/24 20:16 97 09/21/24 18:40 97 09/21/24 17:43 99 09/21/24 16:20 98 09/21/24 15:36 97 Intake and Output 09/21/24 09/22/24 09/22/24 22:59 06:59 14:59 Intake Total 0 0 Balance 0 0 Intake: Oral 0 0 Other: # Voids 1 2 1 # Bowel Movements 1 Weight 49.895 kg 49.895 kg Results CBC & Chem 7: 09/21/24 16:11 09/22/24 07:02 Labs: Abnormal Lab Results - Last 24 Hours (Table) 09/21/24 09/21/24 09/22/24 Range/Units 16:11 16:11 07:02 Hct 48.0 H (34.0-46.0) % Lymphocytes # 0.7 L (1.0-4.8) k/uL Chloride 110 H (98-107) mmol/L Carbon Dioxide 21 L (22-30) mmol/L AST 266 H 94 H (14-36) U/L ALT 545 H 301 H (4-34) U/L Alkaline Phosphatase 156 H (38-126) U/L Total Protein 5.7 L (6.3-8.2) g/dL Thrombosis Risk Factor Assmnt - Choose All That Apply Any of the Below Risk Factors Present?: No Other Risk Factors: Yes Each Risk Factor Represents 2 Points: Age 61-74 years, Malignancy Other congenital or acquired thrombophilia - If yes, enter type in comment: No Thrombosis Risk Factor Assessment Total Risk Factor Score: 4 Thrombosis Risk Factor Assessment Level: Moderate Risk Assessment and Plan Time with Patient: Greater than 30
[2024-09-22] MEDS: SUCRALFATE 1 GM TAB PO SCH (12:57)
[2024-09-22] MEDS: GABAPENTIN 300 MG CAP PO SCH (12:57)
[2024-09-22 13:19] LABS: Albumin/Globulin Ratio 1.7; Bilirubin,Unconjugated 0.5 mg/dL (0.0-1.1); Globulin 2.4 g/dL; Total Bilirubin 0.6 mg/dL (0.2-1.3); Total Protein 6.4 g/dL (6.3-8.2)
[2024-09-22] MEDS: BACLOFEN 10 MG TAB PO SCH (13:42)
[2024-09-22] MEDS: SODIUM CHLORIDE 0.9% 1,000 ML IV SCH (13:43)
[2024-09-22] MEDS: DOCUSATE 100 MG CAP PO PRN (13:48)
[2024-09-22] MEDS: oxyCODONE-APAP 10-325MG 1 EACH TAB PO PRN (17:11)
[2024-09-22] MEDS: DILTIAZEM CD 240 MG CAP.ER.24H PO SCH (17:44)
[2024-09-22] MEDS: ALPRAZolam 0.25 MG TAB PO SCH (20:25)
[2024-09-22] MEDS: HEPARIN SODIUM,PORCINE 5,000 UNIT/ML 1 ML VIAL SQ SCH (20:25)
[2024-09-22] MEDS: QUEtiapine 200 MG TAB PO SCH (20:25)
[2024-09-22] MEDS: FAMOTIDINE 20 MG TAB PO SCH (20:25)
[2024-09-23] MEDS: LEVOTHYROXINE 75 MCG TAB PO SCH (05:58)
[2024-09-23] MEDS: IPRATROPIUM 0.5 MG/2.5 ML NEBU INHALATION SCH (08:21)
[2024-09-23] MEDS: SYMBICORT 80-4.5 MCG INHALER INHALATION SCH (08:21)
[2024-09-23] MEDS: NON FORMULARY DRUG (Linaclotide [Linzess] 290 MCG Capsule) PO SCH (08:40)
[2024-09-23] MEDS: CITALOPRAM HYDROBROMIDE 20 MG TAB PO SCH (08:45)
[2024-09-23] MEDS: TRIAMTERENE-HCTZ 75-50MG 1 EACH TAB PO SCH (08:45)
[2024-09-23] MEDS: PANTOPRAZOLE 40 MG/10 ML VIAL IVP SCH (08:45)
[2024-09-23 09:00] LABS: Basophils # (A) 0.04 X 10*3/uL (0.00-0.10); Basophils % (A) 0.8 %; Eosinophils # (A) 0.21 X 10*3/uL (0.04-0.35); Eosinophils % (A) 4.3 %; HGB 11.7 g/dL (12.0-15.0); Lymphocytes % (A) 22.3 %; MCH 31.8 pg (27.0-32.0); MCHC 33.4 g/dL (32.0-37.0); MCV 95.1 FL (80.0-97.0); Mean Platelet Volume 9.2 FL (9.5-12.2); Monocytes # (A) 0.49 X 10*3/uL (0.20-1.00); Monocytes % (A) 9.9 %; NRBC Per 100 WBC 0 X 10*3/uL (0.00-0.01); Neutrophils # (A) 3.03 X 10*3/uL (1.80-7.70); Neutrophils % (A) 61.5 %; Platelet Count 240 X 10*3/uL (140-440); RBC 3.68 X 10*6/uL (4.10-5.20); RDW 14.7 % (11.5-14.5); WBC 4.93 X 10*3/uL (4.50-10.00)
[2024-09-23 09:21] LABS: ALT 301 U/L (8-44); AST 117 U/L (13-35); Albumin 3.8 g/dL (3.8-4.9); Albumin/Globulin Ratio 2.38 Ratio (1.60-3.17); Alkaline Phosphatase 123 U/L (41-126); BUN/Creat Ratio 17.17 Ratio (12.00-20.00); Blood Urea Nitrogen 10.3 mg/dL (9.0-27.0); Calcium 8.6 mg/dL (8.7-10.3); Carbon Dioxide 21.1 mmol/L (21.6-31.8); Chloride 110 mmol/L (96-109); Globulin 1.6 g/dL (1.6-3.3); Glucose 87 mg/dL (70-110); Potassium 3.7 mmol/L (3.5-5.5); Sodium 140 mmol/L (135-145); Total Bilirubin 0.3 mg/dL (0.3-1.2); Total Protein 5.4 g/dL (6.2-8.2)
[2024-09-23 10:15] LABS: Hepatitis B Surface Antigen Nonreactive (Nonreactive)
[2024-09-23 10:16] LABS: Hepatitis A Antibody IgM Nonreactive (Nonreactive); Hepatitis B Core IgM Nonreactive (Nonreactive)
[2024-09-23] MEDS: polyethylene glycoL 3350 17 GM POWD.PACK PO SCH (10:33)
[2024-09-23] MEDS: SIMETHICONE 40 MG/0.6 ML DROPS 2,000 MG/30 ML BOTTLE PO SCH (12:04)
[2024-09-23 12:56] VITALS: BP 161/95; PULSE 61; RESP 17; TEMP 97.8
--- NOTE | 2024-09-23 13:49 | P.DS ---
Providers Date of admission: 09/21/24 19:38 Expected date of discharge: 09/23/24 Attending physician: Alvaro Mcneal Consults: 09/21/24 19:38 Consult Physician Urgent Consulting Provider: Nic Apodaca Consult Reason/Comments: Abdominal pain Do you want consulting provider notified?: Yes [facility] Course: Discharge diagnosis: Acute on Chronic abdominal pain Elevated LFTs improved since admission liver ultrasound shows CBD dilated at 1.3 cm. Recently cholecystectomy History of bowel obstruction with multiple intra-abdominal surgeries recently underwent a diagnostic celiac plexus block with anesthesia services and is scheduled to follow-up with them tomorrow. Gastroesphagel reflux disease Hypertension Hyperlipidemia Hypothyroidism Hx of lung cancer with prior chemo/radiaton Former smoker Hospital Course: This is a 63-year-old female medical history significant for hypertension, hyperlipidemia, lung cancer with radiation chemo finished in October 2023, chronic abdominal pain, anxiety, former smoker, who presented to the ED with abdominal pain and bloating. states that it is uncontrolled at home she is maintained on oxycodone at home scheduled and intermediate release as needed. She is also on Tylenol 3's. Having some bloating. She was admitted here for the same pain 2 weeks ago was evaluated by pain management services back on September 10 for the chronic intractable upper abdominal pain patient underwent a diagnostic celiac plexus block under fluoroscopy guidance. Had a repeat EGD with no acute findings. Also recently has undergone cholecystectomy for finding of gallbladder sludge with initial improvement in pain but the pain has come back. Patient was most recently at [facility] they were unable to figure out the source of her pain at this time. She came back to the hospital yesterday requesting pain medication she had elevated LFTs and was admitted to the hospital for further evaluation. chest x-ray that was nondiagnostic.'s are moving, and she is tolerating diet. She is having some nausea associated with this pain states that it is upper quadrant pain starting just above the umbilicus radiating outwards. Her abdominal ultrasound does reveal surgically absent gallbladder with postoperative dilatation of the common bile duct. Otherwise unremarkable study. Since admission her LFTs have already improved her AST went from 2 66-94 and her ALT 454 down to 301 her alk phos was 156 now normal. Troponin level is normal her bilirubin is normal. Her renal function is normal. Pending recommendations from general surgery. 09/23/24: Patient seen and examined at bedside today. She complains of abdomina l pain that is burning in nature. Labs today show hemoglobin 11.7, RDW 14.7, AST 117, ALT 301, Total bilirubin 0.6, conjugated bilirubin 0.0, unconjugated bilirubin 0.5. Liver ultrasound shows postoperative dilatation of the common bile duct. Patient seen at bedside today and is feeling good and excited about discharge. Patient will be discharged today and is given a script for MiraLAX daily. Patient is advised to be compliant with medications and use a walker at home Patient is advised to follow-up with PCP in 1-2 days and General surgery in 1 week. Patient needs a walker. Patient has mobility limitation that significantly impairs ability to participate in mobility related activities of daily living in the home. Patient is able to safely use walker. Patient's functional mobility deficit can be resolved by the use of walker. Vital signs are reviewed and stable GENERAL: The patient is alert and oriented x3, not in any acute distress. Well developed, well nourished. HEENT: Pupils are round and equally reacting to light. EOMI. No scleral icterus. No conjunctival pallor. Normocephalic, atraumatic. No pharyngeal erythema. No thyromegaly. CARDIOVASCULAR: S1 and S2 present. No murmurs, rubs, or gallops. PULMONARY: Chest is clear to auscultation, no wheezing or crackles. ABDOMEN: Soft, tenderness right and left lower quadrant tender, nondistended, normoactive bowel sounds. No palpable organomegaly. MUSCULOSKELETAL: No joint swelling or deformity. EXTREMITIES: No cyanosis, clubbing, or pedal edema. NEUROLOGICAL: Gross neurological examination did not reveal any focal deficits. SKIN: No rashes. A total of 30 minutes of time were spent preparing this complex discharge summary. Patient was discharged on 09/23/24 at 1345. Patient Condition at Discharge: Stable Plan - Discharge Summary New Discharge Prescriptions: New polyethylene glycoL 3350 [Miralax] 17 gm PO DAILY 14 Days #14 packet Continue Levothyroxine Sodium [Synthroid] 75 mcg PO DAILY Gabapentin 300 mg PO QID QUEtiapine FUMARATE [SEROquel] 200 mg PO HS Triamterene/Hydrochlorothiazid [Triamterene-Hctz 75-50 mg Tab] 1 tab PO DAILY ALPRAZolam [Xanax] 0.25 mg PO HS Sucralfate [Carafate] 1 gm PO ACHS Famotidine [Pepcid] 40 mg PO DAILY PRN PRN Reason: Gi Upset Pantoprazole [Protonix] 40 mg PO DAILY Buprenorphine [Butrans 20 MCG/HOUR] 1 patch TRANSDERM SA Lactulose [Cephulac] 30 gm PO TID #360 ml bisacodyL [Dulcolax] 10 mg RECTAL DAILY PRN #30 suppositor PRN Reason: Constipation Sennosides [Senokot] 8.6 mg PO DAILY PRN #30 tab PRN Reason: Constipation Acetaminophen-Codeine 300-30mg [Tylenol w/codeine #3] 1 tab PO Q8H PRN PRN Reason: Pain oxyCODONE-APAP 10-325MG [Percocet 10-325 mg] 1 tab PO Q6H PRN PRN Reason: Pain Docusate [Colace] 100 mg PO BID PRN PRN Reason: Constipation Atorvastatin [Lipitor] 20 mg PO HS Fluticasone/Umeclidin/Vilanter [Trelegy Ellipta 100-62.5-25] 1 puff INHALATION RT-DAILY Diltiazem Cd [Cardizem CD] 240 mg PO HS ALPRAZolam [Xanax] 0.25 mg PO DAILY PRN PRN Reason: Anxiety Citalopram Hydrobromide [CeleXA] 20 mg PO DAILY Linaclotide [Linzess] 290 mcg PO DAILY Cimetidine [Tagamet] 400 mg PO HS Ondansetron Odt [Zofran ODT] 4 mg PO Q8HR PRN PRN Reason: Nausea And Vomiting Dicyclomine [Bentyl] 10 mg PO QID PRN #120 cap PRN Reason: Dyspepsia Tiotropium 2.5 Mcg/Puff [Spiriva Respimat 2.5 Mcg] 2 puff INHALATION RT-DAILY Baclofen [Lioresal] 10 mg PO TID oxyCODONE HCL [OxyIR] 5 mg PO Q8H PRN PRN Reason: Pain Potassium Chloride ER [K-Dur 10] 10 meq PO DAILY Simethicone Chew [Mylicon Chew] 80 mg PO QID PRN PRN Reason: Indigestion Discharge Medication List ALPRAZolam [Xanax] 0.25 mg PO DAILY PRN 04/25/24 [History] ALPRAZolam [Xanax] 0.25 mg PO HS 04/25/24 [History] Atorvastatin [Lipitor] 20 mg PO HS 04/25/24 [History] Diltiazem Cd [Cardizem CD] 240 mg PO HS 04/25/24 [History] Fluticasone/Umeclidin/Vilanter [Trelegy Ellipta 100-62.5-25] 1 puff INHALATION RT-DAILY 04/25/24 [History] Gabapentin 300 mg PO QID 04/25/24 [History] Levothyroxine Sodium [Synthroid] 75 mcg PO DAILY 04/25/24 [History] QUEtiapine FUMARATE [SEROquel] 200 mg PO HS 04/25/24 [History] Triamterene/Hydrochlorothiazid [Triamterene-Hctz 75-50 mg Tab] 1 tab PO DAILY 04/25/24 [History] Citalopram Hydrobromide [CeleXA] 20 mg PO DAILY 07/01/24 [History] Sucralfate [Carafate] 1 gm PO ACHS 07/01/24 [History] Buprenorphine [Butrans 20 MCG/HOUR] 1 patch TRANSDERM SA 09/03/24 [History] Cimetidine [Tagamet] 400 mg PO HS 09/03/24 [History] Famotidine [Pepcid] 40 mg PO DAILY PRN 09/03/24 [History] Linaclotide [Linzess] 290 mcg PO DAILY 09/03/24 [History] Ondansetron Odt [Zofran ODT] 4 mg PO Q8HR PRN 09/03/24 [History] Pantoprazole [Protonix] 40 mg PO DAILY 09/03/24 [History] Dicyclomine [Bentyl] 10 mg PO QID PRN #120 cap 09/07/24 [Rx] Lactulose [Cephulac] 30 gm PO TID #360 ml 09/07/24 [Rx] Sennosides [Senokot] 8.6 mg PO DAILY PRN #30 tab 09/07/24 [Rx] bisacodyL [Dulcolax] 10 mg RECTAL DAILY PRN #30 suppositor 09/07/24 [Rx] Acetaminophen-Codeine 300-30mg [Tylenol w/codeine #3] 1 tab PO Q8H PRN 09/22/24 [History] Baclofen [Lioresal] 10 mg PO TID 09/22/24 [History] Docusate [Colace] 100 mg PO BID PRN 09/22/24 [History] Potassium Chloride ER [K-Dur 10] 10 meq PO DAILY 09/22/24 [History] Simethicone Chew [Mylicon Chew] 80 mg PO QID PRN 09/22/24 [History] Tiotropium 2.5 Mcg/Puff [Spiriva Respimat 2.5 Mcg] 2 puff INHALATION RT-DAILY 09/22/24 [History] oxyCODONE HCL [OxyIR] 5 mg PO Q8H PRN 09/22/24 [History] oxyCODONE-APAP 10-325MG [Percocet 10-325 mg] 1 tab PO Q6H PRN 09/22/24 [History] polyethylene glycoL 3350 [Miralax] 17 gm PO DAILY 14 Days #14 packet 09/23/24 [Rx] Follow up Appointment(s)/Referral(s): Tray Garnett MD [Primary Care Provider] - 1-2 days Nic Apodaca MD [STAFF PHYSICIAN] - 1 Week Discharge Disposition: HOME SELF-CARE
--- NOTE | 2024-09-23 14:06 | P.PN ---
Subjective Progress Note Date: 09/23/24 SURGICAL PROGRESS NOTE CHIEF COMPLAINT: Abdominal pain HISTORY OF PRESENT ILLNESS: Patient complains of upper abdominal pain with bloating. Patient reports that the pain is less than when she first presented to the hospital. She has been having bowel movements and flatus. She does report the stool is hard. Reports small amount of nausea. Afebrile. WBC 4.93 elevated LFTs. Total bilirubin 0.3. Hepatitis panel negative. Liver ultrasound reports postoperative dilatation of the common bile duct. Otherwise unremarkable study. Patient seen and examined with Dr. Apodaca PHYSICAL EXAM: VITAL SIGNS: Reviewed. GENERAL: Well-developed in no acute distress. ABDOMEN: Soft. Nondistended. Mild tenderness across upper abdomen NEUROLOGIC: Alert and oriented. Cranial nerves II through XII grossly intact. ASSESSMENT: 1. Chronic upper abdominal pain 2. Mildly elevated LFTs. History of cholecystectomy 3. Constipation PLAN: -Patient can be discharged from surgical standpoint -Recommend outpatient follow-up with Dr. Apodaca -Advance diet as tolerated over the next few days -Continue MiraLAX and a good bowel regimen at home Physician Press Setup Operator note has been reviewed by physician. Signing provider agrees with the documented findings, assessment, and plan of care. Objective - Vital Signs Vital signs: Vital Signs Temp 97.8 F 09/23/24 12:55 Pulse 61 09/23/24 12:55 Resp 17 09/23/24 12:55 BP 161/95 09/23/24 12:55 Pulse Ox 96 09/23/24 12:55 FiO2 Intake & Output 09/22/24 09/23/24 09/23/24 18:59 06:59 18:59 Intake Total 240 840 236 Balance 240 840 236 Intake: Oral 240 840 236 Other: # Voids 2 3 1 # Bowel Movements 1 1 - Labs CBC & Chem 7: 09/23/24 05:28 09/23/24 05:28 Labs: Abnormal Lab Results - Last 24 Hours (Table) 09/23/24 09/23/24 Range/Units 05:28 05:28 RBC 3.68 L (4.10-5.20) X 10*6/uL Hgb 11.7 L (12.0-15.0) g/dL Hct 35.0 L (37.2-46.3) % RDW 14.7 H (11.5-14.5) % MPV 9.2 L (9.5-12.2) FL Immature Gran # 0.06 H (0.00-0.04) X 10*3/uL Chloride 110 H (96-109) mmol/L Carbon Dioxide 21.1 L (21.6-31.8) mmol/L Calcium 8.6 L (8.7-10.3) mg/dL AST 117 H (13-35) U/L ALT 301 H (8-44) U/L Total Protein 5.4 L (6.2-8.2) g/dL
[2024-09-23 15:52] LABS: Hepatitis C IgG Antibody Nonreactive (Nonreactive)
[2024-09-28] MEDS ORDERED: NON FORMULARY DRUG (Buprenorphine [Butrans 20 Mcg/Hour] 20 MCG/HOUR Patch) TRANSDERM SCH (09:00)
== END 2024-09-23 15:02 | disposition home or self-care (01) ==
LOC: EC 15:16 → 6NMEDSUR 19:38
PROVIDERS: ADMIT Hospitalist; ATTEND Hospitalist
DX: G89.29 Other chronic pain (principal); R10.10 Upper abdominal pain, unspecified; R11.0 Nausea; R14.0 Abdominal distension (gaseous); R74.8 Abnormal levels of other serum enzymes; R79.89 Other specified abnormal findings of blood chemistry; Z90.49 Acquired absence of other specified parts of digestive tract; I10 Essential (primary) hypertension; K21.9 Gastro-esophageal reflux disease without esophagitis; E03.9 Hypothyroidism, unspecified; E78.5 Hyperlipidemia, unspecified; F41.0 Panic disorder [episodic paroxysmal anxiety]; K59.00 Constipation, unspecified; K82.8 Other specified diseases of gallbladder; K83.8 Other specified diseases of biliary tract; Z74.09 Other reduced mobility; Z79.890 Hormone replacement therapy; Z79.899 Other long term (current) drug therapy; Z85.118 Personal history of other malignant neoplasm of bronchus and lung; Z87.891 Personal history of nicotine dependence; Z92.21 Personal history of antineoplastic chemotherapy; Z92.3 Personal history of irradiation; Z88.5 Allergy status to narcotic agent; Z80.0 Family history of malignant neoplasm of digestive organs; Z80.6 Family history of leukemia
CPT/HCPCS: 96376 ×3; 96361 ×4; 96372 ×2; 96375 ×3; 96374; 99285; 36415; 94640; 93005; 80053 ×3; 80076; 80074; 82150; 83605; 83690; 84484; 85025 ×2; 80143; 71046; 76705; G0378 ×3; G0480; J2060; J1644 ×2; J2405 ×2; J1885; J1171 ×3; J1790; J2470; 80320

== ENCOUNTER 2024-10-23 11:23 | Emergency (ER) | payer OTHER ==
--- NOTE | 2024-10-23 12:05 | ED ---
Abdominal Pain HPI - General Chief Complaint: Abdominal Pain Stated Complaint: Abd pain Time Seen by Provider: 10/23/24 11:41 Source: patient, RN notes reviewed Mode of arrival: wheelchair Limitations: no limitations - History of Present Illness Initial Comments: This is a 63-year-old female with history of lung cancer and cholecystectomy 6 weeks ago presenting with abdominal pain (08/08) and bloating x 1 day. Patient states she awoke this morning with worsened pain, stating she is unable to stand and shaking due to the pain. States pain is mostly in the epigastric region that radiates to bilateral flanks, described as pressure. Endorses decreased oral intake. Denies N/V/D, constipation, hematochezia, melena. Patient states this abdominal pain is chronic for the past 6 to 7 months and intermittent with discovery of cholecystitis in August and subsequent cholecystectomy which did not resolve symptoms. Patient endorses prior endoscopy and colonoscopy with no abnormal findings. Denies history of IBS, Crohn's disease, UC, GERD, PUD. Denies fever, chills, chest pain, SOB, dizziness. MD Complaint: abdominal pain, flank pain Onset/Timin -: days(s) Location: diffuse, epigastric Radiation: bilateral flank Severity scale (1-10): 10 Quality: cramping, fullness Consistency: constant Improves With: nothing Worsens With: eating Context: recent surgery/procedure Associated Symptoms: anorexia Treatments Prior to Arrival: other (Pepcid) - Related Data Home Medications Medication Instructions Recorded Confirmed ALPRAZolam [Xanax] 0.25 mg PO DAILY PRN 04/25/24 09/22/24 ALPRAZolam [Xanax] 0.25 mg PO HS 04/25/24 09/22/24 Atorvastatin [Lipitor] 20 mg PO HS 04/25/24 09/22/24 Diltiazem Cd [Cardizem CD] 240 mg PO HS 04/25/24 09/22/24 Fluticasone/Umeclidin/Vilanter 1 puff INHALATION RT-DAILY 04/25/24 09/22/24 [Trelegy Ellipta 100-62.5-25] Gabapentin 300 mg PO QID 04/25/24 09/22/24 Levothyroxine Sodium [Synthroid] 75 mcg PO DAILY 04/25/24 09/22/24 QUEtiapine FUMARATE [SEROquel] 200 mg PO HS 04/25/24 09/22/24 Triamterene/Hydrochlorothiazid 1 tab PO DAILY 04/25/24 09/22/24 [Triamterene-Hctz 75-50 mg Tab] Citalopram Hydrobromide [CeleXA] 20 mg PO DAILY 07/01/24 09/22/24 Sucralfate [Carafate] 1 gm PO ACHS 07/01/24 09/22/24 Buprenorphine [Butrans 20 MCG/HOUR] 1 patch TRANSDERM SA 09/03/24 09/22/24 Cimetidine [Tagamet] 400 mg PO HS 09/03/24 09/22/24 Famotidine [Pepcid] 40 mg PO DAILY PRN 09/03/24 09/22/24 Linaclotide [Linzess] 290 mcg PO DAILY 09/03/24 09/22/24 Ondansetron Odt [Zofran ODT] 4 mg PO Q8HR PRN 09/03/24 09/22/24 Pantoprazole [Protonix] 40 mg PO DAILY 09/03/24 09/22/24 Acetaminophen-Codeine 300-30mg 1 tab PO Q8H PRN 09/22/24 09/22/24 [Tylenol w/codeine #3] Baclofen [Lioresal] 10 mg PO TID 09/22/24 09/22/24 Docusate [Colace] 100 mg PO BID PRN 09/22/24 09/22/24 Potassium Chloride ER [K-Dur 10] 10 meq PO DAILY 09/22/24 09/22/24 Simethicone Chew [Mylicon Chew] 80 mg PO QID PRN 09/22/24 09/22/24 Tiotropium 2.5 Mcg/Puff [Spiriva 2 puff INHALATION RT-DAILY 09/22/24 09/22/24 Respimat 2.5 Mcg] oxyCODONE HCL [OxyIR] 5 mg PO Q8H PRN 09/22/24 09/22/24 oxyCODONE-APAP 10-325MG [Percocet 1 tab PO Q6H PRN 09/22/24 09/22/24 10-325 mg] Previous Rx's Medication Instructions Recorded Dicyclomine [Bentyl] 10 mg PO QID PRN #120 cap 09/07/24 Lactulose [Cephulac] 30 gm PO TID #360 ml 09/07/24 Sennosides [Senokot] 8.6 mg PO DAILY PRN #30 tab 09/07/24 bisacodyL [Dulcolax] 10 mg RECTAL DAILY PRN #30 09/07/24 suppositor polyethylene glycoL 3350 [Miralax] 17 gm PO DAILY 14 Days #14 packet 09/23/24 Allergies Allergy/AdvReac Type Severity Reaction Status Date / Time morphine Allergy Unknown Verified 10/23/24 11:36 Review of Systems ROS Statement: Those systems with pertinent positive or pertinent negative responses have been documented in the HPI. ROS Other: All systems not noted in ROS Statement are negative. Past Medical History Past Medical History: Cancer, GERD/Reflux, Hyperlipidemia, Hypertension, Thyroid Disorder Additional Past Medical History / Comment(s): Wheezing, lung cancer w/ 7 radiation and chemo 30days finished oct 2023- on IV Keytruda once a month but has not taken in 5months; abd pain & nausea x 6 months, inpatient @ [facility] 07/01/24- 07/04/24 for abd pain and 09/02-09/07/24. History of Any Multi-Drug Resistant Organisms: None Reported Past Surgical History: Cholecystectomy Additional Past Surgical History / Comment(s): Colonoscopy/EGD w/ 06/28/24.unable to find anything per patient. Past Anesthesia/Blood Transfusion Reactions: No Reported Reaction Additional Past Anesthesia/Blood Transfusion Reaction / Comment(s): Sedation only for Colonoscopy. Past Psychological History: Anxiety, Panic Disorder Smoking Status: Former smoker Past Alcohol Use History: None Reported Past Drug Use History: None Reported - Past Family History Mother Family Medical History: Cancer Additional Family Medical History / Comment(s): Pancreatic cancer Sister(s) Family Medical History: Cancer Additional Family Medical History / Comment(s): Pancreatic cancer Brother(s) Family Medical History: Cancer Additional Family Medical History / Comment(s): Leukemia General Exam Limitations: no limitations General appearance: alert, in no apparent distress (Patient is sitting comfortably on bed with no significant signs of distress or pain) Head exam: Present: atraumatic, normocephalic, normal inspection Eye exam: Present: normal appearance, PERRL, EOMI. Absent: scleral icterus, conjunctival injection, periorbital swelling ENT exam: Present: normal exam, mucous membranes moist Neck exam: Present: normal inspection. Absent: tenderness, meningismus, lymphadenopathy Respiratory exam: Present: normal lung sounds bilaterally. Absent: respiratory distress, wheezes, rales, rhonchi, stridor Cardiovascular Exam: Present: regular rate, normal rhythm, normal heart sounds. Absent: systolic murmur, diastolic murmur, rubs, gallop, clicks GI/Abdominal exam: Present: soft, distended, tenderness (Patient notes diffuse tenderness, even with light/superficial touch), guarding (Voluntary guarding throughout), diminished bowel sounds, hypoactive bowel sounds. Absent: rigid, mass, pulsatile mass, hernia Extremities exam: Present: normal inspection, full ROM, normal capillary refill, other (Bilateral posterior tibialis pulse +2). Absent: tenderness, pedal edema, joint swelling, calf tenderness Back exam: Present: CVA tenderness (R), CVA tenderness (L) Neurological exam: Present: alert, oriented X3, CN II-XII intact Psychiatric exam: Present: normal affect, normal mood Skin exam: Present: warm, dry, intact, normal color. Absent: rash Course Vital Signs 10/23/24 10/23/24 10/23/24 11:36 13:35 15:18 Temperature 97.7 F 97.6 F Pulse Rate 87 69 79 Respiratory 18 17 18 Rate Blood Pressure 187/114 191/107 187/103 O2 Sat by Pulse 94 L 97 96 Oximetry 10/23/24 16:04 Temperature Pulse Rate 76 Respiratory 18 Rate Blood Pressure 178/105 O2 Sat by Pulse 96 Oximetry Medical Decision Making - Medical Decision Making Was pt. sent in by a medical professional or institution (, PA, DEPUTY PROSECUTING ATTORNEY, urgent care, hospital, or alf...) When possible be specific @ -[No] Did you speak to anyone other than the patient for history (EMS, parent, family, police, friend...)? What history was obtained from this source @ -[No] Did you review nursing and triage notes (agree or disagree)? Why? @ -[I reviewed and agree with nursing and triage notes] Were old charts reviewed (outside hosp., previous admission, EMS record, old EKG, old radiological studies, urgent care reports/EKG's, alf records)? Report findings @ -Prior ER visit from August reviewed where patient was admitted for idiopathic abdominal pain. Differential Diagnosis (chest pain, altered mental status, abdominal pain women, abdominal pain men, vaginal bleeding, weakness, fever, dyspnea, syncope, headache, dizziness, GI bleed, back pain, seizure, CVA, palpatations, mental health, musculoskeletal)? @ -Differential Abdominal Pain Women: Appendicitis, Cholecystitis, diverticulosis, ischemic bowel, pancreatitis, hepatitis, UTI, gastroenteritis, AAA, incarcerated hernia, bowel obstruction, constipation, inflammatory bowel, hepatitis, peptic ulcer disease, splenic infar ction, perforated viscus, vulvitis, ovarian torsion, PID, kidney stone, placenta abruption, this is not meant to be an all-inclusive list EKG interpreted by me (3pts min.). @ -Sinus rhythm without ST changes or T wave inversion. Ventricular rate 75 bpm, MALGORZATA 171 ms, QRS duration 74 ms, QTc 414 ms. X-rays interpreted by me (1pt min.). @ -[None done] CT interpreted by me (1pt min.). @ -[None done] U/S interpreted by me (1pt. min.). @ -[None done] What testing was considered but not performed or refused? (CT, X-rays, U/S, labs)? Why? @ -[None] What meds were considered but not given or refused? Why? @ -[None] Did you discuss the management of the patient with other professionals (professionals i.e. , PA, DEPUTY PROSECUTING ATTORNEY, lab, RT, psych nurse, social and human services assistant, open end spinning operator, teacher, ambulance officer, child support case officer)? Give summary @ -[No] Was smoking cessation discussed for >3mins.? @ -[No] Was critical care preformed (if so, how long)? @ -[No] Were there social determinants of health that impacted care today? How? (Homelessness, low income, unemployed, alcoholism, drug addiction, transportation, low edu. Level, literacy, decrease access to med. care, correction, rehab)? @ -[No] Was there de-escalation of care discussed even if they declined (Discuss DNR or withdrawal of care, Hospice)? DNR status @ -[No] What co-morbidities impacted this encounter? (DM, HTN, Smoking, COPD, CAD, Cancer, CVA, ARF, Chemo, Hep., AIDS, mental health diagnosis, sleep apnea, morbid obesity)? @ -[None] Was patient admitted / discharged? Hospital course, mention meds given and route, prescriptions, significant lab abnormalities, going to OR and other pertinent info. @ -[hospital course] Undiagnosed new problem with uncertain prognosis? @ -[No] Drug Therapy requiring intensive monitoring for toxicity (Heparin, Nitro, Insulin, Cardizem)? @ -[No] Were any procedures done? @ -[No] Diagnosis/symptom? @ -[default] Acute, or Chronic, or Acute on Chronic? @ -Acute on chronic Uncomplicated (without systemic symptoms) or Complicated (systemic symptoms)? @ -Complicated Side effects of treatment? @ -[No] Exacerbation, Progression, or Severe Exacerbation? @ -Severe exacerbation Poses a threat to life or bodily function? How? (Chest pain, [place], [place], pneumonia, PE, COPD, DKA, ARF, appy, cholecystitis, CVA, Diverticulitis, Homicidal, Suicidal, threat to staff... and all critical care pts) @ -[No] - Lab Data Result diagrams: 10/23/24 12:39 10/23/24 12:39 Lab Results 10/23/24 10/23/24 10/23/24 Range/Units 12:39 12:39 12:39 WBC 5.6 (3.8-10.6) k/uL RBC 4.60 (3.80-5.40) m/uL Hgb 13.8 (11.4-16.0) gm/dL Hct 43.4 (34.0-46.0) % MCV 94.4 (80.0-100.0) fL MCH 30.1 (25.0-35.0) pg MCHC 31.8 (31.0-37.0) g/dL RDW 14.8 (11.5-15.5) % Plt Count 288 (150-450) k/uL MPV 6.3 Neutrophils % 75 % Lymphocytes % 16 % Monocytes % 4 % Eosinophils % 3 % Basophils % 1 % Neutrophils # 4.2 (1.3-7.7) k/uL Lymphocytes # 0.9 L (1.0-4.8) k/uL Monocytes # 0.2 (0-1.0) k/uL Eosinophils # 0.2 (0-0.7) k/uL Basophils # 0.0 (0-0.2) k/uL PT (10.0-12.5) sec INR (<1.2) APTT (22.0-30.0) sec Sodium 141 (137-145) mmol/L Potassium 3.8 (3.5-5.1) mmol/L Chloride 111 H (98-107) mmol/L Carbon Dioxide 23 (22-30) mmol/L Anion Gap 7 mmol/L BUN 14 (7-17) mg/dL Creatinine 0.73 (0.52-1.04) mg/dL Est GFR (CKD-EPI)AfAm >90 (>60 ml/min/1.73 sqM) Est GFR (CKD-EPI)NonAf 88 (>60 ml/min/1.73 sqM) Glucose 86 (74-99) mg/dL Plasma Lactic Acid Wagner (0.7-2.0) mmol/L Calcium 9.4 (8.4-10.2) mg/dL Total Bilirubin 0.4 (0.2-1.3) mg/dL AST 23 (14-36) U/L ALT 36 H (4-34) U/L Alkaline Phosphatase 67 (38-126) U/L Troponin I <0.012 (0.000-0.034) ng/mL Total Protein 6.9 (6.3-8.2) g/dL Albumin 4.5 (3.5-5.0) g/dL Amylase 54 (30-110) U/L Lipase 32 (23-300) U/L Urine Color Urine Appearance (Clear) Urine pH (5.0-8.0) Ur Specific [place] (1.001-1.035) Urine Protein (Negative) Urine Glucose (UA) (Negative) Urine Ketones (Negative) Urine Blood (Negative) Urine Nitrite (Negative) Urine Bilirubin (Negative) Urine Urobilinogen (<2.0) mg/dL Ur Leukocyte Esterase (Negative) Urine WBC (0-5) /hpf Ur Squamous Epith Cells (0-4) /hpf Urine Bacteria (None) /hpf Hyaline Casts (0-2) /lpf Urine Mucus (None) /hpf 10/23/24 10/23/24 10/23/24 Range/Units 13:01 13:01 13:38 WBC (3.8-10.6) k/uL RBC (3.80-5.40) m/uL Hgb (11.4-16.0) gm/dL Hct (34.0-46.0) % MCV (80.0-100.0) fL MCH (25.0-35.0) pg MCHC (31.0-37.0) g/dL RDW (11.5-15.5) % Plt Count (150-450) k/uL MPV Neutrophils % % Lymphocytes % % Monocytes % % Eosinophils % % Basophils % % Neutrophils # (1.3-7.7) k/uL Lymphocytes # (1.0-4.8) k/uL Monocytes # (0-1.0) k/uL Eosinophils # (0-0.7) k/uL Basophils # (0-0.2) k/uL PT 11.9 (10.0-12.5) sec INR 1.1 (<1.2) APTT 27.6 (22.0-30.0) sec Sodium (137-145) mmol/L Potassium (3.5-5.1) mmol/L Chloride (98-107) mmol/L Carbon Dioxide (22-30) mmol/L Anion Gap mmol/L BUN (7-17) mg/dL Creatinine (0.52-1.04) mg/dL Est GFR (CKD-EPI)AfAm (>60 ml/min/1.73 sqM) Est GFR (CKD-EPI)NonAf (>60 ml/min/1.73 sqM) Glucose (74-99) mg/dL Plasma Lactic Acid Wagner 2.0 (0.7-2.0) mmol/L Calcium (8.4-10.2) mg/dL Total Bilirubin (0.2-1.3) mg/dL AST (14-36) U/L ALT (4-34) U/L Alkaline Phosphatase (38-126) U/L Troponin I (0.000-0.034) ng/mL Total Protein (6.3-8.2) g/dL Albumin (3.5-5.0) g/dL Amylase (30-110) U/L Lipase (23-300) U/L Urine Color Colorless Urine Appearance Cloudy H (Clear) Urine pH 6.5 (5.0-8.0) Ur Specific [place] 1.013 (1.001-1.035) Urine Protein Negative (Negative) Urine Glucose (UA) Negative (Negative) Urine Ketones Negative (Negative) Urine Blood Negative (Negative) Urine Nitrite Negative (Negative) Urine Bilirubin Negative (Negative) Urine Urobilinogen <2.0 (<2.0) mg/dL Ur Leukocyte Esterase Negative (Negative) Urine WBC <1 (0-5) /hpf Ur Squamous Epith Cells 1 (0-4) /hpf Urine Bacteria Rare H (None) /hpf Hyaline Casts 1 (0-2) /lpf Urine Mucus Rare H (None) /hpf Disposition Clinical Impression: Enteritis Disposition: HOME SELF-CARE Condition: Good Instructions (If sedation given, give patient instructions): Enteritis (ED) Is patient prescribed a controlled substance at d/c from ED?: No Referrals: Tray Garnett MD [Primary Care Provider] - 1-2 days Time of Disposition: 14:43
[2024-10-23] MEDS: SODIUM CHLORIDE 0.9% 1,000 ML IV STA (12:40)
[2024-10-23] MEDS: HYDROmorphone 0.5 MG/0.5 ML SYRINGE IVP STA ×3 (12:41→15:49)
[2024-10-23] MEDS: FAMOTIDINE 20 MG/2 ML VIAL IV STA (12:41)
[2024-10-23] MEDS: PANTOPRAZOLE 40 MG/10 ML VIAL IVP STA (12:43)
[2024-10-23] MEDS: MAG HYDROX/AL HYDROX/SIMETH 30 ML, HYOSCYAMINE ELIXIR 10 ML, LIDOCAINE VISCOUS 2% 10 ML PO STA (12:44)
[2024-10-23 12:52] LABS: Basophils % (A) 1 %; Eosinophils # (A) 0.2 k/uL (0-0.7); Eosinophils % (A) 3 %; HCT 43.4 % (34.0-46.0); HGB 13.8 gm/dL (11.4-16.0); Lymphocytes # (A) 0.9 k/uL (1.0-4.8); Lymphocytes % (A) 16 %; MCH 30.1 pg (25.0-35.0); MCHC 31.8 g/dL (31.0-37.0); MCV 94.4 fL (80.0-100.0); Mean Platelet Volume 6.3; Monocytes # (A) 0.2 k/uL (0-1.0); Monocytes % (A) 4 %; Neutrophils # (A) 4.2 k/uL (1.3-7.7); Neutrophils % (A) 75 %; Platelet Count 288 k/uL (150-450); RDW 14.8 % (11.5-15.5); WBC 5.6 k/uL (3.8-10.6)
[2024-10-23 13:00] LABS: ALT 36 U/L (4-34); AST 23 U/L (14-36); African American GFR (CKD) >90 (>60 ml/min/1.73 sqM); Albumin 4.5 g/dL (3.5-5.0); Alkaline Phosphatase 67 U/L (38-126); Amylase 54 U/L (30-110); Anion Gap 7 mmol/L; Blood Urea Nitrogen 14 mg/dL (7-17); Calcium 9.4 mg/dL (8.4-10.2); Carbon Dioxide 23 mmol/L (22-30); Chloride 111 mmol/L (98-107); Glucose 86 mg/dL (74-99); Lipase 32 U/L (23-300); Non-African American GFR(CKD) 88 (>60 ml/min/1.73 sqM); Potassium 3.8 mmol/L (3.5-5.1); Sodium 141 mmol/L (137-145); Total Bilirubin 0.4 mg/dL (0.2-1.3); Total Protein 6.9 g/dL (6.3-8.2)
[2024-10-23 13:18] LABS: INR 1.1 (<1.2); Partial Thromboplastin Time 27.6 sec (22.0-30.0); Prothrombin Time 11.9 sec (10.0-12.5)
[2024-10-23] MEDS: KETOROLAC 15 MG/ML 1 ML VIAL IVP STA (13:41)
--- NOTE | 2024-10-23 13:44 | CT ---
INDICATION: Patient age:Female; 63 years old; Reason for study: Diffuse abdominal pain; PHH. COMPARISON: CT abdomen/pelvis 09/08/2024. TECHNIQUE: Standard CT of the abdomen and pelvis following the administration of 100 cc of Isovue 3 00 IV contrast material. Coronal and sagittal reformats were performed. One or more CT dose reduction strategies were utilized during this examination. Total DLP administered was 630.1 mGycm. FINDINGS: LOWER CHEST: Small area of consolidation/atelectasis is noted in the medial left lower lobe. Trace pe ricardial fluid. ABDOMEN LIVER: Unremarkable. GALLBLADDER AND BILE DUCTS: The gallbladder is surgically absent. There is redemonstrated common bile duct dilatation measuring up to at least 1.4 cm which is essentially unchanged from the CT in refere pre. PANCREAS: Unremarkable. SPLEEN: Unremarkable. ADRENAL GLANDS: Unremarkable. KIDNEYS AND URETERS: No evidence of hydronephrosis. Punctate nonobstructive renal calculi are seen bi laterally. Left cystic changes. There is a are subcentimeter hypodense foci seen in the bilateral kid neys too small to characterize. The ureters are unremarkable. PELVIS URINARY BLADDER: Incompletely distended but grossly unremarkable. REPRODUCTIVE: No pelvic masses. ABDOMEN & PELVIS STOMACH AND BOWEL: Stomach is grossly unremarkable. Small bowel is of normal caliber. There is segmen ariana circumferential small bowel wall thickening seen most conspicuous in the lower abdomen. No eviden ce of bowel obstruction. PERITONEUM: No evidence of pneumoperitoneum. There is trace free fluid noted in the pelvis dependentl y. VASCULATURE: No aneurysmal changes. Advanced atherosclerotic disease. MUSCULOSKELETAL: Stable compression deformities of the lower thoracic spine. No acute osseous abnorma lities. LYMPH NODES: Unremarkable. SOFT TISSUE/ABDOMINAL WALL: Unremarkable IMPRESSION: 1. Findings suggestive of acute enteritis likely related to an infectious/inflammatory process. 2. Cholecystectomy with similar common bile duct dilatation measuring up to at least 1.4 cm. This can be further characterized with an MRCP/MRI abdomen with IV contrast on a nonemergent outpatient basis if clinically warranted. 3. Punctate nonobstructive renal calculi bilaterally. 4. Small consolidative changes in the left medial lower lobe may be related to resolution of previous ly seen infiltrative changes versus residual pneumonia. [facility], , 10/23/2024 1:42 PM
[2024-10-23 13:49] LABS: Appearance,Urine Cloudy (Clear); Bacteria,Urine Rare /hpf; Bilirubin,Urine Negative (Negative); Blood,Urine Negative (Negative); Color,Urine Colorless; Glucose,Urine (UA) Negative (Negative); Hyaline Casts,Urine 1 /lpf (0-2); Ketones,Urine Negative (Negative); Leukocyte Esterase,Urine Negative (Negative); Mucus,Urine Rare /hpf; Nitrite,Urine Negative (Negative); PH, Urine 6.5 (5.0-8.0); Protein,Urine Negative (Negative); Specific Gravity,Urine 1.013 (1.001-1.035); Squamous Epithelial Cell,Urine 1 /hpf (0-4); Urobilinogen,Urine <2.0 mg/dL (<2.0); WBC,Urine <1 /hpf (0-5)
[2024-10-23 15:21] VITALS: RESP 18
[2024-10-23] MEDS: droPERidol 5 MG/2 ML VIAL IVP ONE ×2 (15:39→15:50)
[2024-10-23] MEDS: hydrALAZINE HCL 20 MG/ML 1 ML VIAL IVP STA (15:51)
[2024-10-23] MEDS: TRIAMTERENE-HCTZ 75-50MG 1 EACH TAB PO SCH (15:57)
[2024-10-23] MEDS: ACET/COD 300 MG/30 MG STARTER PACK 6 TAB BTL PO STA ×2 (16:42→17:25)
[2024-10-23 17:32] VITALS: BP 162/91; PULSE 85; TEMP 98.1
== END 2024-10-23 17:37 | disposition home or self-care (01) ==
LOC: EC 11:23
DX: K52.9 Noninfective gastroenteritis and colitis, unspecified (principal); Z88.1 Allergy status to other antibiotic agents; Z87.891 Personal history of nicotine dependence
CPT/HCPCS: 36415; 93005; 80053; 82150; 83605; 83690; 84484; 85025; 85610; 85730; 81001; 74177; 99285; 96374; 96375 ×4; 96376 ×2; 96361; J0360; J3490; J1885; J1171; Q9967; J1790; J2470

== ENCOUNTER 2024-11-21 14:39 | Emergency (ER) | payer OTHER ==
[2024-11-21 14:46] VITALS: RESP 18; TEMP 97.4
[2024-11-21 15:37] LABS: Basophils % (A) 1 %; Eosinophils # (A) 0.1 k/uL (0-0.7); Eosinophils % (A) 3 %; HCT 39.9 % (34.0-46.0); HGB 13.2 gm/dL (11.4-16.0); Lymphocytes # (A) 0.8 k/uL (1.0-4.8); Lymphocytes % (A) 19 %; MCH 30.2 pg (25.0-35.0); MCHC 33.1 g/dL (31.0-37.0); Mean Platelet Volume 6.5; Monocytes # (A) 0.2 k/uL (0-1.0); Monocytes % (A) 5 %; Neutrophils # (A) 2.8 k/uL (1.3-7.7); Neutrophils % (A) 71 %; Platelet Count 312 k/uL (150-450); RBC 4.39 m/uL (3.80-5.40); RDW 14.1 % (11.5-15.5)
[2024-11-21] MEDS: HYDROmorphone 1 MG/ML 1 ML SYRINGE IVP STA (15:42)
[2024-11-21] MEDS: KETOROLAC 15 MG/ML 1 ML VIAL IVP STA (15:43)
[2024-11-21] MEDS: SODIUM CHLORIDE 0.9% 500 ML 500 ML IV STA (15:43)
[2024-11-21] MEDS: FAMOTIDINE 20 MG/2 ML VIAL IV STA (15:43)
[2024-11-21] MEDS: MAG HYDROX/AL HYDROX/SIMETH 30 ML CUP PO PRN (15:46)
[2024-11-21 15:48] LABS: ALT 33 U/L (4-34); African American GFR (CKD) >90 (>60 ml/min/1.73 sqM); Albumin 3.9 g/dL (3.5-5.0); Anion Gap 9 mmol/L; Blood Urea Nitrogen 13 mg/dL (7-17); Calcium 8.9 mg/dL (8.4-10.2); Carbon Dioxide 25 mmol/L (22-30); Chloride 98 mmol/L (98-107); Glucose 93 mg/dL (74-99); Lipase 19 U/L (23-300); Non-African American GFR(CKD) 88 (>60 ml/min/1.73 sqM); Sodium 132 mmol/L (137-145); Total Bilirubin 0.6 mg/dL (0.2-1.3); Total Protein 6.6 g/dL (6.3-8.2)
[2024-11-21 15:58] LABS: AST 30 U/L (14-36); Alkaline Phosphatase 78 U/L (38-126); Potassium 3.9 mmol/L (3.5-5.1)
--- NOTE | 2024-11-21 16:20 | ED ---
Abdominal Pain HPI - General Chief Complaint: Abdominal Pain Stated Complaint: Abd pain Time Seen by Provider: 11/21/24 14:59 Source: patient, RN notes reviewed Mode of arrival: wheelchair Limitations: no limitations - History of Present Illness Initial Comments: 64-year-old female presenting for abdominal pain x 6 months. States since March of last year she has been experiencing epigastric pain and bloating radiating to the bilateral flanks described as a pressure. Endorses decreased oral intake due to the pain. [facility] she has been seen several times for this including Dr. Apodaca approximately 2 weeks ago however no cause has been identified. [facility] she had cholecystectomy back in August with no improvement of symptoms. [facility] she has active lung cancer and follows with Dr. Castro for monthly injections. [facility] she was previously on chemo and radiation. [facility] she underwent multiple CT scans and trialed many medications with little causing relief. Denies chest pain, shortness of breath, fevers, chills, vomiting. - Related Data Home Medications Medication Instructions Recorded Confirmed ALPRAZolam [Xanax] 0.25 mg PO DAILY PRN 04/25/24 09/22/24 ALPRAZolam [Xanax] 0.25 mg PO HS 04/25/24 09/22/24 Atorvastatin [Lipitor] 20 mg PO HS 04/25/24 09/22/24 Diltiazem Cd [Cardizem CD] 240 mg PO HS 04/25/24 09/22/24 Fluticasone/Umeclidin/Vilanter 1 puff INHALATION RT-DAILY 04/25/24 09/22/24 [Trelegy Ellipta 100-62.5-25] Gabapentin 300 mg PO QID 04/25/24 09/22/24 Levothyroxine Sodium [Synthroid] 75 mcg PO DAILY 04/25/24 09/22/24 QUEtiapine FUMARATE [SEROquel] 200 mg PO HS 04/25/24 09/22/24 Triamterene/Hydrochlorothiazid 1 tab PO DAILY 04/25/24 09/22/24 [Triamterene-Hctz 75-50 mg Tab] Citalopram Hydrobromide [CeleXA] 20 mg PO DAILY 07/01/24 09/22/24 Sucralfate [Carafate] 1 gm PO ACHS 07/01/24 09/22/24 Buprenorphine [Butrans 20 MCG/HOUR] 1 patch TRANSDERM SA 09/03/24 09/22/24 Cimetidine [Tagamet] 400 mg PO HS 09/03/24 09/22/24 Famotidine [Pepcid] 40 mg PO DAILY PRN 09/03/24 09/22/24 Linaclotide [Linzess] 290 mcg PO DAILY 09/03/24 09/22/24 Ondansetron Odt [Zofran ODT] 4 mg PO Q8HR PRN 09/03/24 09/22/24 Pantoprazole [Protonix] 40 mg PO DAILY 09/03/24 09/22/24 Acetaminophen-Codeine 300-30mg 1 tab PO Q8H PRN 09/22/24 09/22/24 [Tylenol w/codeine #3] Baclofen [Lioresal] 10 mg PO TID 09/22/24 09/22/24 Docusate [Colace] 100 mg PO BID PRN 09/22/24 09/22/24 Potassium Chloride ER [K-Dur 10] 10 meq PO DAILY 09/22/24 09/22/24 Simethicone Chew [Mylicon Chew] 80 mg PO QID PRN 09/22/24 09/22/24 Tiotropium 2.5 Mcg/Puff [Spiriva 2 puff INHALATION RT-DAILY 09/22/24 09/22/24 Respimat 2.5 Mcg] oxyCODONE HCL [OxyIR] 5 mg PO Q8H PRN 09/22/24 09/22/24 oxyCODONE-APAP 10-325MG [Percocet 1 tab PO Q6H PRN 09/22/24 09/22/24 10-325 mg] Previous Rx's Medication Instructions Recorded Dicyclomine [Bentyl] 10 mg PO QID PRN #120 cap 09/07/24 Lactulose [Cephulac] 30 gm PO TID #360 ml 09/07/24 Sennosides [Senokot] 8.6 mg PO DAILY PRN #30 tab 09/07/24 bisacodyL [Dulcolax] 10 mg RECTAL DAILY PRN #30 09/07/24 suppositor polyethylene glycoL 3350 [Miralax] 17 gm PO DAILY 14 Days #14 packet 09/23/24 Famotidine [Pepcid] 20 mg PO BID #28 tablet 11/21/24 Omeprazole [PriLOSEC] 20 mg PO AC-BRKFST #14 cap 11/21/24 Allergies Allergy/AdvReac Type Severity Reaction Status Date / Time morphine Allergy Unknown Verified 11/21/24 14:41 Review of Systems ROS Statement: Those systems with pertinent positive or pertinent negative responses have been documented in the HPI. ROS Other: All systems not noted in ROS Statement are negative. Past Medical History Past Medical History: Cancer, GERD/Reflux, Hyperlipidemia, Hypertension, Thyroid Disorder Additional Past Medical History / Comment(s): Wheezing, lung cancer w/ 7 radiation and chemo 30days finished oct 2023- on IV Keytruda once a month but has not taken in 5months; abd pain & nausea x 6 months, inpatient @ [facility] 07/01/24- 07/04/24 for abd pain and 09/02-09/07/24. History of Any Multi-Drug Resistant Organisms: None Reported Past Surgical History: Cholecystectomy Additional Past Surgical History / Comment(s): Colonoscopy/EGD w/ 06/28/24.unable to find anything per patient. Past Anesthesia/Blood Transfusion Reactions: No Reported Reaction Additional Past Anesthesia/Blood Transfusion Reaction / Comment(s): Sedation only for Colonoscopy. Past Psychological History: Anxiety, Panic Disorder Smoking Status: Former smoker Past Alcohol Use History: None Reported Past Drug Use History: None Reported - Past Family History Mother Family Medical History: Cancer Additional Family Medical History / Comment(s): Pancreatic cancer Sister(s) Family Medical History: Cancer Additional Family Medical History / Comment(s): Pancreatic cancer Brother(s) Family Medical History: Cancer Additional Family Medical History / Comment(s): Leukemia General Exam Limitations: no limitations General appearance: alert, in no apparent distress Head exam: Present: atraumatic, normocephalic, normal inspection Eye exam: Present: normal appearance, PERRL, EOMI. Absent: scleral icterus, conjunctival injection, periorbital swelling ENT exam: Present: normal exam, mucous membranes moist Respiratory exam: Present: normal lung sounds bilaterally. Absent: respiratory distress, wheezes, rales, rhonchi, stridor Cardiovascular Exam: Present: regular rate, normal rhythm, normal heart sounds. Absent: systolic murmur, diastolic murmur, rubs, gallop, clicks GI/Abdominal exam: Present: soft, normal bowel sounds. Absent: distended, tenderness, guarding, rebound, rigid Neurological exam: Present: alert, oriented X3 Psychiatric exam: Present: normal affect, normal mood Skin exam: Present: warm, dry, intact, normal color. Absent: rash Course Vital Signs 11/21/24 11/21/24 11/21/24 14:41 17:53 18:46 Temperature 97.4 F L Pulse Rate 83 80 80 Respiratory 18 18 18 Rate Blood Pressure 174/91 192/122 179/92 O2 Sat by Pulse 96 95 95 Oximetry Medical Decision Making - Medical Decision Making Was pt. sent in by a medical professional or institution (, PA, [facility], urgent care, hospital, or detention...) When possible be specific @ -No Did you speak to anyone other than the patient for history (EMS, parent, family, police, friend...)? What history was obtained from this source @ -No Did you review nursing and triage notes (agree or disagree)? Why? @ -I reviewed and agree with nursing and triage notes Were old charts reviewed (outside hosp., previous admission, EMS record, old EKG, old radiological studies, urgent care reports/EKG's, detention records)? Report findings @ -No old charts were reviewed Differential Diagnosis (chest pain, altered mental status, abdominal pain women, abdominal pain men, vaginal bleeding, weakness, fever, dyspnea, syncope, headache, dizziness, GI bleed, back pain, seizure, CVA, palpatations, mental health, musculoskeletal)? @ -Differential Abdominal Pain Women: Appendicitis, Cholecystitis, diverticulosis, ischemic bowel, pancreatitis, hepatitis, UTI, gastroenteritis, AAA, incarcerated hernia, bowel obstruction, constipation, inflammatory bowel, hepatitis, peptic ulcer disease, splenic infarction, perforated viscus, vulvitis, ovarian torsion, PID, kidney stone, placenta abruption, this is not meant to be an all-inclusive list EKG interpreted by me (3pts min.). @ -None X-rays interpreted by me (1pt min.). @ -KUB reveals nonspecific abdomen, minimal bilateral pleural effusions, left lower lung nodule CT interpreted by me (1pt min.). @ -None done U/S interpreted by me (1pt. min.). @ -None done What testing was considered but not performed or refused? (CT, X-rays, U/S, labs)? Why? @ -CT abdomen pelvis considered however patient has had several CTs since symptom onset with no change in symptoms What meds were considered but not given or refused? Why? @ -None Did you discuss the management of the patient with other professionals (professionals i.e. Dr., PA, SLPS, lab, RT, psych nurse, manager social, metal die finisher, teacher, postal delivery officer, case worker)? Give summary @ -No Was smoking cessation discussed for >3mins.? @ -No Was critical care preformed (if so, how long)? @ -No Were there social determinants of health that impacted care today? How? (Homelessness, low income, unemployed, alcoholism, drug addiction, transportation, low edu. Level, literacy, decrease access to med. care, intermediate, rehab)? @ -No Was there de-escalation of care discussed even if they declined (Discuss DNR or withdrawal of care, Hospice)? DNR status @ -No What co-morbidities impacted this encounter? (DM, HTN, Smoking, COPD, CAD, Cancer, CVA, ARF, Chemo, Hep., AIDS, mental health diagnosis, sleep apnea, morbid obesity)? @ -None Was patient admitted / discharged? Hospital course, mention meds given and route, prescriptions, significant lab abnormalities, going to OR and other pertinent info. @ -Discharge. This is a 64-year-old female presenting for epigastric pain x 6 months. Denies any new or acute symptoms. Patient is hypertensive, otherwise vital signs within acceptable limits. Patient was provided with Pepcid, Maalox, Toradol, and Dilaudid. No acute cardiopulmonary alarm symptoms. Lab work unremarkable. KUB reveals nonspecific abdomen. Discussed results with patient. Upon reevaluation, patient reports improvement of symptoms. Blood pressure increases to 192/122 and patient was given dose of hydralazine. Blood pressure recheck is 179/92. I discussed with patient that she must follow-up with PCP/Stacey Apodaca For further investigation of symptoms and there is no sign of emergent etiology causing symptoms today. Appropriate return precautions discussed. Case was discussed with my ED attending Dr. Piña. Undiagnosed new problem with uncertain prognosis? @ -No Drug Therapy requiring intensive monitoring for toxicity (Heparin, Nitro, Insulin, Cardizem)? @ -No Were any procedures done? @ -No Diagnosis/symptom? @ -Epigastric pain Acute, or Chronic, or Acute on Chronic? @ -Chronic Uncomplicated (without systemic symptoms) or Complicated (systemic symptoms)? @ -Uncomplicated Side effects of treatment? @ -No Exacerbation, Progression, or Severe Exacerbation? @ -No Poses a threat to life or bodily function? How? (Chest pain, [place], [place], pneumonia, PE, COPD, DKA, ARF, appy, cholecystitis, CVA, Diverticulitis, Homicidal, Suicidal, threat to staff... and all critical care pts) @ -Not at this time - Lab Data Result diagrams: 11/21/24 15:26 11/21/24 15:26 Lab Results 11/21/24 11/21/24 11/21/24 Range/Units 15:26 15:26 15:26 WBC 4.0 (3.8-10.6) k/uL RBC 4.39 (3.80-5.40) m/uL Hgb 13.2 (11.4-16.0) gm/dL Hct 39.9 (34.0-46.0) % MCV 91.0 (80.0-100.0) fL MCH 30.2 (25.0-35.0) pg MCHC 33.1 (31.0-37.0) g/dL RDW 14.1 (11.5-15.5) % Plt Count 312 (150-450) k/uL MPV 6.5 Neutrophils % 71 % Lymphocytes % 19 % Monocytes % 5 % Eosinophils % 3 % Basophils % 1 % Neutrophils # 2.8 (1.3-7.7) k/uL Lymphocytes # 0.8 L (1.0-4.8) k/uL Monocytes # 0.2 (0-1.0) k/uL Eosinophils # 0.1 (0-0.7) k/uL Basophils # 0.0 (0-0.2) k/uL Sodium 132 L (137-145) mmol/L Potassium 3.9 (3.5-5.1) mmol/L Chloride 98 (98-107) mmol/L Carbon Dioxide 25 (22-30) mmol/L Anion Gap 9 mmol/L BUN 13 (7-17) mg/dL Creatinine 0.73 (0.52-1.04) mg/dL Est GFR (CKD-EPI)AfAm >90 (>60 ml/min/1.73 sqM) Est GFR (CKD-EPI)NonAf 88 (>60 ml/min/1.73 sqM) Glucose 93 (74-99) mg/dL Plasma Lactic Acid Wagner 1.0 (0.7-2.0) mmol/L Calcium 8.9 (8.4-10.2) mg/dL Total Bilirubin 0.6 (0.2-1.3) mg/dL AST 30 (14-36) U/L ALT 33 (4-34) U/L Alkaline Phosphatase 78 (38-126) U/L Total Protein 6.6 (6.3-8.2) g/dL Albumin 3.9 (3.5-5.0) g/dL Lipase 19 L (23-300) U/L Disposition Clinical Impression: Epigastric pain Disposition: HOME SELF-CARE Condition: Stable Instructions (If sedation given, give patient instructions): Epigastric Pain (ED) Additional Instructions: Follow-up with PCP and Dr. Apodaca as discussed. Please return to the Emergency Department if symptoms worsen or any other concerns. Prescriptions: Famotidine [Pepcid] 20 mg PO BID #28 tablet Omeprazole [PriLOSEC] 20 mg PO AC-BRKFST #14 cap Is patient prescribed a controlled substance at d/c from ED?: No Referrals: Tray Garnett MD [Primary Care Provider] - 1-2 days Conchita Liao MD [STAFF PHYSICIAN] - 1-2 days Time of Disposition: 17:40
--- NOTE | 2024-11-21 17:27 | XR ---
EXAMINATION TYPE: XR KUB DATE OF EXAM: 11/21/2024 4:54 PM COMPARISON: CT abdomen pelvis 10/23/2024 CLINICAL INDICATION: Female, 64 years old with history of abd pain, TECHNIQUE: XR KUB view(s) obtained. FINDINGS: There is nonspecific bowel gas pattern. Air is predominantly within the colon. Psoas margins are normal. No organomegaly is present. Postsurgical surgical clips in the right upper quadrant. Small left and minimal right pleural effusion may be present. Left lower lobe 1.7 cm lung nodule. So me cardiomegaly may be present. IMPRESSION: 1. Nonspecific abdomen. 2. Minimal bilateral pleural effusions. 3. Left lower lung field nodule may be present. [facility], Workstation: [facility], 11/21/2024 5:25 PM
[2024-11-21] MEDS: HYDROmorphone 0.5 MG/0.5 ML SYRINGE IVP STA (17:50)
[2024-11-21 17:53] VITALS: PULSE 80
[2024-11-21] MEDS: hydrALAZINE HCL 20 MG/ML 1 ML VIAL IVP STA (18:26)
[2024-11-21 18:47] VITALS: BP 179/92
== END 2024-11-21 18:47 | disposition home or self-care (01) ==
LOC: EC 14:39
DX: G89.29 Other chronic pain (principal); R10.13 Epigastric pain; Z87.891 Personal history of nicotine dependence; Z88.5 Allergy status to narcotic agent
CPT/HCPCS: 99284 ×2; 96374 ×2; 96375 ×4; 96376 ×2; 36415; 80053; 83605; 83690; 85025; 74018; J0360; J3490; J1171 ×2; J1885

== ENCOUNTER → 2025-02-11 | Outpatient (CLI) | payer OTHER ==
[2025-02-11 13:45] LABS: African American GFR (CKD) >90 (>60 ml/min/1.73 sqM); Blood Urea Nitrogen 15 mg/dL (7-17); Non-African American GFR(CKD) 80 (>60 ml/min/1.73 sqM)
--- NOTE | 2025-02-11 15:10 | CT ---
CT chest with contrast. HISTORY: Lung cancer COMPARISON: 06/15/2024 TECHNIQUE: Multiple axial images were obtained through the thorax following the uneventful administra tion of nonionic IV contrast material. FINDINGS: There are mild emphysematous changes. There is persistent and stable small right pleural effusion and adjacent compressive atelectasis. The re is a stable micronodule in the right lower lobe. There is a small left pleural effusion which is smaller in size compared to the prior study. There is increasing lung consolidation in the left lower lobe and lingula likely postobstructive pneumonitis from an endobronchial lesion in the lower lobe. The great vessels the chest are normal. There is cardiomegaly and a moderate pericardial effusion. There is no mediastinal, hilar or axillary adenopathy. There is no pulmonary embolus. Limited scanning of the upper abdomen reveals no gross abnormality.. No focal osseous lesions are seen. IMPRESSION: 1. Increasing left lower lobe lingular lung consolidation suspicious for postobstructive pneumonitis from endobronchial lesion. 2. Persistent but decreasing small left pleural effusion. 3. Stable small right pleural effusion and adjacent compressive atelectasis 4. Cardiomegaly with stable moderate pericardial effusion [facility], , 02/11/2025 3:08 PM
== END | disposition home or self-care (01) ==
LOC: RADCTMAIN 12:50
PROVIDERS: ATTEND Internal Medicine Hematology & Oncology
DX: C34.32 Malignant neoplasm of lower lobe, left bronchus or lung (principal); I10 Essential (primary) hypertension; J90 Pleural effusion, not elsewhere classified; J98.11 Atelectasis; I51.7 Cardiomegaly; I31.39 Other pericardial effusion (noninflammatory); R91.8 Other nonspecific abnormal finding of lung field
CPT/HCPCS: 82565; 84520; 71260; 36415; Q9967

== ENCOUNTER 2025-02-19 19:40 | Inpatient (IN) | payer OTHER ==
[2025-02-19 20:15] LABS: Basophils # (A) 0.03 10*3/uL (0.00-0.10); Basophils % (A) 0.4 %; Eosinophils # (A) 0.11 10*3/uL (0.04-0.35); Eosinophils % (A) 1.3 %; HCT 42.5 % (37.2-46.3); HGB 14.6 g/dL (12.0-15.0); Lymphocytes # (A) 1.16 10*3/uL (0.90-5.00); Lymphocytes % (A) 14.1 %; MCH 32.7 pg (27.0-32.0); MCHC 34.4 g/dL (32.0-37.0); MCV 95.1 fL (80.0-97.0); Mean Platelet Volume 8.3 fL (9.5-12.2); Monocytes # (A) 0.56 10*3/uL (0.20-1.00); Monocytes % (A) 6.8 %; Neutrophils # (A) 6.23 10*3/uL (1.80-7.70); Neutrophils % (A) 75.5 %; Platelet Count 391 10*3/uL (140-440); RBC 4.47 10*6/uL (4.10-5.20); RDW 15.6 % (11.5-14.5); WBC 8.25 10*3/uL (4.50-10.00)
[2025-02-19 20:30] LABS: ALT 102 U/L (4-34); AST 67 U/L (14-36); African American GFR (CKD) 89 (>60 ml/min/1.73 sqM); Albumin 4.3 g/dL (3.5-5.0); Alkaline Phosphatase 86 U/L (38-126); Amylase 60 U/L (30-110); Anion Gap 9 mmol/L; Blood Urea Nitrogen 12 mg/dL (7-17); Calcium 8.5 mg/dL (8.4-10.2); Carbon Dioxide 22 mmol/L (22-30); Chloride 101 mmol/L (98-107); Glucose 85 mg/dL (74-99); Lipase 44 U/L (23-300); Magnesium 2.1 mg/dL (1.6-2.3); Non-African American GFR(CKD) 78 (>60 ml/min/1.73 sqM); Potassium 3.8 mmol/L (3.5-5.1); Sodium 132 mmol/L (137-145); Total Bilirubin 0.6 mg/dL (0.2-1.3); Total Protein 7.3 g/dL (6.3-8.2)
[2025-02-19 20:34] LABS: INR 0.9 (<1.2); Partial Thromboplastin Time 25.7 sec (22.0-30.0); Prothrombin Time 10.5 sec (10.0-12.5)
[2025-02-19] MEDS: SODIUM CHLORIDE 0.9% 1,000 ML IV STA (20:45)
[2025-02-19] MEDS: HYDROmorphone 1 MG/ML 1 ML SYRINGE IVP STA ×2 (20:45→21:26)
--- NOTE | 2025-02-19 22:10 | CT ---
EXAMINATION TYPE: CT ChestAbdPelvis w con DATE OF EXAM: 02/19/2025 9:51 PM COMPARISON: 02/11/2025 CLINICAL INDICATION: Female, 64 years old with history of pain; PHH, Pt coming from home today for CP and ABD pain. Pt states that her CP became less following the Nitro she received from EMS. Pt also h as ABD pain and her last BM was yesterdy. Pt states that her last BM was dark and tarry. No BM today. Pt has hx of HPTN and COPD. Pt on 2L O2. Pt does not wear O2 at home. Technique: CT ChestAbdPelvis w con; Multiple axial images were obtained. Two-dimensional coronal and sagittal reconstructions were obtained. Contrast used:80mL mL of Isovue 300 with IV Contrast, (None if empty) Oral contrast used: without Oral Contrast CT DLP: 709.9 mGycm, Automated exposure control for dose reduction was used. Findings: CHEST: LUNGS/ PLEURA: Consolidation changes in the left lower lung with opacified large airways. AIRWAY: The left lower lobe airways are opacified with postobstructive atelectasis. Debris is seen wi thin the large airways. There is small left pleural effusion. HEART: Size within normal limits. Mild coronary artery calcifications present. Trace pericardial effu reynaldo similar to prior. MEDIASTINUM: No gross evidence of adenopathy. VASCULATURE: Atherosclerotic calcifications are present throughout the aorta and its branches. MUSCULOSKELETAL: Moderate disc degeneration changes are present throughout the thoracolumbar spine. C hronic appearing wedge deformities T11 and T12 and T9 vertebral bodies stable back to at least 8/ 024. SOFT TISSUES/LYMPH NODES: Unremarkable. LOWER NECK: No significant findings. ABDOMEN: ABDOMEN LIVER: Unremarkable GALLBLADDER AND BILE DUCTS: Gallbladder is surgically absent with mild intrahepatic and extra hepatic biliary dilatation likely physiologic and a postcholecystectomy change. No evidence of choledocholit hiasis. PANCREAS: Unremarkable. SPLEEN: Unremarkable. ADRENAL GLANDS: Unremarkable. KIDNEYS AND URETERS: No evidence of hydronephrosis or obstructing renal calculus. The ureters are unr emarkable. 24 mm left probable renal cyst. No follow up recommended. PELVIS BLADDER: Distended urinary bladder. REPRODUCTIVE: Unremarkable. ABDOMEN & PELVIS STOMACH AND BOWEL: No evidence of bowel obstruction. PERITONEUM/RETROPERITONEUM: No evidence of pneumoperitoneum or free fluid. VASCULATURE: No evidence of aortic aneurysm. MUSCULOSKELETAL: No acute osseous abnormalities. Moderate disc degeneration changes are present throu ghout the thoracolumbar spine. Compression deformity of L2 new from 10/23/2024 with 25% height loss. LYMPH NODES: No gross evidence for lymphadenopathy. SOFT TISSUE/ABDOMINAL WALL: Unremarkable IMPRESSION: 1. Opacified left lower lobe airways increased consolidation. Consider bronchoscopy with evaluation of the airway. Correlate for mucous plugging versus obstructing malignancy. 2. Small left pleural effusion. 3. New from 10/23/2024 compression deformity to L2 vertebral bodies. Endplate with 25% height loss. Correlate back pain. Consider MRI lumbar spine. 4. Gallbladder is surgically absent with mild intrahepatic and extra hepatic biliary dilatation like ly physiologic and a postcholecystectomy change. No evidence of choledocholithiasis. 5. Similar trace pericardial effusion. 6. Chronic appearing wedge deformities T11 and T12 and T9 vertebral bodies stable back to at least . Follow up recommendations for incidental pulmonary nodules are per [employer] or [employer]. [facility], , 02/19/2025 10:08 PM
[2025-02-19] MEDS: KETOROLAC 15 MG/ML 1 ML VIAL IVP STA (22:42)
[2025-02-19] MEDS: diphenhydrAMINE 50 MG/ML 1 ML VIAL IVP STA (22:44)
[2025-02-19] MEDS ORDERED: NALOXONE 0.4 MG/ML 1 ML VIAL IV PRN (23:00)
[2025-02-19] MEDS ORDERED: KETOROLAC 15 MG/ML 1 ML VIAL IVP PRN (23:00)
--- NOTE | 2025-02-19 23:05 | ED ---
Chest Pain HPI - General Chief Complaint: Chest Pain Stated Complaint: Chest pain Time Seen by Provider: 02/19/25 20:01 Source: EMS Mode of arrival: EMS Limitations: no limitations - History of Present Illness Initial Comments: 64-year-old female with history of lung cancer, hypertension, hyperlipidemia presenting with chief complaint of chest and abdominal pain. Patient reports she has had ongoing abdominal pain since being on chemotherapy few months ago. She is not currently on chemotherapy. This is diffuse sharp and burning pain. She is also complaining of chest pain. Located on the left side of the chest. No radiation. She states it is worse with movement but also coughing. She admits to cough. No fever. No nausea or vomiting. No injury or trauma. Patient did require O2 via nasal cannula today, she does not wear oxygen at home. Last bowel movement was earlier today. - Related Data Home Medications Medication Instructions Recorded Confirmed ALPRAZolam [Xanax] 0.25 mg PO DAILY PRN 04/25/24 09/22/24 ALPRAZolam [Xanax] 0.25 mg PO HS 04/25/24 09/22/24 Atorvastatin [Lipitor] 20 mg PO HS 04/25/24 09/22/24 Diltiazem Cd [Cardizem CD] 240 mg PO HS 04/25/24 09/22/24 Fluticasone/Umeclidin/Vilanter 1 puff INHALATION RT-DAILY 04/25/24 09/22/24 [Trelegy Ellipta 100-62.5-25] Gabapentin 300 mg PO QID 04/25/24 09/22/24 Levothyroxine Sodium [Synthroid] 75 mcg PO DAILY 04/25/24 09/22/24 QUEtiapine FUMARATE [SEROquel] 200 mg PO HS 04/25/24 09/22/24 Triamterene/Hydrochlorothiazid 1 tab PO DAILY 04/25/24 09/22/24 [Triamterene-Hctz 75-50 mg Tab] Citalopram Hydrobromide [CeleXA] 20 mg PO DAILY 07/01/24 09/22/24 Sucralfate [Carafate] 1 gm PO ACHS 07/01/24 09/22/24 Buprenorphine [Butrans 20 MCG/HOUR] 1 patch TRANSDERM SA 09/03/24 09/22/24 Cimetidine [Tagamet] 400 mg PO HS 09/03/24 09/22/24 Famotidine [Pepcid] 40 mg PO DAILY PRN 09/03/24 09/22/24 Linaclotide [Linzess] 290 mcg PO DAILY 09/03/24 09/22/24 Ondansetron Odt [Zofran ODT] 4 mg PO Q8HR PRN 09/03/24 09/22/24 Pantoprazole [Protonix] 40 mg PO DAILY 09/03/24 09/22/24 Acetaminophen-Codeine 300-30mg 1 tab PO Q8H PRN 09/22/24 09/22/24 [Tylenol w/codeine #3] Baclofen [Lioresal] 10 mg PO TID 09/22/24 09/22/24 Docusate [Colace] 100 mg PO BID PRN 09/22/24 09/22/24 Potassium Chloride ER [K-Dur 10] 10 meq PO DAILY 09/22/24 09/22/24 Simethicone Chew [Mylicon Chew] 80 mg PO QID PRN 09/22/24 09/22/24 Tiotropium 2.5 Mcg/Puff [Spiriva 2 puff INHALATION RT-DAILY 09/22/24 09/22/24 Respimat 2.5 Mcg] oxyCODONE HCL [OxyIR] 5 mg PO Q8H PRN 09/22/24 09/22/24 oxyCODONE-APAP 10-325MG [Percocet 1 tab PO Q6H PRN 09/22/24 09/22/24 10-325 mg] Previous Rx's Medication Instructions Recorded Dicyclomine [Bentyl] 10 mg PO QID PRN #120 cap 09/07/24 Lactulose [Cephulac] 30 gm PO TID #360 ml 09/07/24 Sennosides [Senokot] 8.6 mg PO DAILY PRN #30 tab 09/07/24 bisacodyL [Dulcolax] 10 mg RECTAL DAILY PRN #30 09/07/24 suppositor polyethylene glycoL 3350 [Miralax] 17 gm PO DAILY 14 Days #14 packet 09/23/24 Famotidine [Pepcid] 20 mg PO BID #28 tablet 11/21/24 Omeprazole [PriLOSEC] 20 mg PO AC-BRKFST #14 cap 11/21/24 Allergies Allergy/AdvReac Type Severity Reaction Status Date / Time morphine Allergy Unknown Verified 02/19/25 19:50 Review of Systems ROS Statement: Those systems with pertinent positive or pertinent negative responses have been documented in the HPI. ROS Other: All systems not noted in ROS Statement are negative. Past Medical History Past Medical History: Cancer, GERD/Reflux, Hyperlipidemia, Hypertension, Thyroid Disorder Additional Past Medical History / Comment(s): Wheezing, lung cancer w/ 7 radiation and chemo 30days finished oct 2023- on IV Keytruda once a month but has not taken in 5months; abd pain & nausea x 6 months, inpatient @ [facility] 07/01/24- 07/04/24 for abd pain and 09/02-09/07/24. History of Any Multi-Drug Resistant Organisms: None Reported Past Surgical History: Cholecystectomy Additional Past Surgical History / Comment(s): Colonoscopy/EGD w/ 06/28/24.unable to find anything per patient. Past Anesthesia/Blood Transfusion Reactions: No Reported Reaction Additional Past Anesthesia/Blood Transfusion Reaction / Comment(s): Sedation only for Colonoscopy. Past Psychological History: Anxiety, Panic Disorder Smoking Status: Former smoker Past Alcohol Use History: None Reported Past Drug Use History: None Reported - Past Family History Mother Family Medical History: Cancer Additional Family Medical History / Comment(s): Pancreatic cancer Sister(s) Family Medical History: Cancer Additional Family Medical History / Comment(s): Pancreatic cancer Brother(s) Family Medical History: Cancer Additional Family Medical History / Comment(s): Leukemia General Exam Limitations: no limitations General appearance: alert, in no apparent distress Head exam: Present: atraumatic, normocephalic, normal inspection Eye exam: Present: normal appearance, EOMI Neck exam: Present: normal inspection. Absent: meningismus Respiratory exam: Present: normal lung sounds bilaterally. Absent: respiratory distress, wheezes, rales, rhonchi, stridor Cardiovascular Exam: Present: regular rate, normal rhythm, normal heart sounds. Absent: systolic murmur, diastolic murmur, rubs, gallop, clicks Extremities exam: Absent: pedal edema Neurological exam: Present: alert, oriented X3 Psychiatric exam: Present: normal affect, normal mood Skin exam: Present: warm, dry, normal color Course Vital Signs 02/19/25 02/19/25 02/19/25 19:44 19:51 21:16 Temperature 97.6 F Pulse Rate 73 73 Pulse Rate [ 72 Right Sitting Radial] Respiratory 20 18 Rate Blood Pressure 154/103 160/92 O2 Sat by Pulse 92 L 98 Oximetry Chest Pain MDM - MDM Was pt. sent in by a medical professional or institution (, PA, STILL PHOTOGRAPHER, urgent care, hospital, or retirement...) When possible be specific @ -No Did you speak to anyone other than the patient for history (EMS, parent, family, police, friend...)? What history was obtained from this source @ -No Did you review nursing and triage notes (agree or disagree)? Why? @ -I reviewed and agree with nursing and triage notes Were old charts reviewed (outside hosp., previous admission, EMS record, old EKG, old radiological studies, urgent care reports/EKG's, retirement records)? Report findings @ -No old charts were reviewed Differential Diagnosis (chest pain, altered mental status, abdominal pain women, abdominal pain men, vaginal bleeding, weakness, fever, dyspnea, syncope, headache, dizziness, GI bleed, back pain, seizure, CVA, palpatations, mental health, musculoskeletal)? @ -MDM Differential Chest Pain: Stable Angina, Unstable Angina, STEMI, NSTEMI Aortic Dissection, Pneumothorax, Musculoskeletal, Esophageal Spasm GERD, Cholecystitis, Pancreatitis, Zosterâ€¦ This is not meant to be an all-inclusive list. EKG interpreted by me (3pts min.). @ -EKG shows sinus rhythm ventricular rate 66. MT interval 136. QRS 85. QT 369. QTc 383 X-rays interpreted by me (1pt min.). @ -Chest x-ray shows opacified left lower lobe airways increased consolidation. Consider bronchoscopy with evaluation of the airway. Correlate for mucous plugging versus obstructing malignancy. Small left pleural effusion. New from 10/23/2024 compression deformity at L2 vertebral body. Endplate with 25% height loss. Correlate back pain. Consider MRI lumbar spine. Gallbladder surgically absent with mild intrahepatic and extrahepatic biliary dilatation likely phy siologic in a post cholecystectomy change. No evidence of choledocholithiasis. Similar trace pericardial effusion. Chronic appearing wedge deformities T11 and T12 and T9 vertebral bodies stable back to at least 06/15/2024. CT interpreted by me (1pt min.). @ -None done U/S interpreted by me (1pt. min.). @ -None done What testing was considered but not performed or refused? (CT, X-rays, U/S, lab s)? Why? @ -None What meds were considered but not given or refused? Why? @ -None Did you discuss the management of the patient with other professionals (professionals i.e. , PA, STILL PHOTOGRAPHER, lab, RT, psych nurse, delinquency prevention social worker, supervisor communications and signals, teacher, wildlife officer, caseworker protective services)? Give summary @ -Spoke with Mckay Watkins from [facility] accepts admission Was smoking cessation discussed for >3mins.? @ -No Was critical care preformed (if so, how long)? @ -No Were there social determinants of health that impacted care today? How? (Homelessness, low income, unemployed, alcoholism, drug addiction, transportatio n, low edu. Level, literacy, decrease access to med. care, residential, rehab)? @ -No Was there de-escalation of care discussed even if they declined (Discuss DNR or withdrawal of care, Hospice)? DNR status @ -No What co-morbidities impacted this encounter? (DM, HTN, Smoking, COPD, CAD, Cancer, CVA, ARF, Chemo, Hep., AIDS, mental health diagnosis, sleep apnea, morbid obesity)? @ -None Was patient admitted / discharged? Hospital course, mention meds given and route, prescriptions, significant lab abnormalities, going to OR and other pertinent info. @ -64-year-old female presenting with chief complaint of chest pain and abdominal pain. History and physical examination are conducted. Negative troponin. Lipase and amylase are WNL. EKG shows no ST deviation. No leukocytosis or anemia. CT chest abdomen and pelvis does show increased opacification in the left lower lobe. Patient has had a cough, will treat with a one-time dose of Rocephin and azithromycin. Will admit with pulmonology and oncology on consult. There is also a new compression deformity at L2, orthopedics on consult. Patient is agreeable with this plan. I discussed this case with my attending Dr. Warner Undiagnosed new problem with uncertain prognosis? @ -No Drug Therapy requiring intensive monitoring for toxicity (Heparin, Nitro, Insulin, Cardizem)? @ -No Were any procedures done? @ -No Diagnosis/symptom? @ -Left lower lobe opacity, intractable pain Acute, or Chronic, or Acute on Chronic? @ -Acute Uncomplicated (without systemic symptoms) or Complicated (systemic symptoms)? @ -Complicated Side effects of treatment? @ -No Exacerbation, Progression, or Severe Exacerbation? @ -No Poses a threat to life or bodily function? How? (Chest pain, [place], [place], pneumonia, PE, COPD, DKA, ARF, appy, cholecystitis, CVA, Diverticulitis, Homicidal, Suicidal, threat to staff... and all critical care pts) @ -Yes Disposition Clinical Impression: Mass of left lung, Intractable abdominal pain Disposition: ADMITTED IP TO THIS [facility] Condition: Fair Time of Disposition: 23:04
[2025-02-19] MEDS: cefTRIAXone IN SWFI 1,000 MG/10 ML SYRINGE IVP STA (23:13)
[2025-02-19] MEDS: SODIUM CHLORIDE 0.9% 1,000 ML IV SCH (23:14)
[2025-02-19] MEDS: AZITHROMYCIN 500 MG in SODIUM CHLORIDE 0.9% 250 ML IVPB STA (23:15)
[2025-02-20] MEDS: HYDROmorphone 1 MG/ML 1 ML SYRINGE IVP PRN (00:11)
[2025-02-20] MEDS: DILTIAZEM CD 240 MG CAP.ER.24H PO SCH (02:56)
[2025-02-20] MEDS: ALPRAZolam 0.25 MG TAB PO SCH (03:01)
[2025-02-20] MEDS: ONDANSETRON 4 MG/2 ML VIAL IVP PRN (03:13)
[2025-02-20] MEDS: HYDROmorphone 2 MG/ML 1 ML SYRINGE IVP PRN (03:18)
--- NOTE | 2025-02-20 04:19 | P.CNPUL ---
History of Present Illness Consult date: 02/20/25 Requesting physician: Manolo Robbins Reason for consult: lung mass Chief complaint: Chest pain History of present illness: Patient is a 64-year-old female with past medical history significant for lung cancer status post chemo/radiation followed by immunotherapy, COPD, hyperlipidemia, hypertension, hypothyroidism. Presented to the emergency department late last night with the chief complaint of abdominal pain, which has been intermittent and ongoing for approximately 7 months. Abdominal pain is bandlike across the upper abdominal quadrants, lower ribs bilaterally, and radiating to the back. Described as "screwing" sensation. Currently, rated 9 on a 10 point numerical scale. Reports black tarry bowel movements over the last couple weeks. Appetite has been poor. No significant nausea or vomiting or hematemesis. Not take any anticoagulants. Denies NSAID use. Has not taken any of her medications for approximately 3 days. More recently, did have an EGD done August, consistent with gastritis. She has been taking Carafate as well as omeprazole on outpatient basis. Workup in the emergency department including a CT of the chest, abdomen, pelvis remarkable for persistent left lower lobe and lingular consolidation consistent with known left perihilar mass and postobstructive atelectasis. Postobstructive pneumonia difficult to exclude. Small persistent left pleural effusion. Persistent trace pericardial effusion. New compression deformity of L2 vertebral body with 25% height loss. Stable/chronic appearing wedge deformities of T9, T11, and T12 vertebral bodies. No obvious intra-abdominal process was noted to explain her abdominal pain. CBC: WBC count 8.3, hemoglobin 14.6, platelets 391. CMP: Sodium 132, potassium 3.8, chloride 101, serum bicarb 22, BUN 12, creatinine 0.81, glucose 85. AST 67, ALT 102, ALP 86, troponins less than 0.012 x 2. Amylase and lipase not elevated. Patient currently being evaluated on the general medical floor. She is sitting up in bed non-labored breathing, on room air. Speaking in complete sentences. Denies any significant shortness of breath. Does endorse chronic cough with occasional yellow sputum production. Denies any fevers or chills. States she has not used any of her maintenance inhalers due to significant abdominal pain as described above. Denies any recent falls or trauma. Does report lower extremity weakness bilaterally and troubles ambulating. Denies any saddle anesthesia, loss of bowel or bladder control. Current vital signs: Temperature 97.8 F, heart rate 78 bpm, blood pressure 171/97 mmHg, nontachypneic, SpO2 recorded at 97% on room air. Review of Systems Constitutional: Reports fatigue, Reports poor appetite, Denies chills, Denies fever, Denies weight gain, Denies weight loss Ears, nose, mouth and throat: Denies headache, Denies nasal congestion, Denies nasal discharge, Denies post-nasal drip, Denies sinus pain, Denies sinus pressure, Denies sore throat Cardiovascular: Reports chest pain, Denies leg edema, Denies lightheadedness, Denies orthopnea, Denies palpitations, Denies paroxysmal nocturnal dyspnea, Denies syncope Respiratory: Reports congestion, Reports cough, Reports cough with sputum, Denies excessive sputum, Denies hemoptysis, Denies home oxygen, Denies pain on inspiration, Denies wheezing Gastrointestinal: Reports as per HPI Genitourinary: Denies dysuria, Denies hematuria Musculoskeletal: Reports limitation of motion, Reports low back pain, Denies frequent falls, Denies leg numbness/tingling, Denies shooting leg pain Integumentary: Denies rash, Denies unusual bruising Neurological: Reports gait dysfunction, Denies motor disturbance, Denies numbness, Denies paralysis, Denies paresthesias, Denies seizures, Denies syncope Psychiatric: Denies anxiety, Denies depression Past Medical History Past Medical History: Cancer, GERD/Reflux, Hyperlipidemia, Hypertension, Thyroid Disorder Additional Past Medical History / Comment(s): Wheezing, lung cancer w/ 7 radiation and chemo 30days finished oct 2023- on IV Keytruda once a month but has not taken in 5months; abd pain & nausea x 6 months, inpatient @ [facility] 07/01/24- 07/04/24 for abd pain and 09/02-09/07/24. History of Any Multi-Drug Resistant Organisms: None Reported Past Surgical History: Adenoidectomy, Cholecystectomy, Tonsillectomy Additional Past Surgical History / Comment(s): Colonoscopy/EGD w/ Dr. sparks06/28/24.unable to find anything per patient. Past Anesthesia/Blood Transfusion Reactions: No Reported Reaction Additional Past Anesthesia/Blood Transfusion Reaction / Comment(s): Sedation only for Colonoscopy. Past Psychological History: Anxiety, Panic Disorder Smoking Status: Former smoker Past Alcohol Use History: None Reported Additional Past Alcohol Use History / Comment(s): smoked 1/2 ppd- quit 2022. Past Drug Use History: None Reported - Past Family History Mother Family Medical History: Cancer Additional Family Medical History / Comment(s): Pancreatic cancer Sister(s) Family Medical History: Cancer Additional Family Medical History / Comment(s): Pancreatic cancer Brother(s) Family Medical History: Cancer Additional Family Medical History / Comment(s): Leukemia Medications and Allergies Home Medications Medication Instructions Recorded Confirmed Type ALPRAZolam [Xanax] 0.25 mg PO DAILY PRN 04/25/24 02/20/25 History ALPRAZolam [Xanax] 0.25 mg PO HS 04/25/24 02/20/25 History Diltiazem Cd [Cardizem CD] 240 mg PO HS 04/25/24 02/20/25 History Fluticasone/Umeclidin/Vilanter 1 puff INHALATION RT-DAILY 04/25/24 02/20/25 History [Trelegy Ellipta 100-62.5-25] Levothyroxine Sodium [Synthroid] 75 mcg PO DAILY 04/25/24 02/20/25 History QUEtiapine FUMARATE [SEROquel] 200 mg PO HS 04/25/24 02/20/25 History Linaclotide [Linzess] 290 mcg PO DAILY 09/03/24 02/20/25 History Baclofen [Lioresal] 10 mg PO QID PRN 09/22/24 02/20/25 History Tiotropium 2.5 Mcg/Puff [Spiriva 2 puff INHALATION RT-DAILY 09/22/24 02/20/25 History Respimat 2.5 Mcg] oxyCODONE-APAP 10-325MG [Percocet 1 tab PO TID PRN 09/22/24 02/20/25 History 10-325 mg] Dicyclomine [Bentyl] 20 mg PO QID PRN 02/20/25 02/20/25 History Lactulose [Cephulac] 30 gm PO QID PRN 02/20/25 02/20/25 History Lubiprostone [Amitiza] 24 mcg PO BID 02/20/25 02/20/25 History Metaxalone [Skelaxin] 800 mg PO Q8H PRN 02/20/25 02/20/25 History Tenapanor HCl [Ibsrela] 50 mg PO BID 02/20/25 02/20/25 History Vonoprazan Fumarate [Voquezna] 20 mg PO DAILY 02/20/25 02/20/25 History fentaNYL 50MCG/HR PATCH [Duragesic 50 mcg TRANSDERM Q72H 02/20/25 02/20/25 History 50MCG/HR] predniSONE [Deltasone] 40 mg PO BID 02/20/25 02/20/25 History Allergies Allergy/AdvReac Type Severity Reaction Status Date / Time morphine Allergy Unknown Verified 02/20/25 11:55 Physical Exam Vitals: Vital Signs Temp Pulse Pulse Pulse Resp BP BP 02/20/25 01:38 97.8 F 78 18 171/97 02/20/25 01:05 72 18 137/92 02/19/25 21:16 73 18 160/92 02/19/25 19:51 72 02/19/25 19:44 97.6 F 73 20 154/103 Pulse Ox 02/20/25 01:38 97 02/20/25 01:05 94 L 02/19/25 21:16 98 02/19/25 19:51 02/19/25 19:44 92 L Intake and Output 02/19/25 02/19/25 02/20/25 14:59 22:59 06:59 Other: Weight 54.431 kg 54.431 kg GENERAL EXAM: Alert, well-nourished, 64-year-old female, sitting up in bed, comfortable in no apparent distress. HEAD: Normocephalic and atraumatic EYES: Normal reaction of pupils, equal size. NOSE: Clear with pink turbinates. THROAT: No erythema or exudates. NECK: No masses, no JVD. CHEST: No chest wall deformity. LUNGS: Equal air entry with scattered wheezes heard best in the left posterior lower lobe. On room air. No conversational dyspnea or accessory muscle use.. CVS: S1 and S2 normal with no audible murmur, regular rhythm. No extra heart sounds ABDOMEN: Slight abdominal distention, active bowel sounds, no hepatosplenomegaly, no guarding or rigidity. SPINE: No scoliosis or deformity SKIN: No rashes CENTRAL NERVOUS SYSTEM: No focal deficits, tone is normal in all 4 extremities. EXTREMITIES: There is no peripheral edema, clubbing, or cyanosis. Peripheral pulses are intact. Results - Laboratory Findings CBC and BMP: 02/20/25 03:44 02/20/25 03:44 PT/INR, D-dimer PT 10.5 sec (10.0-12.5) 02/19/25 19:57 INR 0.9 (<1.2) 02/19/25 19:57 Abnormal lab findings: Abnormal Labs 02/19/25 02/19/25 19:57 19:57 MCH 32.7 H MPV 8.3 L Immature Gran # 0.16 H Sodium 132 L AST 67 H ALT 102 H - Diagnostic Findings CT scan - chest: image reviewed Assessment and Plan Assessment: History of non-small cell lung cancer, pulmonary adenocarcinoma type, originally diagnosed back in July 2023, and is status post chemo/radiation followed by immunotherapy with Keytruda. Follows up on outpatient basis with her oncologist Dr. Castro. CT of the chest, abdomen, pelvis remarkable for persistent left lower lobe and lingular consolidation consistent with known left perihilar mass and postobstructive atelectasis. Postobstructive pneumonia difficult to exclude but felt to be less likely. Small persistent left pleural effusion. Persistent trace pericardial effusion. New compression deformity of L2 vertebral body with 25% height loss. Stable/chronic appearing wedge deformities of T9, T11, and T12 vertebral bodies. No obvious intra-abdominal process was noted to explain her abdominal pain. Ongoing abdominal pain and melanotic stools History of gastritis, EGD performed August, consistent with gastritis. Prescribed Carafate and omeprazole on an outpatient basis. Chronic obstructive pulmonary disease, maintained on Trelegy Ellipta on outpatient basis, stable New compression deformity of L2 vertebral body with 25% height loss History of laparoscopic cholecystectomy done 07/08/2024 History of hyperlipidemia Hypertension History of hypothyroidism Chronic anxiety/panic disorder Plan Pulmonary status appears stable Currently on room air CT of the chest, abdomen, pelvis reviewed, showing persistent left lower lobe consolidation and lingular consolidation consistent with known left perihilar mass and postobstructive atelectasis. Postobstructive pneumonia is possible but felt to be less likely. Did receive doses of azithromycin and Rocephin in the ED. Check procalcitonin Medical oncology team is also consulted Case will be reviewed with Dr. Kruger Fecal occult is ordered. Hemoglobin is stable. Add Protonix I have personally seen and examined the patient, performed the documentation and the assessment and plan as written. Number of minutes spent on the visit:20 02/20/2025, I am seeing this patient in the joint evaluation along with nurse practitioner. The patient is known to me. I was involved in the original diagnosed with lung cancer and the patient had endobronchial tumor with some airway compromise in her left lower lobe. Noted the patient that treated with chemoradiation therapy followed by immunotherapy. The patient is currently being hospitalized for abdominal pain and she is also complaining of soreness across the rib cage bilaterally. Based on that, the patient was given a CAT scan of the chest abdomen and pelvis. Review of the CAT scan images showing an ongoing opacification of the left lower lobe with some increased area of consolidation in the left lung base and a small left-sided pleural effusion. There is also a compression deformity of the L2 vertebral spine with 25% loss in height. Otherwise, no acute intra-abdominal abnormalities. Gallbladder is s urgically absent. No evidence of any choledocholithiasis. Small trace pericardial effusion. Chronic appearing wedge deformities of the T11 and T12 spine. Discussed the case with medical oncology. There is ongoing concern regarding the left lower lobe consolidation and atelectasis. Based on careful review of the CAT scan images, the left lower lobe bronchus seems to be obstructive. This could be related to residual tumor versus mucus versus bronchial stenosis postradiation therapy that was offered to the left lower lobe. Noted this area remains atelectatic and consolidated on previous images. Discussed the findings with the patient. Will proceed with a bronchoscopy and airway inspection with particular interest to the left lower lobe bronchus. Will continue to follow. The patient is currently on high-dose steroids suspecting immunotherapy related GI toxicity. This was not confirmed by the CAT scan of the abdomen and pelvis. Pain could be related to wedge deformities of the T-spine and L2 vertebral compression deformity. Reconsider the use of high-dose steroids in this p atient. Time with Patient: Greater than 30
[2025-02-20 04:36] LABS: Basophils # (A) 0.04 10*3/uL (0.00-0.10); Basophils % (A) 0.6 %; Eosinophils # (A) 0.13 10*3/uL (0.04-0.35); Eosinophils % (A) 1.9 %; HCT 39.4 % (37.2-46.3); HGB 13.4 g/dL (12.0-15.0); Lymphocytes # (A) 1.03 10*3/uL (0.90-5.00); Lymphocytes % (A) 15.1 %; MCH 32.9 pg (27.0-32.0); MCV 96.8 fL (80.0-97.0); Mean Platelet Volume 8.4 fL (9.5-12.2); Monocytes # (A) 0.55 10*3/uL (0.20-1.00); Monocytes % (A) 8.1 %; Neutrophils # (A) 4.89 10*3/uL (1.80-7.70); Neutrophils % (A) 71.5 %; Platelet Count 396 10*3/uL (140-440); RBC 4.07 10*6/uL (4.10-5.20); RDW 15.7 % (11.5-14.5); WBC 6.83 10*3/uL (4.50-10.00)
[2025-02-20 04:49] LABS: ALT 185 U/L (4-34); AST 212 U/L (14-36); African American GFR (CKD) >90 (>60 ml/min/1.73 sqM); Albumin 3.6 g/dL (3.5-5.0); Alkaline Phosphatase 107 U/L (38-126); Anion Gap 7 mmol/L; Bilirubin, Delta 0.2 mg/dL (0.0-0.2); Bilirubin,Unconjugated 0.2 mg/dL (0.0-1.1); Blood Urea Nitrogen 11 mg/dL (7-17); Calcium 8.2 mg/dL (8.4-10.2); Carbon Dioxide 21 mmol/L (22-30); Chloride 102 mmol/L (98-107); Glucose 71 mg/dL (74-99); Non-African American GFR(CKD) >90 (>60 ml/min/1.73 sqM); Potassium 3.7 mmol/L (3.5-5.1); Sodium 130 mmol/L (137-145); Total Bilirubin 0.4 mg/dL (0.2-1.3); Total Protein 6.1 g/dL (6.3-8.2)
[2025-02-20] MEDS: PANTOPRAZOLE 40 MG TABLET PO SCH (08:02)
[2025-02-20] MEDS: TIOTROPIUM 2.5 MCG INHALER INHALATION SCH (08:24)
[2025-02-20] MEDS: SYMBICORT 80-4.5 MCG INHALER INHALATION SCH (08:24)
[2025-02-20] MEDS: ALBUTEROL NEBULIZED 2.5 MG/3 ML INHALATION SCH (08:25)
[2025-02-20] MEDS: ALPRAZolam 0.25 MG TAB PO PRN (09:59)
[2025-02-20 10:17] LABS: % Iron Saturation 16.72 (12.00-45.00)
[2025-02-20] MEDS: TRIAMTERENE-HCTZ 75-50MG 1 EACH TAB PO SCH (11:52)
[2025-02-20] MEDS: LEVOTHYROXINE 75 MCG TAB PO SCH (11:52)
[2025-02-20] MEDS: CITALOPRAM HYDROBROMIDE 20 MG TAB PO SCH (11:52)
[2025-02-20] MEDS: KETOROLAC 15 MG/ML 1 ML VIAL IVP PRN (13:37)
[2025-02-20] MEDS: predniSONE 20 MG TAB PO SCH (13:38)
--- NOTE | 2025-02-20 14:00 | P.CNOR ---
History of Present Illness - [facility] Consult reason: fracture (Compression fracture.) History of present illness: This is a 64-year-old female with history of lung cancer. She has finished chemotherapy and radiation therapy. She states that she has had chest, abdomen and rib pain since completing chemotherapy. She does not recall any injury or fall. She has complaint of mid to low back pain for the past couple of months. She does have a CT scan from September 2024 which revealed old T11 and T12 compression fractures. New CT scan on this admission reveals interval compression fracture findings at L2. We are consulted for orthopedic evaluation. Past Medical History Past Medical History: Cancer, GERD/Reflux, Hyperlipidemia, Hypertension, Thyroid Disorder Additional Past Medical History / Comment(s): Wheezing, lung cancer w/ 7 radiation and chemo 30days finished oct 2023- on IV Keytruda once a month but has not taken in 5months; abd pain & nausea x 6 months, inpatient @ [facility] 07/01/24- 07/04/24 for abd pain and 09/02-09/07/24. History of Any Multi-Drug Resistant Organisms: None Reported Past Surgical History: Adenoidectomy, Cholecystectomy, Tonsillectomy Additional Past Surgical History / Comment(s): Colonoscopy/EGD w/ 06/28/24.unable to find anything per patient. Past Anesthesia/Blood Transfusion Reactions: No Reported Reaction Additional Past Anesthesia/Blood Transfusion Reaction / Comm: Sedation only for Colonoscopy. Past Psychological History: Anxiety, Panic Disorder Smoking Status: Former smoker Past Alcohol Use History: None Reported Additional Past Alcohol Use History / Comment(s): smoked 1/2 ppd- quit 2022. Past Drug Use History: None Reported - Past Family History Mother Family Medical History: Cancer Additional Family Medical History / Comment(s): Pancreatic cancer Sister(s) Family Medical History: Cancer Additional Family Medical History / Comment(s): Pancreatic cancer Brother(s) Family Medical History: Cancer Additional Family Medical History / Comment(s): Leukemia Medications and Allergies Home Medications Medication Instructions Recorded Confirmed Type ALPRAZolam [Xanax] 0.25 mg PO DAILY PRN 04/25/24 02/20/25 History ALPRAZolam [Xanax] 0.25 mg PO HS 04/25/24 02/20/25 History Diltiazem Cd [Cardizem CD] 240 mg PO HS 04/25/24 02/20/25 History Fluticasone/Umeclidin/Vilanter 1 puff INHALATION RT-DAILY 04/25/24 02/20/25 History [Trelegy Ellipta 100-62.5-25] Levothyroxine Sodium [Synthroid] 75 mcg PO DAILY 04/25/24 02/20/25 History QUEtiapine FUMARATE [SEROquel] 200 mg PO HS 04/25/24 02/20/25 History Linaclotide [Linzess] 290 mcg PO DAILY 09/03/24 02/20/25 History Baclofen [Lioresal] 10 mg PO QID PRN 09/22/24 02/20/25 History Tiotropium 2.5 Mcg/Puff [Spiriva 2 puff INHALATION RT-DAILY 09/22/24 02/20/25 History Respimat 2.5 Mcg] oxyCODONE-APAP 10-325MG [Percocet 1 tab PO TID PRN 09/22/24 02/20/25 History 10-325 mg] Dicyclomine [Bentyl] 20 mg PO QID PRN 02/20/25 02/20/25 History Lactulose [Cephulac] 30 gm PO QID PRN 02/20/25 02/20/25 History Lubiprostone [Amitiza] 24 mcg PO BID 02/20/25 02/20/25 History Metaxalone [Skelaxin] 800 mg PO Q8H PRN 02/20/25 02/20/25 History Tenapanor HCl [Ibsrela] 50 mg PO BID 02/20/25 02/20/25 History Vonoprazan Fumarate [Voquezna] 20 mg PO DAILY 02/20/25 02/20/25 History fentaNYL 50MCG/HR PATCH [Duragesic 50 mcg TRANSDERM Q72H 02/20/25 02/20/25 History 50MCG/HR] predniSONE [Deltasone] 40 mg PO BID 02/20/25 02/20/25 History Allergies Allergy/AdvReac Type Severity Reaction Status Date / Time morphine Allergy Unknown Verified 02/20/25 11:55 Physical Examination This is a pleasant 64-year-old female in no acute distress. She is alert and oriented x 3. Exam of the thoracic and lumbar spine reveal no obvious deformity. There are no scars noted. There is tenderness with palpation and percussion in the upper lumbar region. Minimal pain with palpation about the thoracic spine. Minimal paraspinal musculature tenderness in the lumbar region. She is able to lift each leg off the bed independently. With negative strai ght leg raise. Exam of the lower extremities reveals no obvious deformity. Logroll produces no pain bilaterally. She has full foot and ankle motion bilaterally. Neurovascular status to the lower extremities intact. Results CT scan of the chest abdomen pelvis reveals old/chronic compression fractures to T11 and T12. There appears to be a new compression to L2 with approximately 25% height loss and minimal retropulsion. - Labs Labs: Abnormal Lab Results - Last 24 Hours (Table) 02/19/25 02/19/25 02/20/25 Range/Units 19:57 19:57 03:44 RBC (4.10-5.20) 10*6/uL MCH 32.7 H (27.0-32.0) pg MPV 8.3 L (9.5-12.2) fL Immature Gran # 0.16 H (0.00-0.04) 10*3/uL Sodium 132 L 130 L (137-145) mmol/L Carbon Dioxide 21 L (22-30) mmol/L Glucose 71 L (74-99) mg/dL Calcium 8.2 L (8.4-10.2) mg/dL AST 67 H 212 H (14-36) U/L ALT 102 H 185 H (4-34) U/L Total Protein 6.1 L (6.3-8.2) g/dL 02/20/25 Range/Units 03:44 RBC 4.07 L (4.10-5.20) 10*6/uL MCH 32.9 H (27.0-32.0) pg MPV 8.4 L (9.5-12.2) fL Immature Gran # 0.19 H (0.00-0.04) 10*3/uL Sodium (137-145) mmol/L Carbon Dioxide (22-30) mmol/L Glucose (74-99) mg/dL Calcium (8.4-10.2) mg/dL AST (14-36) U/L ALT (4-34) U/L Total Protein (6.3-8.2) g/dL H & H 0423/25 04/24/25 Range/Units 19:57 03:44 Hgb 14.6 13.4 (12.0-15.0) g/dL Hct 42.5 39.4 (37.2-46.3) % Coagulation 02/19/25 Range/Units 19:57 INR 0.9 (<1.2) Result Diagrams: 02/20/25 03:44 02/20/25 03:44 Assessment and Plan (1) History of lung cancer Current Visit: Yes Status: Acute Code(s): Z85.118 - PERSONAL HISTORY OF MALIGNANT NEOPLASM OF BRONCHUS AND LUNG SNOMED Code(s): 853381691 (2) Compression fracture of L2 Current Visit: Yes Status: Acute Code(s): S32.020A - WEDGE COMPRESSION FRACTURE OF SECOND LUMBAR VERTEBRA, INIT SNOMED Code(s): 73501566895907980 (3) Intractable abdominal pain Current Visit: Yes Status: Acute Code(s): R10.9 - UNSPECIFIED ABDOMINAL PAIN SNOMED Code(s): 50777563 Plan: The clinical and radiographic findings are discussed with the patient. She is currently having no neurologic deficits to the lower extremities.She does have a lumbar brace at home. I have advised her to ask family to bring her brace to the hospital. Her symptoms do correlate with the new L2 compression found on CT scan. It's recommended that she wear her brace when she is out of bed. She will follow up with Dr. Garcia in the outpatient setting.
--- NOTE | 2025-02-20 16:34 | P.HPIM ---
History of Present Illness H&P Date: 02/20/25 History of present illness; Patient is a 64-year-old female with history significant for lung cancer status post chemo/radiation followed by immunotherapy, COPD, hyperlipidemia, hypertension, hypothyroidism who presents for abdominal pain. She states that pain has been intermittent and ongoing for approximately 7 months however has now progressed. Abdominal pain is bandlike across the upper abdominal quadrants, lower ribs bilaterally, and radiating to the back. She endorses black tarry bowel movements over the last couple weeks, last being yesterday. She also states she has had a poor appetite, without nausea or vomiting. No NSAID or anticoagulant use. Has not taken any of her medications for approximately 3 days. She had EGD completed in August, consistent with gastritis and she has been taking Carafate as well as omeprazole on outpatient basis. She also endorses chronic cough with some sputum production. She also reports lower extremity weakness bilaterally and troubles ambulating. She denies any recent falls or trauma, saddle anesthesia, loss of bowel, or bladder control. Currently, patient denies shortness of breath, fevers or chills. No other symptoms. Spoke with the ER physician, patient admission was accepted by internal medicine service for treatment. REVIEW OF SYSTEMS: Pertinent positives and negatives noted in HPI. PHYSICAL EXAMINATION: Vitals reviewed GENERAL: Resting comfortably in bed. EYES: PERRL, no scleral injection or icterus. No vision loss HENT: Normocephalic, atraumatic, hearing grossly intact, moist mucous membranes NECK: No tracheal deviation, full range of motion. CARDIOVASCULAR: S1 and S2 present. No murmurs, rubs, or gallops. PULMONARY: Chest is clear to auscultation, no wheezing, rhonchi, or crackles. ABDOMEN: Soft, mild epigastric tenderness, nondistended. No palpable organomegaly. MUSCULOSKELETAL: Mild tenderness to paraspinal musculature in thoracic and lumbar region. EXTREMITIES: No apparent cyanosis, clubbing. No pedal edema. NEUROLOGICAL: Alert and oriented. Gross neurological examination with no breanne arent focal deficits. SKIN: No apparent rashes. ER FINDINGS: Labs significant for WBC count 8.3, hemoglobin 14.6, platelets 391, Sodium 132, potassium 3.8, chloride 101, serum bicarb 22, BUN 12, creatinine 0.81, glucose 85. AST 67, ALT 102, ALP 86, troponins negative. Amylase and lipase are WNL. Vitamin B12, folate are WNL, procalcitonin is WNL., Iron panel is WNL. EKG independently interpreted showed sinus rhythm heart rate of 66, QTc 383, no ST segment elevation or depression seen, no T-wave inversions seen. CT of the chest, abdomen, pelvis remarkable for persistent left lower lobe and lingular consolidation consistent with known left perihilar mass and postobstructive atelectasis. Postobstructive pneumonia difficult to exclude. Small persistent left pleural effusion. Persistent trace pericardial effusion. New compression deformity of L2 vertebral body with 25% height loss. S table/chronic appearing wedge deformities of T9, T11, and T12 vertebral bodies. No obvious intra-abdominal process was noted to explain her abdominal pain. Assessment and Plan: In summary, patient is a 64-year-old female with history significant for lung cancer status post chemo/radiation followed by immunotherapy, COPD, hyperlipidemia, hypertension, hypothyroidism who presents for abdominal pain. #Suspected colitis, suspected induced by immunotherapy #Transaminitis #History of gastritis Begin high-dose steroids Begin Protonix Continue Dilaudid, Toradol, [place] for pain management Oncology following #COPD, not in exacerbation #History of non-small cell lung cancer, pulmonary adenocarcinoma type - Dx July 2023 s/p chemo/radiation followed by immunotherapy with Keytruda. Follows up with oncologist Dr. Castro. - CT chest with persistent left lower lobe consolidation and lingular consolidation Planned bronchoscopy today or tomorrow Pulmonology and hematology oncology consulted #New Compression deformity of L2 vertebral body Resume lumbar brace Dr. Garcia recommend follow-up in the outpatient setting #Hyponatremia, euvolemic Monitor BMP Chronic Medical Conditions #Hyperlipidemia #Hypertension #Hypothyroidism Resume home medications DVT ppx: Subq heparin 5000 units twice daily Code status: Full code F: IV Normal saline 75 mL/hr E: Replete as needed N: Liquid diet, n.p.o. after midnight Anticipated discharge place: Home Anticipated discharge time: [address] Abbott seen patient with resident, present during exam, and agreed with findings. Dictation was produced using [employer] dictation software. Please excuse any grammatical, word or spelling errors. Past Medical History Past Medical History: Cancer, GERD/Reflux, Hyperlipidemia, Hypertension, Thyroid Disorder Additional Past Medical History / Comment(s): Wheezing, lung cancer w/ 7 radiation and chemo 30days finished oct 2023- on IV Keytruda once a month but has not taken in 5months; abd pain & nausea x 6 months, inpatient @ [facility] 07/01/24- 07/04/24 for abd pain and 09/02-09/07/24. History of Any Multi-Drug Resistant Organisms: None Reported Past Surgical History: Adenoidectomy, Cholecystectomy, Tonsillectomy Additional Past Surgical History / Comment(s): Colonoscopy/EGD w/ 06/28/24.unable to find anything per patient. Past Anesthesia/Blood Transfusion Reactions: No Reported Reaction Additional Past Anesthesia/Blood Transfusion Reaction / Comment(s): Sedation only for Colonoscopy. Past Psychological History: Anxiety, Panic Disorder Smoking Status: Former smoker Past Alcohol Use History: None Reported Additional Past Alcohol Use History / Comment(s): smoked 1/2 - quit 2022. Past Drug Use History: None Reported - Past Family History Mother Family Medical History: Cancer Additional Family Medical History / Comment(s): Pancreatic cancer Sister(s) Family Medical History: Cancer Additional Family Medical History / Comment(s): Pancreatic cancer Brother(s) Family Medical History: Cancer Additional Family Medical History / Comment(s): Leukemia Medications and Allergies Home Medications Medication Instructions Recorded Confirmed Type ALPRAZolam [Xanax] 0.25 mg PO DAILY PRN 04/25/24 02/20/25 History ALPRAZolam [Xanax] 0.25 mg PO HS 04/25/24 02/20/25 History Diltiazem Cd [Cardizem CD] 240 mg PO HS 04/25/24 02/20/25 History Fluticasone/Umeclidin/Vilanter 1 puff INHALATION RT-DAILY 04/25/24 02/20/25 His tory [Trelegy Ellipta 100-62.5-25] Levothyroxine Sodium [Synthroid] 75 mcg PO DAILY 04/25/24 02/20/25 History QUEtiapine FUMARATE [SEROquel] 200 mg PO HS 04/25/24 02/20/25 History Linaclotide [Linzess] 290 mcg PO DAILY 09/03/24 02/20/25 History Baclofen [Lioresal] 10 mg PO QID PRN 09/22/24 02/20/25 History Tiotropium 2.5 Mcg/Puff [Spiriva 2 puff INHALATION RT-DAILY 09/22/24 02/20/25 History Respimat 2.5 Mcg] oxyCODONE-APAP 10-325MG [Percocet 1 tab PO TID PRN 09/22/24 02/20/25 History 10-325 mg] Dicyclomine [Bentyl] 20 mg PO QID PRN 02/20/25 02/20/25 History Lactulose [Cephulac] 30 gm PO QID PRN 02/20/25 02/20/25 History Lubiprostone [Amitiza] 24 mcg PO BID 02/20/25 02/20/25 History Metaxalone [Skelaxin] 800 mg PO Q8H PRN 02/20/25 02/20/25 History Tenapanor HCl [Ibsrela] 50 mg PO BID 02/20/25 02/20/25 History Vonoprazan Fumarate [Voquezna] 20 mg PO DAILY 02/20/25 02/20/25 History fentaNYL 50MCG/HR PATCH [Duragesic 50 mcg TRANSDERM Q72H 02/20/25 02/20/25 History 50MCG/HR] predniSONE [Deltasone] 40 mg PO BID 02/20/25 02/20/25 History Allergies Allergy/AdvReac Type Severity Reaction Status Date / Time morphine Allergy Unknown Verified 02/20/25 11:55 Physical Exam Vitals: Vital Signs Temp Pulse Pulse Pulse Resp BP BP 02/20/25 08:05 98.2 F 62 62 18 147/92 02/20/25 01:38 97.8 F 78 18 171/97 02/20/25 01:05 72 18 137/92 02/19/25 21:16 73 18 160/92 02/19/25 19:51 72 02/19/25 19:44 97.6 F 73 20 154/103 Pulse Ox 02/20/25 08:05 95 02/20/25 01:38 97 02/20/25 01:05 94 L 02/19/25 21:16 98 02/19/25 19:51 02/19/25 19:44 92 L Intake and Output 02/19/25 02/20/25 02/20/25 22:59 06:59 14:59 Other: # Voids 1 Weight 54.431 kg 54.431 kg Results CBC & Chem 7: 02/20/25 03:44 02/20/25 03:44 Labs: Abnormal Lab Results - Last 24 Hours (Table) 02/19/25 02/19/25 02/20/25 Range/Units 19:57 19:57 03:44 RBC (4.10-5.20) 10*6/uL MCH 32.7 H (27.0-32.0) pg MPV 8.3 L (9.5-12.2) fL Immature Gran # 0.16 H (0.00-0.04) 10*3/uL Sodium 132 L 130 L (137-145) mmol/L Carbon Dioxide 21 L (22-30) mmol/L Glucose 71 L (74-99) mg/dL Calcium 8.2 L (8.4-10.2) mg/dL AST 67 H 212 H (14-36) U/L ALT 102 H 185 H (4-34) U/L Total Protein 6.1 L (6.3-8.2) g/dL 02/20/25 Range/Units 03:44 RBC 4.07 L (4.10-5.20) 10*6/uL MCH 32.9 H (27.0-32.0) pg MPV 8.4 L (9.5-12.2) fL Immature Gran # 0.19 H (0.00-0.04) 10*3/uL Sodium (137-145) mmol/L Carbon Dioxide (22-30) mmol/L Glucose (74-99) mg/dL Calcium (8.4-10.2) mg/dL AST (14-36) U/L ALT (4-34) U/L Total Protein (6.3-8.2) g/dL Thrombosis Risk Factor Assmnt - Choose All That Apply Any of the Below Risk Factors Present?: Yes Each Factor Represents 1 point: Abnormal pulmonary function (COPD) Other Risk Factors: Yes Each Risk Factor Represents 2 Points: Age 61-74 years Other congenital or acquired thrombophilia - If yes, enter type in comment: No Thrombosis Risk Factor Assessment Total Risk Factor Score: 3 Thrombosis Risk Factor Assessment Level: Moderate Risk
[2025-02-20] MEDS ORDERED: KETOROLAC 15 MG/ML 1 ML VIAL IVP SCH (18:00)
--- NOTE | 2025-02-20 18:39 | P.CONS ---
History of Present Illness - Reason for Consult Consult date: 02/20/25 lung cancer Requesting physician: Manolo Robbins - Chief Complaint chest pain, abd pain - History of Present Illness Cece is a 64 year old female with a history of lung adenocarcinoma. She is a patient of Dr. Castro. She initially presented with hemoptysis. CT Scan revealed 3.4 cm left perihilar mass suspicious for bronchogenic carcinoma. PET Scan revealed suspicious uptake (12.4) in large left carlota-hilar mass, no distant mets. Completed 7 cycles of weekly carbo/taxol with concurrent RT. Currently on treatment immunotherapy, Imfinzi q 4 weeks, last treatment was given in April 2024. She was hospitalized in August 2024 due to persisting abdominal pain, workup was negative. At follow up on 02/13/25, pt c/o severe abdominal pain, CT Scan showing pancolitis. Thought to be likely related to autoimmune secondary to Imfinzi. Patient was started on prednisone 80 mg daily. However patient states only took a couple days of the prednisone as it caused her blood pressure to increase. CT scan of chest was also discussed, concern for possible postobstructive pneumonitis vs post-obstructive PNA vs scarring r/t radiation. Plan was to obtain PET scan to further evaluate. Patient presented to the emergency room with complaints of chest pain and upper abdominal pain. Patient states she been having upper abdominal pain and intermittent diarrhea for the last 7 to 8 months. Also reporting lower back pain. CT chest on 02/11/2025 showed increasing left lower lobe lingular lung consolidation suspicious for postobstructive pneumonitis from endobronchial lesion. Persistent but decreasing small left pleural effusion. Stable small right pleural effusion. CT chest abdomen and pelvis upon admit showed opacified left lower lobe airways increased consolidation. Small left pleural effusion. Compression deformity to L2 vertebral bodies. Similar trace pleural pericardial effusion. Chronic appearing wedge deformities at T11 and T12 and T9 vertebral bodies which are stable. Labs reviewed, WBC 6.8, hemoglobin 13.4, platelets 396,000. Nutritional studies negative for deficiencies. Coags WNL. Creatinine 0.69, GFR greater than 90. Bilirubin 0.4, AST 212, ALT 185, ALP 107. Amylase and lipase WNL. Troponins negative. Procalcitonin less than 0.20. Review of Systems 10 point ROS is negative except as stated in the HPI Past Medical History Past Medical History: Cancer, GERD/Reflux, Hyperlipidemia, Hypertension, Thyroid Disorder Additional Past Medical History / Comment(s): Wheezing, lung cancer w/ 7 radiation and chemo 30days finished oct 2023- on IV Keytruda once a month but has not taken in 5months; abd pain & nausea x 6 months, inpatient @ [facility] 07/01/24- 07/04/24 for abd pain and 09/02-09/07/24. History of Any Multi-Drug Resistant Organisms: None Reported Past Surgical History: Adenoidectomy, Cholecystectomy, Tonsillectomy Additional Past Surgical History / Comment(s): Colonoscopy/EGD w/ 06/28/24.unable to find anything per patient. Past Anesthesia/Blood Transfusion Reactions: No Reported Reaction Additional Past Anesthesia/Blood Transfusion Reaction / Comm: Sedation only for Colonoscopy. Past Psychological History: Anxiety, Panic Disorder Smoking Status: Former smoker Past Alcohol Use History: None Reported Additional Past Alcohol Use History / Comment(s): smoked 1/2 ppd- quit 2022. Past Drug Use History: None Reported - Past Family History Mother Family Medical History: Cancer Additional Family Medical History / Comment(s): Pancreatic cancer Sister(s) Family Medical History: Cancer Additional Family Medical History / Comment(s): Pancreatic cancer Brother(s) Family Medical History: Cancer Additional Family Medical History / Comment(s): Leukemia Medications and Allergies Home Medications Medication Instructions Recorded Confirmed Type ALPRAZolam [Xanax] 0.25 mg PO DAILY PRN 04/25/24 02/20/25 History ALPRAZolam [Xanax] 0.25 mg PO HS 04/25/24 02/20/25 History Diltiazem Cd [Cardizem CD] 240 mg PO HS 04/25/24 02/20/25 History Fluticasone/Umeclidin/Vilanter 1 puff INHALATION RT-DAILY 04/25/24 02/20/25 History [Trelegy Ellipta 100-62.5-25] Levothyroxine Sodium [Synthroid] 75 mcg PO DAILY 04/25/24 02/20/25 History QUEtiapine FUMARATE [SEROquel] 200 mg PO HS 04/25/24 02/20/25 History Linaclotide [Linzess] 290 mcg PO DAILY 09/03/24 02/20/25 History Baclofen [Lioresal] 10 mg PO QID PRN 09/22/24 02/20/25 History Tiotropium 2.5 Mcg/Puff [Spiriva 2 puff INHALATION RT-DAILY 09/22/24 02/20/25 History Respimat 2.5 Mcg] oxyCODONE-APAP 10-325MG [Percocet 1 tab PO TID PRN 09/22/24 02/20/25 History 10-325 mg] Dicyclomine [Bentyl] 20 mg PO QID PRN 02/20/25 02/20/25 History Lactulose [Cephulac] 30 gm PO QID PRN 02/20/25 02/20/25 History Lubiprostone [Amitiza] 24 mcg PO BID 02/20/25 02/20/25 History Metaxalone [Skelaxin] 800 mg PO Q8H PRN 02/20/25 02/20/25 History Tenapanor HCl [Ibsrela] 50 mg PO BID 02/20/25 02/20/25 History Vonoprazan Fumarate [Voquezna] 20 mg PO DAILY 02/20/25 02/20/25 History fentaNYL 50MCG/HR PATCH [Duragesic 50 mcg TRANSDERM Q72H 02/20/25 02/20/25 History 50MCG/HR] predniSONE [Deltasone] 40 mg PO BID 02/20/25 02/20/25 History Allergies Allergy/AdvReac Type Severity Reaction Status Date / Time morphine Allergy Unknown Verified 02/20/25 11:55 Physical Exam Vitals: Vital Signs Temp Pulse Pulse Pulse Resp BP BP 02/20/25 13:02 97.6 F 76 18 156/80 02/20/25 11:54 76 02/20/25 11:44 75 02/20/25 08:05 98.2 F 62 62 18 147/92 02/20/25 08:00 62 18 02/20/25 01:38 97.8 F 78 18 171/97 02/20/25 01:05 72 18 137/92 02/19/25 21:16 73 18 160/92 02/19/25 19:51 72 02/19/25 19:44 97.6 F 73 20 154/103 Pulse Ox 02/20/25 13:02 02/20/25 11:54 02/20/25 11:44 02/20/25 08:05 95 02/20/25 08:00 02/20/25 01:38 97 02/20/25 01:05 94 L 02/19/25 21:16 98 02/19/25 19:51 02/19/25 19:44 92 L Intake and Output 02/19/25 02/20/25 02/20/25 22:59 06:59 14:59 Other: Voiding Method Bedside Commode # Voids 1 0 Weight 54.431 kg 54.431 kg - Constitutional General appearance: average body habitus, no acute distress - EENT Eyes: anicteric sclerae, EOMI ENT: hearing grossly normal - Respiratory Respiratory: bilateral: diminished - Cardiovascular Rhythm: regular - Gastrointestinal General gastrointestinal: soft, tenderness - Integumentary Integumentary: no cyanotic, no jaundiced - Neurologic Neurologic: CNII-XII intact - Musculoskeletal Musculoskeletal: strength equal bilaterally - Psychiatric Psychiatric: A&O x's 3 Results CBC & Chem 7: 02/20/25 03:44 02/20/25 03:44 Labs: Abnormal Lab Results - Last 24 Hours (Table) 02/19/25 02/19/25 02/20/25 Range/Units 19:57 19:57 03:44 RBC (4.10-5.20) 10*6/uL MCH 32.7 H (27.0-32.0) pg MPV 8.3 L (9.5-12.2) fL Immature Gran # 0.16 H (0.00-0.04) 10*3/uL Sodium 132 L 130 L (137-145) mmol/L Carbon Dioxide 21 L (22-30) mmol/L Glucose 71 L (74-99) mg/dL Calcium 8.2 L (8.4-10.2) mg/dL AST 67 H 212 H (14-36) U/L ALT 102 H 185 H (4-34) U/L Total Protein 6.1 L (6.3-8.2) g/dL 02/20/25 Range/Units 03:44 RBC 4.07 L (4.10-5.20) 10*6/uL MCH 32.9 H (27.0-32.0) pg MPV 8.4 L (9.5-12.2) fL Immature Gran # 0.19 H (0.00-0.04) 10*3/uL Sodium (137-145) mmol/L Carbon Dioxide (22-30) mmol/L Glucose (74-99) mg/dL Calcium (8.4-10.2) mg/dL AST (14-36) U/L ALT (4-34) U/L Total Protein (6.3-8.2) g/dL CT scan - abdomen: report reviewed CT scan - chest: report reviewed CT scan - pelvis: report reviewed Assessment and Plan (1) Compression fracture of L2 Current Visit: Yes Status: Acute Priority: High Code(s): S32.020A - WEDGE COMPRESSION FRACTURE OF SECOND LUMBAR VERTEBRA, INIT SNOMED Code(s): 03874212658237091 (2) History of lung cancer Current Visit: Yes Status: Acute Priority: High Code(s): Z85.118 - P ERSONAL HISTORY OF MALIGNANT NEOPLASM OF BRONCHUS AND LUNG SNOMED Code(s): 751142185 (3) Intractable abdominal pain Current Visit: Yes Status: Acute Priority: High Code(s): R10.9 - UNSPECIFIED ABDOMINAL PAIN SNOMED Code(s): 77117228 Plan: Abdominal pain, back pain, chest pain: Patient presented to the emergency room with complaints of chest pain and upper abdominal pain. Patient has been having chronic upper abdominal pain and intermittent diarrhea for the last 7-8 months. Also reporting lower back pain. She has had previous GI workup which has been negative -Recent CT scan concerning for IO induced colitis. Pt was started on prednisone, but only took for a cpl days due to reported HTN. Pt will be restarted on prednisone -CT chest abdomen and pelvis upon admit showed opacified left lower lobe airways increased consolidation. Small left pleural effusion. Compression deformity to L2 vertebral bodies. Similar trace pleural pericardial effusion. Chronic appearing wedge deformities at T11 and T12 and T9 vertebral bodies which are stable. -Bilirubin 0.4, AST 212, ALT 185, ALP 107. Amylase and lipase WNL. Troponins negative. Procalcitonin less than 0.20. -Orthopedics consulted. Recommend back brace and outpt f/u -Pain regimen has been adjusted. Lung adenocarcinoma: -Oncology history as dictated in the HPI -Has been off Imfiinzi since April 2024 -CT chest on 02/11/2025 showed increasing left lower lobe lingular lung consolidation suspicious for postobstructive pneumonitis from endobronchial lesion. Persistent but decreasing small left pleural effusion -Imfinzi has been d/c. Plan was to obtain outpt PET CT to further evaluate -CT chest abdomen and pelvis upon admit showed opacified left lower lobe airways increased consolidation. Small left pleural effusion. Concern for possible postobstructive pneumonitis vs post-obstructive PNA vs scarring r/t radiation -Case discussed with pulmonology. Will plan for bronchoscopy to further evaluate Doctor attests: I performed a history and physical examination of this patient, developed impression and plan of care. Discussed with dictator. I agree with dictators note, documented as a scribe.
--- NOTE | 2025-02-20 19:14 | US ---
EXAMINATION TYPE: US abdomen limited DATE OF EXAM: 02/20/2025 COMPARISON: US 09/22/24 CLINICAL INDICATION: Female, 64 years old with history of transanamitis; patient states abd pain, no appetite. cholecystectomy. transaminitis TECHNIQUE: Grayscale and color Doppler imaging of the right upper quadrant was performed. 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 Mild prominence of the pancreatic duct. Consider additional workup with MRI of the pancreas. CT wi th pancreas protocol could be utilized. Considering a dilated common bile duct, ERCP should be consid ered. 2. Minimal hepatomegaly [facility], , 02/20/2025 7:12 PM
[2025-02-20] MEDS: LACTULOSE 20 GM/30 ML CUP PO PRN (19:52)
[2025-02-20] MEDS: BACLOFEN 10 MG TAB PO PRN (19:52)
[2025-02-20] MEDS: SYMBICORT 160-4.5 MCG INHALER INHALATION SCH (20:02)
[2025-02-20] MEDS ORDERED: ATORVASTATIN 20 MG TAB PO SCH (21:00)
[2025-02-20] MEDS: FAMOTIDINE 20 MG TAB PO SCH (21:14)
[2025-02-20] MEDS: HEPARIN SODIUM,PORCINE 5,000 UNIT/ML 1 ML VIAL SQ SCH (21:14)
[2025-02-20] MEDS: QUEtiapine 200 MG TAB PO SCH (21:15)
[2025-02-20] MEDS: DICYCLOMINE 20 MG TAB PO PRN (21:22)
[2025-02-20] MEDS: HYDROcodone/APAP 5-325MG 1 EACH TAB PO PRN (21:22)
[2025-02-21] MEDS ORDERED: NON FORMULARY DRUG (Tiotropium 2.5 Mcg/Puff 10 PUFF Each) INHALATION SCH (08:00)
--- NOTE | 2025-02-21 11:12 | P.PN ---
Subjective Progress Note Date: 02/21/25 Principal diagnosis: L2 compression fracture. Chronic T9, 10 and 11 compression fractures. This is a 64-year-old female with history of lung cancer. She has finished chemotherapy and radiation therapy. She states that she has had chest, abdomen and rib pain since completing chemotherapy. She does not recall any injury or fall. She has complaint of mid to low back pain for the past couple of months. She does have a CT scan from September 2024 which revealed old T11 and T12 compression fractures. New CT scan on this admission reveals interval compression fracture findings at L2. We are consulted for orthopedic evaluation. 02/21/2025: The patient is evaluated at bedside today. She is alert and oriented 3. She was asked to have family bring her back brace to the hospital which she has done as of yet. She is unsure as to the type of brace she has at home. She states that she has had it for a few years. She states that she continues to have back pain. She is scheduled for a procedure today. She is currently nothing by mouth. Objective - Vital Signs Vital signs: Vital Signs Temp 97.5 F L 02/21/25 07:36 Pulse 78 02/21/25 07:36 Resp 18 02/21/25 07:36 BP 112/69 02/21/25 07:36 Pulse Ox 90 L 02/21/25 07:36 FiO2 Intake & Output 02/20/25 02/21/25 02/21/25 18:59 06:59 18:59 Intake Total 240 Balance 240 Intake: Oral 240 Other: Voiding Method Bedside Commode # Voids 2 2 - Exam This is a pleasant 64-year-old female in no acute distress. She is alert and oriented x 3. Exam of the thoracic and lumbar spine reveal no obvious deformity. There are no scars noted. There is tenderness with palpation and percussion in the upper lumbar region. Minimal pain with palpation about the thoracic spine. Minimal paraspinal musculature tenderness in the lumbar region. She is able to lift each leg off the bed independently. With negative straight leg raise. Exam of the lower extremities reveals no obvious deformity. Logroll produces no pain bilaterally. She has full foot and ankle motion bilaterally. Neurovascular status to the lower extremities intact. - Labs CBC & Chem 7: 02/20/25 03:44 02/20/25 03:44 Assessment and Plan (1) History of lung cancer Current Visit: Yes Status: Acute Priority: High Code(s): Z85.118 - PERSONAL HISTORY OF MALIGNANT NEOPLASM OF BRONCHUS AND LUNG SNOMED Code(s): 013908541 (2) Compression fracture of L2 Current Visit: Yes Status: Acute Priority: High Code(s): S32.020A - WEDGE COMPRESSION FRACTURE OF SECOND LUMBAR VERTEBRA, INIT SNOMED Code(s): 23981738880361249 (3) Intractable abdominal pain Current Visit: Yes Status: Acute Priority: High Code(s): R10.9 - UNSPECIF IED ABDOMINAL PAIN SNOMED Code(s): 36865591 Plan: The clinical and radiographic findings are discussed with the patient. She is currently having no neurologic deficits to the lower extremities. She does have a lumbar brace at home. Her symptoms do correlate with the new L2 compression found on CT scan. It's recommended that she wear her brace when she is out of bed. I have ordered a new LSO brace. She will follow up with Dr. Garcia in the outpatient setting.
[2025-02-21] MEDS ORDERED: MIDAZOLAM 2 MG/2 ML VIAL ONE (11:32)
[2025-02-21] MEDS ORDERED: PROPOFOL 10 MG/ML 20 ML VIAL IV ONE (11:32)
[2025-02-21] MEDS ORDERED: LIDOCAINE 2% (PF) 20 MG/ML 5 ML VIAL ONE (11:32)
[2025-02-21 11:43] LABS: ALT 92 U/L (4-34); African American GFR (CKD) >90 (>60 ml/min/1.73 sqM); Albumin 3.5 g/dL (3.5-5.0); Albumin/Globulin Ratio 1.4; Anion Gap 9 mmol/L; Blood Urea Nitrogen 13 mg/dL (7-17); Calcium 8.7 mg/dL (8.4-10.2); Carbon Dioxide 20 mmol/L (22-30); Chloride 103 mmol/L (98-107); Globulin 2.5 g/dL; Glucose 103 mg/dL (74-99); Non-African American GFR(CKD) 82 (>60 ml/min/1.73 sqM); Sodium 132 mmol/L (137-145); Total Bilirubin 0.5 mg/dL (0.2-1.3)
[2025-02-21 11:57] LABS: AST 50 U/L (14-36); Alkaline Phosphatase 74 U/L (38-126); Potassium 4.3 mmol/L (3.5-5.1)
--- NOTE | 2025-02-21 12:08 | P.PN ---
Subjective Progress Note Date: 02/21/25 Pt reporting persisting back and upper abd pain and nausea/burning sensation. Denies vomiting. Plan for bronch today Objective - Vital Signs Vital signs: Vital Signs Temp 97.5 F L 02/21/25 07:36 Pulse 78 02/21/25 07:36 Resp 18 02/21/25 07:36 BP 112/69 02/21/25 07:36 Pulse Ox 90 L 02/21/25 07:36 FiO2 Intake & Output 02/20/25 02/21/25 02/21/25 18:59 06:59 18:59 Intake Total 240 Balance 240 Intake: Oral 240 Other: Voiding Method Bedside Commode # Voids 2 2 - Constitutional General appearance: Present: average body habitus, no acute distress - EENT Eyes: Present: anicteric sclerae, EOMI ENT: Present: hearing grossly normal - Respiratory Details: breathing is even and unlabored - Cardiovascular Details: skin warm and dry - Integumentary Integumentary: Absent: cyanotic - Psychiatric Psychiatric: Present: A&O x's 3 - Labs CBC & Chem 7: 02/20/25 03:44 02/21/25 11:06 Assessment and Plan (1) Compression fracture of L2 Current Visit: Yes Status: Acute Priority: High Code(s): S32.020A - WEDGE COMPRESSION FRACTURE OF SECOND LUMBAR VERTEBRA, INIT SNOMED Code(s): 75461945852896121 (2) History of lung cancer Current Visit: Yes Status: Acute Priority: High Code(s): Z85.118 - PERSONAL HISTORY OF MALIGNANT NEOPLASM OF BRONCHUS AND LUNG SNOMED Code(s): 100023457 (3) Intractable abdominal pain Current Visit: Yes Status: Acute Priority: High Code(s): R10.9 - UNSPECIFIED ABDOMINAL PAIN SNOMED Code(s): 50208967 Plan: Abdominal pain, back pain, chest pain: Patient presented to the emergency room with complaints of chest pain and upper abdominal pain. Patient has been having chronic upper abdominal pain and intermittent diarrhea for the last 7-8 months. Also reporting lower back pain. She has had previous GI workup which has been negative -Recent CT scan concerning for IO induced colitis. Pt was started on prednisone, but only took for a cpl days due to reported HTN. Pt will be restarted on prednisone -CT chest abdomen and pelvis upon admit showed opacified left lower lobe airways increased consolidation. Small left pleural effusion. Compression deformity to L2 vertebral bodies. Similar trace pleural pericardial effusion. Chronic appe aring wedge deformities at T11 and T12 and T9 vertebral bodies which are stable. -Bilirubin 0.4, AST 212, ALT 185, ALP 107. Amylase and lipase WNL. Troponins negative. Procalcitonin less than 0.20. -Orthopedics consulted. Recommend back brace and outpt f/u -Continue supportive care measures. Pain regimen has been adjusted. Bowel regimen in place Lung adenocarcinoma: -Oncology history as dictated in the HPI -Has been off Imfiinzi since April 2024 -CT chest on 02/11/2025 showed increasing left lower lobe lingular lung consolidation suspicious for postobstructive pneumonitis from endobronchial lesion. Persistent but decreasing small left pleural effusion -Imfinzi has been d/c. Plan was to obtain outpt PET CT to further evaluate -CT chest abdomen and pelvis upon admit showed opacified left lower lobe airways increased consolidation. Small left pleural effusion. Concern for possible postobstructive pneumonitis vs post-obstructive PNA vs scarring r/t radiation -Case discussed with pulmonology. Will plan for bronchoscopy to further evaluate
--- NOTE | 2025-02-21 13:27 | P.PN ---
Subjective Progress Note Date: 02/21/25 History of present illness; Patient is a 64-year-old female with history significant for lung cancer status post chemo/radiation followed by immunotherapy, COPD, hyperlipidemia, hypertension, hypothyroidism who presents for abdominal pain. She states that pain has been intermittent and ongoing for approximately 7 months however has now progressed. Abdominal pain is bandlike across the upper abdominal q uadrants, lower ribs bilaterally, and radiating to the back. She endorses black tarry bowel movements over the last couple weeks, last being yesterday. She also states she has had a poor appetite, without nausea or vomiting. No NSAID or anticoagulant use. Has not taken any of her medications for approximately 3 days. She had EGD completed in August, consistent with gastritis and she has been taking Carafate as well as omeprazole on outpatient basis. She also endorses chronic cough with some sputum production. She also reports lower extremity weakness bilaterally and troubles ambulating. She denies any recent falls or trauma, saddle anesthesia, loss of bowel, or bladder control. Currently, patient denies shortness of breath, fevers or chills. No other symptoms. 02/21/25 Patient seen and examined at bedside. No acute events overnight. Plan to undergo bronchoscopy with pulmonology today. Continue prednisone, oncology following. Patient states she continues to have moderate abdominal pain. REVIEW OF SYSTEMS: Pertinent positives and negatives noted in HPI. PHYSICAL EXAMINATION: Vitals reviewed GENERAL: Resting comfortably in bed. CARDIOVASCULAR: S1 and S2 present. No murmurs, rubs, or gallops. PULMONARY: Chest is clear to auscultation, no wheezing, rhonchi, or crackles. ABDOMEN: Soft, mild epigastric tenderness, nondistended. No palpable organomegaly. MUSCULOSKELETAL: Mild tenderness to paraspinal musculature in thoracic and lumbar region. EXTREMITIES: No apparent cyanosis, clubbing. No pedal edema. NEUROLOGICAL: Alert and oriented. Gross neurological examination with no apparent focal deficits. SKIN: No apparent rashes. OBJECTIVE FINDINGS: Labs significant for sodium 132, bicarb 20, glucose 103, AST 50, ALT 92 Assessment and Plan: In summary, patient is a 64-year-old female with history significant for lung cancer status post chemo/radiation followed by immunotherapy, COPD, hyperlipidemia, hypertension, hypothyroidism who presents for abdominal pain. #Suspected colitis, suspected induced by immunotherapy #Transaminitis, improving #History of gastritis Continue high-dose steroids Continue Protonix Continue Dilaudid, Toradol, Lottie for pain management Oncology following #COPD, not in exacerbation #History of non-small cell lung cancer, pulmonary adenocarcinoma type - Dx July 2023 s/p chemo/radiation followed by immunotherapy with Keytruda. Follows up with oncologist Dr. Castro. - CT chest with persistent left lower lobe consolidation and lingular consolidation Planned bronchoscopy today Pulmonology and hematology oncology consulted #New Compression deformity of L2 vertebral body Resume lumbar brace Dr. Garcia recommend follow-up in the outpatient setting #Hyponatremia, euvolemic, improving Monitor BMP Chronic Medical Conditions #Hyperlipidemia #Hypertension #Hypothyroidism Resume home medications DVT ppx: Subq heparin 5000 units twice daily Code status: Full code F: PO E: Replete as needed N: Liquid diet, n.p.o. after midnight Anticipated discharge place: Home Anticipated discharge time: [address] Abbott seen patient with resident, present during exam, and agreed with findings. Dictation was produced using [employer] dictation software. Please excuse any grammatical, word or spelling errors. Objective - Vital Signs Vital signs: Vital Signs Temp 97.5 F L 02/21/25 07:36 Pulse 78 02/21/25 07:36 Resp 18 02/21/25 07:36 BP 112/69 02/21/25 07:36 Pulse Ox 90 L 02/21/25 07:36 FiO2 Intake & Output 02/20/25 02/21/25 02/21/25 18:59 06:59 18:59 Intake Total 240 Balance 240 Intake: Oral 240 Other: Voiding Method Bedside Commode # Voids 2 2 - Labs CBC & Chem 7: 02/20/25 03:44 02/21/25 11:06
[2025-02-21] MEDS: IV FLUID CONTINUATION 1,000 ML IV ONE (14:36)
--- NOTE | 2025-02-21 16:45 | P.PN ---
Subjective Progress Note Date: 02/21/25 Patient is a 64-year-old female with past medical history significant for lung cancer status post chemo/radiation followed by immunotherapy, COPD, hyperlipidemia, hypertension, hypothyroidism. Presented to the emergency department late last night with the chief complaint of abdominal pain, which has been intermittent and ongoing for approximately 7 months. Abdominal pain is bandlike across the upper abdominal quadrants, lower ribs bilaterally, and radiating to the back. Described as "screwing" sensation. Currently, rated 9 on a 10 point numerical scale. Reports black tarry bowel movements over the last couple weeks. Appetite has been poor. No significant nausea or vomiting or hematemesis. Not take any anticoagulants. Denies NSAID use. Has not taken any of her medications for approximately 3 days. More recently, did have an EGD done August, consistent with gastritis. She has been taking Carafate as well as omeprazole on outpatient basis. Workup in the emergency department including a CT of the chest, abdomen, pelvis remarkable for persistent left lower lobe and lingular consolidation consistent with known left perihilar mass and postobstructive atelectasis. Postobstructive pneumonia difficult to exclude. Small persistent left pleural effusion. Persistent trace pericardial effusion. New compression deformity of L2 vertebral body with 25% height loss. Stable/chronic appearing wedge deformities of T9, T11, and T12 vertebral bodies. No obvious intra-abdominal process was noted to explain her abdominal pain. CBC: WBC count 8.3, hemoglobin 14.6, platelets 391. CMP: Sodium 132, potassium 3.8, chloride 101, serum bicarb 22, BUN 12, creatinine 0.81, glucose 85. AST 67, ALT 102, ALP 86, troponins less than 0.012 x 2. Amylase and lipase not elevated. Patient currently being evaluated on the general medical floor. She is sitting up in bed non-labored breathing, on room air. Speaking in complete sentences. Denies any significant shortness of breath. Does endorse chronic cough with occasional yellow sputum production. Denies any fevers or chills. States she has not used any of her maintenance inhalers due to significant abdominal pain as described above. Denies any recent falls or trauma. Does report lower extremity weakness bilaterally and troubles ambulating. Denies any saddle anesthesia, loss of bowel or bladder control. Current vital signs: Temperature 97.8 F, heart rate 78 bpm, blood pressure 171/97 mmHg, nontachypneic, SpO2 recorded at 97% on room air. On today's evaluation on 02/21/2025, the patient continues to have soreness a cross her lower chest along the rib cage bilaterally. She also has copious respiratory secretions and the plan is to do a bronchoscopy and therapeutic airway suctioning in the same time evaluate the left lower lobe bronchus as the patient has chronic atelectasis of the left lower lobe post chemo and radiation therapy for pulm adenocarcinoma. The patient has no specific complaints. She is afebrile. Pulse ox is 94% on 3 Suboxone by nasal cannula. No new labs are available in terms of his CBC. Electrolytes are normal normal. Serum bicarb is at 20, BUN 30 mg of 0.7. LFTs were mildly elevated although they are improving compared to yesterday. The patient's procalcitonin level is less than 0.2. Objective - Vital Signs Vital signs: Vital Signs Temp 97 F L 02/21/25 15:03 Pulse 64 02/21/25 16:18 Resp 16 02/21/25 16:18 BP 124/86 02/21/25 16:18 Pulse Ox 94 L 02/21/25 16:18 FiO2 Intake & Output 02/20/25 02/21/25 02/21/25 18:59 06:59 18:59 Intake Total 240 900 Balance 240 900 Weight 54.431 kg Intake: IV 900 Oral 240 Other: Voiding Method Bedside Commode # Voids 2 2 1 # Bowel Movements 1 - Exam GENERAL EXAM: Alert, well-nourished, 64-year-old female, sitting up in bed, comfortable in no apparent distress. Patient currently on 3 l of oxygen by nasal cannula with pulse ox of 94% HEAD: Normocephalic and atraumatic EYES: Normal reaction of pupils, equal size. NOSE: Clear with pink turbinates. THROAT: No erythema or exudates. NECK: No masses, no JVD. CHEST: No chest wall deformity. LUNGS: Equal air entry with scattered wheezes heard best in the left posterior lower lobe. No conversational dyspnea or accessory muscle use.. CVS: S1 and S2 normal with no audible murmur, regular rhythm. No extra heart sounds ABDOMEN: Slight abdominal distention, active bowel sounds, no hepatosplenomegaly, no guarding or rigidity. SPINE: No scoliosis or deformity SKIN: No rashes CENTRAL NERVOUS SYSTEM: No focal deficits, tone is normal in all 4 extremities. EXTREMITIES: There is no peripheral edema, clubbing, or cyanosis. Peripheral pulses are intact. - Labs CBC & Chem 7: 02/20/25 03:44 02/21/25 11:06 Labs: Abnormal Lab Results - Last 24 Hours (Table) 02/21/25 Range/Units 11:06 Sodium 132 L (137-145) mmol/L Carbon Dioxide 20 L (22-30) mmol/L Glucose 103 H (74-99) mg/dL AST 50 H (14-36) U/L ALT 92 H (4-34) U/L Total Protein 6.0 L (6.3-8.2) g/dL Assessment and Plan Assessment: History of non-small cell lung cancer, pulmonary adenocarcinoma type, originally diagnosed back in July 2023, and is status post chemo/radiation followed by immunotherapy with Keytruda. Follows up on outpatient basis with her oncologist Dr. Castro. CT of the chest, abdomen, pelvis remarkable for persistent left lower lobe and lingular consolidation consistent with known left perihilar mass and postobstructive atelectasis. Postobstructive pneumonia difficult to exclude but felt to be less likely. Small persistent left pleural effusion. Persistent trace pericardial effusion. New compression deformity of L2 vertebral body with 25% height loss. Stable/chronic appearing wedge deformities of T9, T11, and T12 vertebral bodies. No obvious intra-abdominal process was noted to explain her abdominal pain. Ongoing abdominal pain and melanotic stools History of gastritis, EGD performed August, consistent with gastritis. Prescribed Carafate and omeprazole on an outpatient basis. Chronic obstructive pulmonary disease, maintained on Trelegy Ellipta on outpatient basis, stable New compression deformity of L2 vertebral body with 25% height loss History of laparoscopic cholecystectomy done 07/08/2024 History of hyperlipidemia Hypertension History of hypothyroidism Chronic anxiety/panic disorder Plan Chronic left lower lobe atelectasis CT of the chest, abdomen, pelvis reviewed, showing persistent left lower lobe consolidation and lingular consolidation consistent with known left perihilar mass and postobstructive atelectasis. Postobstructive pneumonia is possible but felt to be less likely. Did receive doses of azithromycin and Rocephin in the ED. Check procalcitonin and the level was low Medical oncology team is also consulted Bronchoscopy today for a left lower lobe bronchus inspection The patient is currently on high-dose steroids suspecting immunotherapy related GI toxicity. This was not confirmed by the CAT scan of the abdomen and pelvis. Pain could be related to wedge deformities of the T-spine and L2 vertebral compression deformity. Reconsider the use of high-dose steroids in this patient.
--- NOTE | 2025-02-21 16:49 | P.PCN ---
Date of Procedure: 02/21/25 Preoperative Diagnosis: Left lower lobe atelectasis, history of pulm adenocarcinoma post chemoradiation therapy to the left lower lobe. Postoperative Diagnosis: Narrowing of the left lower lobe bronchus. The orifice of the left lower lobe bronchus was quite narrowed probably due to radiation therapy. Unable to visualize the various segments of the left lower lobe. Mucosal lesions/abnormalities of orifice of the left lower lobe bronchus and secondary kevin the left upper lobe and the left lower lobe. Endobronchial biopsies were done. Copious respiratory secretions and mucous plugs, post therapeutic airway suctioning COPD Tracheobronchomalacia Procedure(s) Performed: Flexible bronchoscopy BAL of the left lower lobe Endobronchial biopsies of the mucosal irregularities at the left lower lobe bronchus and the secondary kevin on the left. Anesthesia: MAC Surgeon: Bebo Kruger Estimated Blood Loss (ml): 0 Pathology: other Condition: stable Disposition: floor Operative Findings: This procedure was done in the endoscopy suite. A consent was signed and a timeout was also performed. The procedure was done under conscious sedation. After achieving adequate sedation, the bronchoscope was introduced through the left nostril and was advanced with a upper airways. Examination of the posterior pharynx, larynx, epiglottis, vallecula, arytenoids and the vocal cords were all within normal limits. A total of 2 cc of 1% lidocaine was applied to the vocal cord and following the bronchoscope was passed into the upper trachea. Examination of tracheobronchial tree showed copious amount of yellow purulent respiratory secretions retained in the airways. There was copious amounts of mucous plugging. Therapeutic airway suctioning was done and during the process the bronchoscope had to be removed on multiple occasions as there was completing of the working chamber of the bronchoscope. I had to remove and reinsert the bronchoscope at least 5 or 6 times and the mucous plugs respiratory's were all evacuated without any major difficulties. Airway inspection was completed. There was tracheobronchomalacia. There was some mild mucosal inflammatory changes. Examination of the right upper lobe bronchus, right middle lobe bronchus and the right lower lobe bronchus and the various 10 segments on the right with a within normal limits. Examination of the left mainstem bronchus was normal. At the level of the kevni between the left upper lobe and the left lower lobe, there was some anatomic distortion and there was significant narrowing of the left lower lobe bronchus probably related to radiation therapy. I was unable to pass the bronchoscope into the left lower lobe. As such, the segments of the left lower lobe were not visualized. At the same time, there was some mucosal lesions and irregularities in the proximal orifice of the left lower lobe bronchus. Endobronchial biopsies were taken. Following that, a bronchioloalveolar lavage of the left lower lobe was done. A total of 40 cc of fluid was infused in 10 to 5 cc was aspirated without any major difficulties. The bronchoscope was removed and the patient was transferred to recovery in stable condition.
[2025-02-21] MEDS: ONDANSETRON 4 MG/2 ML VIAL IVP PRN (16:51)
[2025-02-21] MEDS: LIDOCAINE 4% PATCH TOPICAL SCH (18:51)
[2025-02-21] MEDS: DOCUSATE 100 MG CAP PO SCH (20:11)
[2025-02-21] MEDS: HYDROmorphone 0.5 MG/0.5 ML SYRINGE IVP PRN (20:58)
[2025-02-22 12:15] LABS: Blood Urea Nitrogen 11.2 mg/dL (9.0-27.0); Glucose 147 mg/dL (70-110)
[2025-02-22 12:16] LABS: ALT 89 U/L (8-44); AST 33 U/L (13-35); Albumin 3.6 g/dL (3.8-4.9); Alkaline Phosphatase 90 U/L (41-126); Calcium 9.1 mg/dL (8.7-10.3); Chloride 104 mmol/L (96-109); Sodium 134 mmol/L (135-145); Total Bilirubin <0.2 mg/dL (0.3-1.2); Total Protein 5.6 g/dL (6.2-8.2)
--- NOTE | 2025-02-22 12:35 | P.PN ---
Subjective Progress Note Date: 02/22/25 History of present illness; Patient is a 64-year-old female with history significant for lung cancer status post chemo/radiation followed by immunotherapy, COPD, hyperlipidemia, hypertension, hypothyroidism who presents for abdominal pain. She states that pain has been intermittent and ongoing for approximately 7 months however has now progressed. Abdominal pain is bandlike across the upper abdominal q uadrants, lower ribs bilaterally, and radiating to the back. She endorses black tarry bowel movements over the last couple weeks, last being yesterday. She also states she has had a poor appetite, without nausea or vomiting. No NSAID or anticoagulant use. Has not taken any of her medications for approximately 3 days. She had EGD completed in August, consistent with gastritis and she has been taking Carafate as well as omeprazole on outpatient basis. She also endorses chronic cough with some sputum production. She also reports lower extremity weakness bilaterally and troubles ambulating. She denies any recent falls or trauma, saddle anesthesia, loss of bowel, or bladder control. Currently, patient denies shortness of breath, fevers or chills. No other symptoms. 02/21/25 Patient seen and examined at bedside. No acute events overnight. Plan to undergo bronchoscopy with pulmonology today. Continue prednisone, oncology following. Patient states she continues to have moderate abdominal pain. 02/22/25 Patient seen and examined at bedside. Yesterday patient underwent bronchoscopy with findings of narrowing of the left lower lobe bronchus. The orifice of the left lower lobe bronchus was quite narrowed probably due to radiation therapy. Mucosal lesions/abnormalities of orifice of the left lower lobe bronchus and secondary kevin the left upper lobe and the left lower lobe. Endobronchial biopsies were done. Copious respiratory secretions and mucous pl ugs, post therapeutic airway suctioning. Tracheobronchomalacia. Continue prednisone, oncology following. Patient states she continues to have moderate abdominal pain. Continuing pain management. Sodium 134, Bicarb 18, ALT 89. REVIEW OF SYSTEMS: Pertinent positives and negatives noted in HPI. PHYSICAL EXAMINATION: Vitals reviewed GENERAL: Resting comfortably in bed. CARDIOVASCULAR: S1 and S2 present. No murmurs, rubs, or gallops. PULMONARY: Chest is clear to auscultation, no wheezing, rhonchi, or crackles. ABDOMEN: Soft, mild epigastric tenderness, nondistended. No palpable organome kulwinder. MUSCULOSKELETAL: Mild tenderness to paraspinal musculature in thoracic and lumbar region. EXTREMITIES: No apparent cyanosis, clubbing. No pedal edema. NEUROLOGICAL: Alert and oriented. Gross neurological examination with no apparent focal deficits. SKIN: No apparent rashes. Assessment and Plan: In summary, patient is a 64-year-old female with history significant for lung cancer status post chemo/radiation followed by immunotherapy, COPD, hyperlipidemia, hypertension, hypothyroidism who presents for abdominal pain. #Suspected colitis, suspected induced by immunotherapy #Transaminitis, improving #History of gastritis Continue high-dose steroids Continue Protonix Continue Dilaudid, Toradol, Carlock for pain management Oncology following #COPD, not in exacerbation #History of non-small cell lung cancer, pulmonary adenocarcinoma type - Dx July 2023 s/p chemo/radiation followed by immunotherapy with Keytruda. Follows up with oncologist Dr. Castro. - CT chest with persistent left lower lobe consolidation and lingular c onsolidation S/P Bronchoscopy 02/21/25, biopsies taken, tracheobronchomalacia Pulmonology and hematology oncology consulted #New Compression deformity of L2 vertebral body Resume lumbar brace Dr. Garcia recommend follow-up in the outpatient setting #Hyponatremia, euvolemic, improving Monitor BMP Chronic Medical Conditions #Hyperlipidemia #Hypertension #Hypothyroidism Resume home medications DVT ppx: Subq heparin 5000 units twice daily Code status: Full code F: PO E: Replete as needed N: Liquid diet Anticipated discharge place: Home Anticipated discharge time: [address] Abdullahi seen patient with resident, present during exam, and agreed with findings. Dictation was produced using [employer] dictation software. Please excuse any grammatical, word or spelling errors. Attestation I have seen and examined this patient with my resident , discussed the same with the resident/JOVANI, and agree with the dictator's assessment and plan as written Dr. Manfred abdullahi Objective - Vital Signs Vital signs: Vital Signs Temp 98.3 F 02/22/25 07:24 Pulse 80 02/22/25 11:10 Resp 16 02/22/25 07:24 BP 132/81 02/22/25 07:24 Pulse Ox 95 02/22/25 10:55 FiO2 Intake & Output 04/25/25 04/26/25 04/26/25 18:59 06:59 18:59 Intake Total 1480 480 Output Total 600 Balance 1480 -600 480 Weight 54.431 kg Intake: IV 900 Oral 580 480 Output: Urine 600 Other: Voiding Method Toilet Toilet # Voids 1 # Bowel Movements 1 - Labs CBC & Chem 7: 02/20/25 03:44 02/23/25 05:58 Labs: Abnormal Lab Results - Last 24 Hours (Table) 02/22/25 Range/Units 03:20 Sodium 134 L (135-145) mmol/L Carbon Dioxide 18.0 L (21.6-31.8) mmol/L Glucose 147 H (70-110) mg/dL Total Bilirubin <0.2 L (0.3-1.2) mg/dL ALT 89 H (8-44) U/L Total Protein 5.6 L (6.2-8.2) g/dL Albumin 3.6 L (3.8-4.9) g/dL Microbiology - Last 24 Hours (Table) 02/21/25 14:30 Gram Stain - Preliminary Bronchoalviolar Lavage - Left
[2025-02-22] MEDS: HYDROcodone/APAP 7.5-325MG 1 EACH TAB PO PRN (12:40)
--- NOTE | 2025-02-22 14:48 | P.PN ---
Subjective Progress Note Date: 02/22/25 Patient is a 64-year-old female with past medical history significant for lung cancer status post chemo/radiation followed by immunotherapy, COPD, hyperlipidemia, hypertension, hypothyroidism. Presented to the emergency department late last night with the chief complaint of abdominal pain, which has been intermittent and ongoing for approximately 7 months. Abdominal pain is bandlike across the upper abdominal quadrants, lower ribs bilaterally, and radiating to the back. Described as "screwing" sensation. Currently, rated 9 on a 10 point numerical scale. Reports black tarry bowel movements over the last couple weeks. Appetite has been poor. No significant nausea or vomiting or hematemesis. Not take any anticoagulants. Denies NSAID use. Has not taken any of her medications for approximately 3 days. More recently, did have an EGD done August, consistent with gastritis. She has been taking Carafate as well as omeprazole on outpatient basis. Workup in the emergency department including a CT of the chest, abdomen, pelvis remarkable for persistent left lower lobe and lingular consolidation consistent with known left perihilar mass and postobstructive atelectasis. Postobstructive pneumonia difficult to exclude. Small persistent left pleural effusion. Persistent trace pericardial effusion. New compression deformity of L2 vertebral body with 25% height loss. Stable/chronic appearing wedge deformities of T9, T11, and T12 vertebral bodies. No obvious intra-abdominal process was noted to explain her abdominal pain. CBC: WBC count 8.3, hemoglobin 14.6, platelets 391. CMP: Sodium 132, potassium 3.8, chloride 101, serum bicarb 22, BUN 12, creatinine 0.81, glucose 85. AST 67, ALT 102, ALP 86, troponins less than 0.012 x 2. Amylase and lipase not elevated. Patient currently being evaluated on the general medical floor. She is sitting up in bed non-labored breathing, on room air. Speaking in complete sentences. Denies any significant shortness of breath. Does endorse chronic cough with occasional yellow sputum production. Denies any fevers or chills. States she has not used any of her maintenance inhalers due to significant abdominal pain as described above. Denies any recent falls or trauma. Does report lower extremity weakness bilaterally and troubles ambulating. Denies any saddle anesthesia, loss of bowel or bladder control. Current vital signs: Temperature 97.8 F, heart rate 78 bpm, blood pressure 171/97 mmHg, nontachypneic, SpO2 recorded at 97% on room air. On today's evaluation on 02/21/2025, the patient continues to have soreness a cross her lower chest along the rib cage bilaterally. She also has copious respiratory secretions and the plan is to do a bronchoscopy and therapeutic airway suctioning in the same time evaluate the left lower lobe bronchus as the patient has chronic atelectasis of the left lower lobe post chemo and radiation therapy for pulm adenocarcinoma. The patient has no specific complaints. She is afebrile. Pulse ox is 94% on 3 Suboxone by nasal cannula. No new labs are available in terms of his CBC. Electrolytes are normal normal. Serum bicarb is at 20, BUN 30 mg of 0.7. LFTs were mildly elevated although they are improving compared to yesterday. The patient's procalcitonin level is less than 0.2. 02/22/2025 patient has a dry cough. Unable to bring up much sputum. The bronchial cultures was positive for Enterobacter and Klebsiella. Final sensitivities are still pending for now. Meanwhile, the patient is not receiving any antibiotics. Will start the patient empirically with IV cefepime. Continues to have soreness across her chest and upper abdominal area. Exact nature of this soreness and discomfort is not clear. Remains on Symbicort and Ventolin rescue inhaler and this morning the patient is on a reasonable regimen nasal cannula with a pulse ox of 96%. Objective - Vital Signs Vital signs: Vital Signs Temp 98.3 F 02/22/25 07:24 Pulse 80 02/22/25 11:10 Resp 16 02/22/25 07:24 BP 132/81 02/22/25 07:24 Pulse Ox 95 02/22/25 10:55 FiO2 Intake & Output 02/21/25 02/22/25 02/22/25 18:59 06:59 18:59 Intake Total 1480 480 Output Total 600 Balance 1480 -600 480 Weight 54.431 kg Intake: IV 900 Oral 580 480 Output: Urine 600 Other: Voiding Method Toilet # Voids 1 # Bowel Movements 1 - Exam GENERAL EXAM: Alert, well-nourished, 64-year-old female, sitting up in bed, comfortable in no apparent distress. Patient currently on 3 l of oxygen by nasal cannula with pulse ox of 94% HEAD: Normocephalic and atraumatic EYES: Normal reaction of pupils, equal size. NOSE: Clear with pink turbinates. THROAT: No erythema or exudates. NECK: No masses, no JVD. CHEST: No chest wall deformity. LUNGS: Equal air entry with scattered wheezes heard best in the left posterior lower lobe. No conversational dyspnea or accessory muscle use.. CVS: S1 and S2 normal with no audible murmur, regular rhythm. No extra heart sounds ABDOMEN: Slight abdominal distention, active bowel sounds, no hepatosplenomegaly, no guarding or rigidity. SPINE: No scoliosis or deformity SKIN: No rashes CENTRAL NERVOUS SYSTEM: No focal deficits, tone is normal in all 4 extremities. EXTREMITIES: There is no peripheral edema, clubbing, or cyanosis. Peripheral pulses are intact. - Labs CBC & Chem 7: 02/20/25 03:44 02/22/25 03:20 Labs: Abnormal Lab Results - Last 24 Hours (Table) 02/21/25 Range/Units 11:06 Sodium 132 L (137-145) mmol/L Carbon Dioxide 20 L (22-30) mmol/L Glucose 103 H (74-99) mg/dL AST 50 H (14-36) U/L ALT 92 H (4-34) U/L Total Protein 6.0 L (6.3-8.2) g/dL Microbiology - Last 24 Hours (Table) 02/21/25 14:30 Gram Stain - Preliminary Bronchoalviolar Lavage - Left Assessment and Plan Assessment: History of non-small cell lung cancer, pulmonary adenocarcinoma type, originally diagnosed back in July 2023, and is status post chemo/radiation followed by immunotherapy with Keytruda. Follows up on outpatient basis with her oncologist Dr. Castro. CT of the chest, abdomen, pelvis remarkable for persistent left lower lobe and lingular consolidation consistent with known left perihilar mass and postobstructive atelectasis. Postobstructive pneumonia difficult to exclude but felt to be less likely. Small persistent left pleural effusion. Persistent trace pericardial effusion. New compression deformity of L2 vertebral body with 25% height loss. Stable/chronic appearing wedge deformities of T9, T11, and T12 vertebral bodies. No obvious intra-abdominal process was noted to explain her ab dominal pain. Left lower lobe atelectasis/consolidation, and bronchoscopy was done on 02/21/2025 and the patient was found to have stenosis of the left lower lobe bronchus with narrowing probably postradiation changes contributing for her left lower lobe atelectasis. Additionally, the patient was found to have copious respiratory secretions and a bronchioloalveolar lavage of the left lower lobe was positive for Klebsiella and Enterobacter. Biopsies of the left lower lobe bronchus mucosal irregularities were also done. Ongoing abdominal pain and melanotic stools History of gastritis, EGD performed August, consistent with gastritis. Prescribed Carafate and omeprazole on an outpatient basis. Chronic obstructive pulmonary disease, maintained on Trelegy Ellipta on outpatient basis, stable New compression deformity of L2 vertebral body with 25% height loss History of laparoscopic cholecystectomy done 07/08/2024 History of hyperlipidemia Hypertension History of hypothyroidism Chronic anxiety/panic disorder Plan Chronic left lower lobe atelectasis, likely superinfection with gram-negative Klebsiella and Enterobacter. Patient was placed on IV cefepime. Endobronchial biopsy of the left lower lobe was done, awaiting results Check procalcitonin and the level was low Medical oncology team is also consulted The patient is currently on high-dose steroids suspecting immunotherapy related GI toxicity. This was not confirmed by the CAT scan of the abdomen and pelvis. Pain could be related to wedge deformities of the T-spine and L2 vertebral compression deformity. Reconsider the use of high-dose steroids in this patient. Start the patient on IV cefepime We will continue to follow.
[2025-02-23 06:55] LABS: Carbon Dioxide 17 mmol/L (22-30); Chloride 104 mmol/L (98-107); Glucose 121 mg/dL (74-99); Potassium 4.2 mmol/L (3.5-5.1); Sodium 133 mmol/L (137-145)
[2025-02-23 06:56] LABS: ALT 81 U/L (4-34); AST 37 U/L (14-36); African American GFR (CKD) >90 (>60 ml/min/1.73 sqM); Albumin 3.5 g/dL (3.5-5.0); Albumin/Globulin Ratio 1.4; Alkaline Phosphatase 81 U/L (38-126); Anion Gap 12 mmol/L; Blood Urea Nitrogen 10 mg/dL (7-17); Calcium 9.7 mg/dL (8.4-10.2); Globulin 2.5 g/dL; Non-African American GFR(CKD) 87 (>60 ml/min/1.73 sqM); Total Bilirubin 0.3 mg/dL (0.2-1.3)
--- NOTE | 2025-02-23 16:38 | P.PN ---
Subjective Progress Note Date: 02/23/25 History of present illness; Patient is a 64-year-old female with history significant for lung cancer status post chemo/radiation followed by immunotherapy, COPD, hyperlipidemia, hypertension, hypothyroidism who presents for abdominal pain. She states that pain has been intermittent and ongoing for approximately 7 months however has now progressed. Abdominal pain is bandlike across the upper abdominal q uadrants, lower ribs bilaterally, and radiating to the back. She endorses black tarry bowel movements over the last couple weeks, last being yesterday. She also states she has had a poor appetite, without nausea or vomiting. No NSAID or anticoagulant use. Has not taken any of her medications for approximately 3 days. She had EGD completed in August, consistent with gastritis and she has been taking Carafate as well as omeprazole on outpatient basis. She also endorses chronic cough with some sputum production. She also reports lower extremity weakness bilaterally and troubles ambulating. She denies any recent falls or trauma, saddle anesthesia, loss of bowel, or bladder control. Currently, patient denies shortness of breath, fevers or chills. No other symptoms. 02/21/25 Patient seen and examined at bedside. No acute events overnight. Plan to undergo bronchoscopy with pulmonology today. Continue prednisone, oncology following. Patient states she continues to have moderate abdominal pain. 02/22/25 Patient seen and examined at bedside. Yesterday patient underwent bronchoscopy with findings of narrowing of the left lower lobe bronchus. The orifice of the left lower lobe bronchus was quite narrowed probably due to radiation therapy. Mucosal lesions/abnormalities of orifice of the left lower lobe bronchus and secondary kevin the left upper lobe and the left lower lobe. Endobronchial biopsies were done. Copious respiratory secretions and mucous pl ugs, post therapeutic airway suctioning. Tracheobronchomalacia. Continue prednisone, oncology following. Patient states she continues to have moderate abdominal pain. Continuing pain management. Sodium 134, Bicarb 18, ALT 89. 02/23. Patient seen examined. Denies any cough. Denies any shortness of breath. States still having pain in left side of chest. Vital signs stable REVIEW OF SYSTEMS: Pertinent positives and negatives noted in HPI. PHYSICAL EXAMINATION: Vitals reviewed GENERAL: Resting comfortably in bed. CARDIOVASCULAR: S1 and S2 present. No murmurs, rubs, or gallops. PULMONARY: Chest is clear to auscultation, no wheezing, rhonchi, or crackles. ABDOMEN: Soft, mild epigastric tenderness, nondistended. No palpable organomegaly. MUSCULOSKELETAL: Mild tenderness to paraspinal musculature in thoracic and lumbar region. EXTREMITIES: No apparent cyanosis, clubbing. No pedal edema. NEUROLOGICAL: Alert and oriented. Gross neurological examination with no apparent focal deficits. SKIN: No apparent rashes. Assessment and Plan: In summary, patient is a 64-year-old female with history significant for lung cancer status post chemo/radiation followed by immunotherapy, COPD, hyperlipidemia, hypertension, hypothyroidism who presents for abdominal pain. #Suspected colitis, suspected induced by immunotherapy #Transaminitis, improving #History of gastritis Continue high-dose steroids Continue Protonix Continue Dilaudid, Toradol, Crystal for pain management Oncology following #COPD, not in exacerbation #History of non-small cell lung cancer, pulmonary adenocarcinoma type - Dx July 2023 s/p chemo/radiation followed by immunotherapy with Keytruda. Follows up with oncologist Dr. Castro. - CT chest with persistent left lower lobe consolidation and lingular consolidation S/P Bronchoscopy 02/21/25, biopsies taken, tracheobronchomalacia Pulmonology and hematology oncology consulted #New Compression deformity of L2 vertebral body Continue lumbar brace Dr. Garcia recommend follow-up in the outpatient setting #Hyponatremia, euvolemic, improving Monitor BMP Chronic Medical Conditions #Hyperlipidemia #Hypertension #Hypothyroidism Current home medications Objective - Vital Signs Vital signs: Vital Signs Temp 97.5 F L 02/23/25 11:50 Pulse 95 02/23/25 11:50 Resp 16 02/23/25 11:50 BP 147/81 02/23/25 11:50 Pulse Ox 91 L 02/23/25 11:50 FiO2 Intake & Output 02/22/25 02/23/25 02/23/25 18:59 06:59 18:59 Intake Total 3100 2200 Balance 3100 2200 Intake: Oral 3100 2200 Other: Voiding Method Toilet Toilet Toilet # Voids 5 1 5 # Bowel Movements 1 0 1 - Labs CBC & Chem 7: 02/20/25 03:44 02/23/25 05:58 Labs: Abnormal Lab Results - Last 24 Hours (Table) 02/23/25 Range/Units 05:58 Sodium 133 L (137-145) mmol/L Carbon Dioxide 17 L (22-30) mmol/L Glucose 121 H (74-99) mg/dL AST 37 H (14-36) U/L ALT 81 H (4-34) U/L Total Protein 6.0 L (6.3-8.2) g/dL Microbiology - Last 24 Hours (Table) 02/21/25 14:30 Gram Stain - Final Bronchoalviolar Lavage - Left Bronchial Washings Culture - Final Klebsiella Pneum subsp ozaenae Enterobacter cloacae Complex
--- NOTE | 2025-02-23 20:11 | P.PN ---
Subjective Progress Note Date: 02/23/25 Patient is a 64-year-old female with past medical history significant for lung cancer status post chemo/radiation followed by immunotherapy, COPD, hyperlipidemia, hypertension, hypothyroidism. Presented to the emergency department late last night with the chief complaint of abdominal pain, which has been intermittent and ongoing for approximately 7 months. Abdominal pain is bandlike across the upper abdominal quadrants, lower ribs bilaterally, and radiating to the back. Described as "screwing" sensation. Currently, rated 9 on a 10 point numerical scale. Reports black tarry bowel movements over the last couple weeks. Appetite has been poor. No significant nausea or vomiting or hematemesis. Not take any anticoagulants. Denies NSAID use. Has not taken any of her medications for approximately 3 days. More recently, did have an EGD done August, consistent with gastritis. She has been taking Carafate as well as omeprazole on outpatient basis. Workup in the emergency department including a CT of the chest, abdomen, pelvis remarkable for persistent left lower lobe and lingular consolidation consistent with known left perihilar mass and postobstructive atelectasis. Postobstructive pneumonia difficult to exclude. Small persistent left pleural effusion. Persistent trace pericardial effusion. New compression deformity of L2 vertebral body with 25% height loss. Stable/chronic appearing wedge deformities of T9, T11, and T12 vertebral bodies. No obvious intra-abdominal process was noted to explain her abdominal pain. CBC: WBC count 8.3, hemoglobin 14.6, platelets 391. CMP: Sodium 132, potassium 3.8, chloride 101, serum bicarb 22, BUN 12, creatinine 0.81, glucose 85. AST 67, ALT 102, ALP 86, troponins less than 0.012 x 2. Amylase and lipase not elevated. Patient currently being evaluated on the general medical floor. She is sitting up in bed non-labored breathing, on room air. Speaking in complete sentences. Denies any significant shortness of breath. Does endorse chronic cough with occasional yellow sputum production. Denies any fevers or chills. States she has not used any of her maintenance inhalers due to significant abdominal pain as described above. Denies any recent falls or trauma. Does report lower extremity weakness bilaterally and troubles ambulating. Denies any saddle anesthesia, loss of bowel or bladder control. Current vital signs: Temperature 97.8 F, heart rate 78 bpm, blood pressure 171/97 mmHg, nontachypneic, SpO2 recorded at 97% on room air. On today's evaluation on 02/21/2025, the patient continues to have soreness a cross her lower chest along the rib cage bilaterally. She also has copious respiratory secretions and the plan is to do a bronchoscopy and therapeutic airway suctioning in the same time evaluate the left lower lobe bronchus as the patient has chronic atelectasis of the left lower lobe post chemo and radiation therapy for pulm adenocarcinoma. The patient has no specific complaints. She is afebrile. Pulse ox is 94% on 3 Suboxone by nasal cannula. No new labs are available in terms of his CBC. Electrolytes are normal normal. Serum bicarb is at 20, BUN 30 mg of 0.7. LFTs were mildly elevated although they are improving compared to yesterday. The patient's procalcitonin level is less than 0.2. 02/22/2025 patient has a dry cough. Unable to bring up much sputum. The bronchial cultures was positive for Enterobacter and Klebsiella. Final sensitivities are still pending for now. Meanwhile, the patient is not receiving any antibiotics. Will start the patient empirically with IV cefepime. Continues to have soreness across her chest and upper abdominal area. Exact nature of this soreness and discomfort is not clear. Remains on Symbicort and Ventolin rescue inhaler and this morning the patient is on a reasonable regimen nasal cannula with a pulse ox of 96%. 02/23/2025, the patient is calm and comfortable. No major respiratory difficulties. Feeling better. Started on IV cefepime as the patient was found to have a combination of Enterobacter and Klebsiella in the bronchial alveolar washings was obtained earlier during her bronchoscopy. Otherwise, she is doing well. No specific complaints. No nausea. No vomiting. No diarrhea. No chest pain. No fever or chills. Sodium levels at 133, bicarbonate 17 with a BUN of 10 and a creatinine 0.7. She is currently on room air oxygen with a pulse ox of 91%. No other significant events overnight. Objective - Vital Signs Vital signs: Vital Signs Temp 98.2 F 02/23/25 06:51 Pulse 64 02/23/25 06:51 Resp 16 02/23/25 06:51 BP 138/82 02/23/25 06:51 Pulse Ox 92 L 02/23/25 06:51 FiO2 Intake & Output 02/22/25 02/23/25 02/23/25 18:59 06:59 18:59 Intake Total 3100 560 Balance 3100 560 Intake: Oral 3100 560 Other: Voiding Method Toilet Toilet Toilet # Voids 5 1 # Bowel Movements 1 0 - Exam GENERAL EXAM: Alert, well-nourished, 64-year-old female, sitting up in bed, comfortable in no apparent distress. Patient currently on 3 l of oxygen by nasal cannula with pulse ox of 94% HEAD: Normocephalic and atraumatic EYES: Normal reaction of pupils, equal size. NOSE: Clear with pink turbinates. THROAT: No erythema or exudates. NECK: No masses, no JVD. CHEST: No chest wall deformity. LUNGS: Equal air entry with scattered wheezes heard best in the left posterior lower lobe. No conversational dyspnea or accessory muscle use.. CVS: S1 and S2 normal with no audible murmur, regular rhythm. No extra heart sounds ABDOMEN: Slight abdominal distention, active bowel sounds, no hepatosplenomegaly, no guarding or rigidity. SPINE: No scoliosis or deformity SKIN: No rashes CENTRAL NERVOUS SYSTEM: No focal deficits, tone is normal in all 4 extremities. EXTREMITIES: There is no peripheral edema, clubbing, or cyanosis. Peripheral pulses are intact. - Labs CBC & Chem 7: 02/20/25 03:44 02/23/25 05:58 Labs: Abnormal Lab Results - Last 24 Hours (Table) 02/22/25 02/23/25 Range/Units 03:20 05:58 Sodium 134 L 133 L (135-145) mmol/L Carbon Dioxide 18.0 L 17 L (21.6-31.8) mmol/L Glucose 147 H 121 H (70-110) mg/dL Total Bilirubin <0.2 L (0.3-1.2) mg/dL AST 37 H (14-36) U/L ALT 89 H 81 H (8-44) U/L Total Protein 5.6 L 6.0 L (6.2-8.2) g/dL Albumin 3.6 L (3.8-4.9) g/dL Microbiology - Last 24 Hours (Table) 02/21/25 14:30 Gram Stain - Final Bronchoalviolar Lavage - Left Bronchial Washings Culture - Final Klebsiella Pneum subsp ozaenae Enterobacter cloacae Complex Assessment and Plan Assessment: History of non-small cell lung cancer, pulmonary adenocarcinoma type, originally diagnosed back in July 2023, and is status post chemo/radiation followed by immunotherapy with Keytruda. Follows up on outpatient basis with her oncologist Dr. Castro. CT of the chest, abdomen, pelvis remarkable for persistent left lower lobe and lingular consolidation consistent with known left perihilar mass and postobstructive atelectasis. Postobstructive pneumonia difficult to exclude but felt to be less likely. Small persistent left pleural effusion. Persistent trace pericardial effusion. New compression deformity of L2 vertebral body with 25% height loss. Stable/chronic appearing wedge deformities of T9, T11, and T12 vertebral bodies. No obvious intra-abdominal process was noted to explain her abdominal pain. Left lower lobe atelectasis/consolidation, and bronchoscopy was done on 02/21/2025 and the patient was found to have stenosis of the left lower lobe bronchus with narrowing probably postradiation changes contributing for her left lower lobe atelectasis. Additionally, the patient was found to have copious respiratory secretions and a bronchioloalveolar lavage of the left lower lobe was positive for Klebsiella and Enterobacter. Biopsies of the left lower lobe bronchus mucosal irregularities were also done. Ongoing abdominal pain and melanotic stools History of gastritis, EGD performed August, consistent with gastritis. Prescribed Carafate and omeprazole on an outpatient basis. Chronic obstructive pulmonary disease, maintained on Trelegy Ellipta on outpatient basis, stable New compression deformity of L2 vertebral body with 25% height loss History of laparoscopic cholecystectomy done 07/08/2024 History of hyperlipidemia Hypertension History of hypothyroidism Chronic anxiety/panic disorder Plan Clinically stable and the patient is improving Continue IV cefepime Chronic left lower lobe atelectasis, likely superinfection with gram-negative Klebsiella and Enterobacter. Endobronchial biopsy of the left lower lobe was done, awaiting results Check procalcitonin and the level was low Medical oncology team is also consulted The patient is currently on high-dose steroids suspecting immunotherapy related GI toxicity. This was not confirmed by the CAT scan of the abdomen and pelvis. Pain could be related to wedge deformities of the T-spine and L2 vertebral compression deformity. Reconsider the use of high-dose steroids in this patient. We will continue to follow.
[2025-02-23] MEDS: PIPERACILLIN-TAZOBACTAM 3.375 GM in SODIUM CHLORIDE 0.9% 100 ML IVPB SCH (23:00)
[2025-02-24] MEDS: LACTATED RINGERS 1,000 ML IV SCH (02:44)
[2025-02-24 08:51] LABS: ALT 114 U/L (8-44); AST 51 U/L (13-35); Albumin 3.7 g/dL (3.8-4.9); Albumin/Globulin Ratio 1.68 Ratio (1.60-3.17); Alkaline Phosphatase 82 U/L (41-126); BUN/Creat Ratio 11.11 Ratio (12.00-20.00); Carbon Dioxide 20.5 mmol/L (21.6-31.8); Chloride 103 mmol/L (96-109); Globulin 2.2 g/dL (1.6-3.3); Glucose 101 mg/dL (70-110); Sodium 134 mmol/L (135-145); Total Bilirubin <0.2 mg/dL (0.3-1.2); Total Protein 5.9 g/dL (6.2-8.2)
--- NOTE | 2025-02-24 11:57 | XR ---
EXAMINATION TYPE: XR chest 1V portable DATE OF EXAM: 02/24/2025 10:14 AM COMPARISON: 09/21/[address] 02/11/2025 CLINICAL INDICATION: Female, 64 years old with history of Pneumonia, , FINDINGS: Heart mildly enlarged. Patchy opacities in the mid to lower lungs. Hyperinflation. No sizable pleural effusion. IMPRESSION: 1. Mild cardiomegaly and COPD. 2. Patchy bilateral mid and lower lung airspace disease/pneumonia persists. Follow-up to ensure clear ance. CT follow-up such as in 3 months to assess for any persisting underlying nodules seen on prior CT. [facility], Workstation: [id number], 02/24/2025 11:55 AM
[2025-02-24] MEDS: PANTOPRAZOLE 40 MG/10 ML VIAL IVP SCH (12:45)
[2025-02-24] MEDS: MAG HYDROX/AL HYDROX/SIMETH 30 ML CUP PO SCH (12:45)
[2025-02-24] MEDS ORDERED: LACTULOSE 20 GM/30 ML CUP PO PRN (13:16)
--- NOTE | 2025-02-24 13:17 | P.PN ---
Subjective Progress Note Date: 02/24/25 History of present illness; Patient is a 64-year-old female with history significant for lung cancer status post chemo/radiation followed by immunotherapy, COPD, hyperlipidemia, hypertension, hypothyroidism who presents for abdominal pain. She states that pain has been intermittent and ongoing for approximately 7 months however has now progressed. Abdominal pain is bandlike across the upper abdominal q uadrants, lower ribs bilaterally, and radiating to the back. She endorses black tarry bowel movements over the last couple weeks, last being yesterday. She also states she has had a poor appetite, without nausea or vomiting. No NSAID or anticoagulant use. Has not taken any of her medications for approximately 3 days. She had EGD completed in August, consistent with gastritis and she has been taking Carafate as well as omeprazole on outpatient basis. She also endorses chronic cough with some sputum production. She also reports lower extremity weakness bilaterally and troubles ambulating. She denies any recent falls or trauma, saddle anesthesia, loss of bowel, or bladder control. Currently, patient denies shortness of breath, fevers or chills. No other symptoms. 02/21/25 Patient seen and examined at bedside. No acute events overnight. Plan to undergo bronchoscopy with pulmonology today. Continue prednisone, oncology following. Patient states she continues to have moderate abdominal pain. 02/22/25 Patient seen and examined at bedside. Yesterday patient underwent bronchoscopy with findings of narrowing of the left lower lobe bronchus. The orifice of the left lower lobe bronchus was quite narrowed probably due to radiation therapy. Mucosal lesions/abnormalities of orifice of the left lower lobe bronchus and secondary kevin the left upper lobe and the left lower lobe. Endobronchial biopsies were done. Copious respiratory secretions and mucous pl ugs, post therapeutic airway suctioning. Tracheobronchomalacia. Continue prednisone, oncology following. Patient states she continues to have moderate abdominal pain. Continuing pain management. Sodium 134, Bicarb 18, ALT 89. 02/23. Patient seen examined. Denies any cough. Denies any shortness of breath. States still having pain in left side of chest. Vital signs stable 02/24. Patient seen examined. Denies cough or shortness of breath. Still continuing to have pain beneath her ribs bilaterally. She continues on Zosyn for bronchial lavage culture positive Klebsiella pneumonia and Enterobacter Cloacae. She is being seen by oncology, pulmonology, and infectious disease. Labs today sodium 134, bicarb 20.5, AST 51, ALT 114 REVIEW OF SYSTEMS: Pertinent positives and negatives noted in HPI. PHYSICAL EXAMINATION: Vitals reviewed GENERAL: Resting comfortably in bed. CARDIOVASCULAR: S1 and S2 present. No murmurs, rubs, or gallops. PULMONARY: Chest is clear to auscultation, no wheezing, rhonchi, or crackles. ABDOMEN: Soft, mild epigastric tenderness, nondistended. No palpable organomegaly. MUSCULOSKELETAL: Mild tenderness to paraspinal musculature in thoracic and lumbar region. EXTREMITIES: No apparent cyanosis, clubbing. No pedal edema. NEUROLOGICAL: Alert and oriented. Gross neurological examination with no apparent focal deficits. SKIN: No apparent rashes. Assessment and Plan: In summary, patient is a 64-year-old female with history significant for lung cancer status post chemo/radiation followed by immunotherapy, COPD, hyperlipidemia, hypertension, hypothyroidism who presents for abdominal pain. #Suspected colitis, suspected induced by immunotherapy #Transaminitis, improving #History of gastritis Continue high-dose steroids Continue Protonix, Maalox Continue [place], Dilaudid for pain management Oncology following #History of non-small cell lung cancer, pulmonary adenocarcinoma type #Chronic left lower lobe atelectasis, likely superinfection with gram-negative Klebsiella and Enterobacter. #COPD, not in exacerbation - Dx July 2023 s/p chemo/radiation followed by immunotherapy with Keytruda. Follows up with oncologist Dr. Castro. - CT chest with persistent left lower lobe consolidation and lingular consolidation S/P Bronchoscopy 02/21/25, biopsies taken, tracheobronchomalacia [facility], Oncology and ID following #New Compression deformity of L2 vertebral body - Continue lumbar brace Pain management as above, lidocaine patch Dr. Garcia recommend follow-up in the outpatient setting #Hyponatremia, euvolemic, improving Monitor BMP Chronic Medical Conditions #Hyperlipidemia #Hypertension #Hypothyroidism Current home medications Dr. Abdullahi seen patient with resident, present during exam, and agreed with findings. Attestation I have seen and examined this patient with my resident , discussed the same with the resident/JOVANI, and agree with the dictator's assessment and plan as written Dr. Manfred abdullahi Objective - Vital Signs Vital signs: Vital Signs Temp 97.8 F 02/24/25 07:52 Pulse 71 02/24/25 07:52 Resp 18 02/24/25 07:52 BP 136/74 02/24/25 07:52 Pulse Ox 92 L 02/24/25 07:52 FiO2 Intake & Output 02/23/25 02/24/25 02/24/25 18:59 06:59 18:59 Intake Total 2980 Balance 2980 Intake: Oral 2980 Other: Voiding Method Toilet Toilet # Voids 5 1 # Bowel Movements 1 - Labs CBC & Chem 7: 02/20/25 03:44 02/25/25 05:05 Labs: Abnormal Lab Results - Last 24 Hours (Table) 02/24/25 Range/Units 05:29 Sodium 134 L (135-145) mmol/L Carbon Dioxide 20.5 L (21.6-31.8) mmol/L BUN/Creatinine Ratio 11.11 L (12.00-20.00) Ratio Total Bilirubin <0.2 L (0.3-1.2) mg/dL AST 51 H (13-35) U/L ALT 114 H (8-44) U/L Total Protein 5.9 L (6.2-8.2) g/dL Albumin 3.7 L (3.8-4.9) g/dL Microbiology - Last 24 Hours (Table) 02/21/25 14:30 Gram Stain - Final Bronchoalviolar Lavage - Left Bronchial Washings Culture - Final Klebsiella Pneum subsp ozaenae Enterobacter cloacae Complex
--- NOTE | 2025-02-24 14:27 | P.PN ---
Subjective Progress Note Date: 02/24/25 Patient is a 64-year-old female with past medical history significant for lung cancer status post chemo/radiation followed by immunotherapy, COPD, hyperlipidemia, hypertension, hypothyroidism. Presented to the emergency department late last night with the chief complaint of abdominal pain, which has been intermittent and ongoing for approximately 7 months. Abdominal pain is bandlike across the upper abdominal quadrants, lower ribs bilaterally, and radiating to the back. Described as "screwing" sensation. Currently, rated 9 on a 10 point numerical scale. Reports black tarry bowel movements over the last couple weeks. Appetite has been poor. No significant nausea or vomiting or hematemesis. Not take any anticoagulants. Denies NSAID use. Has not taken any of her medications for approximately 3 days. More recently, did have an EGD done August, consistent with gastritis. She has been taking Carafate as well as omeprazole on outpatient basis. Workup in the emergency department including a CT of the chest, abdomen, pelvis remarkable for persistent left lower lobe and lingular consolidation consistent with known left perihilar mass and postobstructive atelectasis. Postobstructive pneumonia difficult to exclude. Small persistent left pleural effusion. Persistent trace pericardial effusion. New compression deformity of L2 vertebral body with 25% height loss. Stable/chronic appearing wedge deformities of T9, T11, and T12 vertebral bodies. No obvious intra-abdominal process was noted to explain her abdominal pain. CBC: WBC count 8.3, hemoglobin 14.6, platelets 391. CMP: Sodium 132, potassium 3.8, chloride 101, serum bicarb 22, BUN 12, creatinine 0.81, glucose 85. AST 67, ALT 102, ALP 86, troponins less than 0.012 x 2. Amylase and lipase not elevated. Patient currently being evaluated on the general medical floor. She is sitting up in bed non-labored breathing, on room air. Speaking in complete sentences. Denies any significant shortness of breath. Does endorse chronic cough with occasional yellow sputum production. Denies any fevers or chills. States she has not used any of her maintenance inhalers due to significant abdominal pain as described above. Denies any recent falls or trauma. Does report lower extremity weakness bilaterally and troubles ambulating. Denies any saddle anesthesia, loss of bowel or bladder control. Current vital signs: Temperature 97.8 F, heart rate 78 bpm, blood pressure 171/97 mmHg, nontachypneic, SpO2 recorded at 97% on room air. On today's evaluation on 02/21/2025, the patient continues to have soreness ac ross her lower chest along the rib cage bilaterally. She also has copious respiratory secretions and the plan is to do a bronchoscopy and therapeutic airway suctioning in the same time evaluate the left lower lobe bronchus as the patient has chronic atelectasis of the left lower lobe post chemo and radiation therapy for pulm adenocarcinoma. The patient has no specific complaints. She is afebrile. Pulse ox is 94% on 3 Suboxone by nasal cannula. No new labs are available in terms of his CBC. Electrolytes are normal normal. Serum bicarb is at 20, BUN 30 mg of 0.7. LFTs were mildly elevated although they are improving compared to yesterday. The patient's procalcitonin level is less than 0.2. 02/22/2025 patient has a dry cough. Unable to bring up much sputum. The bronchial cultures was positive for Enterobacter and Klebsiella. Final sensitivities are still pending for now. Meanwhile, the patient is not receiving any antibiotics. Will start the patient empirically with IV cefepime. Continues to have soreness across her chest and upper abdominal area. Exact nature of this soreness and discomfort is not clear. Remains on Symbicort and Ventolin rescue inhaler and this morning the patient is on a reasonable regimen nasal cannula with a pulse ox of 96%. 02/23/2025, the patient is calm and comfortable. No major respiratory difficulties. Feeling better. Started on IV cefepime as the patient was found to have a combination of Enterobacter and Klebsiella in the bronchial alveolar washings was obtained earlier during her bronchoscopy. Otherwise, she is doing well. No specific complaints. No nausea. No vomiting. No diarrhea. No chest pain. No fever or chills. Sodium levels at 133, bicarbonate 17 with a BUN of 10 and a creatinine 0.7. She is currently on room air oxygen with a pulse ox of 91%. No other significant events overnight. The patient is seen today February 24, 2025 in follow-up on the regular medical floor. She is currently sitting up in bed. Awake and alert in no acute distress. She is feeling a bit better today compared to yesterday. Still with some cough and congestion. She is maintaining O2 saturation in the low 90s on room air. She is afebrile. Hemodynamically stable. Follow-up chest x-ray reveals mild cardiomegaly and evidence of COPD. There is patchy bilateral mid and lower lung airspace opacities. Bronchoalveolar lavage cultures were positive for Klebsiella pneumoniae and Enterobacter Cloacae. Sodium 134. Potassium 4.0. Bicarb 21. BUN 10. Creatinine 0.9. Glucose 101. AST 51. ALT 114. She is continued on Zosyn. Continued on Symbicort, Spiriva, albuterol. Heparin for DVT prophylaxis. Objective - Vital Signs Vital signs: Vital Signs Temp 97.8 F 02/24/25 12:50 Pulse 70 02/24/25 12:50 Resp 16 02/24/25 12:50 BP 189/92 02/24/25 12:50 Pulse Ox 92 L 02/24/25 12:50 FiO2 Intake & Output 02/23/25 02/24/25 02/24/25 18:59 06:59 18:59 Intake Total 2980 Balance 2980 Intake: Oral 2980 Other: Voiding Method Toilet Toilet Toilet # Voids 5 1 # Bowel Movements 1 - Exam GENERAL EXAM: Alert, pleasant, 64-year-old female, on room air, comfortable in no apparent distress. HEAD: Normocephalic. EYES: Normal reaction of pupils, equal size. NOSE: Clear with pink turbinates. THROAT: No erythema or exudates. NECK: No masses, no JVD. CHEST: No chest wall deformity. LUNGS: Equal air entry with bilateral scattered rhonchi. CVS: S1 and S2 normal with no audible murmur, regular rhythm. ABDOMEN: No hepatosplenomegaly, normal bowel sounds, no guarding or rigidity. SPINE: No scoliosis or deformity SKIN: No rashes CENTRAL NERVOUS SYSTEM: No focal deficits, tone is normal in all 4 extremities. EXTREMITIES: There is no peripheral edema. No clubbing, no cyanosis. Peripheral pulses are intact. - Labs CBC & Chem 7: 02/20/25 03:44 02/24/25 05:29 Labs: Abnormal Lab Results - Last 24 Hours (Table) 02/24/25 Range/Units 05:29 Sodium 134 L (135-145) mmol/L Carbon Dioxide 20.5 L (21.6-31.8) mmol/L BUN/Creatinine Ratio 11.11 L (12.00-20.00) Ratio Total Bilirubin <0.2 L (0.3-1.2) mg/dL AST 51 H (13-35) U/L ALT 114 H (8-44) U/L Total Protein 5.9 L (6.2-8.2) g/dL Albumin 3.7 L (3.8-4.9) g/dL Assessment and Plan Assessment: History of non-small cell lung cancer, pulmonary adenocarcinoma type, originally diagnosed back in July 2023, and is status post chemo/radiation followed by i mmunotherapy with Keytruda. Follows up on outpatient basis with her oncologist Dr. Castro. CT of the chest, abdomen, pelvis remarkable for persistent left lower lobe and lingular consolidation consistent with known left perihilar mass and postobstructive atelectasis. Postobstructive pneumonia difficult to exclude but felt to be less likely. Small persistent left pleural effusion. Persistent trace pericardial effusion. New compression deformity of L2 vertebral body with 25% height loss. Stable/chronic appearing wedge deformities of T9, T11, and T12 vertebral bodies. No obvious intra-abdominal process was noted to explain her abdominal pain. Left lower lobe atelectasis/consolidation, and bronchoscopy was done on 02/21/2025 and the patient was found to have stenosis of the left lower lobe bronchus with narrowing probably postradiation changes contributing for her left lower lobe atelectasis. Additionally, the patient was found to have copious respiratory secretions and a bronchioloalveolar lavage of the left lower lobe was positive for Klebsiella and Enterobacter. Biopsies of the left lower lobe bronchus mucosal irregularities were also done. Cytology pending Ongoing abdominal pain and melanotic stools History of gastritis, EGD performed August, consistent with gastritis. Prescribed Carafate and omeprazole on an outpatient basis Chronic obstructive pulmonary disease, maintained on Trelegy Ellipta on outpatient basis, stable New compression deformity of L2 vertebral body with 25% height loss History of laparoscopic cholecystectomy done 07/08/2024 History of hyperlipidemia Hypertension History of hypothyroidism Chronic anxiety/panic disorder Plan: The patient was seen and evaluated Chest x-ray, labs and medications reviewed Currently stable on room air oxygen Continue Zosyn Biopsy results pending Continue Symbicort, Spiriva, albuterol Heparin for DVT prophylaxis Pepcid for GI prophylaxis Remains on high-dose prednisone Medical oncology following We will continue to follow I have personally seen and examined the patient, performed the documentation and the assessment and plan as written. Number of minutes spent on the visit: 10 Dictation was produced using [employer] dictation software. Please excuse any grammatical, word or spelling errors.
--- NOTE | 2025-02-24 21:49 | P.CONS ---
History of Present Illness - Reason for Consult Consult date: 02/24/25 Pneumonia Requesting physician: Manfred Abdullahi - Chief Complaint Chest pain and shortness of breath x days - History of Present Illness Patient is a 64-year-old female with a past medical history significant for hypertension hyperlipidemia hypothyroidism history of lung cancer presenting to the hospital 4 days ago for evaluation of chest and abdominal pain patient was complaining of mostly diffuse burning abdominal pain as well as left-sided chest pain describing it to be sharp moderate intensity she also have a cough moderate exacerbating of some sputum no hemoptysis denies high-grade fever did have some chills on presentation to the hospital the patient was afebrile no fever have been called subsequently patient was not tachycardic or hypotensive mildly hypoxic patient is currently on room air patient did have white count of 8.25 creatinine 0.9 liver isms mildly elevated electrolytes are normal patient did have a sputum culture with Klebsiella and Enterobacter patient did have a chest abdominal pelvis CT on admission with a consolidative change in the left lower lung with opacified large airways compression deformity to the L2 vertebra did not mention any and abdominal pathology patient has been treated with Zosyn infectious disease was consulted regarding pneumonia and management of antibiotic therapy Review of Systems Positive point and negatives has been mentioned in the HPI, complete review of systems was performed and all other systems are negative Past Medical History Past Medical History: Cancer, GERD/Reflux, Hyperlipidemia, Hypertension, Thyroid Disorder Additional Past Medical History / Comment(s): Wheezing, lung cancer w/ 7 radiation and chemo 30days finished oct 2023- on IV Keytruda once a month but has not taken in 5months; abd pain & nausea x 6 months, inpatient @ [facility] 07/01/24- 07/04/24 for abd pain and 09/02-09/07/24. History of Any Multi-Drug Resistant Organisms: None Reported Past Surgical History: Adenoidectomy, Cholecystectomy, Tonsillectomy Additional Past Surgical History / Comment(s): Colonoscopy/EGD w/ 06/28/24.unable to find anything per patient. Past Anesthesia/Blood Transfusion Reactions: No Reported Reaction Additional Past Anesthesia/Blood Transfusion Reaction / Comm: Sedation only for Colonoscopy. Past Psychological History: Anxiety, Panic Disorder Smoking Status: Former smoker Past Alcohol Use History: None Reported Additional Past Alcohol Use History / Comment(s): smoked 1/2 ppd- quit 2022. Past Drug Use History: None Reported - Past Family History Mother Family Medical History: Cancer Additional Family Medical History / Comment(s): Pancreatic cancer Sister(s) Family Medical History: Cancer Additional Family Medical History / Comment(s): Pancreatic cancer Brother(s) Family Medical History: Cancer Additional Family Medical History / Comment(s): Leukemia Medications and Allergies Home Medications Medication Instructions Recorded Confirmed Type ALPRAZolam [Xanax] 0.25 mg PO DAILY PRN 04/25/24 02/20/25 History ALPRAZolam [Xanax] 0.25 mg PO HS 04/25/24 02/20/25 History Diltiazem Cd [Cardizem CD] 240 mg PO HS 04/25/24 02/20/25 History Fluticasone/Umeclidin/Vilanter 1 puff INHALATION RT-DAILY 04/25/24 02/20/25 History [Trelegy Ellipta 100-62.5-25] Levothyroxine Sodium [Synthroid] 75 mcg PO DAILY 04/25/24 02/20/25 History QUEtiapine FUMARATE [SEROquel] 200 mg PO HS 04/25/24 02/20/25 History Linaclotide [Linzess] 290 mcg PO DAILY 09/03/24 02/20/25 History Baclofen [Lioresal] 10 mg PO QID PRN 09/22/24 02/20/25 History Tiotropium 2.5 Mcg/Puff [Spiriva 2 puff INHALATION RT-DAILY 09/22/24 02/20/25 History Respimat 2.5 Mcg] oxyCODONE-APAP 10-325MG [Percocet 1 tab PO TID PRN 09/22/24 02/20/25 History 10-325 mg] Dicyclomine [Bentyl] 20 mg PO QID PRN 02/20/25 02/20/25 History Lactulose [Cephulac] 30 gm PO QID PRN 02/20/25 02/20/25 History Lubiprostone [Amitiza] 24 mcg PO BID 02/20/25 02/20/25 History Metaxalone [Skelaxin] 800 mg PO Q8H PRN 02/20/25 02/20/25 History Tenapanor HCl [Ibsrela] 50 mg PO BID 02/20/25 02/20/25 History Vonoprazan Fumarate [Voquezna] 20 mg PO DAILY 02/20/25 02/20/25 History fentaNYL 50MCG/HR PATCH [Duragesic 50 mcg TRANSDERM Q72H 02/20/25 02/20/25 History 50MCG/HR] predniSONE [Deltasone] 40 mg PO BID 02/20/25 02/20/25 History Allergies Allergy/AdvReac Type Severity Reaction Status Date / Time morphine Allergy Unknown Verified 02/20/25 11:55 Physical Exam Vitals: Vital Signs Temp Pulse Pulse Resp BP Pulse Ox 02/24/25 07:52 97.8 F 71 18 136/74 92 L 02/24/25 01:27 97.5 F L 71 15 125/83 92 L 02/23/25 19:15 98.1 F 75 16 152/85 92 L 02/23/25 11:50 97.5 F L 95 16 147/81 91 L Intake and Output 02/23/25 02/24/25 02/24/25 22:59 06:59 14:59 Intake Total 0 Balance 1859 Intake: Oral 1859 Other: Voiding Method Toilet Toilet # Voids 5 1 # Bowel Movements 1 GENERAL DESCRIPTION: Middle-age female lying in bed, no distress. No tachypnea or accessory muscle of respiration use. HEENT: Shows Pallor , no scleral icterus. Oral mucous membrane is dry. NECK: Trachea central, no thyromegaly. LUNGS: Unlabored breathing. Coarse breath sounds bilaterally HEART: S1, S2, regular rate and rhythm. No loud murmur ABDOMEN: Soft, no tenderness , guarding or rigidity, no organomegaly EXTREMITIES: No edema of feet. SKIN: No rash, no masses palpable. NEUROLOGICAL: The patient is awake, alert, oriented x3, mood and affect normal. Results CBC & Chem 7: 02/25/25 05:05 02/25/25 05:05 Labs: Abnormal Lab Results - Last 24 Hours (Table) 02/24/25 Range/Units 05:29 Sodium 134 L (135-145) mmol/L Carbon Dioxide 20.5 L (21.6-31.8) mmol/L BUN/Creatinine Ratio 11.11 L (12.00-20.00) Ratio Total Bilirubin <0.2 L (0.3-1.2) mg/dL AST 51 H (13-35) U/L ALT 114 H (8-44) U/L Total Protein 5.9 L (6.2-8.2) g/dL Albumin 3.7 L (3.8-4.9) g/dL Microbiology - Last 24 Hours (Table) 02/21/25 14:30 Gram Stain - Final Bronchoalviolar Lavage - Left Bronchial Washings Culture - Final Klebsiella Pneum subsp ozaenae Enterobacter cloacae Complex Assessment and Plan (1) Pneumonia Current Visit: Yes Status: Acute Code(s): J18.9 - PNEUMONIA, UNSPECIFIED ORGANISM SNOMED Code(s): 789382720 Plan: 1patient presented to hospital with chest pain along with increasing shortness of breath and cough in this patient who did have evidence of left lower lobe consolidation concerning for pneumonia with a sputum positive for Klebsiella and Enterobacter both of them are sensitive to Zosyn 2-patient will be treated with Zosyn while inpatient hopefully transition to oral antibiotics on discharge once cleared by other customs consultant Question concern answered We will follow on clinical condition and cultures to further adjust medication if needed Thank you for this consultation we will follow the patient along with you Dictation was produced using [employer] dictation software. please excuse any grammatical, word or spelling errors. Time with Patient: Greater than 30
[2025-02-25 08:34] LABS: ALT 170 U/L (8-44); AST 74 U/L (13-35); Albumin 3.9 g/dL (3.8-4.9); Albumin/Globulin Ratio 1.86 Ratio (1.60-3.17); Alkaline Phosphatase 87 U/L (41-126); BUN/Creat Ratio 16.88 Ratio (12.00-20.00); Blood Urea Nitrogen 13.5 mg/dL (9.0-27.0); Calcium 9.1 mg/dL (8.7-10.3); Carbon Dioxide 22.7 mmol/L (21.6-31.8); Chloride 103 mmol/L (96-109); Globulin 2.1 g/dL (1.6-3.3); Glucose 80 mg/dL (70-110); Potassium 4.2 mmol/L (3.5-5.5); Sodium 136 mmol/L (135-145); Total Bilirubin <0.2 mg/dL (0.3-1.2)
[2025-02-25 10:28] LABS: HCT 34.4 % (37.2-46.3); HGB 11.4 g/dL (12.0-15.0); MCH 31.8 pg (27.0-32.0); MCHC 33.1 g/dL (32.0-37.0); MCV 95.8 FL (80.0-97.0); Mean Platelet Volume 9.3 FL (9.5-12.2); NRBC Per 100 WBC 0 X 10*3/uL (0.00-0.01); Platelet Count 336 X 10*3/uL (140-440); RBC 3.59 X 10*6/uL (4.10-5.20); WBC 7.58 X 10*3/uL (4.50-10.00)
--- NOTE | 2025-02-25 11:09 | P.PN ---
Subjective Progress Note Date: 02/25/25 History of present illness; Patient is a 64-year-old female with history significant for lung cancer status post chemo/radiation followed by immunotherapy, COPD, hyperlipidemia, hypertension, hypothyroidism who presents for abdominal pain. She states that pain has been intermittent and ongoing for approximately 7 months however has now progressed. Abdominal pain is bandlike across the upper abdominal q uadrants, lower ribs bilaterally, and radiating to the back. She endorses black tarry bowel movements over the last couple weeks, last being yesterday. She also states she has had a poor appetite, without nausea or vomiting. No NSAID or anticoagulant use. Has not taken any of her medications for approximately 3 days. She had EGD completed in August, consistent with gastritis and she has been taking Carafate as well as omeprazole on outpatient basis. She also endorses chronic cough with some sputum production. She also reports lower extremity weakness bilaterally and troubles ambulating. She denies any recent falls or trauma, saddle anesthesia, loss of bowel, or bladder control. Currently, patient denies shortness of breath, fevers or chills. No other symptoms. 02/21/25 Patient seen and examined at bedside. No acute events overnight. Plan to undergo bronchoscopy with pulmonology today. Continue prednisone, oncology following. Patient states she continues to have moderate abdominal pain. 02/22/25 Patient seen and examined at bedside. Yesterday patient underwent bronchoscopy with findings of narrowing of the left lower lobe bronchus. The orifice of the left lower lobe bronchus was quite narrowed probably due to radiation therapy. Mucosal lesions/abnormalities of orifice of the left lower lobe bronchus and secondary kevin the left upper lobe and the left lower lobe. Endobronchial biopsies were done. Copious respiratory secretions and mucous pl ugs, post therapeutic airway suctioning. Tracheobronchomalacia. Continue prednisone, oncology following. Patient states she continues to have moderate abdominal pain. Continuing pain management. Sodium 134, Bicarb 18, ALT 89. 02/23. Patient seen examined. Denies any cough. Denies any shortness of breath. States still having pain in left side of chest. Vital signs stable 02/24. Patient seen examined. Denies cough or shortness of breath. Still continuing to have pain beneath her ribs bilaterally. She continues on Zosyn for bronchial lavage culture positive Klebsiella pneumonia and Enterobacter Cloacae. She is being seen by oncology, pulmonology, and infectious disease. Labs today sodium 134, bicarb 20.5, AST 51, ALT 114 02/25. Patient seen and examined. Denies cough or shortness of breath. Still continuing to have pain beneath her ribs bilaterally. Hgb 11.4, AST 74, ALT 170 REVIEW OF SYSTEMS: Pertinent positives and negatives noted in HPI. PHYSICAL EXAMINATION: Vitals reviewed GENERAL: Resting comfortably in bed. CARDIOVASCULAR: S1 and S2 present. No murmurs, rubs, or gallops. PULMONARY: Chest is clear to auscultation, no wheezing, rhonchi, or crackles. ABDOMEN: Soft, mild epigastric tenderness, nondistended. No palpable organomegaly. MUSCULOSKELETAL: Mild tenderness to paraspinal musculature in thoracic and lumbar region. EXTREMITIES: No apparent cyanosis, clubbing. No pedal edema. NEUROLOGICAL: Alert and oriented. Gross neurological examination with no apparent focal deficits. SKIN: No apparent rashes. Assessment and Plan: In summary, patient is a 64-year-old female with history significant for lung cancer status post chemo/radiation followed by immunotherapy, COPD, hyperlipidemia, hypertension, hypothyroidism who presents for abdominal pain. #Suspected colitis, suspected induced by immunotherapy #Transaminitis #History of gastritis Continue high-dose steroids Continue Protonix, Maalox Continue [place], Dilaudid for pain management Oncology following #History of non-small cell lung cancer, pulmonary adenocarcinoma type #Chronic left lower lobe atelectasis, likely superinfection with gram-negative Klebsiella and Enterobacter. #COPD, not in exacerbation - Dx July 2023 s/p chemo/radiation followed by immunotherapy with Keytruda. Follows up with oncologist Dr. Castro. - CT chest with persistent left lower lobe consolidation and lingular consolidation S/P Bronchoscopy 02/21/25, tracheobronchomalacia, biopsies pending Continue Zosyn Pulmonology, Oncology and ID following #New Compression deformity of L2 vertebral body - Continue lumbar brace Pain management as above, lidocaine patch Dr. Garcia recommend follow-up in the outpatient setting #Hyponatremia, euvolemic, resolved Monitor BMP Chronic Medical Conditions #Hyperlipidemia #Hypertension #Hypothyroidism Current home medications Dr. Abdullahi seen patient with resident, present during exam, and agreed with findings. Attestation I have seen and examined this patient with my resident , discussed the same with the resident/JOVANI, and agree with the dictator's assessment and plan as written Dr. Manfred abdullahi Objective - Vital Signs Vital signs: Vital Signs Temp 98.4 F 02/25/25 08:00 Pulse 73 02/25/25 08:00 Resp 18 02/25/25 08:00 BP 157/83 02/25/25 08:00 Pulse Ox 94 L 02/25/25 08:00 FiO2 Intake & Output 02/24/25 02/25/25 02/25/25 18:59 06:59 18:59 Intake Total 2160 Balance 2160 Intake: Oral 2160 Other: Voiding Method Toilet Toilet # Voids 3 2 - Labs CBC & Chem 7: 02/25/25 05:05 02/27/25 06:04 Labs: Abnormal Lab Results - Last 24 Hours (Table) 02/25/25 Range/Units 05:05 Total Bilirubin <0.2 L (0.3-1.2) mg/dL AST 74 H (13-35) U/L ALT 170 H (8-44) U/L Total Protein 6.0 L (6.2-8.2) g/dL
--- NOTE | 2025-02-25 11:44 | P.PN ---
Subjective Progress Note Date: 02/25/25 Patient is a 64-year-old female with past medical history significant for lung cancer status post chemo/radiation followed by immunotherapy, COPD, hyperlipidemia, hypertension, hypothyroidism. Presented to the emergency department late last night with the chief complaint of abdominal pain, which has been intermittent and ongoing for approximately 7 months. Abdominal pain is bandlike across the upper abdominal quadrants, lower ribs bilaterally, and radiating to the back. Described as "screwing" sensation. Currently, rated 9 on a 10 point numerical scale. Reports black tarry bowel movements over the last couple weeks. Appetite has been poor. No significant nausea or vomiting or hematemesis. Not take any anticoagulants. Denies NSAID use. Has not taken any of her medications for approximately 3 days. More recently, did have an EGD done August, consistent with gastritis. She has been taking Carafate as well as omeprazole on outpatient basis. Workup in the emergency department including a CT of the chest, abdomen, pelvis remarkable for persistent left lower lobe and lingular consolidation consistent with known left perihilar mass and postobstructive atelectasis. Postobstructive pneumonia difficult to exclude. Small persistent left pleural effusion. Persistent trace pericardial effusion. New compression deformity of L2 vertebral body with 25% height loss. Stable/chronic appearing wedge deformities of T9, T11, and T12 vertebral bodies. No obvious intra-abdominal process was noted to explain her abdominal pain. CBC: WBC count 8.3, hemoglobin 14.6, platelets 391. CMP: Sodium 132, potassium 3.8, chloride 101, serum bicarb 22, BUN 12, creatinine 0.81, glucose 85. AST 67, ALT 102, ALP 86, troponins less than 0.012 x 2. Amylase and lipase not elevated. Patient currently being evaluated on the general medical floor. She is sitting up in bed non-labored breathing, on room air. Speaking in complete sentences. Denies any significant shortness of breath. Does endorse chronic cough with occasional yellow sputum production. Denies any fevers or chills. States she has not used any of her maintenance inhalers due to significant abdominal pain as described above. Denies any recent falls or trauma. Does report lower extremity weakness bilaterally and troubles ambulating. Denies any saddle anesthesia, loss of bowel or bladder control. Current vital signs: Temperature 97.8 F, heart rate 78 bpm, blood pressure 171/97 mmHg, nontachypneic, SpO2 recorded at 97% on room air. On today's evaluation on 02/21/2025, the patient continues to have soreness ac ross her lower chest along the rib cage bilaterally. She also has copious respiratory secretions and the plan is to do a bronchoscopy and therapeutic airway suctioning in the same time evaluate the left lower lobe bronchus as the patient has chronic atelectasis of the left lower lobe post chemo and radiation therapy for pulm adenocarcinoma. The patient has no specific complaints. She is afebrile. Pulse ox is 94% on 3 Suboxone by nasal cannula. No new labs are available in terms of his CBC. Electrolytes are normal normal. Serum bicarb is at 20, BUN 30 mg of 0.7. LFTs were mildly elevated although they are improving compared to yesterday. The patient's procalcitonin level is less than 0.2. 02/22/2025 patient has a dry cough. Unable to bring up much sputum. The bronchial cultures was positive for Enterobacter and Klebsiella. Final sensitivities are still pending for now. Meanwhile, the patient is not receiving any antibiotics. Will start the patient empirically with IV cefepime. Continues to have soreness across her chest and upper abdominal area. Exact nature of this soreness and discomfort is not clear. Remains on Symbicort and Ventolin rescue inhaler and this morning the patient is on a reasonable regimen nasal cannula with a pulse ox of 96%. 02/23/2025, the patient is calm and comfortable. No major respiratory difficulties. Feeling better. Started on IV cefepime as the patient was found to have a combination of Enterobacter and Klebsiella in the bronchial alveolar washings was obtained earlier during her bronchoscopy. Otherwise, she is doing well. No specific complaints. No nausea. No vomiting. No diarrhea. No chest pain. No fever or chills. Sodium levels at 133, bicarbonate 17 with a BUN of 10 and a creatinine 0.7. She is currently on room air oxygen with a pulse ox of 91%. No other significant events overnight. The patient is seen today February 24, 2025 in follow-up on the regular medical floor. She is currently sitting up in bed. Awake and alert in no acute distress. She is feeling a bit better today compared to yesterday. Still with some cough and congestion. She is maintaining O2 saturation in the low 90s on room air. She is afebrile. Hemodynamically stable. Follow-up chest x-ray reveals mild cardiomegaly and evidence of COPD. There is patchy bilateral mid and lower lung airspace opacities. Bronchoalveolar lavage cultures were positive for Klebsiella pneumoniae and Enterobacter Cloacae. Sodium 134. Potassium 4.0. Bicarb 21. BUN 10. Creatinine 0.9. Glucose 101. AST 51. ALT 114. She is continued on Zosyn. Continued on Symbicort, Spiriva, albuterol. Heparin for DVT prophylaxis. The patient is seen today February 25, 2025 in follow-up on the regular medical floor. She is awake and alert in no acute distress. Sitting up in bed. Maintaining O2 saturations in the 90s on room air. She has been afebrile. Hemodynamically stable. She continues with a loose congested cough. Bronchoalveolar lavage cultures positive for Klebsiella pneumoniae and Enterobacter cloacae. White count 7.5. Hemoglobin 11.4. Platelets 336. Sodium 136. Potassium 4.2. Bicarb 23. BUN 14. Creatinine 0.8. Glucose 80. AST 74. ALT 170. She remains on Symbicort, Spiriva, albuterol. Heparin for DVT prophylaxis. Antibiotics in the form of Zosyn. Objective - Vital Signs Vital signs: Vital Signs Temp 98.4 F 02/25/25 08:00 Pulse 73 02/25/25 08:00 Resp 18 02/25/25 08:00 BP 157/83 02/25/25 08:00 Pulse Ox 94 L 02/25/25 08:00 FiO2 Intake & Output 02/24/25 02/25/25 02/25/25 18:59 06:59 18:59 Intake Total 2160 Balance 2160 Intake: Oral 2160 Other: Voiding Method Toilet Toilet # Voids 3 2 - Exam GENERAL EXAM: Alert, 64-year-old female, on room air oxygen, in no apparent distress. HEAD: Normocephalic. EYES: Normal reaction of pupils, equal size. NOSE: Clear with pink turbinates. THROAT: No erythema or exudates. NECK: No masses, no JVD. CHEST: No chest wall deformity. LUNGS: Equal air entry with bilateral scattered rhonchi. CVS: S1 and S2 normal with no audible murmur, regular rhythm. ABDOMEN: No hepatosplenomegaly, normal bowel sounds, no guarding or rigidity. SPINE: No scoliosis or deformity SKIN: No rashes CENTRAL NERVOUS SYSTEM: No focal deficits, tone is normal in all 4 extremities. EXTREMITIES: There is no peripheral edema. No clubbing, no cyanosis. Peripheral pulses are intact. - Labs CBC & Chem 7: 02/25/25 05:05 02/25/25 05:05 Labs: Abnormal Lab Results - Last 24 Hours (Table) 02/25/25 02/25/25 Range/Units 05:05 05:05 RBC 3.59 L (4.10-5.20) X 10*6/uL Hgb 11.4 L (12.0-15.0) g/dL Hct 34.4 L (37.2-46.3) % RDW 16.0 H (11.5-14.5) % MPV 9.3 L (9.5-12.2) FL Total Bilirubin <0.2 L (0.3-1.2) mg/dL AST 74 H (13-35) U/L ALT 170 H (8-44) U/L Total Protein 6.0 L (6.2-8.2) g/dL Assessment and Plan Assessment: History of non-small cell lung cancer, pulmonary adenocarcinoma type, originally diagnosed back in July 2023, and is status post chemo/radiation followed by immunotherapy with Keytruda. CT of the chest, abdomen, pelvis remarkable for pe rsistent left lower lobe and lingular consolidation consistent with known left perihilar mass and postobstructive atelectasis. Postobstructive pneumonia difficult to exclude but felt to be less likely. Small persistent left pleural effusion. Persistent trace pericardial effusion. New compression deformity of L2 vertebral body with 25% height loss. Stable/chronic appearing wedge deformities of T9, T11, and T12 vertebral bodies. No obvious intra-abdominal process was noted to explain her abdominal pain Left lower lobe atelectasis/consolidation, and bronchoscopy was done on 02/21/2025 and the patient was found to have stenosis of the left lower lobe bronchus with narrowing probably postradiation changes contributing for her left lower lobe atelectasis. Additionally, the patient was found to have copious respiratory secretions and a bronchioloalveolar lavage of the left lower lobe was positive for Klebsiella and Enterobacter. Biopsies of the left lower lobe bronchus mucosal irregularities were also done. Cytology still pending Ongoing abdominal pain and melanotic stools History of gastritis, EGD performed August, consistent with gastritis. Prescribed Carafate and omeprazole on an outpatient basis Chronic obstructive pulmonary disease, maintained on Trelegy Ellipta on outpatient basis, stable New compression deformity of L2 vertebral body with 25% height loss History of laparoscopic cholecystectomy done 07/08/2024 History of hyperlipidemia Hypertension History of hypothyroidism Chronic anxiety/panic disorder Plan: The patient was seen and evaluated Labs and medications reviewed Currently stable on room air oxygen Continue Zosyn Biopsy results still pending Continue Symbicort, Spiriva, albuterol Heparin for DVT prophylaxis Pepcid for GI prophylaxis Remains on high-dose prednisone Medical oncology following We will continue to follow I have personally seen and examined the patient, performed the documentation and the assessment and plan as written. Number of minutes spent on the visit: 10 Dictation was produced using [employer] dictation software. Please excuse any grammatical, word or spelling errors.
[2025-02-25 12:08] LABS: Basophils # (M) 0 X 10*3/uL (0.00-0.10); Eosinophils # (M) 0 X 10*3/uL (0.04-0.35); Lymphocytes # (M) 0.83 X 10*3/uL (0.90-5.00); Metamyelocytes % 1 % (0-0); Myelocytes % 1 % (0-0); Neutrophils # (M) 6.29 X 10*3/uL (1.80-7.70); Neutrophils % (M) 83 %; RBC Morphology Normal (Normal)
--- NOTE | 2025-02-25 15:48 | P.PN ---
Subjective Progress Note Date: 02/25/25 Principal diagnosis: Reason for follow-up is pneumonia Patient is a 64-year-old female with a past medical history significant for hypertension hyperlipidemia hypothyroidism history of lung cancer presenting to the hospital complaining of chest pain and shortness of br eath along with a cough has been diagnosed with pneumonia sputum with Enterobacter and Klebsiella prompting this consultation On today's evaluation that is 02/25/2025,the patient denies any fever or any chills, patient is breathing comfortably on room air, the patient mentioned improvement in her chest pain cough decreased in intensity but still bringing up sputum no vomiting or diarrhea. The patient white count 7.58, creatinine 0.8 Objective - Vital Signs Vital signs: Vital Signs Temp 98.4 F 02/25/25 08:00 Pulse 73 02/25/25 08:00 Resp 18 02/25/25 08:00 BP 157/83 02/25/25 08:00 Pulse Ox 94 L 02/25/25 08:00 FiO2 Intake & Output 02/24/25 02/25/25 02/25/25 18:59 06:59 18:59 Intake Total 2160 Balance 2160 Intake: Oral 2160 Other: Voiding Method Toilet Toilet # Voids 3 2 - Exam GENERAL DESCRIPTION: Middle-age female up in bed in no distress RESPIRATORY SYSTEM: Unlabored breathing , decreased breath sounds at bases HEART: S1 S2 regular rate and rhythm , ABDOMEN: Soft , no tenderness EXTREMITIES: No edema feet - Labs CBC & Chem 7: 02/25/25 05:05 02/25/25 05:05 Labs: Abnormal Lab Results - Last 24 Hours (Table) 02/25/25 02/25/25 Range/Units 05:05 05:05 RBC 3.59 L (4.10-5.20) X 10*6/uL Hgb 11.4 L (12.0-15.0) g/dL Hct 34.4 L (37.2-46.3) % RDW 16.0 H (11.5-14.5) % MPV 9.3 L (9.5-12.2) FL Lymphocytes # (Manual) 0.83 L (0.90-5.00) X 10*3/uL Eosinophils # (Manual) 0 L (0.04-0.35) X 10*3/uL Total Bilirubin <0.2 L (0.3-1.2) mg/dL AST 74 H (13-35) U/L ALT 170 H (8-44) U/L Total Protein 6.0 L (6.2-8.2) g/dL Assessment and Plan (1) Pneumonia Current Visit: Yes Status: Acute Code(s): J18.9 - PNEUMONIA, UNSPECIFIED ORGANISM SNOMED Code(s): 243911131 Plan: 1patient presented to hospital with chest pain along with increasing shortness of breath and cough in this patient who did have evidence of left lower lobe consolidation concerning for pneumonia with a sputum positive for Klebsiella and Enterobacter both of them are sensitive to Zosyn 2-patient has shown some clinical improvement the patient is afebrile white count has been normal we will keep the patient on Zosyn while inpatient Dictation was produced using [employer] dictation software. please excuse any grammatical, word or spelling errors.
[2025-02-25] MEDS: HYDROcodone/APAP 10-325MG 1 EACH TAB PO PRN (17:22)
--- NOTE | 2025-02-25 20:13 | P.PN ---
Subjective Progress Note Date: 02/25/25 Pt reporting persisting back and upper abd pain. Pain meds adjusted. Cultures from bronch positive, continues on IV abx Objective - Vital Signs Vital signs: Vital Signs Temp 98.4 F 02/25/25 08:00 Pulse 73 02/25/25 08:00 Resp 18 02/25/25 08:00 BP 157/83 02/25/25 08:00 Pulse Ox 94 L 02/25/25 08:00 FiO2 Intake & Output 02/24/25 02/25/25 02/25/25 18:59 06:59 18:59 Intake Total 2160 Balance 2160 Intake: Oral 2160 Other: Voiding Method Toilet Toilet # Voids 3 2 - Labs CBC & Chem 7: 02/25/25 05:05 02/25/25 05:05 Labs: Abnormal Lab Results - Last 24 Hours (Table) 02/25/25 02/25/25 Range/Units 05:05 05:05 RBC 3.59 L (4.10-5.20) X 10*6/uL Hgb 11.4 L (12.0-15.0) g/dL Hct 34.4 L (37.2-46.3) % RDW 16.0 H (11.5-14.5) % MPV 9.3 L (9.5-12.2) FL Lymphocytes # (Manual) 0.83 L (0.90-5.00) X 10*3/uL Eosinophils # (Manual) 0 L (0.04-0.35) X 10*3/uL Total Bilirubin <0.2 L (0.3-1.2) mg/dL AST 74 H (13-35) U/L ALT 170 H (8-44) U/L Total Protein 6.0 L (6.2-8.2) g/dL Assessment and Plan (1) Compression fracture of L2 Current Visit: Yes Status: Acute Priority: High Code(s): S32.020A - WEDGE COMPRESSION FRACTURE OF SECOND LUMBAR VERTEBRA, INIT SNOMED Code(s): 44021342621975624 (2) History of lung cancer Current Visit: Yes Status: Acute Priority: High Code(s): Z85.118 - PERSONAL HISTORY OF MALIGNANT NEOPLASM OF BRONCHUS AND LUNG SNOMED Code(s): 513323941 (3) Intractable abdominal pain Current Visit: Yes Status: Acute Priority: High Code(s): R10.9 - UNSPECIFIED ABDOMINAL PAIN SNOMED Code(s): 29899461 Plan: Abdominal pain, back pain, chest pain: Patient presented to the emergency room with complaints of chest pain and upper abdominal pain. Patient has been having chronic upper abdominal pain and intermittent diarrhea for the last 7-8 months. Also reporting lower back pain. She has had previous GI workup which has been negative -Recent CT scan concerning for IO induced colitis. Pt was started on prednisone, but only took for a cpl days due to reported HTN. Pt will be restarted on prednisone with plan for steroid taper -CT chest abdomen and pelvis upon admit showed opacified left lower lobe airways increased consolidation. Small left pleural effusion. Compression deformity to L2 vertebral bodies. Similar trace pleural pericardial effusion. Chronic appearing wedge deformities at T11 and T12 and T9 vertebral bodies which are stable. -Bilirubin 0.4, AST 212, ALT 185, ALP 107. Amylase and lipase WNL. Troponins negative. Procalcitonin less than 0.20. -Orthopedics consulted. Recommend back brace and outpt f/u -Continue supportive care measures. Pain regimen has been adjusted. Bowel regimen in place Lung adenocarcinoma: -Oncology history as dictated in the HPI -Has been off Imfiinzi since April 2024 -CT chest on 02/11/2025 showed increasing left lower lobe lingular lung consolidation suspicious for postobstructive pneumonitis from endobronchial lesion. Persistent but decreasing small left pleural effusion -Imfinzi has been d/c. Plan was to obtain outpt PET CT to further evaluate -CT chest abdomen and pelvis upon admit showed opacified left lower lobe airways increased consolidation. Small left pleural effusion. Concern for possible postobstructive pneumonitis vs post-obstructive PNA vs scarring r/t radiation -Case discussed with pulmonology. S/p bronchoscopy, lavage cultures positive for Klebsiella and Enterobacter cloacae, continues on IV abx. Cytology and biopsy pending
[2025-02-26 08:38] LABS: ALT 243 U/L (8-44); AST 106 U/L (13-35); Albumin 3.7 g/dL (3.8-4.9); Albumin/Globulin Ratio 1.76 Ratio (1.60-3.17); Alkaline Phosphatase 78 U/L (41-126); Calcium 8.8 mg/dL (8.7-10.3); Carbon Dioxide 24.3 mmol/L (21.6-31.8); Chloride 101 mmol/L (96-109); Globulin 2.1 g/dL (1.6-3.3); Glucose 98 mg/dL (70-110); Potassium 4.1 mmol/L (3.5-5.5); Sodium 136 mmol/L (135-145); Total Bilirubin <0.2 mg/dL (0.3-1.2); Total Protein 5.8 g/dL (6.2-8.2)
--- NOTE | 2025-02-26 11:51 | P.PN ---
Subjective Progress Note Date: 02/26/25 Patient is a 64-year-old female with past medical history significant for lung cancer status post chemo/radiation followed by immunotherapy, COPD, hyperlipidemia, hypertension, hypothyroidism. Presented to the emergency department late last night with the chief complaint of abdominal pain, which has been intermittent and ongoing for approximately 7 months. Abdominal pain is bandlike across the upper abdominal quadrants, lower ribs bilaterally, and radiating to the back. Described as "screwing" sensation. Currently, rated 9 on a 10 point numerical scale. Reports black tarry bowel movements over the last couple weeks. Appetite has been poor. No significant nausea or vomiting or hematemesis. Not take any anticoagulants. Denies NSAID use. Has not taken any of her medications for approximately 3 days. More recently, did have an EGD done August, consistent with gastritis. She has been taking Carafate as well as omeprazole on outpatient basis. Workup in the emergency department including a CT of the chest, abdomen, pelvis remarkable for persistent left lower lobe and lingular consolidation consistent with known left perihilar mass and postobstructive atelectasis. Postobstructive pneumonia difficult to exclude. Small persistent left pleural effusion. Persistent trace pericardial effusion. New compression deformity of L2 vertebral body with 25% height loss. Stable/chronic appearing wedge deformities of T9, T11, and T12 vertebral bodies. No obvious intra-abdominal process was noted to explain her abdominal pain. CBC: WBC count 8.3, hemoglobin 14.6, platelets 391. CMP: Sodium 132, potassium 3.8, chloride 101, serum bicarb 22, BUN 12, creatinine 0.81, glucose 85. AST 67, ALT 102, ALP 86, troponins less than 0.012 x 2. Amylase and lipase not elevated. Patient currently being evaluated on the general medical floor. She is sitting up in bed non-labored breathing, on room air. Speaking in complete sentences. Denies any significant shortness of breath. Does endorse chronic cough with occasional yellow sputum production. Denies any fevers or chills. States she has not used any of her maintenance inhalers due to significant abdominal pain as described above. Denies any recent falls or trauma. Does report lower extremity weakness bilaterally and troubles ambulating. Denies any saddle anesthesia, loss of bowel or bladder control. Current vital signs: Temperature 97.8 F, heart rate 78 bpm, blood pressure 171/97 mmHg, nontachypneic, SpO2 recorded at 97% on room air. On today's evaluation on 02/21/2025, the patient continues to have soreness ac ross her lower chest along the rib cage bilaterally. She also has copious respiratory secretions and the plan is to do a bronchoscopy and therapeutic airway suctioning in the same time evaluate the left lower lobe bronchus as the patient has chronic atelectasis of the left lower lobe post chemo and radiation therapy for pulm adenocarcinoma. The patient has no specific complaints. She is afebrile. Pulse ox is 94% on 3 Suboxone by nasal cannula. No new labs are available in terms of his CBC. Electrolytes are normal normal. Serum bicarb is at 20, BUN 30 mg of 0.7. LFTs were mildly elevated although they are improving compared to yesterday. The patient's procalcitonin level is less than 0.2. 02/22/2025 patient has a dry cough. Unable to bring up much sputum. The bronchial cultures was positive for Enterobacter and Klebsiella. Final sensitivities are still pending for now. Meanwhile, the patient is not receiving any antibiotics. Will start the patient empirically with IV cefepime. Continues to have soreness across her chest and upper abdominal area. Exact nature of this soreness and discomfort is not clear. Remains on Symbicort and Ventolin rescue inhaler and this morning the patient is on a reasonable regimen nasal cannula with a pulse ox of 96%. 02/23/2025, the patient is calm and comfortable. No major respiratory difficulties. Feeling better. Started on IV cefepime as the patient was found to have a combination of Enterobacter and Klebsiella in the bronchial alveolar washings was obtained earlier during her bronchoscopy. Otherwise, she is doing well. No specific complaints. No nausea. No vomiting. No diarrhea. No chest pain. No fever or chills. Sodium levels at 133, bicarbonate 17 with a BUN of 10 and a creatinine 0.7. She is currently on room air oxygen with a pulse ox of 91%. No other significant events overnight. The patient is seen today February 24, 2025 in follow-up on the regular medical floor. She is currently sitting up in bed. Awake and alert in no acute distress. She is feeling a bit better today compared to yesterday. Still with some cough and congestion. She is maintaining O2 saturation in the low 90s on room air. She is afebrile. Hemodynamically stable. Follow-up chest x-ray reveals mild cardiomegaly and evidence of COPD. There is patchy bilateral mid and lower lung airspace opacities. Bronchoalveolar lavage cultures were positive for Klebsiella pneumoniae and Enterobacter Cloacae. Sodium 134. Potassium 4.0. Bicarb 21. BUN 10. Creatinine 0.9. Glucose 101. AST 51. ALT 114. She is continued on Zosyn. Continued on Symbicort, Spiriva, albuterol. Heparin for DVT prophylaxis. The patient is seen today February 25, 2025 in follow-up on the regular medical floor. She is awake and alert in no acute distress. Sitting up in bed. Maintaining O2 saturations in the 90s on room air. She has been afebrile. Hemodynamically stable. She continues with a loose congested cough. Bronchoalveolar lavage cultures positive for Klebsiella pneumoniae and Enterobacter cloacae. White count 7.5. Hemoglobin 11.4. Platelets 336. Sodium 136. Potassium 4.2. Bicarb 23. BUN 14. Creatinine 0.8. Glucose 80. AST 74. ALT 170. She remains on Symbicort, Spiriva, albuterol. Heparin for DVT prophylaxis. Antibiotics in the form of Zosyn. The patient is seen today February 26, 2025 in follow-up on the regular medical floor. She is awake and alert in no acute distress. Currently sitting up at the bedside. Breathing easier today compared to yesterday. Less cough and congestion. Maintaining good O2 saturations in the 90s on room air. She is afebrile. Hemodynamically stable. She has some complaints of back discomfort. She has been taking Dilaudid, baclofen and [place]. She remains on Symbicort, S piriva, albuterol and prednisone. Heparin for DVT prophylaxis. Protonix for GI prophylaxis. Bronchial wash cytology positive for non-small cell carcinoma. Bronchial wash cultures were positive for Klebsiella and Enterobacter. She remains on Zosyn. Objective - Vital Signs Vital signs: Vital Signs Temp 97.6 F 02/26/25 07:53 Pulse 65 02/26/25 07:53 Resp 18 02/26/25 07:53 BP 172/95 02/26/25 07:53 Pulse Ox 94 L 02/26/25 07:53 FiO2 Intake & Output 02/25/25 02/26/25 02/26/25 18:59 06:59 18:59 Intake Total 1080 Balance 1080 Intake: Oral 1080 Other: Voiding Method Bedside Commode # Voids 3 3 - Exam GENERAL EXAM: Alert, oriented 64-year-old female, sitting up in bed, on room air oxygen, in no apparent distress. HEAD: Normocephalic. EYES: Normal reaction of pupils, equal size. NOSE: Clear with pink turbinates. THROAT: No erythema or exudates. NECK: No masses, no JVD. CHEST: No chest wall deformity. LUNGS: Equal air entry with bilateral scattered rhonchi. CVS: S1 and S2 normal with no audible murmur, regular rhythm. ABDOMEN: No hepatosplenomegaly, normal bowel sounds, no guarding or rigidity. SPINE: No scoliosis or deformity SKIN: No rashes CENTRAL NERVOUS SYSTEM: No focal deficits, tone is normal in all 4 extremities. EXTREMITIES: There is no peripheral edema. No clubbing, no cyanosis. Peripheral pulses are intact. - Labs CBC & Chem 7: 02/25/25 05:05 02/26/25 03:54 Labs: Abnormal Lab Results - Last 24 Hours (Table) 02/25/25 02/26/25 Range/Units 05:05 03:54 Lymphocytes # (Manual) 0.83 L (0.90-5.00) X 10*3/uL Eosinophils # (Manual) 0 L (0.04-0.35) X 10*3/uL Total Bilirubin <0.2 L (0.3-1.2) mg/dL AST 106 H (13-35) U/L ALT 243 H (8-44) U/L Total Protein 5.8 L (6.2-8.2) g/dL Albumin 3.7 L (3.8-4.9) g/dL Assessment and Plan Assessment: History of non-small cell lung cancer, pulmonary adenocarcinoma type, originally diagnosed back in July 2023, and is status post chemo/radiation followed by immunotherapy with Keytruda. CT of the chest, abdomen, pelvis remarkable for persistent left lower lobe and lingular consolidation consistent with known left perihilar mass and postobstructive atelectasis. Postobstructive pneumonia difficult to exclude but felt to be less likely. Small persistent left pleural effusion. Persistent trace pericardial effusion. New compression deformity of L2 vertebral body with 25% height loss. Stable/chronic appearing wedge deformities of T9, T11, and T12 vertebral bodies. No obvious intra-abdominal pr ocess was noted to explain her abdominal pain Left lower lobe atelectasis/consolidation, and bronchoscopy was done on 02/21/2025 and the patient was found to have stenosis of the left lower lobe bro nchus with narrowing probably postradiation changes contributing for her left lower lobe atelectasis. Additionally, the patient was found to have copious respiratory secretions and a bronchioloalveolar lavage of the left lower lobe was positive for Klebsiella and Enterobacter. Biopsies of the left lower lobe bronchus mucosal irregularities were also done. Cytology positive for non-small cell lung cancer Ongoing abdominal pain and melanotic stools Ongoing chronic back pain History of gastritis, EGD performed August, consistent with gastritis. Prescribed Carafate and omeprazole on an outpatient basis Chronic obstructive pulmonary disease, maintained on Trelegy Ellipta on outpati ent basis, stable New compression deformity of L2 vertebral body with 25% height loss History of laparoscopic cholecystectomy done 07/08/2024 History of hyperlipidemia Hypertension History of hypothyroidism Chronic anxiety/panic disorder Plan: The patient was seen and evaluated Labs and medications reviewed Bronchoalveolar lavage cytology positive for non-small cell Currently stable on room air oxygen Continue Zosyn per ID service Continue Symbicort, Spiriva, albuterol Heparin for DVT prophylaxis Pepcid for GI prophylaxis Remains on high-dose prednisone Medical oncology following Adequate pain control prior to discharge Plan is for home with home care I have personally seen and examined the patient, performed the documentation and the assessment and plan as written. Number of minutes spent on the visit: 10 Dictation was produced using [employer] dictation software. Please excuse any grammatical, word or spelling errors.
[2025-02-26] MEDS: LACTULOSE 20 GM/30 ML CUP PO SCH (11:56)
[2025-02-26] MEDS: SENNOSIDES 8.6 MG TAB PO SCH (11:56)
--- NOTE | 2025-02-26 13:27 | P.PN ---
Subjective Progress Note Date: 02/26/25 History of present illness; Patient is a 64-year-old female with history significant for lung cancer status post chemo/radiation followed by immunotherapy, COPD, hyperlipidemia, hypertension, hypothyroidism who presents for abdominal pain. She states that pain has been intermittent and ongoing for approximately 7 months however has now progressed. Abdominal pain is bandlike across the upper abdominal q uadrants, lower ribs bilaterally, and radiating to the back. She endorses black tarry bowel movements over the last couple weeks, last being yesterday. She also states she has had a poor appetite, without nausea or vomiting. No NSAID or anticoagulant use. Has not taken any of her medications for approximately 3 days. She had EGD completed in August, consistent with gastritis and she has been taking Carafate as well as omeprazole on outpatient basis. She also endorses chronic cough with some sputum production. She also reports lower extremity weakness bilaterally and troubles ambulating. She denies any recent falls or trauma, saddle anesthesia, loss of bowel, or bladder control. Currently, patient denies shortness of breath, fevers or chills. No other symptoms. 02/21/25 Patient seen and examined at bedside. No acute events overnight. Plan to undergo bronchoscopy with pulmonology today. Continue prednisone, oncology following. Patient states she continues to have moderate abdominal pain. 02/22/25 Patient seen and examined at bedside. Yesterday patient underwent bronchoscopy with findings of narrowing of the left lower lobe bronchus. The orifice of the left lower lobe bronchus was quite narrowed probably due to radiation therapy. Mucosal lesions/abnormalities of orifice of the left lower lobe bronchus and secondary kevin the left upper lobe and the left lower lobe. Endobronchial biopsies were done. Copious respiratory secretions and mucous pl ugs, post therapeutic airway suctioning. Tracheobronchomalacia. Continue prednisone, oncology following. Patient states she continues to have moderate abdominal pain. Continuing pain management. Sodium 134, Bicarb 18, ALT 89. 02/23. Patient seen examined. Denies any cough. Denies any shortness of breath. States still having pain in left side of chest. Vital signs stable 02/24. Patient seen examined. Denies cough or shortness of breath. Still continuing to have pain beneath her ribs bilaterally. She continues on Zosyn for bronchial lavage culture positive Klebsiella pneumonia and Enterobacter Cloacae. She is being seen by oncology, pulmonology, and infectious disease. Labs today sodium 134, bicarb 20.5, AST 51, ALT 114 02/25. Patient seen and examined. Denies cough or shortness of breath. Still continuing to have pain beneath her ribs bilaterally. Hgb 11.4, AST 74, ALT 170 02/26. Patient seen and examined. She continues to have her pain. Bronchial washing cytology specimen with findings of atypical cells suspicious for non- small cell carcinoma. AST 106, ALT 243. REVIEW OF SYSTEMS: Pertinent positives and negatives noted in HPI. PHYSICAL EXAMINATION: Vitals reviewed GENERAL: Resting comfortably in bed. CARDIOVASCULAR: S1 and S2 present. No murmurs, rubs, or gallops. PULMONARY: Chest is clear to auscultation, no wheezing, rhonchi, or crackles. ABDOMEN: Soft, mild epigastric tenderness, nondistended. No palpable organomegaly. MUSCULOSKELETAL: Mild tenderness to paraspinal musculature in thoracic and lumbar region. EXTREMITIES: No apparent cyanosis, clubbing. No pedal edema. NEUROLOGICAL: Alert and oriented. Gross neurological examination with no apparent focal deficits. SKIN: No apparent rashes. Assessment and Plan: In summary, patient is a 64-year-old female with history significant for lung cancer status post chemo/radiation followed by immunotherapy, COPD, hyperlipidemia, hypertension, hypothyroidism who presents for abdominal pain. #Suspected colitis, suspected induced by immunotherapy #Transaminitis #History of gastritis Continue high-dose steroids Continue Protonix, Maalox Continue [place], Dilaudid for pain management Oncology following #History of non-small cell lung cancer, pulmonary adenocarcinoma type #Chronic left lower lobe atelectasis, likely superinfection with gram-negative Klebsiella and Enterobacter. #COPD, not in exacerbation - Dx July 2023 s/p chemo/radiation followed by immunotherapy with Keytruda. Follows up with oncologist Dr. Castro. - CT chest with persistent left lower lobe consolidation and lingular consolidation S/P Bronchoscopy 02/21/25, tracheobronchomalacia, with findings of atypical cells suspicious of non-small cell carcinoma Continue Zosyn Pulmonology, Oncology and ID following #New Compression deformity of L2 vertebral body - Continue lumbar brace Pain management as above, lidocaine patch Dr. Garcia recommend follow-up in the outpatient setting #Hyponatremia, euvolemic, resolved Monitor BMP Chronic Medical Conditions #Hyperlipidemia #Hypertension #Hypothyroidism Current home medications Dr. Abbott seen patient with resident, present during exam, and agreed with findings. Objective - Vital Signs Vital signs: Vital Signs Temp 97.6 F 02/26/25 07:53 Pulse 65 02/26/25 07:53 Resp 18 02/26/25 07:53 BP 172/95 02/26/25 07:53 Pulse Ox 94 L 02/26/25 07:53 FiO2 Intake & Output 02/25/25 02/26/25 02/26/25 18:59 06:59 18:59 Intake Total 1080 Balance 1080 Intake: Oral 1080 Other: Voiding Method Bedside Commode # Voids 3 3 - Labs CBC & Chem 7: 02/25/25 05:05 02/26/25 03:54 Labs: Abnormal Lab Results - Last 24 Hours (Table) 02/25/25 02/26/25 Range/Units 05:05 03:54 RBC 3.59 L (4.10-5.20) X 10*6/uL Hgb 11.4 L (12.0-15.0) g/dL Hct 34.4 L (37.2-46.3) % RDW 16.0 H (11.5-14.5) % MPV 9.3 L (9.5-12.2) FL Lymphocytes # (Manual) 0.83 L (0.90-5.00) X 10*3/uL Eosinophils # (Manual) 0 L (0.04-0.35) X 10*3/uL Total Bilirubin <0.2 L (0.3-1.2) mg/dL AST 106 H (13-35) U/L ALT 243 H (8-44) U/L Total Protein 5.8 L (6.2-8.2) g/dL Albumin 3.7 L (3.8-4.9) g/dL
--- NOTE | 2025-02-26 17:55 | P.PN ---
Subjective Progress Note Date: 02/26/25 No acute changes overnight. Pt reporting persisting back and upper abd pain. Continues on pain meds. Cultures from bronch positive, continues on IV abx Objective - Vital Signs Vital signs: Vital Signs Temp 98.4 F 02/26/25 13:32 Pulse 72 02/26/25 13:32 Resp 17 02/26/25 13:32 BP 179/92 02/26/25 13:32 Pulse Ox 93 L 02/26/25 13:32 FiO2 Intake & Output 02/25/25 02/26/25 02/26/25 18:59 06:59 18:59 Intake Total 1080 580 Balance 1080 580 Intake: Oral 1080 580 Other: Voiding Method Bedside Commode Bedside Commode # Voids 3 3 - Constitutional General appearance: Present: average body habitus, no acute distress - EENT Eyes: Present: anicteric sclerae, EOMI ENT: Present: hearing grossly normal - Respiratory Details: breathing is even and unlabored - Cardiovascular Details: skin warm and dry - Neurologic Neurologic: Present: CNII-XII intact - Psychiatric Psychiatric: Present: A&O x's 3 - Labs CBC & Chem 7: 02/25/25 05:05 02/26/25 03:54 Labs: Abnormal Lab Results - Last 24 Hours (Table) 02/26/25 Range/Units 03:54 Total Bilirubin <0.2 L (0.3-1.2) mg/dL AST 106 H (13-35) U/L ALT 243 H (8-44) U/L Total Protein 5.8 L (6.2-8.2) g/dL Albumin 3.7 L (3.8-4.9) g/dL Assessment and Plan (1) Compression fracture of L2 Current Visit: Yes Status: Acute Priority: High Code(s): S32.020A - WEDGE COMPRESSION FRACTURE OF SECOND LUMBAR VERTEBRA, INIT SNOMED Code(s): 16471163152754023 (2) History of lung cancer Current Visit: Yes Status: Acute Priority: High Code(s): Z85.118 - PERSONAL HISTORY OF MALIGNANT NEOPLASM OF BRONCHUS AND LUNG SNOMED Code(s): 112265899 (3) Intractable abdominal pain Current Visit: Yes Status: Acute Priority: High Code(s): R10.9 - U NSPECIFIED ABDOMINAL PAIN SNOMED Code(s): 25911692 Plan: Abdominal pain, back pain, chest pain: Patient presented to the emergency room with complaints of chest pain and upper abdominal pain. Patient has been having chronic upper abdominal pain and intermittent diarrhea for the last 7-8 months. Also reporting lower back pain. She has had previous GI workup which has been negative -Recent CT scan concerning for IO induced colitis. Pt was started on prednisone, but only took for a cpl days due to reported HTN. Pt will be restarted on p rednisone with plan for steroid taper -CT chest abdomen and pelvis upon admit showed opacified left lower lobe airways increased consolidation. Small left pleural effusion. Compression deformity to L2 vertebral bodies. Similar trace pleural pericardial effusion. Chronic appearing wedge deformities at T11 and T12 and T9 vertebral bodies which are stable. -Bilirubin 0.4, AST 212, ALT 185, ALP 107. Amylase and lipase WNL. Troponins negative. Procalcitonin less than 0.20. -Orthopedics consulted. Recommend back brace and outpt f/u -Continue supportive care measures. Pain regimen has been adjusted. Bowel regimen in place Lung adenocarcinoma: -Oncology history as dictated in the HPI -Has been off Imfiinzi since April 2024 -CT chest on 02/11/2025 showed increasing left lower lobe lingular lung consolidation suspicious for postobstructive pneumonitis from endobronchial lesion. Persistent but decreasing small left pleural effusion -Imfinzi has been d/c. Plan was to obtain outpt PET CT to further evaluate -CT chest abdomen and pelvis upon admit showed opacified left lower lobe airways increased consolidation. Small left pleural effusion. Concern for possible postobstructive pneumonitis vs post-obstructive PNA vs scarring r/t radiation -S/p bronchoscopy, lavage cultures positive for Klebsiella and Enterobacter cloacae, continues on IV abx. - Biopsy negative for malignancy. Cytology reporting atypical cells suspicious for non-small cell carcinoma. Will plan for outpt PET CT and clinic f/u to discuss PET findings and treatment recommendations Findings and POC were discussed with patient. All questions and concerns were addressed
[2025-02-27 10:34] LABS: ALT 316 U/L (8-44); AST 120 U/L (13-35); Albumin 3.8 g/dL (3.8-4.9); Albumin/Globulin Ratio 1.73 Ratio (1.60-3.17); Alkaline Phosphatase 81 U/L (41-126); BUN/Creat Ratio 14.62 Ratio (12.00-20.00); Blood Urea Nitrogen 11.7 mg/dL (9.0-27.0); Calcium 9.1 mg/dL (8.7-10.3); Carbon Dioxide 23.1 mmol/L (21.6-31.8); Chloride 101 mmol/L (96-109); Globulin 2.2 g/dL (1.6-3.3); Glucose 79 mg/dL (70-110); Potassium 3.6 mmol/L (3.5-5.5); Sodium 137 mmol/L (135-145); Total Bilirubin <0.2 mg/dL (0.3-1.2)
--- NOTE | 2025-02-27 12:14 | P.PN ---
Subjective Progress Note Date: 02/27/25 Patient is a 64-year-old female with past medical history significant for lung cancer status post chemo/radiation followed by immunotherapy, COPD, hyperlipidemia, hypertension, hypothyroidism. Presented to the emergency department late last night with the chief complaint of abdominal pain, which has been intermittent and ongoing for approximately 7 months. Abdominal pain is bandlike across the upper abdominal quadrants, lower ribs bilaterally, and radiating to the back. Described as "screwing" sensation. Currently, rated 9 on a 10 point numerical scale. Reports black tarry bowel movements over the last couple weeks. Appetite has been poor. No significant nausea or vomiting or hematemesis. Not take any anticoagulants. Denies NSAID use. Has not taken any of her medications for approximately 3 days. More recently, did have an EGD done August, consistent with gastritis. She has been taking Carafate as well as omeprazole on outpatient basis. Workup in the emergency department including a CT of the chest, abdomen, pelvis remarkable for persistent left lower lobe and lingular consolidation consistent with known left perihilar mass and postobstructive atelectasis. Postobstructive pneumonia difficult to exclude. Small persistent left pleural effusion. Persistent trace pericardial effusion. New compression deformity of L2 vertebral body with 25% height loss. Stable/chronic appearing wedge deformities of T9, T11, and T12 vertebral bodies. No obvious intra-abdominal process was noted to explain her abdominal pain. CBC: WBC count 8.3, hemoglobin 14.6, platelets 391. CMP: Sodium 132, potassium 3.8, chloride 101, serum bicarb 22, BUN 12, creatinine 0.81, glucose 85. AST 67, ALT 102, ALP 86, troponins less than 0.012 x 2. Amylase and lipase not elevated. Patient currently being evaluated on the general medical floor. She is sitting up in bed non-labored breathing, on room air. Speaking in complete sentences. Denies any significant shortness of breath. Does endorse chronic cough with occasional yellow sputum production. Denies any fevers or chills. States she has not used any of her maintenance inhalers due to significant abdominal pain as described above. Denies any recent falls or trauma. Does report lower extremity weakness bilaterally and troubles ambulating. Denies any saddle anesthesia, loss of bowel or bladder control. Current vital signs: Temperature 97.8 F, heart rate 78 bpm, blood pressure 171/97 mmHg, nontachypneic, SpO2 recorded at 97% on room air. On today's evaluation on 02/21/2025, the patient continues to have soreness ac ross her lower chest along the rib cage bilaterally. She also has copious respiratory secretions and the plan is to do a bronchoscopy and therapeutic airway suctioning in the same time evaluate the left lower lobe bronchus as the patient has chronic atelectasis of the left lower lobe post chemo and radiation therapy for pulm adenocarcinoma. The patient has no specific complaints. She is afebrile. Pulse ox is 94% on 3 Suboxone by nasal cannula. No new labs are available in terms of his CBC. Electrolytes are normal normal. Serum bicarb is at 20, BUN 30 mg of 0.7. LFTs were mildly elevated although they are improving compared to yesterday. The patient's procalcitonin level is less than 0.2. 02/22/2025 patient has a dry cough. Unable to bring up much sputum. The bronchial cultures was positive for Enterobacter and Klebsiella. Final sensitivities are still pending for now. Meanwhile, the patient is not receiving any antibiotics. Will start the patient empirically with IV cefepime. Continues to have soreness across her chest and upper abdominal area. Exact nature of this soreness and discomfort is not clear. Remains on Symbicort and Ventolin rescue inhaler and this morning the patient is on a reasonable regimen nasal cannula with a pulse ox of 96%. 02/23/2025, the patient is calm and comfortable. No major respiratory difficulties. Feeling better. Started on IV cefepime as the patient was found to have a combination of Enterobacter and Klebsiella in the bronchial alveolar washings was obtained earlier during her bronchoscopy. Otherwise, she is doing well. No specific complaints. No nausea. No vomiting. No diarrhea. No chest pain. No fever or chills. Sodium levels at 133, bicarbonate 17 with a BUN of 10 and a creatinine 0.7. She is currently on room air oxygen with a pulse ox of 91%. No other significant events overnight. The patient is seen today February 24, 2025 in follow-up on the regular medical floor. She is currently sitting up in bed. Awake and alert in no acute distress. She is feeling a bit better today compared to yesterday. Still with some cough and congestion. She is maintaining O2 saturation in the low 90s on room air. She is afebrile. Hemodynamically stable. Follow-up chest x-ray reveals mild cardiomegaly and evidence of COPD. There is patchy bilateral mid and lower lung airspace opacities. Bronchoalveolar lavage cultures were positive for Klebsiella pneumoniae and Enterobacter Cl[place]acae. Sodium 134. Potassium 4.0. Bicarb 21. BUN 10. Creatinine 0.9. Glucose 101. AST 51. ALT 114. She is continued on Zosyn. Continued on Symbicort, Spiriva, albuterol. Heparin for DVT prophylaxis. The patient is seen today February 25, 2025 in follow-up on the regular medical floor. She is awake and alert in no acute distress. Sitting up in bed. Maintaining O2 saturations in the 90s on room air. She has been afebrile. Hemodynamically stable. She continues with a loose congested cough. Bronchoalveolar lavage cultures positive for Klebsiella pneumoniae and Enterobacter cloacae. White count 7.5. Hemoglobin 11.4. Platelets 336. Sodium 136. Potassium 4.2. Bicarb 23. BUN 14. Creatinine 0.8. Glucose 80. AST 74. ALT 170. She remains on Symbicort, Spiriva, albuterol. Heparin for DVT prophylaxis. Antibiotics in the form of Zosyn. The patient is seen today February 26, 2025 in follow-up on the regular medical floor. She is awake and alert in no acute distress. Currently sitting up at the bedside. Breathing easier today compared to yesterday. Less cough and congestion. Maintaining good O2 saturations in the 90s on room air. She is afebrile. Hemodynamically stable. She has some complaints of back discomfort. She has been taking Dilaudid, baclofen and [place]. She remains on Symbicort, S piriva, albuterol and prednisone. Heparin for DVT prophylaxis. Protonix for GI prophylaxis. Bronchial wash cytology positive for non-small cell carcinoma. Bronchial wash cultures were positive for Klebsiella and Enterobacter. She remains on Zosyn. The patient is seen today February 27, 2025 in follow-up on the regular medical floor. She is currently sitting up in bed. Awake and alert in no acute distress. Feeling better today compared to yesterday. She is maintaining good O2 saturation in the 90s on room air. She is afebrile. Hemodynamically stable. Sodium 137. Potassium 3.6. Bicarb 23. BUN 12. Creatinine 0.8. Glucose 79. She is continued on Symbicort, Spiriva, albuterol and a prednisone taper. Heparin for DVT prophylaxis. Bronchial wash cytology positive for non-small cell carcinoma. Objective - Vital Signs Vital signs: Vital Signs Temp 98.2 F 02/27/25 07:24 Pulse 80 02/27/25 08:00 Resp 17 02/27/25 08:00 BP 185/75 02/27/25 07:24 Pulse Ox 94 L 02/27/25 07:24 FiO2 Intake & Output 02/26/25 02/27/25 02/27/25 18:59 06:59 18:59 Intake Total 1660 440 Balance 1660 440 Intake: Oral 1660 440 Other: Voiding Method Bedside Commode Bedside Commode Bedside Commode # Voids 3 3 # Bowel Movements 1 - Exam GENERAL EXAM: Alert, 64-year-old female, resting in bed, on room air oxygen, in no apparent distress. HEAD: Normocephalic. EYES: Normal reaction of pupils, equal size. NOSE: Clear with pink turbinates. THROAT: No erythema or exudates. NECK: No masses, no JVD. CHEST: No chest wall deformity. LUNGS: Equal air entry with bilateral scattered rhonchi. CVS: S1 and S2 normal with no audible murmur, regular rhythm. ABDOMEN: No hepatosplenomegaly, normal bowel sounds, no guarding or rigidity. SPINE: No scoliosis or deformity SKIN: No rashes CENTRAL NERVOUS SYSTEM: No focal deficits, tone is normal in all 4 extremities. EXTREMITIES: There is no peripheral edema. No clubbing, no cyanosis. Peripheral pulses are intact. - Labs CBC & Chem 7: 02/25/25 05:05 02/27/25 06:04 Labs: Abnormal Lab Results - Last 24 Hours (Table) 02/27/25 Range/Units 06:04 Anion Gap 12.90 H (4.00-12.00) mmol/L Total Bilirubin <0.2 L (0.3-1.2) mg/dL AST 120 H (13-35) U/L ALT 316 H (8-44) U/L Total Protein 6.0 L (6.2-8.2) g/dL Assessment and Plan Assessment: History of non-small cell lung cancer, pulmonary adenocarcinoma type, originally diagnosed back in July 2023, and is status post chemo/radiation followed by immunotherapy with Keytruda. CT of the chest, abdomen, pelvis remarkable for persistent left lower lobe and lingular consolidation consistent with known left perihilar mass and postobstructive atelectasis. Postobstructive pneumonia difficult to exclude but felt to be less likely. Small persistent left pleural effusion. Persistent trace pericardial effusion. New compression deformity of L2 vertebral body with 25% height loss. Stable/chronic appearing wedge deformities of T9, T11, and T12 vertebral bodies. No obvious intra-abdominal process was noted to explain her abdominal pain Left lower lobe atelectasis/consolidation, and bronchoscopy was done on 02/21/2025 and the patient was found to have stenosis of the left lower lobe bronchus with narrowing probably postradiation changes contributing for her left lower lobe atelectasis. Additionally, the patient was found to have copious respiratory secretions and a bronchioloalveolar lavage of the left lower lobe was positive for Klebsiella and Enterobacter. Biopsies of the left lower lobe b ronchus mucosal irregularities were also done. Cytology positive for non-small cell lung cancer Ongoing abdominal pain and melanotic stools Ongoing chronic back pain History of gastritis, EGD performed August, consistent with gastritis. Prescribed Carafate and omeprazole on an outpatient basis Chronic obstructive pulmonary disease, maintained on Trelegy Ellipta on outpatient basis, stable New compression deformity of L2 vertebral body with 25% height loss History of laparoscopic cholecystectomy done 07/08/2024 History of hyperlipidemia Hypertension History of hypothyroidism Chronic anxiety/panic disorder Plan: The patient was seen and evaluated Labs and medications reviewed Lavage cytology suspicious for non-small cell Plan is for outpatient PET scan Currently stable on room air oxygen Remains on Zosyn per ID service Continue Symbicort, Spiriva, albuterol Remains on high-dose prednisone Plan is for home with home care I have personally seen and examined the patient, performed the documentation and the assessment and plan as written. Number of minutes spent on the visit: 10 Dictation was produced using [employer] dictation software. Please excuse any grammatical, word or spelling errors.
[2025-02-27 13:19] VITALS: BP 188/90; PULSE 73; RESP 18; TEMP 97.7
--- NOTE | 2025-02-27 14:11 | P.PN ---
Subjective Progress Note Date: 02/26/25 Principal diagnosis: Reason for follow-up is pneumonia Patient is a 64-year-old female with a past medical history significant for hypertension hyperlipidemia hypothyroidism history of lung cancer presenting to the hospital complaining of chest pain and shortness of br eath along with a cough has been diagnosed with pneumonia sputum with Enterobacter and Klebsiella prompting this consultation On today's evaluation that is 02/26/2025,the patient remains to be afebrile, patient is on room air not requiring supplemental oxygen and denies any shortness of breath and no worsening cough has been complaining of some abdominal discomfort intermittently bowel movement nausea but no vomiting. Patient did have a creatinine of 0.8 no CBC was done today Objective - Vital Signs Vital signs: Vital Signs Temp 98.4 F 02/26/25 13:32 Pulse 72 02/26/25 13:32 Resp 17 02/26/25 13:32 BP 179/92 02/26/25 13:32 Pulse Ox 93 L 02/26/25 13:32 FiO2 Intake & Output 02/25/25 02/26/25 02/26/25 18:59 06:59 18:59 Intake Total 1080 580 Balance 1080 580 Intake: Oral 1080 580 Other: Voiding Method Bedside Commode Bedside Commode # Voids 3 3 - Exam GENERAL DESCRIPTION: Middle-age female up in bed in no distress RESPIRATORY SYSTEM: Unlabored breathing , decreased breath sounds at bases HEART: S1 S2 regular rate and rhythm , ABDOMEN: Soft , no tenderness EXTREMITIES: No edema feet - Labs CBC & Chem 7: 02/25/25 05:05 02/27/25 06:04 Labs: Abnormal Lab Results - Last 24 Hours (Table) 02/26/25 Range/Units 03:54 Total Bilirubin <0.2 L (0.3-1.2) mg/dL AST 106 H (13-35) U/L ALT 243 H (8-44) U/L Total Protein 5.8 L (6.2-8.2) g/dL Albumin 3.7 L (3.8-4.9) g/dL Assessment and Plan (1) Pneumonia Current Visit: Yes Status: Acute Code(s): J18.9 - PNEUMONIA, UNSPECIFIED ORGANISM SNOMED Code(s): 917084526 Plan: 1patient presented to hospital with chest pain along with increasing shortness of breath and cough in this patient who did have evidence of left lower lobe consolidation concerning for pneumonia with a sputum positive for Klebsiella and Enterobacter both of them are sensitive to Zosyn 2-patient is afebrile and white count has been normal we will treat with Zosyn while inpatient however transition to oral antibiotic on discharge Dictation was produced using [employer] dictation software. please excuse any grammatical, word or spelling errors. Time with Patient: Less than 30
--- NOTE | 2025-02-27 14:12 | P.PN ---
Subjective Progress Note Date: 02/27/25 Principal diagnosis: Reason for follow-up is pneumonia Patient is a 64-year-old female with a past medical history significant for hypertension hyperlipidemia hypothyroidism history of lung cancer presenting to the hospital complaining of chest pain and shortness of br eath along with a cough has been diagnosed with pneumonia sputum with Enterobacter and Klebsiella prompting this consultation On today's evaluation that is 02/27/2025, the patient continues to be afebrile, the patient is on room air and breathing comfortably, the Pt denies having any chest pain and cough is decreased in intensity mention did have multiple bowel movements abdominal pain has improved nausea but no vomiting. No CBC was done today. Did have a creatinine of 0.8 BAL culture with Klebsiella Enterobacter both sensitive to Cipro Objective - Vital Signs Vital signs: Vital Signs Temp 97.7 F 02/27/25 13:18 Pulse 73 02/27/25 13:18 Resp 18 02/27/25 13:18 BP 188/90 02/27/25 13:18 Pulse Ox 93 L 02/27/25 13:18 FiO2 Intake & Output 02/26/25 02/27/25 02/27/25 18:59 06:59 18:59 Intake Total 1660 440 Balance 1660 440 Intake: Oral 1660 440 Other: Voiding Method Bedside Commode Bedside Commode Bedside Commode # Voids 3 3 # Bowel Movements 1 - Exam GENERAL DESCRIPTION: Middle-age female up in bed in no distress RESPIRATORY SYSTEM: Unlabored breathing , decreased breath sounds at bases HEART: S1 S2 regular rate and rhythm , ABDOMEN: Soft , no tenderness EXTREMITIES: No edema feet - Labs CBC & Chem 7: 02/25/25 05:05 02/27/25 06:04 Labs: Abnormal Lab Results - Last 24 Hours (Table) 02/27/25 Range/Units 06:04 Anion Gap 12.90 H (4.00-12.00) mmol/L Total Bilirubin <0.2 L (0.3-1.2) mg/dL AST 120 H (13-35) U/L ALT 316 H (8-44) U/L Total Protein 6.0 L (6.2-8.2) g/dL Assessment and Plan (1) Pneumonia Current Visit: Yes Status: Acute Code(s): J18.9 - PNEUMONIA, UNSPECIFIED ORGANISM SNOMED Code(s): 352949699 Plan: 1patient presented to hospital with chest pain along with increasing shortness of breath and cough in this patient who did have evidence of left lower lobe consolidation concerning for pneumonia with a sputum positive for Klebsiella and Enterobacter both of them are sensitive to Zosyn 2-patient is afebrile and white count has been normal has received adequate Zosyn consider short course of oral Cipro on discharge discussed with the resident physician Dictation was produced using [employer] dictation software. please excuse any grammatical, word or spelling errors. Time with Patient: Less than 30
--- NOTE | 2025-02-27 15:42 | P.DS ---
Providers Date of admission: 02/20/25 00:18 Expected date of discharge: 02/27/25 Attending physician: Alavro Mcneal Consults: 02/19/25 23:00 Consult Physician Urgent Consulting Provider: Geronimo Castro Consult Reason/Comments: History of lung cancer Do you want consulting provider notified?: Yes, Notify in am Consult Physician Urgent Consulting Provider: Bebo Kruger Consult Reason/Comments: Left lower lobe opacity, history of lung cancer Do you want consulting provider notified?: Yes, Notify in am 02/19/25 23:04 Consult Physician Urgent Consulting Provider: Сергей Ahuja Consult Reason/Comments: compression fracture Do you want consulting provider notified?: Yes, Notify in am 02/23/25 16:36 Consult Physician Routine Consulting Provider: Brian Potter Consult Reason/Comments: Pneumonia Do you want consulting provider notified?: Yes Primary care physician: [facility] Course: Discharge diagnoses; #Colitis, 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 #COPD, not in exacerbation #New Compression deformity of L2 vertebral body #Hyponatremia, euvolemic, resolved #Hyperlipidemia #Hypertension #Hypothyroidism Hospital course; History of present illness; Patient is a 64-year-old female with history significant for lung cancer status post chemo/radiation followed by immunotherapy, COPD, hyperlipidemia, hype rtension, hypothyroidism who presents for abdominal pain. She states that pain has been intermittent and ongoing for approximately 7 months however has now progressed. Abdominal pain is bandlike across the upper abdominal quadrants, lower ribs bilaterally, and radiating to the back. She endorses black tarry bowel movements over the last couple weeks, last being yesterday. She also states she has had a poor appetite, without nausea or vomiting. No NSAID or anticoagulant use. Has not taken any of her medications for approximately 3 days. She had EGD completed in August, consistent with gastritis and she has been taking Carafate as well as omeprazole on outpatient basis. She also endorses chronic cough with some sputum production. She also reports lower extremity weakness bilaterally and troubles ambulating. She denies any recent falls or trauma, saddle anesthesia, loss of bowel, or bladder control. Currently, patient denies shortness of breath, fevers or chills. No other symptoms. During patient stay patient seen for abdominal pain and back pain. New compression deformity of L2 was found, patient was seen by Dr. Garcia orthopedic surgery and pain management. He was also seen by oncology for likely colitis from immunotherapy, and was subsequently started on prednisone, Protonix and Maalox. Also during stay patient with known history of non-small cell lung ca ncer had bronchoscopy with findings of atypical cells suspicious of non-small cell carcinoma, as well as superinfection of gram-negative Klebsiella and Enterobacter which was treated with Zosyn. Patient is discharged home in stable condition. She will need to continue Cipro 750 BID mg for the next 7 days, and continue prednisone taper. She was given short prescription for [place] and Protonix. She will need to close follow-up with oncology for lung adenocarcinoma and obtain outpatient PET/CT for further evaluation and treatment recommendations. Also pain management and orthopedic surgery PHYSICAL EXAMINATION: Vitals reviewed GENERAL: Resting comfortably in bed. CARDIOVASCULAR: S1 and S2 present. No murmurs, rubs, or gallops. PULMONARY: Chest is clear to auscultation, no wheezing, rhonchi, or crackles. ABDOMEN: Soft, mild epigastric tenderness, nondistended. No palpable organomegaly. MUSCULOSKELETAL: Mild tenderness to paraspinal musculature in thoracic and lumbar region. EXTREMITIES: No apparent cyanosis, clubbing. No pedal edema. NEUROLOGICAL: Alert and oriented. Gross neurological examination with no apparent focal deficits. SKIN: No apparent rashes. Dr. Abbott seen patient with resident, present during exam, and agreed with findings. Dictation was produced using [employer] dictation software. please excuse any grammatical, word or spelling errors. Patient Condition at Discharge: Stable Plan - Discharge Summary New Discharge Prescriptions: New Ciprofloxacin HCl [Cipro] 750 mg PO Q12H 1 Days #14 tab predniSONE [Deltasone] See Taper PO DAILY #15 tab HYDROcodone/APAP 10-325MG [[place] 10-325] 1 each PO Q4HR PRN #3 tab PRN Reason: Pain Pantoprazole Sodium [Protonix] 40 mg PO DAILY #30 tab Continue Levothyroxine Sodium [Synthroid] 75 mcg PO DAILY QUEtiapine FUMARATE [SEROquel] 200 mg PO HS ALPRAZolam [Xanax] 0.25 mg PO HS oxyCODONE-APAP 10-325MG [Percocet 10-325 mg] 1 tab PO TID PRN PRN Reason: Pain Dicyclomine [Bentyl] 20 mg PO QID PRN PRN Reason: CRAMPS Vonoprazan Fumarate [Voquezna] 20 mg PO DAILY Fluticasone/Umeclidin/Vilanter [Trelegy Ellipta 100-62.5-25] 1 puff INHALATION RT-DAILY Diltiazem Cd [Cardizem CD] 240 mg PO HS ALPRAZolam [Xanax] 0.25 mg PO DAILY PRN PRN Reason: Anxiety Linaclotide [Linzess] 290 mcg PO DAILY Tiotropium 2.5 Mcg/Puff [Spiriva Respimat 2.5 Mcg] 2 puff INHALATION RT-DAILY Baclofen [Lioresal] 10 mg PO QID PRN PRN Reason: Muscle Spasm fentaNYL 50MCG/HR PATCH [Duragesic 50MCG/HR] 50 mcg TRANSDERM Q72H Lubiprostone [Amitiza] 24 mcg PO BID Metaxalone [Skelaxin] 800 mg PO Q8H PRN PRN Reason: Muscle Spasm Tenapanor HCl [Ibsrela] 50 mg PO BID Lactulose [Cephulac] 30 gm PO QID PRN PRN Reason: Constipation Discontinued predniSONE [Deltasone] 40 mg PO BID Discharge Medication List ALPRAZolam [Xanax] 0.25 mg PO DAILY PRN 04/25/24 [History] ALPRAZolam [Xanax] 0.25 mg PO HS 04/25/24 [History] Diltiazem Cd [Cardizem CD] 240 mg PO HS 04/25/24 [History] Fluticasone/Umeclidin/Vilanter [Trelegy Ellipta 100-62.5-25] 1 puff INHALATION RT-DAILY 04/25/24 [History] Levothyroxine Sodium [Synthroid] 75 mcg PO DAILY 04/25/24 [History] QUEtiapine FUMARATE [SEROquel] 200 mg PO HS 04/25/24 [History] Linaclotide [Linzess] 290 mcg PO DAILY 09/03/24 [History] Baclofen [Lioresal] 10 mg PO QID PRN 09/22/24 [History] Tiotropium 2.5 Mcg/Puff [Spiriva Respimat 2.5 Mcg] 2 puff INHALATION RT-DAILY 09/22/24 [History] oxyCODONE-APAP 10-325MG [Percocet 10-325 mg] 1 tab PO TID PRN 09/22/24 [History] Dicyclomine [Bentyl] 20 mg PO QID PRN 02/20/25 [History] Lactulose [Cephulac] 30 gm PO QID PRN 02/20/25 [History] Lubiprostone [Amitiza] 24 mcg PO BID 02/20/25 [History] Metaxalone [Skelaxin] 800 mg PO Q8H PRN 02/20/25 [History] Tenapanor HCl [Ibsrela] 50 mg PO BID 02/20/25 [History] Vonoprazan Fumarate [Voquezna] 20 mg PO DAILY 02/20/25 [History] fentaNYL 50MCG/HR PATCH [Duragesic 50MCG/HR] 50 mcg TRANSDERM Q72H 02/20/25 [History] Ciprofloxacin HCl [Cipro] 750 mg PO Q12H 1 Days #14 tab 02/27/25 [Rx] HYDROcodone/APAP 10-325MG [[place] 10-325] 1 each PO Q4HR PRN #3 tab 02/27/25 [Rx] Pantoprazole Sodium [Protonix] 40 mg PO DAILY #30 tab 02/27/25 [Rx] predniSONE [Deltasone] See Taper PO DAILY #15 tab 02/27/25 [Rx] Follow up Appointment(s)/Referral(s): Kar Garcia DO [Doctor of Osteopathic Medicine] - 03/10/25 2:00 pm () Geronimo Castro MD [STAFF PHYSICIAN] - 1 Week [facility], [NON-STAFF] - 1 Week Tray Garnett MD [Primary Care Provider] - 1-2 days (The office is closed for lunch please call and make follow up appointment.) Patient Instructions/Handouts: Pantoprazole (By mouth) Activity/Diet/Wound Care/Special Instructions: Wear LSO brace whenever upright, may have off in bed. She will need to follow- up closely with oncology. Will also need to follow-up with pain management as needed and her PCP. Follow-up with Dr. Garcia orthopedic surgery for lumbar spine fracture. Continue antibiotics for 1 week. Begin prednisone taper, and Protonix. Discharge Disposition: HOME SELF-CARE
== END 2025-02-27 14:22 | disposition home or self-care (01) | DRG 137 ==
LOC: EC 19:40 → 5NMEDONC 02-20 00:17 → OBSVTOIN 02-20 00:18 → 5NMEDONC 02-20 01:03
PROVIDERS: ADMIT Hospitalist; ATTEND Hospitalist
PROC: 0BBJ8ZX Excision of Left Lower Lung Lobe, Via Natural or Artificial Opening Endoscopic, Diagnostic (ICD-10-PCS; principal; 2025-02-21 08:15)
PROC: 0B9J8ZX Drainage of Left Lower Lung Lobe, Via Natural or Artificial Opening Endoscopic, Diagnostic (ICD-10-PCS; 2025-02-21 08:15)
DX: J15.0 Pneumonia due to Klebsiella pneumoniae (principal); K52.1 Toxic gastroenteritis and colitis; T50.995A Adverse effect of other drugs, medicaments and biological substances, initial encounter; E03.9 Hypothyroidism, unspecified; E78.5 Hyperlipidemia, unspecified; E87.1 Hypo-osmolality and hyponatremia; Z87.891 Personal history of nicotine dependence; M54.9 Dorsalgia, unspecified; G89.29 Other chronic pain; C34.32 Malignant neoplasm of lower lobe, left bronchus or lung; F41.0 Panic disorder [episodic paroxysmal anxiety]; I10 Essential (primary) hypertension; J98.11 Atelectasis; J44.0 Chronic obstructive pulmonary disease with (acute) lower respiratory infection; K29.70 Gastritis, unspecified, without bleeding; K21.9 Gastro-esophageal reflux disease without esophagitis; Z92.3 Personal history of irradiation; J98.09 Other diseases of bronchus, not elsewhere classified; M48.56XA Collapsed vertebra, not elsewhere classified, lumbar region, initial encounter for fracture; Y84.2 Radiological procedure and radiotherapy as the cause of abnormal reaction of the patient, or of later complication, without mention of misadventure at the time of the procedure; Z79.890 Hormone replacement therapy; Z79.899 Other long term (current) drug therapy; Z92.21 Personal history of antineoplastic chemotherapy; Z80.0 Family history of malignant neoplasm of digestive organs; Z80.6 Family history of leukemia
CPT/HCPCS: 31624; 31625; 36415; 71045; 71260; 74177; 76705; 80048; 80053; 80076; 82150; 82607; 82728; 82746; 83540; 83550; 83605; 83690; 83735; 84145; 84484; 85025; 85610; 85730; 87070; 87077; 87186; 87205; 88108; 88305; 93005; 94640; 94760; 96361; 96365; 96366; 96375; 96376; 99285

== ENCOUNTER 2025-03-12 10:21 | Emergency (ER) | payer OTHER ==
[2025-03-12] MEDS: ONDANSETRON 4 MG/2 ML VIAL IVP STA (11:13)
[2025-03-12] MEDS: HYDROmorphone 1 MG/ML 1 ML SYRINGE IVP STA ×2 (11:13→13:47)
[2025-03-12] MEDS: SODIUM CHLORIDE 0.9% 1,000 ML IV ONE (11:13)
[2025-03-12] MEDS: PANTOPRAZOLE 40 MG/10 ML VIAL IVP STA (11:13)
[2025-03-12 11:19] LABS: Appearance,Urine Clear (Clear); Bilirubin,Urine Negative (Negative); Blood,Urine Negative (Negative); Color,Urine Light Yellow; Glucose,Urine (UA) Negative (Negative); Ketones,Urine Negative (Negative); Leukocyte Esterase,Urine Negative (Negative); Nitrite,Urine Negative (Negative); PH, Urine 7.5 (5.0-8.0); Protein,Urine Negative (Negative); Specific Gravity,Urine 1.021 (1.001-1.035); Urobilinogen,Urine <2.0 mg/dL (<2.0)
[2025-03-12 11:30] LABS: ALT 746 U/L (4-34); AST 267 U/L (14-36); African American GFR (CKD) >90 (>60 ml/min/1.73 sqM); Albumin 3.6 g/dL (3.5-5.0); Alkaline Phosphatase 195 U/L (38-126); Amylase 46 U/L (30-110); Anion Gap 8 mmol/L; Blood Urea Nitrogen 17 mg/dL (7-17); Calcium 9.2 mg/dL (8.4-10.2); Carbon Dioxide 26 mmol/L (22-30); Chloride 97 mmol/L (98-107); Glucose 82 mg/dL (74-99); Lipase 31 U/L (23-300); Non-African American GFR(CKD) >90 (>60 ml/min/1.73 sqM); Potassium 4.5 mmol/L (3.5-5.1); Sodium 131 mmol/L (137-145); Total Bilirubin 0.8 mg/dL (0.2-1.3)
[2025-03-12 11:48] LABS: HCT 34.8 % (37.2-46.3); HGB 11.9 g/dL (12.0-15.0); MCH 32.5 pg (27.0-32.0); MCHC 34.2 g/dL (32.0-37.0); MCV 95.1 fL (80.0-97.0); Mean Platelet Volume 9.3 fL (9.5-12.2); RBC 3.66 10*6/uL (4.10-5.20); RDW 15.4 % (11.5-14.5); WBC 7.37 10*3/uL (4.50-10.00)
[2025-03-12 13:31] LABS: Prothrombin Time 11.2 sec (10.0-12.5)
[2025-03-12 13:37] LABS: Band Neutrophils % 3 %; Lymphocytes # (M) 0.52 k/uL (1.0-4.8); Metamyelocytes # (M) 0.15 k/uL (0); Metamyelocytes % 2 %; Monocytes # (M) 0.44 k/uL (0-1.0); Myelocytes # (M) 0.15 k/uL (0); Myelocytes % 2 %; Neutrophils # (M) 6.19 k/uL (1.3-7.7); Neutrophils % (M) 81 %; Nucleated Red Blood Cells 0 /100 WBC (0-0); Total Cells Counted 200
[2025-03-12 13:38] LABS: RBC Morphology Normal
[2025-03-12 13:39] LABS: Platelet Count 301 10*3/uL (140-440)
--- NOTE | 2025-03-12 15:19 | CT ---
EXAMINATION TYPE: CT abdomen pelvis w con DATE OF EXAM: 03/12/2025 COMPARISON: 10/23/2024 CLINICAL INDICATION: Female, 64 years old with history of abd pain; PHH, Abdominal pain TECHNIQUE: Performed without Oral Contrast and with IV Contrast, patient injected with 100 ml mL of Isovue 300. CT DLP: 620.[address] CTDI: mGy Automated exposure control for dose reduction was used. FINDINGS: There is mild left lower lobe atelectasis there are mild bibasilar infiltrates and possibly a small l eft effusion. There is marked cardiomegaly and a small pericardial effusion. There is surgical absence of the gallbladder.. There is no biliary ductal dilatation. There is no focal mass or organomegaly involving the liver, pancreas, spleen or adrenal glands. There is no solid renal mass or hydronephrosis and there is homogeneous contrast enhancement of the r enal parenchyma. There is a nonobstructing 6 mm calcification in the right kidney. There are 2 simple cortical cysts of the left kidney. The caliber the abdominal aorta is normal is no retroperitoneal adenopathy or hemorrhage. The bowel loops are normal in caliber and there is no evidence of dilatation or obstruction. No infla mmatory changes are identified in the bowel wall or mesentery. There is no free intraperitoneal air or fluid. No pelvic mass, free fluid, abscess or adenopathy. The osseous structures and soft tissues are intact. IMPRESSION: 1. Small bibasilar infiltrates and possible small left effusion. 2. Cardiomegaly with small pericardial effusion. 3. 6 mm nonobstructing right renal calcification. [facility], , 03/12/2025 3:16 PM
--- NOTE | 2025-03-12 15:41 | ED ---
General Adult HPI - General Chief complaint: Abdominal Pain Stated complaint: abd pain Time Seen by Provider: 03/12/25 10:35 Source: patient, EMS, RN notes reviewed, old records reviewed Mode of arrival: EMS - History of Present Illness Initial comments: 64-year-old female with history of chronic abdominal pain presents emergency department with acute on chronic abdominal pain. States she is having worsening pain however has a history of chronic pain. Was seen at [facility] yesterday and discharged for the same complaint. Is on oxycodone at home chronically. Previously diagnosed with IBS. No recent colonoscopies or EGD. Follows up with Dr. Castro for lung cancer. Currently not receiving chemo or radiation. States his pain got worse today but does admit to it being a chronic issue ongoing for months to years. Has been seen in our emergency department for similar complaints in the past. Last obtained CT imaging in January 2025. Endorses mild nausea but no emesis. No constipation or diarrhea. No other acute complaints. No urinary complaints. No vaginal discharge or bleeding. Presents for further evaluation at this time. - Related Data Home Medications Medication Instructions Recorded Confirmed ALPRAZolam [Xanax] 0.25 mg PO DAILY PRN 04/25/24 02/20/25 ALPRAZolam [Xanax] 0.25 mg PO HS 04/25/24 02/20/25 Diltiazem Cd [Cardizem CD] 240 mg PO HS 04/25/24 02/20/25 Fluticasone/Umeclidin/Vilanter 1 puff INHALATION RT-DAILY 04/25/24 02/20/25 [Trelegy Ellipta 100-62.5-25] Levothyroxine Sodium [Synthroid] 75 mcg PO DAILY 04/25/24 02/20/25 QUEtiapine FUMARATE [SEROquel] 200 mg PO HS 04/25/24 02/20/25 Linaclotide [Linzess] 290 mcg PO DAILY 09/03/24 02/20/25 Baclofen [Lioresal] 10 mg PO QID PRN 09/22/24 02/20/25 Tiotropium 2.5 Mcg/Puff [Spiriva 2 puff INHALATION RT-DAILY 09/22/24 02/20/25 Respimat 2.5 Mcg] oxyCODONE-APAP 10-325MG [Percocet 1 tab PO TID PRN 09/22/24 02/20/25 10-325 mg] Dicyclomine [Bentyl] 20 mg PO QID PRN 02/20/25 02/20/25 Lactulose [Cephulac] 30 gm PO QID PRN 02/20/25 02/20/25 Lubiprostone [Amitiza] 24 mcg PO BID 02/20/25 02/20/25 Metaxalone [Skelaxin] 800 mg PO Q8H PRN 02/20/25 02/20/25 Tenapanor HCl [Ibsrela] 50 mg PO BID 02/20/25 02/20/25 Vonoprazan Fumarate [Voquezna] 20 mg PO DAILY 02/20/25 02/20/25 fentaNYL 50MCG/HR PATCH [Duragesic 50 mcg TRANSDERM Q72H 02/20/25 02/20/25 50MCG/HR] Previous Rx's Medication Instructions Recorded Ciprofloxacin HCl [Cipro] 750 mg PO Q12H 1 Days #14 tab 02/27/25 HYDROcodone/APAP 10-325MG [Rangely 1 each PO Q4HR PRN #3 tab 02/27/25 10-325] Pantoprazole Sodium [Protonix] 40 mg PO DAILY #30 tab 02/27/25 predniSONE [Deltasone] See Taper PO DAILY #15 tab 02/27/25 Albuterol Inhaler [Ventolin Hfa 1 - 2 puff INHALATION Q6H PRN #1 03/12/25 Inhaler] each Amoxic-Pot Clav 875-125Mg 1 tab PO Q12HR 7 Days #14 tab 03/12/25 [Augmentin 875-125] Pantoprazole [Protonix] 40 mg PO DAILY 14 Days #14 tab 03/12/25 Allergies Allergy/AdvReac Type Severity Reaction Status Date / Time morphine Allergy Unknown Verified 03/12/25 10:36 Review of Systems ROS Statement: Those systems with pertinent positive or pertinent negative responses have been documented in the HPI. Review of Systems: CONST: Denies fever EYES: Denies blurry vision ENT: Denies nasal congestion C/V: Denies Chest pain RESP: Denies shortness of breath GI: Endorses abdominal pain : Denies dysuria SKIN: Denies rash. MSK: Denies joint pain. NEURO: Denies headache ROS Other: All systems not noted in ROS Statement are negative. Past Medical History Past Medical History: Cancer, GERD/Reflux, Hyperlipidemia, Hypertension, Thyroid Disorder Additional Past Medical History / Comment(s): Wheezing, lung cancer w/ 7 radiation and chemo 30days finished oct 2023- on IV Keytruda once a month but has not taken in 5months; abd pain & nausea x 6 months, inpatient @ [facility] 07/01/24- 07/04/24 for abd pain and 09/02-09/07/24. History of Any Multi-Drug Resistant Organisms: None Reported Past Surgical History: Adenoidectomy, Cholecystectomy, Tonsillectomy Additional Past Surgical History / Comment(s): Colonoscopy/EGD w/ D r.tumma06/28/24.unable to find anything per patient. Past Anesthesia/Blood Transfusion Reactions: No Reported Reaction Additional Past Anesthesia/Blood Transfusion Reaction / Comment(s): Sedation only for Colonoscopy. Past Psychological History: Anxiety, Panic Disorder Smoking Status: Former smoker Past Alcohol Use History: None Reported Past Drug Use History: None Reported - Past Family History Mother Family Medical History: Cancer Additional Family Medical History / Comment(s): Pancreatic cancer Sister(s) Family Medical History: Cancer Additional Family Medical History / Comment(s): Pancreatic cancer Brother(s) Family Medical History: Cancer Additional Family Medical History / Comment(s): Leukemia General Exam - General Exam Comments Initial Comments: General: Appears in mild distress secondary to abdominal pain. HEAD: Normal with no signs of head trauma. EYES: PERRLA, EOMI, conjunctiva normal, no discharge. ENT: Hearing grossly intact, normal oropharynx. RESPIRATORY: Clear breath sounds bilaterally. No wheezes, rales, or rhonchi. C/V: Regular rate and rhythm. S1 and S2 auscultated, no edema, peripheral pulses 2+ and intact throughout ABD: Abdomen soft, nondistended. No focal tenderness to palpation. General. No guarding or rebound tenderness. No peritoneal signs. EXT: Normal range of motion, no obvious deformity SKIN: No rashes or lesions observed on exposed skin. NEURO: Alert and oriented x 4. Course Vital Signs 03/12/25 10:26 Temperature 97.4 F L Pulse Rate 75 Respiratory 16 Rate Blood Pressure 171/100 O2 Sat by Pulse 98 Oximetry Medical Decision Making - Medical Decision Making Was pt. sent in by a medical professional or institution (CARMENZA Quispe, [employer]UC[employer]IST, urgent care, hospital, or long-term...) When possible be specific @ -No Did you speak to anyone other than the patient for history (EMS, parent, family, police, friend...)? What history was obtained from this source @ -No Did you review nursing and triage notes (agree or disagree)? Why? @ -I reviewed and agree with nursing and triage notes Were old charts reviewed (outside hosp., previous admission, EMS record, old EKG, old radiological studies, urgent care reports/EKG's, long-term records)? Report findings @ -Reviewed chart from January [address] imaging was obtained as well as laboratory studies. No obvious acute findings on workup at that time for her chronic abdominal pain. Differential Diagnosis (chest pain, altered mental status, abdominal pain women, abdominal pain men, vaginal bleeding, weakness, fever, dyspnea, syncope, headache, dizziness, GI bleed, back pain, seizure, CVA, palpatations, mental health, musculoskeletal)? @ -Differential Abdominal Pain Women: Appendicitis, Cholecystitis, diverticulosis, ischemic bowel, pancreatitis, hepatitis, UTI, gastroenteritis, AAA, incarcerated hernia, bowel obstruction, constipation, inflammatory bowel, hepatitis, peptic ulcer disease, splenic infarction, perforated viscus, vulvitis, ovarian torsion, PID, kidney stone, placenta abruption, this is not meant to be an all-inclusive list EKG interpreted by me (3pts min.). @ -As above X-rays interpreted by me (1pt min.). @ -None done CT interpreted by me (1pt min.). @ -CT imaging revealed no obvious acute intra-abdominal process. Patient does have possible pneumonia. Small pericardial effusion also present. 6 mm nonobstructing right renal stone. U/S interpreted by me (1pt. min.). @ -None done What testing was considered but not performed or refused? (CT, X-rays, U/S, labs)? Why? @ -None What meds were considered but not given or refused? Why? @ -None Did you discuss the management of the patient with other professionals (professionals i.e. CARMENZA Quispe, [employer] EDUC[employer] SPECIALIST, lab, RT, psych nurse, social work instructor, journal entry audit clerk, teacher, upscale security officer, special education case manager)? Give summary @ -No Was smoking cessation discussed for >3mins.? @ -No Was critical care preformed (if so, how long)? @ -No Were there social determinants of health that impacted care today? How? (Homelessness, low income, unemployed, alcoholism, drug addiction, transportation, low edu. Level, literacy, decrease access to med. care, half-way, rehab)? @ -No Was there de-escalation of care discussed even if they declined (Discuss DNR or withdrawal of care, Hospice)? DNR status @ -No What co-morbidities impacted this encounter? (DM, HTN, Smoking, COPD, CAD, Cancer, CVA, ARF, Chemo, Hep., AIDS, mental health diagnosis, sleep apnea, morbid obesity)? @ -Chronic abdominal pain, cancer Was patient admitted / discharged? Hospital course, mention meds given and route, prescriptions, significant lab abnormalities, going to OR and other pertinent info. @ -Patient presents emergency department for intractable abdominal pain. It is chronic. She claims it is worse. States that Dr. Castro told her last week that he is concerned it could be a small bowel obstruction. Presents for further evaluation. She is on oxycodone and recently had feels of 120 pills. Vital signs are within acceptable limits. She will be given IV fluids, analgesia medications we will obtain abdominal laboratory studies. She was in agreement this plan. Laboratory studies returned remarkable for chronic elevations in her LFTs which are within reason of baseline for the patient. No other obvious acute finding on labs. At this time I did recommend discharge for close follow-up with her Dr. Castro. She is insistent that she could have a small bowel obstruction and states that he told her he is concerned regarding this. I did recommend that we do not obtain another CT however patient is insistent and she was conveyed the risks of receiving multiple doses of short-term radiation and she expressed understanding. Therefore we will obtain CT imaging. CT imaging negative for any obvious acute intra-abdominal process to explain her pain. This was as expected. Patient does have some pulmonary infiltrates and when I asked the patient if she has been coughing, she states she has been having a slightly worse cough lately. Therefore she will be started on anti biotics. We discussed her workup otherwise. She will be discharged home at this time with instructions follow-up with her PCP as well as oncologist. She will be given prescription for Protonix as well as Zofran. She was in agreement this plan. She was started on Augmentin for her pneumonia. Patient does have a remote history of COPD but is already on a Medrol Dosepak prescribed by her other provider. She will be given a prescription for albuterol inhaler. I will provide the patient with a prescription for Augmentin. I instructed the patient to follow up with their PCP in the next 1-3 days.. I explained that the patient should return to the emergency department if they experience any worsening symptoms. Strict return precautions were discussed with the patient. The patient expressed understanding of these instructions. I answered all questions that the patient had. The patient was discharged home in good condition with their prescriptions and follow up information. Undiagnosed new problem with uncertain prognosis? @ -No Drug Therapy requiring intensive monitoring for toxicity (Heparin, Nitro, Insulin, Cardizem)? @ -No Were any procedures done? @ -No Diagnosis/symptom? @ -Abdominal pain of unknown etiology, chronic Acute, or Chronic, or Acute on Chronic? @ -Chronic Uncomplicated (without systemic symptoms) or Complicated (systemic symptoms)? @ -Uncomplicated Side effects of treatment? @ -No Exacerbation, Progression, or Severe Exacerbation? @ -No Poses a threat to life or bodily function? How? (Chest pain, [place], [place], pneumonia, PE, COPD, DKA, ARF, appy, cholecystitis, CVA, Diverticulitis, Homicidal, Suicidal, threat to staff... and all critical care pts) @ -Unlikely at this time Diagnosis/symptom? @ -Pneumonia Acute, or Chronic, or Acute on Chronic? @ -Acute Uncomplicated (without systemic symptoms) or Complicated (systemic symptoms)? @ -Uncomplicated Side effects of treatment? @ -None Exacerbation, Progression, or Severe Exacerbation] @ -No Poses a threat to life or bodily function? @ -Unlikely at this time - Lab Data Result diagrams: 03/12/25 11:07 03/12/25 11:07 Lab Results 03/12/25 03/12/25 03/12/25 Range/Units 11:07 11:07 11:07 WBC 7.37 (4.50-10.00) 10*3/uL RBC 3.66 L (4.10-5.20) 10*6/uL Hgb 11.9 L (12.0-15.0) g/dL Hct 34.8 L (37.2-46.3) % MCV 95.1 (80.0-97.0) fL MCH 32.5 H (27.0-32.0) pg MCHC 34.2 (32.0-37.0) g/dL Plt Count 301 (140-440) 10*3/uL MPV 9.3 L (9.5-12.2) fL Immature Gran % (Auto) 10.0 % Neutrophils % (Manual) 81 % Band Neuts % (Manual) 3 % Lymphocytes % (Manual) 7 % Monocytes % (Manual) 6 % Metamyelocytes % 2 % Myelocytes % 2 % Immature Gran # 0.74 H (0.00-0.04) 10*3/uL Neutrophils # (Manual) 6.19 (1.3-7.7) k/uL Lymphocytes # (Manual) 0.52 L (1.0-4.8) k/uL Monocytes # (Manual) 0.44 (0-1.0) k/uL Metamyelocytes # (Man) 0.15 H (0) k/uL Myelocytes # (Manual) 0.15 H (0) k/uL Nucleated RBCs 0 (0-0) /100 WBC Manual Slide Review Performed Immature Plt Fraction 2.0 (1.1-6.1) % RBC Morphology Normal PT (10.0-12.5) sec INR (<1.2) APTT (22.0-30.0) sec Sodium 131 L (137-145) mmol/L Potassium 4.5 (3.5-5.1) mmol/L Chloride 97 L (98-107) mmol/L Carbon Dioxide 26 (22-30) mmol/L Anion Gap 8 mmol/L BUN 17 (7-17) mg/dL Creatinine 0.61 (0.52-1.04) mg/dL Est GFR (CKD-EPI)AfAm >90 (>60 ml/min/1.73 sqM) Est GFR (CKD-EPI)NonAf >90 (>60 ml/min/1.73 sqM) Glucose 82 (74-99) mg/dL Plasma Lactic Acid Wagner (0.7-2.0) mmol/L Calcium 9.2 (8.4-10.2) mg/dL Total Bilirubin 0.8 (0.2-1.3) mg/dL AST 267 H (14-36) U/L ALT 746 H (4-34) U/L Alkaline Phosphatase 195 H (38-126) U/L Total Protein 6.0 L (6.3-8.2) g/dL Albumin 3.6 (3.5-5.0) g/dL Amylase 46 (30-110) U/L Lipase 31 (23-300) U/L Urine Color Light Yellow Urine Appearance Clear (Clear) Urine pH 7.5 (5.0-8.0) Ur Specific [place] 1.021 (1.001-1.035) Urine Protein Negative (Negative) Urine Glucose (UA) Negative (Negative) Urine Ketones Negative (Negative) Urine Blood Negative (Negative) Urine Nitrite Negative (Negative) Urine Bilirubin Negative (Negative) Urine Urobilinogen <2.0 (<2.0) mg/dL Ur Leukocyte Esterase Negative (Negative) 03/12/25 03/12/25 Range/Units 11:07 12:54 WBC (4.50-10.00) 10*3/uL RBC (4.10-5.20) 10*6/uL Hgb (12.0-15.0) g/dL Hct (37.2-46.3) % MCV (80.0-97.0) fL MCH (27.0-32.0) pg MCHC (32.0-37.0) g/dL Plt Count (140-440) 10*3/uL MPV (9.5-12.2) fL Immature Gran % (Auto) % Neutrophils % (Manual) % Band Neuts % (Manual) % Lymphocytes % (Manual) % Monocytes % (Manual) % Metamyelocytes % % Myelocytes % % Immature Gran # (0.00-0.04) 10*3/uL Neutrophils # (Manual) (1.3-7.7) k/uL Lymphocytes # (Manual) (1.0-4.8) k/uL Monocytes # (Manual) (0-1.0) k/uL Metamyelocytes # (Man) (0) k/uL Myelocytes # (Manual) (0) k/uL Nucleated RBCs (0-0) /100 WBC Manual Slide Review Immature Plt Fraction (1.1-6.1) % RBC Morphology PT 11.2 (10.0-12.5) sec INR 1.0 (<1.2) APTT 19.0 L (22.0-30.0) sec Sodium (137-145) mmol/L Potassium (3.5-5.1) mmol/L Chloride (98-107) mmol/L Carbon Dioxide (22-30) mmol/L Anion Gap mmol/L BUN (7-17) mg/dL Creatinine (0.52-1.04) mg/dL Est GFR (CKD-EPI)AfAm (>60 ml/min/1.73 sqM) Est GFR (CKD-EPI)NonAf (>60 ml/min/1.73 sqM) Glucose (74-99) mg/dL Plasma Lactic Acid Wagner 1.2 (0.7-2.0) mmol/L Calcium (8.4-10.2) mg/dL Total Bilirubin (0.2-1.3) mg/dL AST (14-36) U/L ALT (4-34) U/L Alkaline Phosphatase (38-126) U/L Total Protein (6.3-8.2) g/dL Albumin (3.5-5.0) g/dL Amylase (30-110) U/L Lipase (23-300) U/L Urine Color Urine Appearance (Clear) Urine pH (5.0-8.0) Ur Specific [place] (1.001-1.035) Urine Protein (Negative) Urine Glucose (UA) (Negative) Urine Ketones (Negative) Urine Blood (Negative) Urine Nitrite (Negative) Urine Bilirubin (Negative) Urine Urobilinogen (<2.0) mg/dL Ur Leukocyte Esterase (Negative) Disposition Clinical Impression: Chronic abdominal pain, Pneumonia, Abdominal pain of unknown etiology Disposition: HOME SELF-CARE Condition: Good Instructions (If sedation given, give patient instructions): Community Acquired Pneumonia (ED), Abdominal Pain (ED) Prescriptions: Amoxic-Pot Clav 875-125Mg [Augmentin 875-125] 1 tab PO Q12HR 7 Days #14 tab Pantoprazole [Protonix] 40 mg PO DAILY 14 Days #14 tab Albuterol Inhaler [Ventolin Hfa Inhaler] 1 - 2 puff INHALATION Q6H PRN #1 each PRN Reason: Dyspnea Is patient prescribed a controlled substance at d/c from ED?: No Referrals: Tray Garnett MD [Primary Care Provider] - 1-2 days Geronimo Castro MD [STAFF PHYSICIAN] - 1-2 days Time of Disposition: 15:30
[2025-03-12] MEDS: AMOXIC-POT CLAV 875-125MG 1 EACH TAB PO STA (16:53)
[2025-03-12] MEDS: ONDANSETRON 4 MG ODT STARTER PACK 2 TAB BTL PO STA (16:54)
[2025-03-12] MEDS: cefTRIAXone IN SWFI 1,000 MG/10 ML SYRINGE IVP STA (16:55)
[2025-03-12 16:59] VITALS: BP 184/98; PULSE 76; RESP 20; TEMP 98.2
== END 2025-03-12 17:10 | disposition home or self-care (01) ==
LOC: EC 10:21
DX: R10.9 Unspecified abdominal pain (principal); G89.29 Other chronic pain; J18.9 Pneumonia, unspecified organism; C34.90 Malignant neoplasm of unspecified part of unspecified bronchus or lung; Z87.891 Personal history of nicotine dependence; Z88.5 Allergy status to narcotic agent
CPT/HCPCS: 36415; 80053; 82150; 83605; 83690; 85025; 85610; 85730; 81003; 74177; 99285; 96374; 96375; 96376; 96361; J2405; J0696; J1171; S0119; Q9967; J2470